=== PATIENT | male | born 1945 | race Caucasian/White ===

== ENCOUNTER 2020-04-01 09:01 | Outpatient (CLI) | payer OTHER, SELFPAY ==
[2020-04-01 09:11] VITALS: BMI 26.4
--- NOTE | 2020-04-01 09:19 | ECG_ITS ---
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 Interpretive Statements NAME OF STUDY: LEXISCAN SESTAMIBI STRESS TEST INDICATION: Chest Pain, PROCEDURE: At the baseline, the EKG revealed normal sinus rhythm with a poor R wave progression. Some nonspecific T wave changes. The baseline blood pressure was 131/85 mm Hg with a heart rate of 70 beats/min. Lexiscan was infused over a period of 20 seconds. A total of 0.4 milligrams of Lexiscan was infused. The stress phase was continued for a total of 5 minutes. Heart rate at the end of the stress phase was 77 with a blood pressure 130/72. The EKG at the peak infusion revealed no significant changes. Sestamibi was injected 20 seconds after the Lexiscan infusion. Blood pressure at the end of the recovery phase was 123/71 with a heart rate of 77 per minute. CONCLUSION: 1. No significant EKG changes with the LexiScan infusion 2. No LexiScan induced chest pain or cardiac arrhythmia 3. Normal blood pressure and heart rate response 4. Sestamibi/sestamibi perfusion scan pending; see separate report. Electronically Signed On 04-05-2020 17:46:44 CDT by Yasir Bobby M.D. [id number]
--- NOTE | 2020-04-01 09:20 | NMCV_ITS ---
NM philip perf SPECT r/s* [id number] Benny Burch Age: 75 Gender: M : 1945 Exam Date: 04/01/2020 10:00 Ordering Phys: Stuart Burns MD Technologist: WOODY Bautista Exam Location: [facility] Indications: CHEST PAIN STRESS TEST Please see separate stress test report in [facility] for full findings IMAGE PROTOCOL Rest/Stress 1 Lexiscan Day Radiopharmaceutical Dose (mCi) Administration Site Administered by Rest: Tc-99m 10.7 IV WOODY Ramos Sestamibi Stress:Tc-99m 32.4 IV WOODY Ramos Sestamibi Rest: 60 Discovery 630 Stress: 30 Discovery 630 0.4mg Lexiscan. Images obtained in supine and prone position. SPECT RESULTS Technical Quality: Good Raw Data Analysis: Normal Image Corrections: Patient motion artifact - motion correction applied to stress and prone Summed Stress Score: 4 Summed Rest Score: 4 Summed Difference Score: 1 PERFUSION FINDINGS Small size perfusion abnormality of mild severity of mid to apical inferior, mid inferolateral and apical anterior and apical lateral raphael on rest images with subtle reversibility in apical lateral wall on supine stress images. There is nearly homogeneous tracer uptake on prone stress images. This is suggestive of attenuation artifact. FUNCTIONAL RESULTS (calculated via Gated SPECT) Stress Image LV EF (%): 74 Stress EDV (mL):89 TID: 1.02 Stress ESV (mL):23 FUNCTIONAL FINDINGS: The left ventricle is normal in size. Transient Ischemia Dilatation of 1. There is normal left ventricular systolic function. The left ventricular ejection fraction is normal with a value of 74%. There is normal left ventricular wall thickening. Normal end-diastolic end-systolic volumes. IMPRESSIONS 1. Myocardial perfusion imaging is normal. Attenuation artifact noted on inferior and lateral raphael. 2. Overall left ventricular systolic function is normal without regional wall motion abnormalities. 3. The left ventricular ejection fraction is normal with a value of 74%. 4. No coronary ischemia based on the study. Charo Hernandez MD (Electronically Signed) Final Date: 01 April 2020 17:00 S
[2020-04-01] MEDS: regadenoson 0.4 Mg/5 ml Syringe IVP (10:43)
[2020-04-01 10:57] VITALS: BP 123/71; PULSE 77
== END 2020-04-01 09:02 | disposition home or self-care (01) ==
LOC: CDL 09:02
PROVIDERS: PCP Family Medicine; Visit Provider Internal Medicine Critical Care Medicine
DX: R06.02 Shortness of breath (principal); R07.9 Chest pain, unspecified
CPT/HCPCS: 78452; 93017; A9500; J2785

== ENCOUNTER 2020-04-02 14:07 | Outpatient (CLI) | payer OTHER, SELFPAY ==
--- NOTE | 2020-04-02 14:30 | CT_ITS ---
WS: [id number] CT CHEST TECHNIQUE: Noncontrast CT of the chest with coronal and sagittal reformatted images. CLINICAL INFORMATION: Shortness of breath COMPARISON: 1 25,018 DLP: 753.[address] scans at [facility] use at least one of these dose optimization techniques: automat ed exposure control; mA and/or kV adjustment per patient size (includes targeted exams where dose is matched to clinical indication); or iterative reconstruction. FINDINGS: Mild chronic emphysematous changes. No acute pulmonary infiltrates. Bibasilar atelectasis. Pleural th ickening in the lung bases. No suspicious pulmonary parenchymal opacities. No mediastinal or hilar lymphadenopathy. Aortic calcification. Coronary calcification. No axillary ly mphadenopathy. Normal visualized thyroid. Adrenal glands are normal. Mild thoracic kyphosis. IMPRESSION: 1. No suspicious pulmonary parenchymal abnormalities. 2. Mild chronic emphysematous changes with slight atelectasis and pleural thickening in the lung bas es. This appears similar to 2018 3. No mediastinal or hilar lymphadenopathy. 4. Vascular calcification including coronary. 5. No other significant findings.
--- NOTE | 2020-04-02 15:00 | USCV_ITS ---
Marcin Benny Age: 75 Gender: M : 1945 Exam Date: 04/02/2020 14:28 Ordering Phys: Stuart Burns MD Technologist: Britni Palmer Exam Location: [facility] [place] Indication: SOB BP: 130 / 70 HR: 90 Rhythm: Sinus Technical Quality: Adequate MEASUREMENTS (Male / Female) Normal Values 2D ECHO LV Diastolic Diameter PLAX 3.1 cm 4.2 - 5.9 / 3.9 - 5.3 cm LV Systolic Diameter PLAX 1.8 cm LV Chamber Size 3.4 cm IVS Diastolic Thickness 1.1 cm 0.6 - 1.0 / 0.6 - 0.9 cm IVS Systolic Thickness 1.6 cm LVPW Diastolic Thickness 1.4 cm 0.6 - 1.0 / 0.6 - 0.9 cm LVPW Systolic Thickness 1.4 cm RV Chamber Size 3.1 cm LVOT Diameter 2.0 cm LV Ejection Fraction 2D Teich 72.8 % LV Ejection Fraction MOD 2C 58.4 % LV Ejection Fraction 2C AL 62.6 % LA Diameter 3.8 cm LA Width 2.7 cm LA Height 4.4 cm RA Width 3.4 cm RA Height 3.7 cm Aorta at Sinotubular Diameter 3.1 cm M-MODE LV Diastolic Diameter MM 4.4 cm 4.2 - 5.9 / 3.9 - 5.3 cm LV Systolic Diameter MM 2.7 cm LV Ejection Fraction MM Teich 70.7 % IVS Diastolic Thickness MM 1.4 cm 0.6 - 1.0 / 0.6 - 0.9 cm IVS Systolic Thickness MM 1.2 cm LVPW Diastolic Thickness MM 1.4 cm 0.6 - 1.0 / 0.6 - 0.9 cm LVPW Systolic Thickness MM 1.6 cm RV Diastolic Diameter MM 1.3 cm Aortic Annulus Diameter 3.6 cm LA Ao Ratio MM 1.1 MV E Point Septal Separation 0.6 cm DOPPLER AV Peak Velocity 184.0 cm/s LVOT Peak Velocity 89.0 cm/s AV Area Cont Eq vti 1.7 cm squared AV Area Cont Eq pk 1.6 cm squared MV Area PHT 5.5 cm squared Mitral E to A Ratio 0.7 MV E' Velocity 10.0 cm/s Mitral E to MV E' Ratio 5.7 Mitral E to LV E' Lateral Ratio 5.8 Mitral E to LV E' Septal Ratio 5.7 TR Peak Velocity 92.8 cm/s TR Peak Gradient 3.4 mmHg TR Mean Velocity 63.5 cm/s TR Mean Gradient 1.9 mmHg TR Velocity Time Integral 20.4 cm TV Peak E Velocity 56.0 cm/s Right Atrial Pressure 3.0 mmHg Pulmonary Artery Systolic Pressu 6.4 mmHg PV Peak Velocity 76.0 cm/s RV Acceleration Time 0.2 s RV Ejection Time 0.3 s RV AcT/ET 0.6 FINDINGS Left Ventricle Normal left ventricular size, systolic function and wall thickness, with no regional wall motion abnormalities. Left ventricular ejection fraction is estimated at 60-65 %. Normal diastolic function. Right Ventricle Normal right ventricular size and systolic function. Right ventricular systolic pressure 6.4 mmHg. Right Atrium Normal right atrial size. Right atrial pressure estimated at 3 mm Hg. Left Atrium Normal left atrial size. Mitral Valve Mildly thickened mitral valve. No mitral valve stenosis. No mitral valve regurgitation. Aortic Valve Structurally normal trileaflet aortic valve. No aortic valve stenosis. Trace aortic valve regurgitation. Tricuspid Valve Structurally normal tricuspid valve. Trace tricuspid valve regurgitation. Pulmonic Valve Pulmonic valve not well visualized. No pulmonary valve stenosis. Trace pulmonary valve regurgitation. Pericardium No pericardial effusion. Normal sized inferior vena cava. Aorta Normal size aortic root and proximal ascending aorta. CONCLUSIONS 1. Normal left ventricular size, systolic function and wall thickness, with no regional wall motion abnormalities. Left ventricular ejection fraction is estimated at 60-65 %. Normal diastolic function. 2. Normal pulmonary artery pressure. 3. No significant valvular abnormality. 4. Normal sized inferior vena cava. Charo Hernandez MD (Electronically Signed) Final Date: 06 April 2020 07:56 S
== END 2020-04-02 14:08 | disposition home or self-care (01) ==
LOC: CT 14:10
PROVIDERS: PCP Family Medicine; Visit Provider Internal Medicine Critical Care Medicine
DX: R06.02 Shortness of breath (principal); I25.10 Atherosclerotic heart disease of native coronary artery without angina pectoris
CPT/HCPCS: 71250; 93306

== ENCOUNTER 2020-04-15 11:00 | Outpatient (CLI) | payer OTHER, SELFPAY | END 2020-04-15 11:01 | disposition home or self-care (01) | LOC: SLEEP 04-16 11:28 | PROVIDERS: PCP Family Medicine; Visit Provider Internal Medicine Critical Care Medicine | DX: J44.9 Chronic obstructive pulmonary disease, unspecified (principal) | CPT/HCPCS: 94762 ==

== ENCOUNTER 2021-02-18 10:35 | Outpatient (CLI) | payer OTHER, SELFPAY ==
--- NOTE | 2021-02-18 10:40 | XR_ITS ---
WS: [id number] PROCEDURE: XR chest 2V* [id number] CLINICAL INFORMATION: COPD COMPARISON: CT chest April 02, 2020 FINDINGS: Heart: Cardiomegaly. Aortic calcification. Lungs: Moderate chronic emphysematous changes. No acute pulmonary infiltrates. Flattening of the verito diaphragms with chronic pleural thickening in the lung bases. Bones: Mild thoracic kyphosis. Osteopenia. XR/XR chest 2V* [id number] IMPRESSION: 1. Moderate chronic emphysematous changes. No acute pulmonary infiltrates. 2. Hyperinflation with flattening of the hemidiaphragms. 3. Chronic pleural thickening/small pleural effusions in the lung bases. This is similar to the CT April 02, 2020
== END 2021-02-18 10:36 | disposition home or self-care (01) ==
LOC: RAD 10:38
PROVIDERS: PCP Family Medicine; Visit Provider Chiropractor
DX: J44.9 Chronic obstructive pulmonary disease, unspecified (principal)
CPT/HCPCS: 71046

== ENCOUNTER 2021-04-22 11:15 | Observation (INO) | payer OTHER, MEDICARE, SELFPAY ==
[2021-04-22] VITALS (10 sets, daily range): BP systolic 138–163; BP diastolic 64–85; PULSE 90–112; RESP 20–28; TEMP 36.8; O2SAT 87–92; BMI 25.7
--- NOTE | 2021-04-22 11:32 | XR_ITS ---
WS: [id number] XR chest 1V portable [id number] REASON FOR EXAM: SOB FINDINGS: Tenting of the hemidiaphragms with blunting of the costophrenic angles, 02/18/2021. There may now be early infiltrative change in both lung bases, more notably on the left were medial l eft hemidiaphragm is obscured and there appears to be increased density behind the heart. No other significant interval change is identified. XR/XR chest 1V portable [id number] IMPRESSION: Concern for early pneumonitis. Follow-up chest x-ray recommended.
--- NOTE | 2021-04-22 11:32 | ECG_ITS ---
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 Measurements Intervals [place] Rate: 102 P: 73 [place]: 210 QRS: -85 QRSD: 93 T: 75 QT: 320 QTc: 419 Interpretive Statements SINUS TACHYCARDIA WITH FIRST DEGREE AV BLOCK LEFT AXIS DEVIATION [QRS AXIS < -30] MODERATE ST DEPRESSION [0.05+ mV ST DEPRESSION] No previous ECG available for comparison Electronically Signed On 04-22-2021 22:08:08 CDT by Charo Hernandez M.D. [id number] f
--- NOTE | 2021-04-22 13:32 | ECG_ITS ---
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 Measurements Intervals [place] Rate: 103 P: 70 NJ: 215 QRS: -86 QRSD: 82 T: 74 QT: 318 QTc: 417 Interpretive Statements SINUS TACHYCARDIA WITH FIRST DEGREE AV BLOCK LEFT AXIS DEVIATION [QRS AXIS < -30] POSSIBLE RIGHT VENTRICULAR CONDUCTION DELAY [RSR (QR) IN V1/V2] No previous ECG available for comparison Electronically Signed On 04-22-2021 22:26:54 CDT by Charo Hernandez M.D. [id number]
--- NOTE | 2021-04-22 13:49 | ED_ITS ---
Documented by User: MARSHALL Mcdaniel 04/22/21 15:13 HPI - SOB/Dyspnea General: Chief Complaint: Shortness of Breath/Dyspnea Stated Complaint: SOB Time Seen by Provider: 04/22/21 13:42 Source: patient Mode of arrival: wheelchair Limitations: no limitations History of Present Illness: HPI Narrative: Patient is a 76-year-old male with a history of COPD, pre-diabetes (treated with Metformin), and hyperlipidemia here for complaints of shortness of breath x 4 days. Patient states he normally wears 2L O2 via [place] continuously. Patient states he thinks he may have gotten a viral illness after visiting family in [place]. He states he did have some mild rhinorrhea. He has having a productive cough. No documented fevers. No chills or body aches. Patient is fully vaccinated for COVID. No chest pain or palpitations. No lower extremity swelling. He states he is getting extremely short of breath even with minimal exertion. MD elicited complaint: shortness of breath Pertinent past history: COPD Onset (ago): day(s) Timing: constant Severity: moderate Exacerbating factors: exertion Relieving factors: rest Known history of: COPD Associated symptoms: Reports chest congestion; Deny abdominal pain, chest pain, fever(s), hemoptysis, lightheadedness, nausea, palpitations, syncope or vomiting Related Data: Home oxygen amount: 2 liters Review of Systems Const: Reports: fatigue; Denies: fever(s), chills or body aches Eyes: Denies: change in vision or blurry vision ENMT: Reports: nasal discharge; Denies: throat pain, odynophagia, nasal congestion, post nasal drip or sinus pain Card: Reports: dyspnea on exertion; Denies: chest pain, palpitations, irregular heart rhythm, edema, swelling of feet/ankles, lightheadedness, syncope or pre-syncope Resp: Reports: dyspnea, productive cough, wheezing and chest congestion; Denies: hemoptysis GI: Denies: abdominal pain, nausea, vomiting or diarrhea Musc: Denies: neck pain or back pain Skin/Breast: Denies: rash Neuro: Denies: headache(s), numbness in extremities, weakness in extremities or sensory changes PFS ED PFSH: Medical History (Updated 04/22/21 @ 15:13 by MARSHALL Mcdaniel) Anxiety Chronic obstructive pulmonary disease Hyperlipidemia Insomnia Type 2 diabetes mellitus Social History Smoking and tobacco status: former smoker Quit status (tobacco): has quit using tobacco Year quit tobacco: 1999 - 1PPD x 10 Years Second hand smoke exposure: No Smoking risk assessment/counseling performed?: Yes Alcohol intake: never Lives independently: Yes Household members: none Marital status: Single service: Yes Current occupational status: employed 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 Current occupational exposures/hazards: No Pets and animals: Yes History of recent travel: No Current gender identity: Male Physical Exam Const: COMMON NORMALS: average body habitus, patient oriented x3, no limitations, healthy appearing, alert and well nourished GENERAL APPEARANCE: cooperative and in distress (appears SOB) ORIENTATION/CONSCIOUSNESS: Yes awake, Yes oriented to person, Yes oriented to place and Yes oriented to time HENMT: COMMON NORMALS: normocephalic and atraumatic HEAD & SCALP: normocephalic and atraumatic Resp: EFFORT & INSPECTION: Yes respiratory distress (mild), Yes labored (mild), No Actively coughing, No retractions and No uses accessory muscles AUSCULTATION: rhonchi and wheezes Cardio: COMMON NORMALS: regular rhythm RATE: tachycardic (mild) RHYTHM: regular rhythm Extremity: COMMON NORMALS: no calf tenderness and no pedal edema Neuro: MARGARET COMA SCALE: document GCS findings [place] coma scale eye opening: Spontaneous Margaret coma scale verbal response: Orientated Margaret coma scale motor response: Obey commands Margaret coma scale total score: 15 COMMON NORMALS: patient oriented x3 SENSORIUM/ORIENTATION: Yes alert, Yes oriented to person, Yes oriented to place and Yes oriented to time Skin: COMMON NORMALS: no rashes or lesions noted GENERAL SKIN EXAM: no rashes or lesions noted Course Consultations: Consultation #1: Dr. Villarreal-recommends PCR COVID and D-dimer for PE rule out; CTA if D-dimer is elevated Vital Signs: Vital signs: Vital Signs Temperature 98.3 F 04/22/21 11:19 Pulse Rate 104 H 04/22/21 14:49 Respiratory Rate 22 H 04/22/21 14:42 Blood Pressure 138/76 04/22/21 14:21 Pulse Oximetry 91 04/22/21 14:42 MDM - SOB/Dyspnea MDM Narrative: Medical decision making narrative: Patient arrives to the ED with a complaint of shortness of breath. He is mildly tachycardic, tachypneic, and hypoxic at 87% on 4L. Patient normally is on 2L oxygen at home for COPD. Labs overall look okay with a normal white count, normal chemistry, normal normal procalcitonin, negative influenza/COVID swabs. CXR concerning for early pneumonitis. Due to increased oxygen requirement we will admit for COPD exacerbation. Spoke to Dr. Mondragon who also evaluated patient and agrees with admission. Spoke to Dr. Villarreal recommends PCR COVID and D-dimer for PE rule out. Lab Data: Labs: Lab Results 04/22/21 04/22/21 04/22/21 13:56 13:56 13:56 WBC 4.9 10^3/uL 10^3/ uL (4.0-10.0) RBC 5.74 10^6/uL H 10 ^6/uL (4.1-5.3) Hgb 17.6 g/dL H g/dL (11.7-16.6) Hct 53.6 % H % (42.0-52.0) MCV 93.4 fl fl (80-94) MCH 30.7 pg pg (28.0-34.0) MCHC 32.8 g/dL g/dL (30.0-36.0) RDW 13.9 % % (12.1-15.1) Plt Count 165 10^3/cmm 10^3 /cmm (130-400) MPV 11.1 fL H fL (7.4-10.4) Neut % (Auto) 66.9 % % Lymph % (Auto) 14.4 % % [place] % (Auto) 18.1 % % Eos % (Auto) 0.0 % % Baso % (Auto) 0.4 % % Neut # (Auto) 3.25 10^3/uL 10^3 /uL (1.8-7.7) Lymph # (Auto) 0.7 10^3/uL L 10^ 3/uL (0.8-4.8) [place] # (Auto) 0.9 10^3/uL 10^3/ uL (0.2-0.9) Eos # (Auto) 0.0 10^3/uL 10^3/ uL (0.0-0.8) Baso # (Auto) 0.0 10^3/uL 10^3/ uL (0.0-0.1) Nucleated RBC % (a uto) 0 % % Nucleated RBCs # 0.0 /100WBC /100W BC Sodium 137 mmol/L mmol/L (136-145) Chloride 98 mmol/L mmol/L (98-107) Carbon Dioxide 24 mmol/L mmol/L (22-29) BUN 15 mg/dL mg/dL (8-23) Creatinine 0.9 mg/dL mg/dL (0.7-1.2) GFR Calculation Not Reportable Glucose 101 mg/dL mg/dL (65-115) Calculated Osmolal ity 285 mOsm/kg mOsm/ kg (285-295) Lactic Acid 1.6 mmol/L mmol/L (0.5-2.2) Calcium 9.0 mg/dL mg/dL (8.5-10.5) Total Bilirubin 0.6 mg/dL mg/dL (0.15-1.2) ALT 15 U/L U/L (0-41) Alkaline Phosphata se 60 IU/L IU/L (40-130) Troponin T Baselin e Total Protein 7.8 g/dL g/dL (6.6-8.7) Albumin 4.2 g/dL g/dL (3.5-5.2) Globulin 3.6 g/dL g/dL (1.3-4.6) Procalcitonin Influenza Type A A g Influenza Type B A g SARS-CoV-2 Ag (Rap id) 04/22/21 04/22/21 04/22/21 13:56 13:56 13:56 WBC RBC Hgb Hct MCV MCH MCHC RDW Plt Count MPV Neut % (Auto) Lymph % (Auto) [place] % (Auto) Eos % (Auto) Baso % (Auto) Neut # (Auto) Lymph # (Auto) [place] # (Auto) Eos # (Auto) Baso # (Auto) Nucleated RBC % (a uto) Nucleated RBCs # Sodium Chloride Carbon Dioxide BUN Creatinine GFR Calculation Glucose Calculated Osmolal ity Lactic Acid Calcium Total Bilirubin ALT Alkaline Phosphata se Troponin T Baselin e 10 ng/L ng/L (0-15) Total Protein Albumin Globulin Procalcitonin 0.22 ng/mL ng/mL (0-0.5) Influenza Type A A g Negative (Negative) Influenza Type B A g Negative (Negative) SARS-CoV-2 Ag (Rap id) 04/22/21 13:56 WBC RBC Hgb Hct MCV MCH MCHC RDW Plt Count MPV Neut % (Auto) Lymph % (Auto) [place] % (Auto) Eos % (Auto) Baso % (Auto) Neut # (Auto) Lymph # (Auto) [place] # (Auto) Eos # (Auto) Baso # (Auto) Nucleated RBC % (a uto) Nucleated RBCs # Sodium Chloride Carbon Dioxide BUN Creatinine GFR Calculation Glucose Calculated Osmolal ity Lactic Acid Calcium Total Bilirubin ALT Alkaline Phosphata se Troponin T Baselin e Total Protein Albumin Globulin Procalcitonin Influenza Type A A g Influenza Type B A g SARS-CoV-2 Ag (Rap id) Negative (Negative) Imaging Data^: CXR: Radiologist's impression: [address] [address] XRay Report Signed Patient: Benny Burch Unit #: [id number] : 1945 Age/Sex: 76 / M ADM Date: 04/22/21 Loc: ER Room/Bed: Attending Dr: Ordering Provider/Ordering MD: Gayle Hernandez Date of Service: 04/22/21 Procedure(s): XR chest 1V portable [id number] Accession Number(s): [id number] Report Number: [id number] WS: [id number] XR chest 1V portable [id number] REASON FOR EXAM: SOB FINDINGS: Tenting of the hemidiaphragms with blunting of the costophrenic angles, 02/18/2021. There may now be early infiltrative change in both lung bases, more notably on the left were medial left hemidiaphragm is obscured and there appears to be increased density behind the heart. No other significant interval change is identified. XR/XR chest 1V portable [id number] IMPRESSION: Concern for early pneumonitis. Follow-up chest x-ray recommended. Dictated By: Salazar Valencia Jr, MD Signed By: Salazar Valencia Jr, MD Signed Date/Time: 04/22/21 1211 DD/ 1206 Discharge Plan Discharge Patient Disposition: Placed in Observation Clinical Impression: Acute exacerbation of chronic obstructive airways disease Condition: Stable Prescriptions: No Action ipratropium-albuterol 0.5 mg-3 mg(2.5 mg base)/3 mL solution for nebulization 3 ml inhalation Q6H PRN (Reason: wheezing) 30 Days Qty: 320 RF: 4 budesonide-formoterol [Symbicort] 160-4.5 mcg/actuation HFA aerosol inhaler 2 puff INHALATION BID RF: 0 simvastatin 80 mg tablet 40 mg PO QPM RF: 0 Spiriva Respimat 2.5 mcg/actuation mist 2 inh INHALATION QAM RF: 0 trazodone 100 mg tablet 100 mg PO BEDTIME PRN (Reason: Sleep) RF: 0 aspirin [Adult Aspirin Regimen] 81 mg tablet,delayed release (DR/EC) 81 mg PO DAILY@11 RF: 0 metformin 1,000 mg Tablet 1,000 mg PO BID RF: 0 ibuprofen 200 mg Tablet 600 mg PO Q6H PRN (Reason: Pain) RF: 0 Ventolin HFA 90 mcg/actuation Hfa Aerosol Inhaler 2 puff INHALATION QID PRN (Reason: Shortness Of Breath) RF: 0 Vitamin D3 125 mcg (5,000 unit) Tablet 125 mcg PO DAILY RF: 0 Referrals: Wanda Graves MD [Primary Care Provider] - Coding Level of Care Code ED Supervisor Backfilling for Chg Fwd Exam Detailed Documented by User: Dl Mondragon MD 04/22/21 15:06 HPI - SOB/Dyspnea General: Chief Complaint: Shortness of Breath/Dyspnea Stated Complaint: SOB Time Seen by Provider: 04/22/21 13:42 PFSH ED PFSH: Medical History (Updated 04/22/21 @ 15:13 by MARSHALL Mcdaniel) Anxiety Chronic obstructive pulmonary disease Hyperlipidemia Insomnia Type 2 diabetes mellitus Social History Smoking and tobacco status: former smoker Quit status (tobacco): has quit using tobacco Year quit tobacco: 2000 - 1PPD x 10 Years Second hand smoke exposure: No Smoking risk assessment/counseling performed?: Yes Alcohol intake: never Lives independently: Yes Household members: none Marital status: Single service: Yes Current occupational status: employed 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 For COPD exacerbation Time: 15:06 Vital Signs: Vital signs: Vital Signs Temperature 98.3 F 04/22/21 11:19 Pulse Rate 104 H 04/22/21 14:49 Respiratory Rate 22 H 04/22/21 14:42 Blood Pressure 138/76 04/22/21 14:21 Pulse Oximetry 91 04/22/21 14:42 MDM - SOB/Dyspnea Lab Data: Labs: Lab Results 04/22/21 04/22/21 04/22/21 13:56 13:56 13:56 WBC 4.9 10^3/uL 10^3/ uL (4.0-10.0) RBC 5.74 10^6/uL H 10 ^6/uL (4.1-5.3) Hgb 17.6 g/dL H g/dL (11.7-16.6) Hct 53.6 % H % (42.0-52.0) MCV 93.4 fl fl (80-94) MCH 30.7 pg pg (28.0-34.0) MCHC 32.8 g/dL g/dL (30.0-36.0) RDW 13.9 % % (12.1-15.1) Plt Count 165 10^3/cmm 10^3 /cmm (130-400) MPV 11.1 fL H fL (7.4-10.4) Neut % (Auto) 66.9 % % Lymph % (Auto) 14.4 % % [place] % (Auto) 18.1 % % Eos % (Auto) 0.0 % % Baso % (Auto) 0.4 % % Neut # (Auto) 3.25 10^3/uL 10^3 /uL (1.8-7.7) Lymph # (Auto) 0.7 10^3/uL L 10^ 3/uL (0.8-4.8) [place] # (Auto) 0.9 10^3/uL 10^3/ uL (0.2-0.9) Eos # (Auto) 0.0 10^3/uL 10^3/ uL (0.0-0.8) Baso # (Auto) 0.0 10^3/uL 10^3/ uL (0.0-0.1) Nucleated RBC % (a uto) 0 % % Nucleated RBCs # 0.0 /100WBC /100W BC Sodium 137 mmol/L mmol/L (136-145) Chloride 98 mmol/L mmol/L (98-107) Carbon Dioxide 24 mmol/L mmol/L (22-29) BUN 15 mg/dL mg/dL (8-23) Creatinine 0.9 mg/dL mg/dL (0.7-1.2) GFR Calculation Not Reportable Glucose 101 mg/dL mg/dL (65-115) Calculated Osmolal ity 285 mOsm/kg mOsm/ kg (285-295) Lactic Acid 1.6 mmol/L mmol/L (0.5-2.2) Calcium 9.0 mg/dL mg/dL (8.5-10.5) Total Bilirubin 0.6 mg/dL mg/dL (0.15-1.2) ALT 15 U/L U/L (0-41) Alkaline Phosphata se 60 IU/L IU/L (40-130) Troponin T Baselin e Total Protein 7.8 g/dL g/dL (6.6-8.7) Albumin 4.2 g/dL g/dL (3.5-5.2) Globulin 3.6 g/dL g/dL (1.3-4.6) Procalcitonin Influenza Type A A g Influenza Type B A g SARS-CoV-2 Ag (Rap id) 04/22/21 04/22/21 04/22/21 13:56 13:56 13:56 WBC RBC Hgb Hct MCV MCH MCHC RDW Plt Count MPV Neut % (Auto) Lymph % (Auto) [place] % (Auto) Eos % (Auto) Baso % (Auto) Neut # (Auto) Lymph # (Auto) [place] # (Auto) Eos # (Auto) Baso # (Auto) Nucleated RBC % (a uto) Nucleated RBCs # Sodium Chloride Carbon Dioxide BUN Creatinine GFR Calculation Glucose Calculated Osmolal ity Lactic Acid Calcium Total Bilirubin ALT Alkaline Phosphata se Troponin T Baselin e 10 ng/L ng/L (0-15) Total Protein Albumin Globulin Procalcitonin 0.22 ng/mL ng/mL (0-0.5) Influenza Type A A g Negative (Negative) Influenza Type B A g Negative (Negative) SARS-CoV-2 Ag (Rap id) 04/22/21 13:56 WBC RBC Hgb Hct MCV MCH MCHC RDW Plt Count MPV Neut % (Auto) Lymph % (Auto) [place] % (Auto) Eos % (Auto) Baso % (Auto) Neut # (Auto) Lymph # (Auto) [place] # (Auto) Eos # (Auto) Baso # (Auto) Nucleated RBC % (a uto) Nucleated RBCs # Sodium Chloride Carbon Dioxide BUN Creatinine GFR Calculation Glucose Calculated Osmolal ity Lactic Acid Calcium Total Bilirubin ALT Alkaline Phosphata se Troponin T Baselin e Total Protein Albumin Globulin Procalcitonin Influenza Type A A g Influenza Type B A g SARS-CoV-2 Ag (Rap id) Negative (Negative) Discharge Plan Discharge Patient Disposition: Placed in Observation Clinical Impression: Acute exacerbation of chronic obstructive airways disease Condition: Stable Prescriptions: No Action ipratropium-albuterol 0.5 mg-3 mg(2.5 mg base)/3 mL solution for nebulization 3 ml inhalation Q6H PRN (Reason: wheezing) 30 Days Qty: 320 RF: 4 budesonide-formoterol [Symbicort] 160-4.5 mcg/actuation HFA aerosol inhaler 2 puff INHALATION BID RF: 0 simvastatin 80 mg tablet 40 mg PO QPM RF: 0 Spiriva Respimat 2.5 mcg/actuation mist 2 inh INHALATION QAM RF: 0 trazodone 100 mg tablet 100 mg PO BEDTIME PRN (Reason: Sleep) RF: 0 aspirin [Adult Aspirin Regimen] 81 mg tablet,delayed release (DR/EC) 81 mg PO DAILY@11 RF: 0 metformin 1,000 mg Tablet 1,000 mg PO BID RF: 0 ibuprofen 200 mg Tablet 600 mg PO Q6H PRN (Reason: Pain) RF: 0 Ventolin HFA 90 mcg/actuation Hfa Aerosol Inhaler 2 puff INHALATION QID PRN (Reason: Shortness Of Breath) RF: 0 Vitamin D3 125 mcg (5,000 unit) Tablet 125 mcg PO DAILY RF: 0 Referrals: Wanda Graves MD [Primary Care Provider] - Coding Level of Care Code ED Supervisor Backfilling for Chg Fwd Exam Detailed
[2021-04-22 14:17] LABS: Basophils % 0.4 %; Hematocrit 53.6 % (42.0-52.0); Hemoglobin 17.6 g/dL (11.7-16.6); Lymphocytes # 0.7 10^3/uL (0.8-4.8); Lymphocytes % 14.4 %; Mean Corpuscular HGB Conc 32.8 g/dL (30.0-36.0); Mean Corpuscular Hemoglobin 30.7 pg (28.0-34.0); Mean Corpuscular Volume 93.4 fl (80-94); Mean Platelet Volume 11.1 fL (7.4-10.4); Monocytes # 0.9 10^3/uL (0.2-0.9); Monocytes % 18.1 %; Neutrophils # 3.25 10^3/uL (1.8-7.7); Neutrophils % 66.9 %; Nucleated Red Blood Cells % 0 %; Platelet Count 165 10^3/cmm (130-400); Red Blood Count 5.74 10^6/uL (4.1-5.3); Red Cell Distribution Width 13.9 % (12.1-15.1); White Blood Count 4.9 10^3/uL (4.0-10.0)
[2021-04-22] MEDS: levofloxacin-dextrose 5 % 500 MG/100 ML PREMIX 100 MG IV (14:18)
[2021-04-22 14:30] LABS: Influenza A by IFA Negative (Negative); Influenza B by IFA Negative (Negative); SARS Covid-2 Antigen Negative (Negative)
--- NOTE | 2021-04-22 14:30 | PC.PHAR ---
pt states he takes care of his own medications-[facility]
[2021-04-22] MEDS: ipratropium-albuterol 3 mL Neb INHALATION (14:42)
[2021-04-22 14:45] LABS: Troponin(5th) Baseline 10 ng/L (0-15)
[2021-04-22 14:46] LABS: Lactic Sepsis W/Reflex 1.6 mmol/L (0.5-2.2)
[2021-04-22 14:48] LABS: Alanine Aminotransferase 15 U/L (0-41); Albumin Level 4.2 g/dL (3.5-5.2); Alkaline Phosphatase 60 IU/L (40-130); Blood Urea Nitrogen 15 mg/dL (8-23); Carbon Dioxide 24 mmol/L (22-29); Chloride 98 mmol/L (98-107); Globulin 3.6 g/dL (1.3-4.6); Glucose 101 mg/dL (65-115); Osmolality Calculated 285 mOsm/kg (285-295); Sodium 137 mmol/L (136-145); Total Bilirubin 0.6 mg/dL (0.15-1.2); Total Protein 7.8 g/dL (6.6-8.7)
[2021-04-22 14:54] LABS: Procalcitonin 0.22 ng/mL (0-0.5)
[2021-04-22 16:03] LABS: Anion Gap 19.4 (5-19); Aspartate Amino Transferase 24 U/L (0-40); Potassium 4.4 mmol/L (3.5-5.1)
[2021-04-22 16:08] LABS: D Dimer 0.94 ug/mIFEU (0-0.59)
--- NOTE | 2021-04-22 16:10 | CT_ITS ---
WS: [id number] CT angio chest PE protcl [id number] REASON FOR EXAM: tachycardia, hypoxia, SOB, elevated d dimer TECHNIQUE: Coronal and sagittal 2-D and MIP reformations. IV CONTRAST ADMINISTERED: 79 mL Omnipaque 350. TOTAL EXAM DLP: 614.[address] scans at [facility] use at least one of these dose optimization techniques: automat ed exposure control; mA and/or kV adjustment per patient size (includes targeted exams where dose is matched to clinical indication); or iterative reconstruction. FINDINGS: Comparison examination unenhanced CT scan of the chest 04/02/2020. There are no pulmonary emboli. Central lobar emphysema. Chronic subpleural interstitial change. Chronic fibrotic scarring in the lower lobes posteriorly. Small areas of atelectasis in the lung bases not seen on the previous examination. Chronicity unknown . No definite acute infiltrates to suggest pneumonitis. No lung mass. There is bilateral hilar adenopathy more prominent on the right. Largest group of nodes in the right hilum measures 3 x 1.4 cm and the smaller group 1.5 x 2.0 cm. In the left hilum largest group is 1.5 x 1.5 cm. Without contrast on the previous examination it is difficult to determine if these nodes we re present previously. Multiple small nodes are present in the mediastinum. These nodes as best as can be ascertained are so mewhat larger than the visualized nodes on the previous examination. Degenerative changes in the thoracic spine. CT/CT angio chest PE protcl [id number] IMPRESSION: No pulmonary emboli. Chronic lung parenchymal changes with small areas of atelectasis in both lung b ases of unknown chronicity. No definite acute pulmonary infiltrate. Adenopathy of uncertain chronicity. Concern for active process in that the curr ent mediastinal nodes appear larger than on the previous examination. The volum e of the adenopathy in the right hilum is of concern. Differential for the finding is extensive and would include neoplasm. Need to c orrelate clinically.
[2021-04-22] MEDS: iohexol 350 mg/mL 100 mL Btl IV (16:27)
[2021-04-22] MEDS: acetaminophen 500 mg Tablet 1000 MG PO (16:32)
--- NOTE | 2021-04-22 17:14 | P.HP_ITS ---
Providers/Chief Complaint Admitting Physician: Tyrell Villarreal Primary Care Provider: Wanda Graves MD Chief Complaint: SOB History of Present Illness Very pleasant 76-year-old gentleman with history of COPD, following with pulmonology, for the past 4 days has been feeling unwell, very short of breath, with significant dyspnea on exertion limiting activity, requiring more oxygen than usual. Normally needing 2 L by nasal cannula. Feels he may have a viral illness due to recent exposure to his niece and her daughter who are ill with a viral infection. On presentation to ER required 4-5 L to maintain saturation 89-90%. Reports productive cough with yellow sputum. Denies chest pain or pressure. Is having perhaps some orthopnea. No peripheral edema. Denies past history of IN or CAD/CHF. Has completed course of vaccination for COVID-19. Recent travel to [place] and back. Review of Systems Const: Denies: fever(s), chills, body aches or malaise Eyes: Denies: change in vision or eye redness ENMT: Denies: throat pain, oral sores or ear or mastoid pain Card: Reports: dyspnea on exertion; Denies: chest pain, edema, pre-syncope or orthopnea Resp: Reports: dyspnea, productive cough and change in phlegm color; Denies: hemoptysis GI: Denies: abdominal pain, nausea, vomiting, diarrhea, constipation, hematochezia or melena : Denies: flank pain, difficulty urinating, urinary frequency or hematuria Musc: Denies: back pain, joint swelling or joint redness Skin/Breast: Denies: rash, sores or new lesions Neuro: Denies: headache(s), numbness in extremities, weakness in extremities, dizziness, confusion or seizure-like activity Endo: Denies: polyuria or polydipsia True/Lymph: Denies: easy bleeding or purpura All/Imm: Denies: urticaria, throat swelling or tongue swelling Medications/Allergies Home Medications Medication Instructions Recorded Confirmed Last Taken Type aspirin 81 mg tablet,delayed 81 mg PO DAILY@11 03/06/20 04/22/21 04/20/21 History release budesonide-formoterol HFA 160 2 puff INHALATION BID 03/06/20 04/22/21 04/20/21 History mcg-4.5 mcg/actuation aerosol inhaler simvastatin 80 mg tablet 40 mg PO QPM tab 03/06/20 04/22/21 04/20/21 History tiotropium bromide 2.5 2 inh INHALATION QAM 03/06/20 04/22/21 04/20/21 History mcg/actuation mist for inhalation trazodone 100 mg tablet 100 mg PO BEDTIME PRN 03/06/20 04/22/21 Unknown History ipratropium 0.5 mg-albuterol 3 mg 3 ml INHALATION Q6H PRN 30 Days 08/05/20 04/22/21 Unknown Rx (2.5 mg base)/3 mL nebulization #320 ml soln albuterol sulfate [Ventolin HFA] 2 puff INHALATION QID PRN 04/22/21 04/22/21 Unknown History cholecalciferol (vitamin D3) 125 mcg PO DAILY 04/22/21 04/22/21 Unknown History [Vitamin D3] ibuprofen 600 mg PO Q6H PRN 04/22/21 04/22/21 04/21/21 History metformin 1,000 mg PO BID 04/22/21 04/22/21 04/20/21 History Allergies Allergy/AdvReac Type Severity Reaction Status Date / Time No Known Allergies Allergy Verified 04/22/21 14:30 PFSH Acute PFSH: Medical History (Updated 04/22/21 @ 17:29 by Tyrell Villarreal MD) Anxiety Chronic obstructive pulmonary disease Hyperlipidemia Insomnia Pulmonary hypertension Secondary polycythemia Type 2 diabetes mellitus Surgical History (Updated 04/22/21 @ 17:16 by Tyrell Villarreal MD) Hx of tonsillectomy Family History Other Healthy adult Social History (Updated 04/22/21 @ 17:18 by Tyrell Villarreal MD) Smoking and tobacco status: former smoker Quit status (tobacco): has quit using tobacco Year quit tobacco: 1999 - 1PPD x 10 Years Second hand smoke exposure: No Smoking risk assessment/counseling performed?: Yes Alcohol intake: never Substance/Drug Use: never Lives independently: Yes Household members: none Marital status: Number of children: 2 service: Yes Current occupational status: employed 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 Pets and animals: Yes History of recent travel: No Current gender identity: Male Vitals/I&O/Wt Last Vital Signs Temp 98.3 F 04/22/21 11:19 Pulse 104 H 04/22/21 16:33 Resp 27 H 04/22/21 16:33 BP 159/85 04/22/21 16:33 Pulse Ox 91 04/22/21 16:33 Weight last 48 hrs Weight 86.183 kg Physical Exam Const: COMMON NORMALS: no acute distress and patient oriented x3 HENMT: COMMON NORMALS: oropharynx normal Neck/C-Spine: COMMON NORMALS: no JVD Resp: COMMON NORMALS: normal respiratory effort and clear to auscultation bilaterally AUSCULTATION: rhonchi and diminished lung sounds Cardio: COMMON NORMALS: no JVD, regular rhythm, S1 normal heart sound present, S2 normal heart sound present and No murmurs present (Cardio) RHYTHM: regular rhythm HEART SOUNDS: S1 normal heart sound present and S2 normal heart sound present GI: COMMON NORMALS: Normal to inspection, nondistended, normoactive bowel sounds present, Soft to palpation and non-tender PALPATION: Yes Soft to palpation Extremity: COMMON NORMALS: no joint enlargement and no pedal edema Neuro: COMMON NORMALS: patient oriented x3 and moves all extremities Skin: COMMON NORMALS: no rashes or lesions noted GENERAL SKIN EXAM: no rashes or lesions noted Data : 04/22/21 13:56 04/22/21 13:56 A&P Assessment and plan (1) Acute exacerbation of chronic obstructive airways disease: Severe exacerbation of COPD, with new worse hypoxia compared to his usual 2 L nasal cannula, requiring 4-5 L at presentation. With significant dyspnea on exertion, limiting activity, with significantly diminished air entry on exam, rhonchi. Coughing up yellow phlegm. Rapid COVID-19 negative. He had complete vaccinations. We are assessing additionally COVID-19 PCR. We will obtain sputum cultures, urine bacterial antigens. Discussed with him treatment including IV steroids, antibiotic, inhalers. Oxygen support. CTA results of this, as well, no PE noted, some concerning volume of hilar lymphadenopathy. Status: Acute (2) Hypoxia: Acute on chronic respiratory failure with hypoxia. Worse hypoxia than usual. Normally on 2 L oxygen nasal cannula. Status: Acute (3) Hilar lymphadenopathy: Somewhat concerning volume of lymphadenopathy in right hilum, with differential including possible malignancy, will need follow-up for resolution after acute illness resolves, or consideration of additional work-up. Also noted mediastinal lymphadenopathy appearing larger than prior examination. Status: Acute (4) Pulmonary hypertension: Noted history of suspected pulmonary hypertension. Status: Acute (5) Secondary polycythemia: JAK2 mutation negative Status: Acute Additional A&P Information DM2 HLD Anxiety Attestations Medical Necessity Statement*: Place in observation for assessment of management of severe exacerbation of COPD, worse hypoxia than usual requiring more oxygen. Coding Level of Care Code Acute Administrative Support Clerk for Fadi Fwd Diagnoses Acute exacerbation of chronic obstructive airways disease J44.1 Hypoxia R09.02 Hilar lymphadenopathy R59.0 Pulmonary hypertension I27.20 Secondary polycythemia D75.1
[2021-04-22 17:41] LABS: Troponin 5 2HR 8.86 ng/L (0-15)
[2021-04-22 17:46] LABS: Troponin 5 2HR Delta -1.14 ABS# (0-10)
[2021-04-22] MEDS: cefTRIAXone 2,000 MG in sodium chloride 0.9% (plus) 50 ML 100 MG IV (18:21)
[2021-04-22] MEDS: atorvastatin 40 mg Tablet 20 MG PO (18:25)
[2021-04-22] MEDS: heparin 5,000 unit/mL INJ 1 mL 5000 UNIT SUBCUT (18:26)
[2021-04-22 20:23] LABS: Troponin 5 6HR 9.41 ng/L (0-15)
[2021-04-22 20:27] LABS: Troponin 5 6HR Delta -0.59 ng/L (0-12)
--- NOTE | 2021-04-22 20:55 | PC.NURSE ---
i reported high pulse 112 and high reps 20 to nurse
[2021-04-22] MEDS: albuterol 8 gm MDI 2 PUFF INHALATION (22:05)
[2021-04-22] MEDS: trazodone 100 mg Tablet PO (23:55)
[2021-04-23] VITALS (11 sets, daily range): BP systolic 124–148; BP diastolic 68–80; PULSE 87–101; RESP 17–24; TEMP 36.4–36.9; O2SAT 90–98
[2021-04-23] MEDS: heparin 5,000 unit/mL INJ 1 mL 5000 UNIT SUBCUT ×3 (02:23→18:05)
[2021-04-23 05:58] LABS: Basophils % 0.3 %; Hematocrit 51.2 % (42.0-52.0); Lymphocytes # 0.4 10^3/uL (0.8-4.8); Lymphocytes % 10.9 %; Mean Corpuscular HGB Conc 33.2 g/dL (30.0-36.0); Mean Corpuscular Hemoglobin 31.3 pg (28.0-34.0); Mean Corpuscular Volume 94.3 fl (80-94); Mean Platelet Volume 9.7 fL (7.4-10.4); Monocytes # 0.1 10^3/uL (0.2-0.9); Monocytes % 2.8 %; Neutrophils # 3.37 10^3/uL (1.8-7.7); Neutrophils % 85.7 %; Nucleated Red Blood Cells % 0 %; Platelet Count 180 10^3/cmm (130-400); Red Blood Count 5.43 10^6/uL (4.1-5.3); Red Cell Distribution Width 13.5 % (12.1-15.1); White Blood Count 3.9 10^3/uL (4.0-10.0)
[2021-04-23 06:16] LABS: Slide Review Slide Review Perform
[2021-04-23 06:20] LABS: Anion Gap 17.4 (5-19); Blood Urea Nitrogen 17 mg/dL (8-23); Calcium 8.7 mg/dL (8.5-10.5); Carbon Dioxide 23 mmol/L (22-29); Chloride 102 mmol/L (98-107); Glucose 142 mg/dL (65-115); Osmolality Calculated 290 mOsm/kg (285-295); Potassium 4.4 mmol/L (3.5-5.1); Sodium 138 mmol/L (136-145)
[2021-04-23] MEDS: albuterol 8 gm MDI 2 PUFF INHALATION ×4 (08:38→20:30)
[2021-04-23] MEDS: pantoprazole DR 40 mg Tablet PO (10:05)
[2021-04-23] MEDS: acetaminophen 325 mg Tablet 650 MG PO (10:05)
[2021-04-23] MEDS: aspirin 81 mg EC Tablet PO (13:00)
[2021-04-23 14:41] LABS: Coronavirus Test Green County Not Detected
[2021-04-23] MEDS: atorvastatin 40 mg Tablet 20 MG PO (18:06)
[2021-04-23] MEDS: cefTRIAXone 2,000 MG in sodium chloride 0.9% (plus) 50 ML 100 MG IV (18:24)
--- NOTE | 2021-04-23 20:16 | PM.PN ---
Subjective Subjective: Interval history: Doing little bit better today. Still coughing. Has not provided a sputum sample. Vitals/I&O/Wt Last Vital Signs Temp 97.9 F 04/23/21 15:17 Pulse 98 04/23/21 15:55 Resp 24 H 04/23/21 15:53 BP 127/80 04/23/21 15:17 Pulse Ox 91 04/23/21 15:53 04/23/21 04/23/21 04/23/21 06:59 14:59 22:59 Intake Total 120 / 490 480 / 480 670 / 1150 Output Total 400 / 1140 220 / 220 Balance -280 / -650 260 / 260 670 / 930 Weight last 48 hrs Weight 86.183 kg Weight 86.183 kg Weight 86.183 kg Physical Exam Const: COMMON NORMALS: no acute distress and patient oriented x3 HENMT: COMMON NORMALS: oropharynx normal Neck/C-Spine: COMMON NORMALS: no JVD Resp: COMMON NORMALS: normal respiratory effort and clear to auscultation bilaterally AUSCULTATION: clear to auscultation bilaterally, crackles Laterality: left (Lower), no rhonchi and diminished lung sounds (Better air entry) Cardio: COMMON NORMALS: no JVD, regular rhythm, S1 normal heart sound present, S2 normal heart sound present and No murmurs present (Cardio) RHYTHM: regular rhythm HEART SOUNDS: S1 normal heart sound present and S2 normal heart sound present GI: COMMON NORMALS: Normal to inspection, nondistended, normoactive bowel sounds present, Soft to palpation and non-tender PALPATION: Yes Soft to palpation Extremity: COMMON NORMALS: no joint enlargement and no pedal edema Neuro: COMMON NORMALS: patient oriented x3 and moves all extremities Skin: COMMON NORMALS: no rashes or lesions noted GENERAL SKIN EXAM: no rashes or lesions noted Data : 04/23/21 05:20 04/23/21 05:20 Micro: Microbiology 04/22/21 19:00 Bacterial Antigens - Final Urine,Voided 04/22/21 19:00 Legionella Urinary Antigen - Final Urine,Voided A&P Assessment and plan (1) Acute exacerbation of chronic obstructive airways disease: Still with acute hypoxic respiratory failure, still coughing, requiring 6 L of oxygen by nasal cannula. Today air entry is better, but now with crackles in left lower lobe. Will repeat chest x-ray. Continue Rocephin, continue Solu-Medrol. Has not provided sputum sample. Bacterial antigens including Legionella negative. COVID-19 PCR negative. Severe exacerbation of COPD, with new worse hypoxia compared to his usual 2 L nasal cannula, requiring 4-5 L at presentation. With significant dyspnea on exertion, limiting activity, with significantly diminished air entry on exam, rhonchi. Coughing up yellow phlegm. CTA results of this, as well, no PE noted, some concerning volume of hilar lymphadenopathy. Status: Acute (2) Hypoxia: Acute on chronic respiratory failure with hypoxia. Worse hypoxia than usual. Normally on 2 L oxygen nasal cannula. Status: Acute (3) Hilar lymphadenopathy: Somewhat concerning volume of lymphadenopathy in right hilum, with differential including possible malignancy, will need follow-up for resolution after acute illness resolves, or consideration of additional work-up. Also noted mediastinal lymphadenopathy appearing larger than prior examination. Status: Acute (4) Pulmonary hypertension: Noted history of suspected pulmonary hypertension. Status: Acute (5) Secondary polycythemia: JAK2 mutation negative Status: Acute Additional A&P Information DM2 HLD Anxiety Attestations Medical Necessity Statement*: Continue admission for assessment management of hypoxic respiratory failure, severe COPD exacerbation. Assess for possible developing pneumonia. Coding Level of Care Code Acute Enrollment Management Manager for cesar Abad Diagnoses Acute exacerbation of chronic obstructive airways disease J44.1 Hypoxia R09.02 Hilar lymphadenopathy R59.0 Pulmonary hypertension I27.20 Secondary polycythemia D75.1
[2021-04-24] VITALS: BP 126/71; PULSE 95; RESP 19; TEMP 37; O2SAT 91
[2021-04-24] MEDS: trazodone 100 mg Tablet PO (00:35)
[2021-04-24] MEDS: heparin 5,000 unit/mL INJ 1 mL 5000 UNIT SUBCUT ×2 (00:55→09:31)
[2021-04-24 04:00] VITALS: BP 113/72; PULSE 83; RESP 17; TEMP 36.4; O2SAT 90
--- NOTE | 2021-04-24 06:00 | XR_ITS ---
WS: [id number] XR chest 1V portable [id number] REASON FOR EXAM: Hypoxia FINDINGS: Chest is unchanged compared to the previous examination of 04/22/2021. The hemidiaphragmatic contours with tenting. There are minimal linear opacities in the lung bases, mo st notably on the left possibly scarring or atelectasis. No definite acute pulmonary parenchymal or pleural abnormality. There is flattening of XR/XR chest 1V portable [id number] IMPRESSION: Stable chest with no definite acute abnormality.
[2021-04-24 06:19] LABS: Basophils % 0.2 %; Hematocrit 47.3 % (42.0-52.0); Lymphocytes % 6.9 %; Mean Corpuscular HGB Conc 33.8 g/dL (30.0-36.0); Mean Corpuscular Hemoglobin 30.8 pg (28.0-34.0); Mean Platelet Volume 10.1 fL (7.4-10.4); Monocytes # 0.6 10^3/uL (0.2-0.9); Monocytes % 4.1 %; Neutrophils # 12.44 10^3/uL (1.8-7.7); Neutrophils % 88.4 %; Nucleated Red Blood Cells % 0 %; Platelet Count 199 10^3/cmm (130-400); Red Cell Distribution Width 13.4 % (12.1-15.1); White Blood Count 14.1 10^3/uL (4.0-10.0)
[2021-04-24 06:44] LABS: Anion Gap 14.3 (5-19); Blood Urea Nitrogen 22 mg/dL (8-23); Calcium 8.5 mg/dL (8.5-10.5); Carbon Dioxide 24 mmol/L (22-29); Chloride 102 mmol/L (98-107); Glucose 136 mg/dL (65-115); Osmolality Calculated 287 mOsm/kg (285-295); Potassium 4.3 mmol/L (3.5-5.1); Sodium 136 mmol/L (136-145)
[2021-04-24] MEDS: pantoprazole DR 40 mg Tablet PO (07:35)
[2021-04-24 07:39] VITALS: BP 125/74; PULSE 87; RESP 18; TEMP 36.4; O2SAT 91
[2021-04-24 08:59] VITALS: PULSE 95; RESP 20; O2SAT 92
[2021-04-24] MEDS: albuterol 8 gm MDI 2 PUFF INHALATION (08:59)
[2021-04-24] MEDS: levofloxacin-dextrose 5 % 750 MG/150 ML PREMIX 100 MG IV (09:27)
[2021-04-24] MEDS: aspirin 81 mg EC Tablet PO (10:16)
[2021-04-24] MEDS: saline nasal spray 44mL Btl 1 SPRAY NASAL (10:16)
--- NOTE | 2021-04-24 11:18 | PC.CHAP ---
Pastoral Care Encounter/Spiritual Assessment Type of Contact [] Declined credit controller visit [] Patient/Family/Request visit [] Outpatient visit [] Follow-up visit [] Physician referral [] Code/Alert [x] Routine visit [] Staff referral [] Actively dying [] Patient sleeping [] Family support [] [] Out of room [] Palliative care [] [x] Receiving care in room [] Pre-surgical visit [] Trauma [] Long length of stay [] ICU visit [] Other: Relational/Emotional Strength [x] Patient feels connected with others/family/visitors/staff [] Distress [] Loneliness/isolation [] Abandonment Spirituality of Patient [x] Person of Qiana [] Attends Christian of their [place] [x] Believes in Prayer [] Reads Bible or Taoism materials [] There are Spiritual issues to be addressed Plastic Molder Interventions [x] Prayer [x] Active listening [x] Non-anxious presence [x] Spiritual/emotional support [] Crisis/trauma care [x] Spiritual counseling [] Bereavement support [] Provided bereavement packet [] Provided Bible/devotional materials [] Provided toy/stuffed animal, coloring book to patient or family member [] Provided Communion [] Anointing/[place] [] Salvation [x] Completed spiritual assessment [] Other: Impact on Illness or Injury [] Angry [] Fearful [] Anxious [] Often cries [] Exhaustion [] Unable to work [] Unable to attend mu-ism [] Unable to walk/stand [] Unable to read [] Unable to drive [] Unable to eat/drink [] Unable to sleep [] Unable to be with family [] Patient intubated [] Other: Summary has COPD contacted an infection waiting tests and a doctors report before he can home Time spent with patient 10 mins
[2021-04-24 12:00] VITALS: BP 119/70; PULSE 86; RESP 18; TEMP 36.6; O2SAT 90
[2021-04-24 12:08] VITALS: O2SAT 85; O2SAT 91
--- NOTE | 2021-04-24 12:30 | PM.DCS ---
Discharge Providers Date of Admission: 04/22/21 15:11 Date of Discharge: April 24, 2021 Attending Provider at Admission: Tyrell Villarreal Attending Provider at Discharge: Tyrell Villarreal Primary Care Provider: Wanda Graves MD Diagnoses at Discharge Discharge Diagnosis (1) Acute exacerbation of chronic obstructive airways disease: Status: Acute (2) Hypoxia: Status: Acute (3) Hilar lymphadenopathy: Status: Acute (4) Pulmonary hypertension: Status: Acute (5) Secondary polycythemia: Status: Acute Reason for Visit Reason for Visit: SOB Hospital Course Hospital Course Pleasant 76-year-old gentleman, former smoker with history of COPD, following with pulmonology, pulmonary hypertension, at home usually on 2 L oxygen by nasal cannula, secondary polycythemia, JAK2 negative, was feeling unwell for about 4 days preceding hospitalization with shortness of breath, cough, after exposure to family who were ill with viral-like infection. On presentation he was in hypoxic acute on chronic respiratory failure, saturating 8990% despite increase in oxygen to 4-5 L. Chest x-ray was not suggestive of acute pneumonia. CT angiogram chest without PE. With incidentally noted adenopathy of uncertain chronicity, concern for active process in the current mediastinal nodes appearing larger than on prior examination. Volume of adenopathy in the right hilum of concern. Differential finding would include neoplasm. COVID-19 PCR was assessed and was negative. He was treated initially with Rocephin, with IV steroids, inhalers, oxygen support, and other supportive care for severe COPD exacerbation, subsequently on chest x-ray with atelectasis versus possible pneumonia with some persistence of hypoxia and leukocytosis antibiotic was transitioned to Levaquin. Today he reports he is feeling much better and requests to be discharged. He is now producing some phlegm. On home oxygen evaluation he is requiring 4 L at rest and 6 L with exertion. Discussed with him completing prednisone taper, complete antibiotic course, and following up with primary provider and pulmonology. He is aware to seek medical attention immediately in case of any worsening of hypoxia or concerning symptoms. Please follow-up lymphadenopathy for resolution after acute illness. Physical Exam Const: COMMON NORMALS: no acute distress and patient oriented x3 OTHER: He states he is feeling much better, has gotten up, ambulated in the room. Intent on leaving the hospital today 1 where another. HENMT: COMMON NORMALS: oropharynx normal Neck/C-Spine: COMMON NORMALS: no JVD Resp: COMMON NORMALS: normal respiratory effort and clear to auscultation bilaterally AUSCULTATION: clear to auscultation bilaterally, crackles Laterality: left (Lower), no rhonchi, wheezes (mild L lower lung) and diminished lung sounds (mildly more diminished today) Cardio: COMMON NORMALS: no JVD, regular rhythm, S1 normal heart sound present, S2 normal heart sound present and No murmurs present (Cardio) RHYTHM: regular rhythm HEART SOUNDS: S1 normal heart sound present and S2 normal heart sound present GI: COMMON NORMALS: Normal to inspection, nondistended, normoactive bowel sounds present, Soft to palpation and non-tender PALPATION: Yes Soft to palpation Extremity: COMMON NORMALS: no joint enlargement and no pedal edema Neuro: COMMON NORMALS: patient oriented x3 and moves all extremities Skin: COMMON NORMALS: no rashes or lesions noted GENERAL SKIN EXAM: no rashes or lesions noted Discharge Data Data Completed and Pending: Completed Studies During Hospitalization Category Date Time Status CT angio chest PE protcl [id number] Urge nt Cat Scan 04/22/21 16:10 Completed XR chest 1V charlette ble [id number] Routine Exams 04/24/21 06:00 Completed XR chest 1V charlette ble [id number] Urgent Exams 04/22/21 11:32 Completed Pending at discharge Category Date Time Status Basic Metabolic P kayla AM LABS Lab 04/25/21 04:00 Ordered Complete Blood Co unt w/Auto AM LABS Lab 04/25/21 04:00 Ordered Sputum Culture an d Gram Stain [facility] ne Lab 04/22/21 17:44 Uncollected Labs from last 24 hours 04/24/21 04/24/21 04/22/21 05:42 05:42 16:49 WBC 14.1 H RBC 5.20 Hgb 16.0 Hct 47.3 MCV 91.0 MCH 30.8 MCHC 33.8 RDW 13.4 Plt Count 199 MPV 10.1 Neut % (Auto) 88.4 Lymph % (Auto) 6.9 [place] % (Auto) 4.1 Eos % (Auto) 0.0 Baso % (Auto) 0.2 Neut # (Auto) 12.44 H Lymph # (Auto) 1.0 [place] # (Auto) 0.6 Eos # (Auto) 0.0 Baso # (Auto) 0.0 Nucleated RBC % (a uto) 0 Nucleated RBCs # 0.0 Sodium 136 Potassium 4.3 Chloride 102 Carbon Dioxide 24 Anion Gap 14.3 BUN 22 Creatinine 0.7 GFR Calculation Not Reportable Glucose 136 H Calculated Osmolal ity 287 Calcium 8.5 Nasal/Oral COVID-1 9 PCR Not detected Vitals: Last Vital Signs Temp 97.5 F L 04/24/21 07:39 Pulse 95 04/24/21 08:59 Resp 20 H 04/24/21 08:59 BP 125/74 04/24/21 07:39 Pulse Ox 85 L 04/24/21 12:08 Discharge Plan Discharge Patient Disposition: Home Condition: Stable Prescriptions: New prednisone 20 mg tablet See Rx Instructions .ROUTE .COMPLEX Qty: 20 RF: 0 levofloxacin 750 mg tablet 750 mg PO DAILY 6 Days Qty: 6 RF: 0 Continued ipratropium-albuterol 0.5 mg-3 mg(2.5 mg base)/3 mL solution for nebulization 3 ml inhalation Q6H PRN (Reason: wheezing) 30 Days Qty: 320 RF: 4 budesonide-formoterol [Symbicort] 160-4.5 mcg/actuation HFA aerosol inhaler 2 puff INHALATION BID RF: 0 simvastatin 80 mg tablet 40 mg PO QPM RF: 0 Spiriva Respimat 2.5 mcg/actuation mist 2 inh INHALATION QAM RF: 0 trazodone 100 mg tablet 100 mg PO BEDTIME PRN (Reason: Sleep) RF: 0 aspirin [Adult Aspirin Regimen] 81 mg tablet,delayed release (DR/EC) 81 mg PO DAILY@11 RF: 0 metformin 1,000 mg Tablet 1,000 mg PO BID RF: 0 ibuprofen 200 mg Tablet 600 mg PO Q6H PRN (Reason: Pain) RF: 0 Ventolin HFA 90 mcg/actuation Hfa Aerosol Inhaler 2 puff INHALATION QID PRN (Reason: Shortness Of Breath) RF: 0 Vitamin D3 125 mcg (5,000 unit) Tablet 125 mcg PO DAILY RF: 0 Discharge Orders: Discharge Order (Routine); Ordered 04/24/21 Ordered By: Tyrell Villarreal Other Ambulatory Orders: DME: Oxygen (Order) Location: None Selected Ordered By: Tyrell Villarreal Referrals: Wanda Graves MD [Primary Care Provider] - 4-7 days Stuart Burns MD [Physician] - 2 weeks Discharge Diet: Cardiac and Diabetic Discharge Activity: Increase activity as tolerated and Oxygen as instructed Patient Instructions: Prednisone (By mouth), Levofloxacin (By mouth), COPD (Chronic Obstructive Pulmonary Disease) (GEN) Activity Restrictions/Additional Instructions: Please follow-up with your primary doctor as well as cell support operator after resolution of COPD exacerbation and possible pneumonia. Please complete antibiotic course and steroid taper. In case of any worsening symptoms, worsening shortness of breath, or oxygen levels below 88% at rest despite increasing oxygen flow rate, or other concerning symptoms, seek medical attention without delay. Please follow-up and discuss follow-up imaging with your primary doctor and cell support operator with regards to lymph nodes which are seen enlarged in your chest, as well as in the right lung hilum, which if do not resolve after acute infection may be concerning and may need additional investigation. Discharge Attestations Time Spent in Discharge Care*: greater than 30 min Quality Metrics Clinical Quality Measures During this hospital stay, did patient experience: None Coding Level of Care Code Acute Chg FW DC note Diagnoses Acute exacerbation of chronic obstructive airways disease J44.1 Hypoxia R09.02 Hilar lymphadenopathy R59.0 Pulmonary hypertension I27.20 Secondary polycythemia D75.1
--- NOTE | 2021-04-25 11:05 | PC.RESP ---
PULMONARY REHAB INFORMATION SENT TO PATIENT.
--- NOTE | 2021-04-25 15:27 | PC.SOCIAL ---
discharge follow up call, spoke with patient. patient reports he is feeling great. patient is taking levofloxacin and prednisone as directed. he is using his oxygen at 5L NC with sats between 90-94%. Patient is aware of follow up appointments. instructed patient to call his pcp office or go to the ED if sats became less than 88% on the 5L of oxygen. patient verbalizes understanding. patient denies any concerns.
== END 2021-04-24 14:44 | disposition home or self-care (01) ==
LOC: ER 16:05 → MEDSURG 16:55
PROVIDERS: Admitting Provider Internal Medicine; Emergency Provider Physician Assistant; PCP Family Medicine; Visit Provider Internal Medicine
DX: J44.1 Chronic obstructive pulmonary disease with (acute) exacerbation (principal); R09.02 Hypoxemia; R59.0 Localized enlarged lymph nodes; I27.20 Pulmonary hypertension, unspecified; D75.1 Secondary polycythemia; E78.5 Hyperlipidemia, unspecified; F41.9 Anxiety disorder, unspecified; E11.9 Type 2 diabetes mellitus without complications; Z87.891 Personal history of nicotine dependence; Z99.81 Dependence on supplemental oxygen; Z79.82 Long term (current) use of aspirin; Z79.84 Long term (current) use of oral hypoglycemic drugs
CPT/HCPCS: 36415; 71045; 71275; 80048; 80053; 83605; 84145; 84484; 85025; 85378; 86403; 87426; 87449; 87635; 87804; 93005; 94640; 96365; 96372; 96375; 99285; G0378; J0696; J1644; J1956; J2930; J3535; Q9967

== ENCOUNTER 2022-01-23 09:41 | Outpatient (CLI) | payer OTHER, SELFPAY ==
--- NOTE | 2022-01-23 09:49 | CT_ITS ---
WS: [id number] CT CHEST TECHNIQUE: Noncontrast CT of the chest with coronal and sagittal reformatted images. CLINICAL INFORMATION: Assess resolution of lymphadenopathy COMPARISON: CT chest November 17, [address] May 17, 2021 DLP: 839.[address] scans at [facility] use at least one of these dose optimization techniques: automated e xposure control; mA and/or kV adjustment per patient size (includes targeted exams where dose is matc hed to clinical indication); or iterative reconstruction. FINDINGS: Moderate chronic emphysematous changes. No acute pulmonary infiltrates. Chronic pleural thi ckening in the lung bases with nodularity LEFT greater than RIGHT. No suspicious mediastinal or hilar lymphadenopathy today. Lymph nodes have decreased in size compared to the PE study April 22, 2021. Normal caliber thoracic aorta. Coronary calcification. Adrenal glands are normal. Sludge in the gallbladder. Small esophageal hiatal hernia. Fatty atrophy o f the pancreas. Small cortical low-attenuation lesion upper pole LEFT kidney measuring 10 mm indeterm inate. Normal caliber upper abdominal aorta. No axillary lymphadenopathy. Mild thoracic kyphosis. Moderate spondylitic changes thoracic spine with anterior hypertrophic changes. CT/CT chest wo con [id number] IMPRESSION: 1. No evidence of progressed or suspicious mediastinal or hilar lymphadenopath y today. 2. Pleural thickening in the lung bases LEFT greater than RIGHT with nodularit y unchanged 3. Moderate chronic emphysematous changes. 4. Sludge in the gallbladder. 5. Low-attenuation cortical lesion upper pole LEFT kidney measuring 10 mm not definitely cystic. This can be followed up with ultrasound or contrast-enhanced CT abdomen pelvis in 6 months.
== END 2022-01-23 09:42 | disposition home or self-care (01) ==
LOC: RAD 09:42
PROVIDERS: PCP Family Medicine; Visit Provider Internal Medicine Critical Care Medicine
DX: R59.0 Localized enlarged lymph nodes (principal)
CPT/HCPCS: 71250

== ENCOUNTER → 2022-02-11 10:16 | Outpatient (BNVA) | payer OTHER, SELFPAY | PROVIDERS: PCP Family Medicine; Visit Provider Internal Medicine Critical Care Medicine | DX: J44.9 Chronic obstructive pulmonary disease, unspecified (principal); J96.11 Chronic respiratory failure with hypoxia; D75.1 Secondary polycythemia; R59.0 Localized enlarged lymph nodes; Z87.891 Personal history of nicotine dependence; Z99.81 Dependence on supplemental oxygen | CPT/HCPCS: 99214 ==

== ENCOUNTER 2022-03-03 12:45 | Outpatient (CLI) | payer OTHER, SELFPAY ==
--- NOTE | 2022-03-03 12:52 | US_ITS ---
WS: [id number] RENAL ULTRASOUND HISTORY: LOW ATTENUATION CORTICAL LESION UPPER POLE LEFT KIDNEY COMPARISON: Chest CT 01/23/2022,, 01/23/2022 TECHNIQUE: 2-D and color Doppler imaging of the kidney submitted. Right kidney: 10.3 cm x 4.8 cm x 4.9 cm. Normal echogenicity with no hydronephrosis or mass. Left kidney: 11.4 cm x 5.1 cm x 5.7 cm. Normal size kidney. Nodule noted from the upper pole of the LEFT kidney is not identified by ultrasou nd. This may be due to the small size of this renal lesion. The kidney appears normal. Aorta: Normal. Urinary Bladder: Normal distention. US/US renal BI* [id number] IMPRESSION: 1. Low-attenuation mass in the upper pole LEFT kidney is not identified by ult rasound. This is probably due to the location of this mass and its small size. Recommend follow-up CT renal mass protocol or MRI in 6 months. 2. No hydronephrosis.
== END 2022-03-03 12:46 | disposition home or self-care (01) ==
LOC: RAD 12:46
PROVIDERS: PCP Family Medicine; Visit Provider Family Medicine
DX: N28.89 Other specified disorders of kidney and ureter (principal)
CPT/HCPCS: 76770

== ENCOUNTER 2022-07-16 13:20 | Outpatient (CLI) | payer OTHER, SELFPAY ==
--- NOTE | 2022-07-16 13:35 | CTR_ITS ---
PROCEDURE INFORMATION: Exam: CT Abdomen And Pelvis With Contrast Exam date and time: 07/16/2022 2:10 PM Age: 77 years old Clinical indication: Condition or disease; Kidney or ureter condition; Other: Low-attenuation mass in the upper pole left kidney TECHNIQUE: Imaging protocol: Computed tomography of the abdomen and pelvis with contrast. Radiation optimization: All CT scans at this facility use at least one of these dose optimization techniques: automated exposure control; mA and/or kV adjustment per patient size (includes targeted exams where dose is matched to clinical indication); or iterative reconstruction. Contrast material: OMNI 350; Contrast volume: 95 ml; Contrast route: INTRAVENOUS (IV); COMPARISON: US abdomen complete* [id number] 09/08/2017 9:26 AM RADIATION DOSE METRICS: Total DLP (mGy-cm): 1416.43 FINDINGS: Limitations: Only the delayed axial images include the pelvis. There are no reconstructions which include the pelvis. Lungs: Probable areas of atelectasis or fibrosis at the lung bases.2 Liver: There is diffuse hepatic steatosis. The liver is otherwise normal. Gallbladder and bile ducts: There is dependent hyperdense material in the gallbladder, sludge or small calculi. No wall thickening. Bile ducts are normal. Pancreas: The pancreas is normal. Spleen: The spleen is normal. Adrenal glands: The adrenals are normal. Kidneys and ureters: There is an 11 mm left upper pole simple renal cyst. The kidneys are otherwise normal. No hydronephrosis. Stomach and bowel: There are colonic diverticula. No bowel wall thickening or inflammation. No bowel distension. Appendix: The appendix is well visualized and is normal. Intraperitoneal space: There is no free fluid or fluid collection. There is no free air. Vasculature: Infrarenal aorta is mildly ectatic, 2.4 cm. No aneurysm. Lymph nodes: Unremarkable. No enlarged lymph nodes. Urinary bladder: The bladder is normal with no evidence of calculi. There are only delayed images of the bladder which is partly contrast filled. Reproductive: The prostate measures 4.4 cm. Bones/joints: Unremarkable. No acute fracture. Soft tissues: Unremarkable. CT/CT abdomen pelvis w con* [id number] IMPRESSION: 1. 10 mm left upper pole renal simple cyst. The kidneys are otherwise normal. 2. Sludge or tiny gallstones within the gallbladder. 3. Diverticulosis. 4. No acute findings COMMENTS: Consistent with the [employer]'s Incidental Findings Committee white paper (J Am Marin Radiol 2018): Any incidental renal lesion less than 1 cm or classified as too small to characterize, or any incidental cystic renal lesion characterized as simple-appearing, is likely benign. No follow-up imaging is recommended for these lesions per consensus recommendations based on imaging criteria.
[2022-07-16 14:31] LABS: Blood Urea Nitrogen 16 mg/dL (8-23)
[2022-07-16] MEDS: iohexol 350 mg/mL 500 mL Btl (per mL) IV (15:28)
== END 2022-07-16 13:21 | disposition home or self-care (01) ==
PROVIDERS: PCP Family Medicine; Visit Provider Family Medicine
DX: N28.89 Other specified disorders of kidney and ureter (principal); N28.1 Cyst of kidney, acquired; K57.90 Diverticulosis of intestine, part unspecified, without perforation or abscess without bleeding
CPT/HCPCS: 74177; 82565; 84520; Q9967

== ENCOUNTER → 2022-11-10 12:18 | Outpatient (BNVA) | payer OTHER, SELFPAY | PROVIDERS: PCP Family Medicine; Visit Provider Internal Medicine Pulmonary Disease | DX: J44.9 Chronic obstructive pulmonary disease, unspecified (principal); J96.11 Chronic respiratory failure with hypoxia; D75.1 Secondary polycythemia; R59.0 Localized enlarged lymph nodes; F41.9 Anxiety disorder, unspecified; Z87.891 Personal history of nicotine dependence; Z99.81 Dependence on supplemental oxygen | CPT/HCPCS: 99214 ==

== ENCOUNTER 2022-12-16 14:56 | Outpatient (CLI) | payer OTHER, SELFPAY ==
--- NOTE | 2022-12-16 15:01 | USCV_ITS ---
Marcin Benny Age: 77 Gender: M : 1945 Exam Date: 12/16/2022 15:11 Ordering Phys: Ludwig Rodriguez MD Technologist: Britni Palmer Exam Location: [facility] – [place] Indication: SOB BP: / HR: 93 Rhythm: Sinus Technical Quality: Adequate MEASUREMENTS (Male / Female) Normal Values 2D ECHO LV Diastolic Diameter PLAX 2.8 cm 4.2 - 5.9 / 3.9 - 5.3 cm LV Systolic Diameter PLAX 1.9 cm LV Chamber Size 1.8 cm IVS Diastolic Thickness 1.3 cm 0.6 - 1.0 / 0.6 - 0.9 cm IVS Systolic Thickness 1.6 cm LVPW Diastolic Thickness 1.4 cm 0.6 - 1.0 / 0.6 - 0.9 cm LVPW Systolic Thickness 1.9 cm RV Chamber Size 3.7 cm LVOT Diameter 2.0 cm LV Ejection Fraction 2D Teich 60.4 % LV Ejection Fraction MOD 2C 56.1 % LV Ejection Fraction 2C AL 60.8 % LA Diameter 3.3 cm LA Width 2.7 cm LA Height 3.2 cm RA Width 3.3 cm RA Height 3.8 cm Aorta at Sinotubular Diameter 3.0 cm IVC Diameter 1.3 cm M-MODE Aortic Annulus Diameter 4.0 cm LA Ao Ratio MM 1.1 MV E Point Septal Separation 0.8 cm DOPPLER AV Peak Velocity 144.0 cm/s LVOT Peak Velocity 89.0 cm/s AV Area Cont Eq vti 2.2 cm squared AV Area Cont Eq pk 2.0 cm squared MV Area PHT 5.1 cm squared Mitral E to A Ratio 0.7 MV E' Velocity 39.5 cm/s Mitral E to MV E' Ratio 9.1 Mitral E to LV E' Lateral Ratio 7.2 Mitral E to LV E' Septal Ratio 12.3 TR Peak Velocity 117.9 cm/s TR Peak Gradient 5.6 mmHg TR Mean Velocity 87.9 cm/s TR Mean Gradient 3.5 mmHg TR Velocity Time Integral 26.3 cm TV Peak E Velocity 54.0 cm/s Right Atrial Pressure 3.0 mmHg Pulmonary Artery Systolic Pressu 8.6 mmHg RV Acceleration Time 0.1 s RV Ejection Time 0.3 s RV AcT/ET 0.4 FINDINGS Left Ventricle Technically limited quality echocardiogram because of poor ultrasonic windows. LV systolic function is normal with EF of 55-60%. No regional wall motion abnormalities are seen. Right Ventricle Normal in size and function Right Atrium Normal in size Left Atrium Normal in size Mitral Valve Structurally normal mitral valve. Aortic Valve Aortic valve is not well-visualized however is thickened. No significant stenosis or regurgitation seen. Tricuspid Valve Mild tricuspid regurgitation. Insufficient TR jet to calculate RVSP. Pulmonic Valve Not well-visualized Pericardium Normal Aorta Normal in size IVC Appears to be normal CONCLUSIONS Technically limited quality echocardiogram because of poor ultrasonic windows. LV systolic function is normal with EF of 55-60%. Mild tricuspid regurgitation. Compared to prior echocardiogram 2019, no significant changes are seen. Jim Richards MD (Electronically Signed) Final Date: 19 December 2022 16:06 S
== END 2022-12-16 14:57 | disposition home or self-care (01) ==
LOC: RAD 14:58
PROVIDERS: PCP Family Medicine; Visit Provider Internal Medicine Pulmonary Disease
DX: R06.02 Shortness of breath (principal); I07.1 Rheumatic tricuspid insufficiency
CPT/HCPCS: 93306

== ENCOUNTER 2023-01-21 12:47 | Outpatient (CLI) | payer OTHER, SELFPAY ==
[2023-01-21 13:03] VITALS: PULSE 100; RESP 20; O2SAT 90
[2023-01-21] MEDS: albuterol 2.5 mg/3 mL Neb INHALATION (13:03)
[2023-01-21 13:08] VITALS: PULSE 98
== END 2023-01-21 12:48 | disposition home or self-care (01) ==
PROVIDERS: PCP Family Medicine; Visit Provider Internal Medicine Pulmonary Disease
DX: J44.9 Chronic obstructive pulmonary disease, unspecified (principal); J96.11 Chronic respiratory failure with hypoxia
CPT/HCPCS: 94060; 94618; 94726; 94729; 99214

== ENCOUNTER → 2023-02-25 12:10 | Outpatient (BNVA) | payer OTHER, SELFPAY | PROVIDERS: PCP Family Medicine; Visit Provider Internal Medicine Pulmonary Disease | DX: J44.9 Chronic obstructive pulmonary disease, unspecified (principal); J96.11 Chronic respiratory failure with hypoxia; D75.1 Secondary polycythemia; R59.0 Localized enlarged lymph nodes; F41.9 Anxiety disorder, unspecified; Z87.891 Personal history of nicotine dependence; Z99.81 Dependence on supplemental oxygen | CPT/HCPCS: 99214 ==

== ENCOUNTER → 2023-06-28 10:33 | Outpatient (BNVA) | payer OTHER, SELFPAY | PROVIDERS: PCP Family Medicine; Visit Provider Internal Medicine Pulmonary Disease | DX: J44.9 Chronic obstructive pulmonary disease, unspecified (principal); J43.2 Centrilobular emphysema; J96.11 Chronic respiratory failure with hypoxia; D75.1 Secondary polycythemia; R59.0 Localized enlarged lymph nodes; F41.9 Anxiety disorder, unspecified; Z87.891 Personal history of nicotine dependence; Z12.2 Encounter for screening for malignant neoplasm of respiratory organs | CPT/HCPCS: 99214 ==

== ENCOUNTER 2023-07-08 12:42 | Outpatient (CLI) | payer OTHER, SELFPAY ==
--- NOTE | 2023-07-08 13:00 | CT_ITS ---
WS: [id number] LDCT LUNG CANCER SCREENING TECHNIQUE: Noncontrast CT of the chest with coronal and sagittal reformatted images. CLINICAL INFORMATION: Cancer Screen COMPARISON: CT chest 01/23/2022 DLP: 72.29 mGy.cm DIvol: Mean CTDIvol: 1.40 (mGy) All CT scans at [facility] use at least one of these dose optimization techniques: automat ed exposure control; mA and/or kV adjustment per patient size (includes targeted exams where dose is matched to clinical indication); or iterative reconstruction. FINDINGS: Moderate chronic emphysematous changes. Normal caliber thoracic aorta. Aortic calcification. Coronary calcification. No mediastinal or hilar lymphadenopathy. Normal GE junction. Adrenal glands are pardeep l. Mild thoracic kyphosis. Chronic nodular pleural thickening with atelectasis lung bases. This is si milar to the prior studies. 6 mm noncalcified nodule RIGHT lower lobe medially appears new from previous. Recommend 6-month foll ow-up. Subpleural nodularity in the lingula. Tiny noncalcified nodule LEFT lower lobe. IMPRESSION: CT/CT lung screening [id number] LUNG-RADS: 3-Probably Benign FOLLOW UP: 6 Month LDCT
== END 2023-07-08 12:43 | disposition home or self-care (01) ==
LOC: RAD 12:43
PROVIDERS: PCP Family Medicine; Visit Provider Internal Medicine Pulmonary Disease
DX: Z12.2 Encounter for screening for malignant neoplasm of respiratory organs (principal); Z87.891 Personal history of nicotine dependence
CPT/HCPCS: 71271

== ENCOUNTER 2023-08-04 20:00 | Outpatient (CLI) | payer OTHER, SELFPAY | END 2023-08-04 20:01 | disposition home or self-care (01) | LOC: SLEEP 08-05 05:46 | PROVIDERS: PCP Family Medicine; Visit Provider Family Medicine | DX: G47.30 Sleep apnea, unspecified (principal); D75.1 Secondary polycythemia; R09.02 Hypoxemia; G47.61 Periodic limb movement disorder | CPT/HCPCS: 95810 ==

== ENCOUNTER → 2023-10-28 10:47 | Outpatient (BNVA) | payer OTHER, SELFPAY | PROVIDERS: PCP Family Medicine; Visit Provider Internal Medicine Pulmonary Disease | DX: J44.9 Chronic obstructive pulmonary disease, unspecified (principal); J96.11 Chronic respiratory failure with hypoxia; D75.1 Secondary polycythemia; R59.0 Localized enlarged lymph nodes; F41.9 Anxiety disorder, unspecified; J98.6 Disorders of diaphragm; Z87.891 Personal history of nicotine dependence | CPT/HCPCS: 99214 ==

== ENCOUNTER 2023-12-13 15:43 | Outpatient (CLI) | payer OTHER, SELFPAY ==
--- NOTE | 2023-12-13 16:00 | CT_ITS ---
WS: [id number] CT chest wo con [id number] HISTORY: R91.1 - Solitary pulmonary nodule TECHNIQUE: Axial imaging performed through the thorax. Coronal and sagittal reformats are submitted. All CT scans at [facility] use at least one of these dose optimization techniques: automated exposure control; mA and/or kV adjustment per patient size (includes targeted exams where dose is mat ched to clinical indication); or iterative reconstruction. CONTRAST: None DLP: 394.48 mGy.cm COMPARISON: 07/08/2023 Lungs and central airway: Stable 6 mm nodule medial RIGHT lower lobe, image 47 of series 4. Additiona l centrilobular emphysema. Pleural thickening and pleural fat deposition bilaterally is unchanged. No new mass or nodule. Pleura: No effusion. Pleural thickening and increased pleural fat deposition. Heart and pericardium: Normal size heart with no pericardial effusion. Mediastinum and philomena: Small mediastinal and hilar lymph nodes are unchanged. Hilar regions are diffic ult to evaluate without IV contrast. Vessels: Extensive atherosclerotic plaque in the thoracic aorta. Mild pulmonary hypertension. Chest wall and lower neck: No soft tissue masses. Upper abdomen: Small hiatal hernia. No adrenal mass. 8 mm medial LEFT upper pole renal indeterminate lesion was previously described. No increase in size since 01/23/2022. Osseous structures: Mild increase in thoracic kyphosis. Mild anterior wedging of T4. No acute fractur es. CT/CT chest wo con [id number] IMPRESSION: 1. Stable 6 mm nodule medial RIGHT lower lobe. Nodule was present on the study of 04/22/2021 but better visualized more recently. No interval change. No rosa tional follow-up necessary. 2. Mild pleural thickening and increased pleural fat deposition. 3. Centrilobular emphysema. 4. Mild pulmonary hypertension.
== END 2023-12-13 15:44 | disposition home or self-care (01) ==
LOC: RAD 15:43
PROVIDERS: PCP Family Medicine; Visit Provider Internal Medicine Pulmonary Disease
DX: R91.1 Solitary pulmonary nodule (principal); J43.2 Centrilobular emphysema; I27.20 Pulmonary hypertension, unspecified; J96.11 Chronic respiratory failure with hypoxia
CPT/HCPCS: 71250

== ENCOUNTER 2024-01-14 20:23 | Inpatient (IN) | payer OTHER, SELFPAY ==
[2024-01-14] VITALS (10 sets, daily range): BP systolic 125–153; BP diastolic 74–102; PULSE 96–108; RESP 16–24; TEMP 36.4–36.7; O2SAT 87–95; BMI 27.1
--- NOTE | 2024-01-14 20:35 | XRR_ITS ---
PROCEDURE INFORMATION: Exam: XR Chest Exam date and time: 01/14/2024 8:53 PM Age: 79 years old Clinical indication: Dyspnea; Additional info: SOB TECHNIQUE: Imaging protocol: Radiologic exam of the chest. Views: 1 view. COMPARISON: CT chest wo con [id number] 12/13/2023 3:59 PM FINDINGS: Lungs: Stable probable scarring in the lung bases. No focal consolidation. Pleural spaces: Similar to the comparison CT where this represented pleural thickening and pleural fat. There is blunting of both lateral costophrenic angles which is unchanged. Heart/Mediastinum: Stable heart size. Bones/joints: Stable bones. XR/XR chest 1V portable [id number] IMPRESSION: No acute findings.
--- NOTE | 2024-01-14 20:49 | ED_ITS ---
HPI - SOB/Dyspnea 2 General: Chief Complaint: Shortness of Breath/Dyspnea Stated Complaint: SOB Time Seen by Provider: 01/14/24 20:26 Source: patient Mode of arrival: ambulatory Limitations: no limitations History of Present Illness: HPI Narrative: 79-year-old male who has a history of [place] [employer] states been having increasing shortness of breath throughout the day EMS states when they arrived him he was in the 70s they have had him on a nonrebreather he states he wears 4 to 5 L at home. He denies any chest pain he received breathing treatments steroid and route states he is having some slight improvement but he still does have wheezing and mild distress he denies any cough or fever denies any chest pain Associated symptoms: Deny abdominal pain, chest pain, fever(s), nausea or vomiting Review of Systems 2 Const: Denies: fever(s), chills, body aches or change in appetite Eyes: Denies: eye discomfort ENMT: Denies: throat pain or dental pain Card: Denies: chest pain Resp: Denies: dyspnea GI: Denies: abdominal pain, nausea, vomiting or diarrhea : Denies: dysuria Musc: Denies: neck pain or back pain Skin/Breast: Denies: rash Neuro: Denies: headache(s) Psych: Denies: depression True/Lymph: Denies: easy bruising All/Imm: Denies: urticaria PFSH ED 2 PFSH: Medical History Secondary polycythemia Pulmonary hypertension Hilar lymphadenopathy Hypoxia Acute exacerbation of chronic obstructive airways disease Anxiety Hyperlipidemia Insomnia Type 2 diabetes mellitus Chronic obstructive pulmonary disease Surgical History Hx of tonsillectomy Family History Other Healthy adult Social History Smoking and tobacco/nicotine status: former use of tobacco/nicotine Quit status (tobacco/nicotine): has quit using Year quit tobacco: 1999 - 1PPD x 10 Years Second hand smoke exposure: No Alcohol intake: never Substance/Drug Use: never Lives independently: Yes Household members: none Marital status: Number of children: 2 service: Yes Current occupational status: employed 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 Pets and animals: Yes Do you think of yourself as: Straight/Heterosexual Current gender identity: Male Course 2 Vital Signs: Vital signs: Vital Signs Temperature 97.6 F 01/14/24 20:39 Pulse Rate 101 H 01/14/24 22:00 Respiratory Rate 19 H 01/14/24 22:00 Blood Pressure 125/76 01/14/24 22:00 Pulse Oximetry 94 01/14/24 22:00 Oxygen Delivery Me thod Heated High Flow 01/14/24 22:00 Oxygen Flow Rate 10 01/14/24 22:00 Fraction of Inspir ed Oxygen 55 01/14/24 21:50 MDM - SOB/Dyspnea Medical Decision Making Patient presents for shortness of breath he is having hypoxia here and had to switch him to heated high flow he is currently doing well and that is 94% CTA showed no PE he is having some improvement after breathing treatment spoke to the hospitalist will admit to ICU here. Lab Data I reviewed the patient's lab results. 01/14/24 21:13 01/14/24 20:05 Labs/Radiology: Radiology Impressions Chest X-Ray 01/14/24 20:35 IMPRESSION: No acute findings. Chest CTA 01/14/24 21:34 IMPRESSION: 1. No pulmonary embolus identified. 2. Severe emphysema is unchanged. Stable chronic pleural scarring and fat deposition. 3. Persistent tubth-ntmedfo-yoey-left hilar lymphadenopathy with mildly prominent mediastinal lymph nodes, nonspecific. Recommend correlation with history. 4. Stable 6 mm right lower lobe pulmonary nodule. Laboratory Results WBC 5.22 10^3/uL (3.29-11.43) 01/14/24 21:13 Corrected WBC Cancelled 01/14/24 20:05 RBC 6.10 10^6/uL (3.85-5.65) H 01/14/24 21:13 Hgb 17.40 g/dL (11.27-16.99) H 01/14/24 21:13 Hct 55.7 % (37-53) H 01/14/24 21:13 MCV 91.3 fl (82-101) 01/14/24 21:13 MCH 28.5 pg (27-33) 01/14/24 21:13 MCHC 31.2 g/dL (30-55) 01/14/24 21:13 RDW 16.3 % (12.1-15.1) H 01/14/24 21:13 Plt Count 164 10^3/cmm (157-399) 01/14/24 21:13 MPV 9.9 fL (7.4-10.4) 01/14/24 21:13 Gran % Cancelled 01/14/24 20:05 Neut % (Auto) 67.4 % 01/14/24 21:13 Lymph % (Auto) 20.3 % 01/14/24 21:13 [place] % (Auto) 7.9 % 01/14/24 21:13 Eos % (Auto) 3.4 % 01/14/24 21:13 Baso % (Auto) 0.8 % 01/14/24 21:13 Neut # (Auto) 3.52 10^3/uL (1.8-7.7) 01/14/24 21:13 Lymph # (Auto) 1.1 10^3/uL (0.8-4.8) 01/14/24 21:13 [place] # (Auto) 0.4 10^3/uL (0.2-0.9) 01/14/24 21:13 Eos # (Auto) 0.2 10^3/uL (0.0-0.8) 01/14/24 21:13 Baso # (Auto) 0.0 10^3/uL (0.0-0.1) 01/14/24 21:13 Absolute Gran (auto) Cancelled 01/14/24 20:05 Nucleated RBC % (auto) 0 % 01/14/24 21:13 Nucleated RBCs # 0.0 /100WBC 01/14/24 21:13 Specimen Type Arterial 01/14/24 20:58 Sample Site Radial, left 01/14/24 20:58 ABG pH 7.38 (7.35-7.45) 01/14/24 20:58 ABG pCO2 38.5 mmHg (35-45) 01/14/24 20:58 ABG pO2 55.8 mmHg (80.0-100.0) L 01/14/24 20:58 ABG HCO3 22.7 mmol/L (22-26) 01/14/24 20:58 ABG Base Excess -2.2 mmol/L (-2.0-2.0) L 01/14/24 20:58 Yunior Test Pos 01/14/24 20:58 Hematocrit 52.6 % (42-52) H 01/14/24 20:58 Hgb O2 Saturation 87.0 % (95-100) L 01/14/24 20:58 Carboxyhemoglobin 2.0 %THgb (0.4-20.1) 01/14/24 20:58 Methemoglobin < 0.0 % (0.4-1.5) L 01/14/24 20:58 Total Hemoglobin 17.2 g/dL (14-18) 01/14/24 20:58 O2 Delivery Device Nc 01/14/24 20:58 O2 Liters/Min 6.0 % 01/14/24 20:58 Horticultural Manager ID [email or web address] 01/14/24 20:58 Sodium 140 mmol/L (136-145) 01/14/24 20:05 Potassium 3.9 mmol/L (3.5-5.1) 01/14/24 20:05 Chloride 101 mmol/L (98-107) 01/14/24 20:05 Carbon Dioxide 24 mmol/L (22-29) 01/14/24 20:05 Anion Gap 18.9 (5-19) 01/14/24 20:05 BUN 13 mg/dL (8-23) 01/14/24 20:05 Creatinine 1.1 mg/dL (0.7-1.2) 01/14/24 20:05 GFR Calculation Not Reportable 01/14/24 20:05 Glucose 153 mg/dL (65-115) H 01/14/24 20:05 Calculated Osmolality 293 mOsm/kg (285-295) 01/14/24 20:05 Calcium 9.2 mg/dL (8.5-10.5) 01/14/24 20:05 Total Bilirubin 0.9 mg/dL (0.15-1.2) 01/14/24 20:05 AST 16 U/L (0-40) 01/14/24 20:05 ALT 19 U/L (0-41) 01/14/24 20:05 Alkaline Phosphatase 91 U/L (40-130) 01/14/24 20:05 Troponin T Baseline 20 ng/L (0-15) H 01/14/24 21:13 NT-Pro-B Natriuret Pep 2118 pg/mL (0-450) H 01/14/24 20:05 Total Protein 7.8 g/dL (6.6-8.7) 01/14/24 20:05 Albumin 4.6 g/dL (3.5-5.2) 01/14/24 20:05 Globulin 3.2 g/dL (1.3-4.6) 01/14/24 20:05 All radiology interpretation(s) finalized by discharge Critical Care Time 2 Critical Care Time: Critical Care Time: Yes Total Critical Care Time: 35 Attestation: The high probability of a clinically significant, sudden or life threatening deterioration of the patient's resp system(s) required my full and direct attention, intervention and personal management. The critical care time is as shown. This time is in addition to time spent performing any reported procedures but includes the following: [x] Data and vital sign review and interpretation [x] Patient assessment, examination and intervention [x] Documentation [x] Medication orders and management Discharge Plan Discharge Condition: Stable Prescriptions: No Action simvastatin 80 mg tablet 40 mg PO QPM trazodone 100 mg tablet 100 mg PO BEDTIME PRN (Reason: Sleep) aspirin [Adult Aspirin Regimen] 81 mg tablet,delayed release (DR/EC) 81 mg PO DAILY@11 guaifenesin 200 mg/5 mL liquid 400 mg PO Q6H PRN (Reason: cough) Qty: 473 3RF alprazolam [Xanax] 0.5 mg tablet 0.5 mg PO BID MDD 1 mg PRN (Reason: anxiety) Qty: 60 2RF (DME) Acapella See Rx Instructions .Route .MEDSUPPLY Qty: 1 0RF Rx Instructions: As directed (DME) Chest Vest (Afflo) See Rx Instructions .Route .MEDSUPPLY Qty: 1 0RF Rx Instructions: High Frequency Chest Wall Oscillation Vest- 5Hz-20Hz for 30 minutes twice per day albuterol sulfate [Ventolin HFA] 90 mcg/actuation HFA aerosol inhaler 2 puff INHALATION QID PRN (Reason: Shortness Of Breath) Qty: 18 6RF ipratropium-albuterol 0.5 mg-3 mg(2.5 mg base)/3 mL solution for nebulization 3 ml inhalation Q6H PRN (Reason: wheezing) 30 Days Qty: 360 4RF Breztri Aerosphere 160-9-4.8 mcg/actuation HFA aerosol inhaler 2 inh inhalation BID 90 Days Qty: 32.1 3RF metformin 1,000 mg Tablet 1,000 mg PO BID ibuprofen 200 mg Tablet 600 mg PO Q6H PRN (Reason: Pain) Vitamin D3 125 mcg (5,000 unit) Tablet 125 mcg PO DAILY Referrals: Wanda Graves MD [Primary Care Provider] - Coding Level of Care Code ED Finished Goods Stock Clerk for Jitendra Abad
[2024-01-14] MEDS: ipratropium-albuterol 3 mL Neb INHALATION (20:56)
--- NOTE | 2024-01-14 20:57 | ECG_ITS ---
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 Measurements Intervals [place] Rate: 105 P: 66 TX: 205 QRS: 263 QRSD: 86 T: 64 QT: 334 QTc: 442 Interpretive Statements SINUS TACHYCARDIA PATTERN CONSISTENT WITH PULMONARY DISEASE Compared to ECG 04/22/2021 15:42:50 First degree AV block no longer present Left-axis deviation no longer present Electronically Signed On 01-16-2024 19:25:23 CDT by Jim Richards M.D. [id number]
[2024-01-14 21:09] LABS: ABG PCO2 38.5 mmHg (35-45); ABG PH Result 7.38 (7.35-7.45); Arterial Blood Gas Hematocrit 52.6 % (42-52); Base Excess ABG -2.2 mmol/L (-2.0-2.0); Blood Gas Allen Test Pos; Blood Gas Sample Site Radial, left; Blood Gas Sample Type Arterial; HCO3 ABG 22.7 mmol/L (22-26); Methemoglobin < 0.0 % (0.4-1.5); Oxygen Device NC; PO2 ABG 55.8 mmHg (80.0-100.0); Total Hemoglobin 17.2 g/dL (14-18)
[2024-01-14] MEDS: methylPREDNISolone sod succ 125 mg/2 mL INJ IV (21:28)
[2024-01-14 21:29] LABS: Alanine Aminotransferase 19 U/L (0-41); Albumin Level 4.6 g/dL (3.5-5.2); Alkaline Phosphatase 91 U/L (40-130); Anion Gap 18.9 (5-19); Aspartate Amino Transferase 16 U/L (0-40); Blood Urea Nitrogen 13 mg/dL (8-23); Calcium 9.2 mg/dL (8.5-10.5); Carbon Dioxide 24 mmol/L (22-29); Chloride 101 mmol/L (98-107); Creatinine Clr Calc Pharmacy 64.8551; Globulin 3.2 g/dL (1.3-4.6); Glucose 153 mg/dL (65-115); NT Pro B Type Natriuretic Pept 2118 pg/mL (0-450); Osmolality Calculated 293 mOsm/kg (285-295); Potassium 3.9 mmol/L (3.5-5.1); Sodium 140 mmol/L (136-145); Total Bilirubin 0.9 mg/dL (0.15-1.2); Total Protein 7.8 g/dL (6.6-8.7)
--- NOTE | 2024-01-14 21:34 | CTR_ITS ---
PROCEDURE INFORMATION: Exam: CTA Chest With Contrast Exam date and time: 01/14/2024 9:44 PM Age: 79 years old Clinical indication: Shortness of breath and other: Hypoxia/tachycardia; Patient HX: SOB and tachycardia with acute hypoxia with sp02 of 80 at 15l of 02. TECHNIQUE: Imaging protocol: Computed tomographic angiography of the chest with contrast. Exam focused on the arteries. 3D rendering (Not supervised by radiologist): MIP and/or 3D reconstructed images were created by the technologist. Radiation optimization: All CT scans at this facility use at least one of these dose optimization techniques: automated exposure control; mA and/or kV adjustment per patient size (includes targeted exams where dose is matched to clinical indication); or iterative reconstruction. Contrast material: OMNI 350; Contrast volume: 73 ml; Contrast route: INTRAVENOUS (IV); COMPARISON: 1. CT angio chest PE protcl [id number] 04/22/2021 4:[address] chest wo con [id number] 12/13/2023 3:59 PM RADIATION DOSE METRICS: Total DLP (mGy-cm): 460.87 FINDINGS: Pulmonary arteries: No central or definite segmental PE is identified. Peripheral PE assessment is limited due to artifact. Aorta: Unremarkable for age. No aortic aneurysm. No aortic dissection. Trachea: Minimal debris in the trachea. Lungs: Severe emphysema is unchanged. Known 6 mm right lower lobe pulmonary nodule on series 4, image 48 is unchanged. Pleural spaces: Basilar pleural fibrosis and pleural fat deposition is unchanged. No significant pleural effusion. Heart: Stable heart size. Coronary arteries: Coronary artery atherosclerosis again present. Lymph nodes: Right hilar lymph node measuring up to 3 cm is unchanged mildly prominent mediastinal nodes are unchanged. Left hilar lymph node measuring 12 mm is unchanged. Kidneys and ureters: Medial left upper pole probable renal cyst is unchanged. Bones/joints: Chronic upper thoracic compression deformity is unchanged. Soft tissues: Unremarkable. CT/CT angio chest PE protcl [id number] IMPRESSION: 1. No pulmonary embolus identified. 2. Severe emphysema is unchanged. Stable chronic pleural scarring and fat deposition. 3. Persistent xuzda-fzjxete-xeih-left hilar lymphadenopathy with mildly prominent mediastinal lymph nodes, nonspecific. Recommend correlation with history. 4. Stable 6 mm right lower lobe pulmonary nodule.
[2024-01-14 21:35] LABS: Basophils % 0.8 %; Eosinophils # 0.2 10^3/uL (0.0-0.8); Eosinophils % 3.4 %; Hematocrit 55.7 % (37-53); Lymphocytes # 1.1 10^3/uL (0.8-4.8); Lymphocytes % 20.3 %; Mean Corpuscular HGB Conc 31.2 g/dL (30-55); Mean Corpuscular Hemoglobin 28.5 pg (27-33); Mean Corpuscular Volume 91.3 fl (82-101); Mean Platelet Volume 9.9 fL (7.4-10.4); Monocytes # 0.4 10^3/uL (0.2-0.9); Monocytes % 7.9 %; Neutrophils # 3.52 10^3/uL (1.8-7.7); Neutrophils % 67.4 %; Nucleated Red Blood Cells % 0 %; Platelet Count 164 10^3/cmm (157-399); Red Cell Distribution Width 16.3 % (12.1-15.1); White Blood Count 5.22 10^3/uL (3.29-11.43)
[2024-01-14] MEDS: iohexol 350 mg/mL 500 mL Btl (per mL) IV (21:48)
[2024-01-14 22:02] LABS: Troponin(5th) Baseline 20 ng/L (0-15)
--- NOTE | 2024-01-14 23:16 | P.HP_ITS ---
Providers/Chief Complaint 2 Admitting Physician: Sydni Grajeda MD Primary Care Provider: Wanda Graves MD Chief Complaint: SOB History of Present Illness Benny Burch is a 79 year old male With past medical history of class D COPD, polycythemia, pulmonary hypertension, anxiety, hyperlipidemia, type 2 diabetes mellitus who presented to the hospital today with complaint of increasing shortness of breath. Upon arrival he was saturating in the 70s on nonrebreather. Normally he is on 4-5 L at home. He was given DuoNeb, steroids and route via EMS. He did show mild improvement in ER however still hypoxic. Therefore was placed on heated high flow. Patient regularly follows up with pulmonology and last saw them in October. He takes Brezetri at home. Previously he was tried on triple nebulization however that was stopped as his breathing had worsened. Patient also has a mediastinal hilar lymphadenopathy with right hilar node with diameter of 3.1 cm. PET scan in May 2021 revealed low likelihood of malignancy. He is to follow-up with pulmonology in 6 months. Denies chest pain, nausea, vomiting, diarrhea, constipation or complaints at this time. Medications/Allergies Home Medications Medication Instructions Recorded Confirmed Last Taken Type aspirin 81 mg tablet,delayed 81 mg PO DAILY@11 03/06/20 10/28/23 04/20/21 History release (Adult Aspirin Regimen) simvastatin 80 mg tablet 40 mg PO QPM 03/06/20 10/28/23 04/20/21 History trazodone 100 mg tablet 100 mg PO BEDTIME PRN Sleep 03/06/20 01/15/24 2 Days Ago History ~01/13/24 100 mg cholecalciferol (vitamin D3) 125 125 mcg PO DAILY 04/22/21 10/28/23 Unknown History mcg (5,000 unit) tablet (Vitamin D3) ibuprofen 200 mg tablet 600 mg PO Q6H PRN Pain 04/22/21 10/28/23 04/21/21 History metformin 1,000 mg tablet 1,000 mg PO BID 04/22/21 10/28/23 04/20/21 History albuterol sulfate 90 mcg/actuation 2 puff inhalation QID PRN 12/22/22 10/28/23 Unknown Rx aerosol inhaler (Ventolin HFA) Shortness Of Breath #18 grams Acapella #1 ea 10/28/23 10/28/23 Unknown Rx Chest Vest (Afflo) #1 ea 10/28/23 10/28/23 Unknown Rx alprazolam 0.5 mg tablet (Xanax) 0.5 mg PO BID PRN anxiety #60 tabs 10/28/23 10/28/23 Unknown Rx guaifenesin 200 mg/5 mL oral liquid 400 mg (10 mL) PO Q6H PRN cough 10/28/23 10/28/23 Unknown Rx #473 mL budesonide 160 mcg-glycopyr 9 2 inh inhalation BID 90 days #32.1 01/06/24 Unknown Rx mcg-formot 4.8 mcg/actuation HFA grams inhaler (Breztri Aerosphere) ipratropium 0.5 mg-albuterol 3 mg 3 ml inhalation Q6H PRN wheezing 01/06/24 Unknown Rx (2.5 mg base)/3 mL nebulization 30 days #360 mL soln Allergies Allergy/AdvReac Type Severity Reaction Status Date / Time No Known Allergies Allergy Verified 10/28/23 11:27 PFSH Acute 2 PFSH: Medical History Secondary polycythemia Pulmonary hypertension Hilar lymphadenopathy Hypoxia Acute exacerbation of chronic obstructive airways disease Anxiety Hyperlipidemia Insomnia Type 2 diabetes mellitus Chronic obstructive pulmonary disease Surgical History Hx of tonsillectomy Family History Other Healthy adult Social History Smoking and tobacco/nicotine status: former use of tobacco/nicotine Quit status (tobacco/nicotine): has quit using Year quit tobacco: 1999 - 1PPD x 10 Years Second hand smoke exposure: No Alcohol intake: never Substance/Drug Use: never Lives independently: Yes Household members: none Marital status: Number of children: 2 service: Yes Current occupational status: employed 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 HEENT: Normocephalic, atraumatic, EOMI, no acute respiratory distress. Seems to breathing comfortably. Cardio: Regular rate rhythm, normal S1-S2 Respiratory: Wheezes and rhonchi bilaterally. GI: Abdomen soft, nontender, nondistended, bowel sounds + Extremities: No edema bilateral lower extremities. Data 01/15/24 03:29 01/15/24 03:29 A&P Assessment and plan (1) Anxiety: (2) Polycythemia: (3) Chronic obstructive pulmonary disease: (4) Shortness of breath: (5) Mediastinal lymphadenopathy: (6) Diaphragm dysfunction: Plan #COPD exacerbation, Gold class D #On 4 L nasal cannula [id number] at home #Pulmonary hypertension #Mediastinal lymphadenopathy #polycythemia, secondary #Anxiety #Diaphragmatic dysfunction. ? Continue heated high flow and wean off oxygen as able down to patient's baseline. ? Placed on doxycycline 100 twice daily ? Solu-Medrol 60 every 12 hours ? Pulmicort inhalation twice daily ? DuoNeb every 6 hours scheduled ? CTA ruled out PE. Does show severe emphysema. ? BNP 2118. patient quite hypoxic, will give trial of lasix, does not look overtly fluid overloaded however ? Does have basilar pleural fibrosis on scan. - will place on empiric abx ? Sputum Gram stain culture ? Check CBC CMP magnesium in a.m. -Does have a history of anxiety and takes Xanax at home twice daily as needed. I will continue that here. If needed may even consider a Precedex drip. Will admit to ICU at this time. Full code DVT prophylaxis: Heparin SQ twice daily Attestations 2 Medical Necessity Statement*: Greater than 2 midnight stay for management of COPD exacerbation. Diagnoses Anxiety F41.9 Polycythemia D75.1 Chronic obstructive pulmonary disease J44.9 Shortness of breath R06.02 Mediastinal lymphadenopathy R59.0 Diaphragm dysfunction J98.6
[2024-01-14 23:40] LABS: D Dimer 0.57 ug/mLFEU (0-0.59)
--- NOTE | 2024-01-14 23:43 | ECG_ITS ---
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 Measurements Intervals [place] Rate: 103 P: -5 ND: 234 QRS: 155 QRSD: 79 T: -7 QT: 338 QTc: 444 Interpretive Statements SINUS TACHYCARDIA WITH FIRST DEGREE AV BLOCK POSSIBLE RIGHT VENTRICULAR HYPERTROPHY [SOME/ALL OF: PROMINENT R IN V1, LATE TRANSITION, RAD, CIELO, SSS] ABNORMAL QRS-T ANGLE [QRS-T AXIS DIFFERENCE > 60] Compared to ECG 01/14/2024 20:57:22 First degree AV block now present Electronically Signed On 01-16-2024 19:33:06 CDT by Jim Richards M.D. [id number]
[2024-01-14 23:47] LABS: Troponin 5 2HR 20.97 ng/L (0-15); Troponin 5 2HR Delta 0.97 ABS# (0-10)
[2024-01-15] VITALS (31 sets, daily range): BP systolic 89–157; BP diastolic 56–106; PULSE 82–105; RESP 16–35; TEMP 36.2–36.8; O2SAT 88–96; BMI 27.3
[2024-01-15] MEDS: sodium chloride 0.9% 1,000 ML 75 ML IV (00:06)
[2024-01-15] MEDS: heparin 5,000 unit/mL INJ 1 mL 5000 UNIT SUBCUT ×3 (00:06→22:50)
[2024-01-15] MEDS: trazodone 100 mg Tablet PO ×2 (00:06→22:50)
[2024-01-15 00:23] LABS: Procalcitonin 0.06 ng/mL (0-0.5)
--- NOTE | 2024-01-15 03:34 | ECG_ITS ---
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 Measurements Intervals [place] Rate: 93 P: 70 MT: 236 QRS: 261 QRSD: 80 T: 66 QT: 356 QTc: 444 Interpretive Statements SINUS RHYTHM WITH FIRST DEGREE AV BLOCK RIGHT AXIS DEVIATION [QRS AXIS > 100] PATTERN CONSISTENT WITH PULMONARY DISEASE ST DEVIATION AND MODERATE T-WAVE ABNORMALITY, CONSIDER ANTERIOR ISCHEMIA [-0.1+ mV T-WAVE IN V3/V4] Compared to ECG 01/14/2024 23:43:51 Right-axis deviation now present T-wave abnormality now present Possible ischemia now present Sinus tachycardia no longer present Electronically Signed On 01-16-2024 19:32:18 CDT by Jim Richards M.D. [id number]
[2024-01-15 04:18] LABS: Basophils % 0.2 %; Hematocrit 54.5 % (37-53); Lymphocytes # 0.3 10^3/uL (0.8-4.8); Lymphocytes % 6.3 %; Mean Corpuscular HGB Conc 30.8 g/dL (30-55); Mean Platelet Volume 10.9 fL (7.4-10.4); Monocytes % 0.4 %; Neutrophils # 4.42 10^3/uL (1.8-7.7); Neutrophils % 92.9 %; Nucleated Red Blood Cells % 0 %; Platelet Count 161 10^3/cmm (157-399); Red Blood Count 5.99 10^6/uL (3.85-5.65); Red Cell Distribution Width 15.9 % (12.1-15.1); White Blood Count 4.76 10^3/uL (3.29-11.43)
[2024-01-15 04:35] LABS: Troponin 5 6HR 15.99 ng/L (0-15); Troponin 5 6HR Delta -4.01 ng/L (0-12)
[2024-01-15 04:44] LABS: Blood Urea Nitrogen 13 mg/dL (8-23); Calcium 8.4 mg/dL (8.5-10.5); Carbon Dioxide 22 mmol/L (22-29); Chloride 104 mmol/L (98-107); Creatinine Clr Calc Pharmacy 79.5973; Glucose 161 mg/dL (65-115); Magnesium 2.3 mg/dL (1.7-2.3); Osmolality Calculated 290 mOsm/kg (285-295); Sodium 138 mmol/L (136-145)
[2024-01-15 04:45] LABS: Anion Gap 16.9 (5-19); Potassium 4.9 mmol/L (3.5-5.1)
[2024-01-15] MEDS: doxycycline 100 MG in sodium chloride 0.9% (plus) 100 ML IV (07:37)
[2024-01-15] MEDS: FUROsemide 10 mg/mL SDV 4mL 40 MG IVP (07:38)
[2024-01-15] MEDS: budesonide 0.5 mg/2 mL Neb INHALATION ×2 (07:49→20:42)
[2024-01-15] MEDS: ipratropium-albuterol 3 mL Neb INHALATION ×4 (07:49→20:42)
[2024-01-15] MEDS: methylPREDNISolone sod succ 40 mg/mL INJ 60 MG IVP ×2 (08:54→20:32)
--- NOTE | 2024-01-15 11:47 | P.PN_ITS ---
Subjective 2 Subjective: Patient is doing well, wean down oxygen down to 6 L Patient likely will need pulmonary hypertension clinic follow-up D-dimer unremarkable CTA showing changes which were present on previous scan PET scan did not show any malignancy Vitals/I&O/Wt Last Vital Signs Temp 97.1 F L 01/15/24 08:00 Pulse 96 01/15/24 11:30 Resp 18 01/15/24 11:20 BP 89/56 01/15/24 10:00 Pulse Ox 93 01/15/24 11:20 O2 Del Method High Flow Nasal Cannula 01/15/24 11:20 O2 Flow Rate 6 01/15/24 11:20 FiO2 55 01/14/24 21:50 01/14/24 01/15/24 01/15/24 22:59 06:59 14:59 Intake Total 150 / 150 340 / 340 Output Total 450 / 450 1050 / 1050 Balance -300 / -300 -710 / -710 Weight last 48 hrs Weight 91.58 kg Weight 91.58 kg Weight 90.718 kg Physical Exam 2 Narrative: Awake and alert Euvolemic GCS 15 No active wheezing Currently on 6 L Nonfocal neuroexam Pleasant and cooperative Data 01/15/24 03:29 01/15/24 03:29 A&P Assessment and plan (1) Anxiety: (2) Polycythemia: (3) Chronic obstructive pulmonary disease: (4) Chronic respiratory failure with hypoxia: (5) Diaphragm dysfunction: (6) Mediastinal lymphadenopathy: (7) Pulmonary hypertension: Plan Plan to discharge patient by tomorrow if oxygen requirement, improves and stays below 6 L Patient will need primary hypertension clinic follow-up For now he is not wheezing however I will continue his Lasix insulin of p.o. instead of IV form change doxycycline to p.o. regimen continue IV steroids Plan to discharge by tomorrow Attestations 2 Medical Necessity Statement*: Discharge likely tomorrow Diagnoses Anxiety F41.9 Polycythemia D75.1 Chronic obstructive pulmonary disease J44.9 Chronic respiratory failure with hypoxia J96.11 Diaphragm dysfunction J98.6 Mediastinal lymphadenopathy R59.0 Pulmonary hypertension I27.20
[2024-01-15] MEDS: aspirin 81 mg EC Tablet PO (12:13)
--- NOTE | 2024-01-15 15:36 | PC.NURSE ---
Patient transferred to med surg floor from ICU at 1530.
[2024-01-15] MEDS: doxycycline 100 mg Tablet PO (17:42)
[2024-01-15] MEDS: atorvastatin 40 mg Tablet 20 MG PO (17:42)
[2024-01-16 03:18] LABS: Anion Gap 14.5 (5-19); Blood Urea Nitrogen 21 mg/dL (8-23); Calcium 8.2 mg/dL (8.5-10.5); Carbon Dioxide 24 mmol/L (22-29); Chloride 103 mmol/L (98-107); Creatinine Clr Calc Pharmacy 71.6376; Glucose 163 mg/dL (65-115); Osmolality Calculated 291 mOsm/kg (285-295); Potassium 4.5 mmol/L (3.5-5.1); Sodium 137 mmol/L (136-145)
[2024-01-16 04:00] VITALS: BP 106/60; PULSE 81; RESP 15; TEMP 36.6; O2SAT 91
[2024-01-16 05:11] VITALS: PULSE 86
[2024-01-16] MEDS: ipratropium-albuterol 3 mL Neb INHALATION ×2 (07:51→11:48)
[2024-01-16] MEDS: budesonide 0.5 mg/2 mL Neb INHALATION (07:51)
[2024-01-16 07:53] VITALS: PULSE 85; RESP 16; O2SAT 88
[2024-01-16 08:00] VITALS: BP 117/72; PULSE 91; PULSE 94; TEMP 36.4; O2SAT 88
[2024-01-16] MEDS: doxycycline 100 mg Tablet PO (09:06)
[2024-01-16] MEDS: methylPREDNISolone sod succ 40 mg/mL INJ 60 MG IVP (09:07)
[2024-01-16] MEDS: FUROsemide 40 mg Tablet PO (09:07)
[2024-01-16] MEDS: calcium carbonate 500 mg Chew Tablet 1000 MG PO (09:25)
--- NOTE | 2024-01-16 09:46 | P.DS_ITS ---
Discharge Providers Date of Admission: 01/14/24 22:49 Date of Discharge: January 16, 2024 Attending Provider at Admission: Sydni Grajeda MD Attending Provider at Discharge: Olaf Fernandez MD Primary Care Provider: Wanda Graves MD Diagnoses at Discharge Discharge Diagnosis (1) Anxiety: Status: Acute (2) Polycythemia: Status: Acute (3) Chronic obstructive pulmonary disease: Status: Acute (4) Chronic respiratory failure with hypoxia: Status: Acute (5) Diaphragm dysfunction: Status: Acute (6) Mediastinal lymphadenopathy: Status: Acute (7) Pulmonary hypertension: Status: Acute Reason for Visit Reason for Visit: SOB Hospital Course Hospital Course 79-year male who has history of pulmonary hypertension, COPD, was following up with brim stiffener Dr. Cardoza present to the hospital worsening of shortness of breath. During hospitalization patient was given steroids DuoNeb treatment and BiPAP which improved his labored breathing his pH was compensated, his symptoms are likely related to underlying pulmonary hypertension for which he will need evaluation whether he would need prostacyclin versus vasodilators or evaluation for anticoagulating agent, patient has not seen pulmonary hypertension brim stiffener. I have given him referral to see Dr. Gamboa at [facility]. At the time of discharge added Medrol pack. At baseline patient uses 4 to 5 L of oxygen. His oxygen requirement did not worsen during hospitalization. CT rule out PE. PET scan was done in the past which did not show any sign of he does have persistent pulm nodule. Patient had PFT 01/21/2023: Spirometry showed severe airflow obstruction with FEV1/FVC 45 and FEV1 1.29 L 40% predicted and FVC 2.85 L 66% predicted. There is no significant response to bronchodilators. Lung volumes show nonspecific restriction. Gas transfer is very severely reduced with DLCO 19% Patient counseled on smoking cessation. Physical Exam Narrative: Awake and alert Nonfocal neuroexam GCS 15 Pleasant cooperative Discharge Data Studies Completed and Pending Completed Studies During Hospitalization Category Date Time Status CTA chest [CT angio chest PE protcl [id number]] Stat Cat Scan 01/14/24 21:34 Completed XR chest 1V portable [id number] Stat Exams 01/14/24 20:35 Completed Pending at discharge Category Date Time Status Sputum Culture and Gram Stain Stat Lab 01/15/24 08:01 Results Radiology Impressions Chest X-Ray 01/14/24 20:35 IMPRESSION: No acute findings. Chest CTA 01/14/24 21:34 IMPRESSION: 1. No pulmonary embolus identified. 2. Severe emphysema is unchanged. Stable chronic pleural scarring and fat deposition. 3. Persistent qahbg-codpdpr-wuhn-left hilar lymphadenopathy with mildly prominent mediastinal lymph nodes, nonspecific. Recommend correlation with history. 4. Stable 6 mm right lower lobe pulmonary nodule. Laboratory Results WBC 4.76 10^3/uL (3.29-11.43) 01/15/24 03:29 Corrected WBC Cancelled 01/14/24 20:05 RBC 5.99 10^6/uL (3.85-5.65) H 01/15/24 03:29 Hgb 16.80 g/dL (11.27-16.99) 01/15/24 03:29 Hct 54.5 % (37-53) H 01/15/24 03:29 MCV 91.0 fl (82-101) 01/15/24 03:29 MCH 28.0 pg (27-33) 01/15/24 03:29 MCHC 30.8 g/dL (30-55) 01/15/24 03:29 RDW 15.9 % (12.1-15.1) H 01/15/24 03:29 Plt Count 161 10^3/cmm (157-399) 01/15/24 03:29 MPV 10.9 fL (7.4-10.4) H 01/15/24 03:29 Gran % Cancelled 01/14/24 20:05 Neut % (Auto) 92.9 % 01/15/24 03:29 Lymph % (Auto) 6.3 % 01/15/24 03:29 [place] % (Auto) 0.4 % 01/15/24 03:29 Eos % (Auto) 0.0 % 01/15/24 03:29 Baso % (Auto) 0.2 % 01/15/24 03:29 Neut # (Auto) 4.42 10^3/uL (1.8-7.7) 01/15/24 03:29 Lymph # (Auto) 0.3 10^3/uL (0.8-4.8) L 01/15/24 03:29 [place] # (Auto) 0.0 10^3/uL (0.2-0.9) L 01/15/24 03:29 Eos # (Auto) 0.0 10^3/uL (0.0-0.8) 01/15/24 03:29 Baso # (Auto) 0.0 10^3/uL (0.0-0.1) 01/15/24 03:29 Absolute Gran (auto) Cancelled 01/14/24 20:05 Nucleated RBC % (auto) 0 % 01/15/24 03:29 Nucleated RBCs # 0.0 /100WBC 01/15/24 03:29 D-Dimer 0.57 ug/mLFEU (0-0.59) 01/14/24 21:13 Specimen Type Arterial 01/14/24 20:58 Sample Site Radial, left 01/14/24 20:58 ABG pH 7.38 (7.35-7.45) 01/14/24 20:58 ABG pCO2 38.5 mmHg (35-45) 01/14/24 20:58 ABG pO2 55.8 mmHg (80.0-100.0) L 01/14/24 20:58 ABG HCO3 22.7 mmol/L (22-26) 01/14/24 20:58 ABG Base Excess -2.2 mmol/L (-2.0-2.0) L 01/14/24 20:58 Yunior Test Pos 01/14/24 20:58 Hematocrit 52.6 % (42-52) H 01/14/24 20:58 Hgb O2 Saturation 87.0 % (95-100) L 01/14/24 20:58 Carboxyhemoglobin 2.0 %THgb (0.4-20.1) 01/14/24 20:58 Methemoglobin < 0.0 % (0.4-1.5) L 01/14/24 20:58 Total Hemoglobin 17.2 g/dL (14-18) 01/14/24 20:58 O2 Delivery Device Nc 01/14/24 20:58 O2 Liters/Min 6.0 % 01/14/24 20:58 Diesel Tractor Engine Mechanic ID [id number] 01/14/24 20:58 Sodium 137 mmol/L (136-145) 01/16/24 02:32 Potassium 4.5 mmol/L (3.5-5.1) 01/16/24 02:32 Chloride 103 mmol/L (98-107) 01/16/24 02:32 Carbon Dioxide 24 mmol/L (22-29) 01/16/24 02:32 Anion Gap 14.5 (5-19) 01/16/24 02:32 BUN 21 mg/dL (8-23) 01/16/24 02:32 Creatinine 1.0 mg/dL (0.7-1.2) 01/16/24 02:32 GFR Calculation Not Reportable 01/16/24 02:32 Glucose 163 mg/dL (65-115) H 01/16/24 02:32 Calculated Osmolality 291 mOsm/kg (285-295) 01/16/24 02:32 Calcium 8.2 mg/dL (8.5-10.5) L 01/16/24 02:32 Magnesium 2.3 mg/dL (1.7-2.3) 01/15/24 03:29 Total Bilirubin 0.9 mg/dL (0.15-1.2) 01/14/24 20:05 AST 16 U/L (0-40) 01/14/24 20:05 ALT 19 U/L (0-41) 01/14/24 20:05 Alkaline Phosphatase 91 U/L (40-130) 01/14/24 20:05 Troponin T Baseline 20 ng/L (0-15) H 01/14/24 21:13 Troponin T 120 Minute 20.97 ng/L (0-15) H 01/14/24 23:20 Delta Troponin T 0.97 ABS# (0-10) 01/14/24 23:20 Troponin T Hi Sens 6Hr 15.99 ng/L (0-15) H 01/15/24 03:29 Troponin T Hi Sens 6Hr Delta -4.01 ng/L (0-12) L 01/15/24 03:29 NT-Pro-B Natriuret Pep 2118 pg/mL (0-450) H 01/14/24 20:05 Total Protein 7.8 g/dL (6.6-8.7) 01/14/24 20:05 Albumin 4.6 g/dL (3.5-5.2) 01/14/24 20:05 Globulin 3.2 g/dL (1.3-4.6) 01/14/24 20:05 Procalcitonin 0.06 ng/mL (0-0.5) 01/14/24 23:20 Vitals Last Vital Signs Temp 97.5 F L 01/16/24 08:00 Pulse 91 01/16/24 08:00 Resp 16 01/16/24 07:53 BP 117/72 01/16/24 08:00 Pulse Ox 88 L 01/16/24 08:00 O2 Del Method Nasal Cannula 01/16/24 08:00 O2 Flow Rate 5 01/16/24 07:53 FiO2 55 01/14/24 21:50 Discharge Plan Discharge Patient Disposition: Home Condition: Stable Prescriptions: New methylprednisolone [Medrol (Sony)] 4 mg tablets,dose pack See Rx Instructions .ROUTE .COMPLEX Qty: 21 0RF Rx Instructions: orally per package directions Continued simvastatin 80 mg tablet 40 mg PO QPM trazodone 100 mg tablet 100 mg PO BEDTIME PRN (Reason: Sleep) aspirin [Adult Aspirin Regimen] 81 mg tablet,delayed release (DR/EC) 81 mg PO DAILY@11 guaifenesin 200 mg/5 mL liquid 400 mg PO Q6H PRN (Reason: cough) Qty: 473 3RF alprazolam [Xanax] 0.5 mg tablet 0.5 mg PO BID MDD 1 mg PRN (Reason: anxiety) Qty: 60 2RF (DME) Acapella See Rx Instructions .Route .MEDSUPPLY Qty: 1 0RF Rx Instructions: As directed (DME) Chest Vest (Afflo) See Rx Instructions .Route .MEDSUPPLY Qty: 1 0RF Rx Instructions: High Frequency Chest Wall Oscillation Vest- 5Hz-20Hz for 30 minutes twice per day albuterol sulfate [Ventolin HFA] 90 mcg/actuation HFA aerosol inhaler 2 puff INHALATION QID PRN (Reason: Shortness Of Breath) Qty: 18 6RF ipratropium-albuterol 0.5 mg-3 mg(2.5 mg base)/3 mL solution for nebulization 3 ml inhalation Q6H PRN (Reason: wheezing) 30 Days Qty: 360 4RF Breztri Aerosphere 160-9-4.8 mcg/actuation HFA aerosol inhaler 2 inh inhalation BID 90 Days Qty: 32.1 3RF cholecalciferol (vitamin D3) [Vitamin D3] 125 mcg (5,000 unit) Tablet 125 mcg PO DAILY Discontinued metformin 1,000 mg Tablet 1,000 mg PO BID Discharge Orders: Discharge Order (Routine); Ordered 01/16/24 Ordered By: Olaf Fernandez Referrals: Wanda Graves MD [Primary Care Provider] - 4-7 days (Please call for an follow-up appointment within 4 to 7 days. ) Jim Gamboa MD [Referring] - 7-10 days ([address] [place] [address] ) Discharge Diet: Cardiac Discharge Activity: Increase activity as tolerated Patient Instructions: COPD, Methylprednisolone (By mouth), COPD Stoplight, Opioid Safety Discharge Attestations Time Spent in Discharge Care*: greater than 30 min Quality Metrics Clinical Quality Measures [ No reported AMI, CVA or VTE this stay] Coding Level of Care Code Acute Code for Chg Fwd Diagnoses Anxiety F41.9 Polycythemia D75.1 Chronic obstructive pulmonary disease J44.9 Chronic respiratory failure with hypoxia J96.11 Diaphragm dysfunction J98.6 Mediastinal lymphadenopathy R59.0 Pulmonary hypertension I27.20
--- NOTE | 2024-01-16 09:58 | PC.NURSE ---
Discharge Note Patient discharged to home via private vehicle accompanied by . Discharge instructions reviewed with patient and/or insurance healthcare representative. Mobile pharmacy medications and/or prescriptions provided. Belongings/home medications returned.
[2024-01-16 09:59] VITALS: BP 117/72; PULSE 91; TEMP 36.4; O2SAT 88
[2024-01-16 11:50] VITALS: PULSE 95; RESP 26; O2SAT 90
== END 2024-01-16 12:48 | disposition home or self-care (01) | DRG 191 ==
LOC: ER 21:21 → ICU 22:49 → MEDSURG 01-15 15:37
PROVIDERS: Admitting Provider Internal Medicine; Emergency Provider Emergency Medicine; PCP Family Medicine; Visit Provider Internal Medicine
DX: J43.9 Emphysema, unspecified (principal); J96.11 Chronic respiratory failure with hypoxia; Z99.81 Dependence on supplemental oxygen; Z87.891 Personal history of nicotine dependence; D75.1 Secondary polycythemia; F41.9 Anxiety disorder, unspecified; E78.5 Hyperlipidemia, unspecified; G47.00 Insomnia, unspecified; E11.9 Type 2 diabetes mellitus without complications; I27.20 Pulmonary hypertension, unspecified; R59.0 Localized enlarged lymph nodes; J98.6 Disorders of diaphragm
CPT/HCPCS: 36415; 36600; 71045; 71275; 80048; 80053; 82805; 83735; 83880; 84145; 84484; 85025; 85378; 87070; 87205; 93005; 94640; 96372; 96374; 97161; 97530; 99285; J1644; J1940; J2919; J3490; J7030; J7626; Q9967

== ENCOUNTER → 2024-03-27 13:59 | Outpatient (BNVA) | payer OTHER, SELFPAY | PROVIDERS: PCP Family Medicine; Visit Provider Internal Medicine Critical Care Medicine | DX: J96.11 Chronic respiratory failure with hypoxia (principal); Z99.81 Dependence on supplemental oxygen; J44.9 Chronic obstructive pulmonary disease, unspecified; J84.10 Pulmonary fibrosis, unspecified; I27.20 Pulmonary hypertension, unspecified; R59.0 Localized enlarged lymph nodes; R91.1 Solitary pulmonary nodule; D75.1 Secondary polycythemia; R53.81 Other malaise; Z71.89 Other specified counseling | CPT/HCPCS: 99214 ==

== ENCOUNTER 2024-08-14 22:59 | Inpatient (IN) | payer OTHER, MEDICARE, SELFPAY ==
--- NOTE | 2024-08-14 23:04 | ECG_ITS ---
[facility] Test Date: 2024-08-14 Pat Name: Benny Burch Department: Room: Gender: Male Employment Trainer: : 1945 Requested By: Brayan Payne Order Number: [id number] Avalos MD: Jim Richards M.D. Measurements Intervals [place] Rate: 129 P: -18 MA: 173 QRS: 257 QRSD: 83 T: 66 QT: 310 QTc: 454 Interpretive Statements SINUS TACHYCARDIA RIGHT AXIS DEVIATION [QRS AXIS > 100] POSSIBLE RIGHT VENTRICULAR CONDUCTION DELAY [RSR (QR) IN V1/V2] MINIMAL ST DEPRESSION [0.025+ mV ST DEPRESSION] Compared to ECG 01/15/2024 06:20:31 Right ventricular hypertrophy now present ST (T wave) deviation now present Sinus rhythm no longer present First degree AV block no longer present T-wave abnormality no longer present Possible ischemia no longer present Electronically Signed On 08-17-2024 22:04:27 [employer]CARA [employer]ARK CUTTER by Jim Richards M.D. [id number]
--- NOTE | 2024-08-14 23:05 | W.ED.GENADLT ---
HPI - General Adult General: Chief complaint: ER Hold Stated complaint: sob Time Seen by Provider: 08/14/24 23:04 History of Present Illness: Patient brought in by EMS with complaints of falling out of his [facility] landing on the ground injuring his already bad back and not being able to get up for 7 hours until he called someone to come get him. Patient laid out on the cold concrete without his oxygen that he normally wears 5 L at all times with. EMS found him and his pulse ox was in the 70s. His temperature was 95.5, he was alert and oriented x 4 denies hitting his head or passing out etc. The only patient's pain is his worsening of his chronic back pain. Patient has skin tears on both elbows. EMS placed warming pads on axilla and groin. They started an IV and gave him approximately 500 mL of warm LR before arrival. Related Data Home Medications ?Medication ?Instructions ?Recorded ?Confirmed aspirin 81 mg tablet,delayed 81 mg PO DAILY@11 03/06/20 08/15/24 release (Adult Aspirin Regimen) simvastatin 80 mg tablet 40 mg PO QPM 03/06/20 08/15/24 trazodone 100 mg tablet 100 mg PO BEDTIME PRN Sleep 03/06/20 08/15/24 cholecalciferol (vitamin D3) 125 125 mcg PO DAILY 04/22/21 08/15/24 mcg (5,000 unit) tablet (Vitamin D3) guaifenesin 100 mg/5 mL oral liquid 200 mg PO Q4H PRN Congestion 08/15/24 08/15/24 metformin 1,000 mg tablet 1,000 mg PO BIDWMEAL 08/15/24 08/15/24 montelukast 10 mg tablet 10 mg PO QPM 08/15/24 08/15/24 (Singulair) prednisone 5 mg tablet 5 mg PO DAILY 08/15/24 08/15/24 tramadol 50 mg tablet 50 mg PO TID PRN Pain 08/15/24 08/15/24 Previous Rx's ?Medication ?Instructions ?Recorded albuterol sulfate 90 mcg/actuation 2 puff inhalation QID PRN 12/22/22 aerosol inhaler (Ventolin HFA) Shortness Of Breath #18 grams Acapella #1 ea 10/28/23 Chest Vest (Afflo) #1 ea 10/28/23 alprazolam 0.5 mg tablet (Xanax) 0.5 mg PO BID PRN anxiety #60 tabs 10/28/23 budesonide 160 mcg-glycopyr 9 2 inh inhalation BID 90 days #32.1 01/06/24 mcg-formot 4.8 mcg/actuation HFA grams inhaler (Breztri Aerosphere) ipratropium 0.5 mg-albuterol 3 mg 3 ml inhalation Q6H PRN wheezing 01/06/24 (2.5 mg base)/3 mL nebulization 30 days #360 mL soln Allergies Allergy/AdvReac Type Severity Reaction Status Date / Time No Known Allergies Allergy Verified 08/14/24 23:37 Review of Systems General: Reports: 10 or more systems reviewed and unremarkable except in HPI and below PFSH ED PFSH: Medical History Mediastinal lymphadenopathy Diaphragm dysfunction Shortness of breath Polycythemia Chronic respiratory failure with hypoxia Secondary polycythemia Pulmonary hypertension Hilar lymphadenopathy Hypoxia Acute exacerbation of chronic obstructive airways disease Anxiety Hyperlipidemia Insomnia Type 2 diabetes mellitus Chronic obstructive pulmonary disease Surgical History Hx of tonsillectomy Family History Other Healthy adult Social History Smoking and tobacco/nicotine status: former use of tobacco/nicotine Quit status (tobacco/nicotine): has quit using Year quit tobacco: 1999 - 1PPD x 20 Years Second hand smoke exposure: No Alcohol intake: never Substance/Drug Use: never Lives independently: Yes Household members: none Marital status: Number of children: 2 service: Yes Current occupational status: employed 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 Pets and animals: Yes Do you think of yourself as: Straight/Heterosexual Current gender identity: Male Physical Exam Const: COMMON NORMALS: no acute distress, average body habitus, patient oriented x3, no limitations, healthy appearing, alert and well nourished HENMT: COMMON NORMALS: normocephalic, atraumatic, hearing grossly normal bilaterally, external ears normal, Normal external nose present and moist oral mucous membranes HEAD & SCALP: normocephalic and atraumatic NOSE: Normal external nose present EXTERNAL EAR: Yes external ears normal Neck/C-Spine: COMMON NORMALS: full ROM, no lymphadenopathy, supple, no meningeal signs, no JVD and Thyroid normal THYROID: Thyroid normal Chest: COMMONS NORMALS: normal inspection of the chest and normal palpation of entire chest wall Resp: COMMON NORMALS: normal respiratory effort, No retractions, No use of accessory muscles and clear to auscultation bilaterally AUSCULTATION: clear to auscultation bilaterally Cardio: COMMON NORMALS: no JVD, regular rhythm, S1 normal heart sound present, S2 normal heart sound present, No gallops present (Cardio), No clicks present (Cardio), No murmurs present (Cardio) and No rub (Cardio); negative for regular rate (Mildly tachycardic) RATE: abnormal rate (Mildly tachycardic) RHYTHM: regular rhythm HEART SOUNDS: S1 normal heart sound present and S2 normal heart sound present GI: COMMON NORMALS: Normal to inspection, nondistended, normoactive bowel sounds present, Soft to palpation, non-tender, No hepatosplenomegaly present and no masses PALPATION: Yes Soft to palpation and Yes No hepatosplenomegaly present Extremity: NARRATIVE EXTREMITY EXAM: Skin tears to bilateral elbows, Neuro: COMMON NORMALS: patient oriented x3 SENSORIUM/ORIENTATION: Yes alert MENINGEAL SIGNS: Yes no meningeal signs Course Vital Signs: Vital signs: Vital Signs Temperature 98 F 08/15/24 07:55 Pulse Rate 87 08/15/24 15:07 Respiratory Rate 16 08/15/24 15:07 Blood Pressure 0/0 08/15/24 07:55 Pulse Oximetry 96 08/15/24 15:07 Oxygen Delivery Me thod Heated High Flow 08/15/24 13:29 Oxygen Flow Rate 50 08/15/24 15:07 Fraction of Inspir ed Oxygen 50 08/15/24 15:07 [facility] - General Adult Medical Decision Making Patient was immediately placed on a Javier hugger, an ABG was obtained, this revealed current hypoxia patient was placed on BiPAP, lab work was obtained which revealed a white count of 28.8 is thought at first this may be due to stress however the chest x-ray showed patchy bibasilar airspace disease which may inflict atelectasis or pneumonia. Lactic acid was elevated at 4.8. Patient was given 1 L of lactated Ringer's by the EMS we gave another liter of normal saline. Patient received 3.375 g of Zosyn. Troponin was elevated initially at 45, with a 2-hour troponin of 108, for delta of 63, patient was still pain-free. CPK come back elevated at 445, we discussed these results with Dr. Fernandez. We will start ACS protocol for non-STEMI.. Lab Data 08/15/24 14:06 08/15/24 04:00 Radiology Impressions Chest X-Ray 08/14/24 23:47 IMPRESSION: 1. Patchy bibasilar airspace disease which may reflect subsegmental atelectasis versus pneumonia. 2. Blunting of the costophrenic angles which may be related to chronic pleural thickening or small bilateral pleural effusions. Head CT 08/14/24 23:48 IMPRESSION: No acute intracranial abnormality. Venous Duplex 08/15/24 02:07 IMPRESSION: No evidence of deep vein thrombosis. Chest CTA 08/15/24 06:32 IMPRESSION: 1. Subsegmental RIGHT middle and RIGHT lower lobe pulmonary emboli. 2. Significant RIGHT heart strain. 3. Focal dense consolidation LEFT lower lobe with a small effusion consistent with pneumonia. 4. Bulky bilateral hilar and subcarinal lymphadenopathy. Reactive versus neoplastic, progressed since 01/14/2024. 5. Bilateral pleural nodularity and thickening. This will need to be reevaluated for neoplastic involvement due to the nodularity. 6. Mild pulmonary artery enlargement. Laboratory Results WBC 24.00 10^3/uL (3.29-11.43) H 08/15/24 04:00 RBC 4.44 10^6/uL (3.85-5.65) 08/15/24 04:00 Hgb 14.10 g/dL (11.27-16.99) 08/15/24 04:00 Hct 43.0 % (37-53) 08/15/24 04:00 MCV 96.8 fl (82-101) 08/15/24 04:00 MCH 31.8 pg (27-33) 08/15/24 04:00 MCHC 32.8 g/dL (30-55) 08/15/24 04:00 RDW 13.8 % (12.1-15.1) 08/15/24 04:00 Plt Count 134 10^3/cmm (157-399) L 08/15/24 04:00 MPV 9.5 fL (7.4-10.4) 08/15/24 04:00 Neut % (Auto) 88.6 % 08/15/24 04:00 Lymph % (Auto) 3.2 % 08/15/24 04:00 Mckinley % (Auto) 7.0 % 08/15/24 04:00 Eos % (Auto) 0.0 % 08/15/24 04:00 Baso % (Auto) 0.3 % 08/15/24 04:00 Neut # (Auto) 21.27 10^3/uL (1.8-7.7) H 08/15/24 04:00 Lymph # (Auto) 0.8 10^3/uL (0.8-4.8) 08/15/24 04:00 Mckinley # (Auto) 1.7 10^3/uL (0.2-0.9) H 08/15/24 04:00 Eos # (Auto) 0.0 10^3/uL (0.0-0.8) 08/15/24 04:00 Baso # (Auto) 0.1 10^3/uL (0.0-0.1) 08/15/24 04:00 Nucleated RBC % (auto) 0 % 08/15/24 04:00 Nucleated RBCs # 0.0 /100WBC 08/15/24 04:00 D-Dimer 10.25 ug/mLFEU (0-0.59) H 08/14/24 23:43 Specimen Type Arterial 08/14/24 23:32 Sample Site Radial, right 08/14/24 23:32 ABG pH 7.32 (7.35-7.45) L 08/14/24 23:32 ABG pCO2 46.6 mmHg (35-45) H 08/14/24 23:32 ABG pO2 50.9 mmHg (80.0-100.0) L 08/14/24 23:32 ABG HCO3 24.1 mmol/L (22-26) 08/14/24 23:32 ABG O2 Saturation 84.4 08/14/24 23:32 ABG Base Excess -2.4 mmol/L (-2.0-2.0) L 08/14/24 23:32 Yunior Test Pos 08/14/24 23:32 A-a O2 Gradient 5.5 mmHg (5-10) 08/14/24 23:32 Hematocrit 51.4 % (42-52) 08/14/24 23:32 Hgb O2 Saturation 82.4 % (95-100) L 08/14/24 23:32 Carboxyhemoglobin 1.9 %THgb (0.4-20.1) 08/14/24 23:32 Methemoglobin 0.6 % (0.4-1.5) 08/14/24 23:32 Total Hemoglobin 16.8 g/dL (14-18) 08/14/24 23:32 Sodium 140.0 mmol/L (131-143) 08/14/24 23:32 Potassium 4.4 mmol/L (3.5-5.0) 08/14/24 23:32 Glucose 151.0 mg/dL (70-115) H 08/14/24 23:32 Ionized Calcium 1.2 mmol/L (1.1-1.4) 08/14/24 23:32 O2 Delivery Device Oxy mask 08/14/24 23:32 O2 Liters/Min 10.0 % 08/14/24 23:32 Behavioral Health Care Manager ID [email or web address] 08/14/24 23:32 Sodium 139 mmol/L (136-145) 08/15/24 04:00 Potassium 4.7 mmol/L (3.5-5.1) 08/15/24 04:00 Chloride 104 mmol/L (98-107) 08/15/24 04:00 Carbon Dioxide 24 mmol/L (22-29) 08/15/24 04:00 Anion Gap 15.7 (5-19) 08/15/24 04:00 BUN 25 mg/dL (8-23) H 08/15/24 04:00 Creatinine 1.1 mg/dL (0.7-1.2) 08/15/24 04:00 GFR Calculation Not Reportable 08/15/24 04:00 Glucose 140 mg/dL (65-115) H 08/15/24 04:00 Calculated Osmolality 295 mOsm/kg (285-295) 08/15/24 04:00 Lactic Acid 4.8 mmol/L (0.5-2.2) H* 08/14/24 23:43 Lactic Acid (Sepsis) 1.9 mmol/L (0.5-2.2) 08/15/24 04:00 Calcium 7.8 mg/dL (8.5-10.5) L 08/15/24 04:00 Phosphorus 3.2 mg/dL (2.5-4.5) 08/15/24 04:00 Magnesium 1.9 mg/dL (1.7-2.3) 08/14/24 23:43 Total Bilirubin 0.9 mg/dL (0.15-1.2) 08/14/24 23:43 AST 23 U/L (0-40) 08/14/24 23:43 ALT 16 U/L (0-41) 08/14/24 23:43 Alkaline Phosphatase 58 U/L (40-130) 08/14/24 23:43 Creatine Kinase 414 U/L (39-308) H* 08/15/24 04:00 Creatine Kinase Cancelled 08/15/24 04:00 Troponin T Baseline 45 ng/L (0-15) H 08/14/24 23:14 Troponin T 120 Minute 108.6 ng/L (0-15) H 08/15/24 01:20 Delta Troponin T 63.6 ABS# (0-10) H* 08/15/24 01:20 Troponin T Hi Sens 6Hr 130.4 ng/L (0-15) H 08/15/24 04:00 Troponin T Hi Sens 6Hr Delta 85.4 ng/L (0-12) H* 08/15/24 04:00 C-Reactive Protein 142.5 mg/L (0.0-4.9) H 08/15/24 04:00 NT-Pro-B Natriuret Pep 693 pg/mL (0-450) H 08/14/24 23:42 Total Protein 6.5 g/dL (6.6-8.7) L 08/14/24 23:43 Albumin 3.6 g/dL (3.5-5.2) 08/14/24 23:43 Globulin 2.9 g/dL (1.3-4.6) 08/14/24 23:43 Vitamin B12 205 pg/mL (232-1245) L 08/15/24 04:00 Procalcitonin 3.13 ng/mL (0-0.5) H 08/15/24 04:00 TSH 3.72 uIU/mL (0.27-4.20) 08/15/24 04:00 Urine Color Yellow (Yellow) 08/15/24 06:27 Urine Appearance Clear (CLEAR) 08/15/24 06:27 Urine pH 5.5 (5-7) 08/15/24 06:27 Ur Specific [place] 1.020 (1.005-1.030) 08/15/24 06:27 Urine Protein Trace (Negative) A 08/15/24 06:27 Urine Glucose (UA) Negative (Normal) 08/15/24 06:27 Urine Ketones 3+ (Negative) H 08/15/24 06:27 Urine Blood Negative (Negative) 08/15/24 06:27 Urine Nitrate Negative (Negative) 08/15/24 06:27 Urine Bilirubin Negative (Negative) 08/15/24 06:27 Urine Urobilinogen 1.0 mg/dL (Negative) 08/15/24 06:27 Ur Leukocyte Esterase Negative (Negative) 08/15/24 06:27 Urine RBC 0-2 /hpf (0-2) 08/15/24 06:27 Urine WBC 0-5 /hpf (0-5) 08/15/24 06:27 Ur Squamous Epith Cells 0-5 /hpf (0-5) 08/15/24 06:27 Amorphous Sediment Not Reportable 08/15/24 06:27 Urine Bacteria None seen /hpf (NONE) 08/15/24 06:27 Hyaline Casts 3.30 /lpf 08/15/24 06:27 Urine Mucus Trace /hpf 08/15/24 06:27 Coronavirus (PCR) Negative (Negative) 08/15/24 01:51 Influenza A (PCR) Negative (Negative) 08/15/24 01:51 Influenza Type B (PCR) Negative (Negative) 08/15/24 01:51 RSV (PCR) Negative (Negative) 08/15/24 01:51 All radiology interpretation(s) finalized by discharge Discharge Plan Discharge Patient Disposition: Admitted As Inpatient Admit Provider: Olaf Fernandez Clinical Impression: Non-ST elevated myocardial infarction (non-STEMI), Acute and chronic respiratory failure with hypoxia Pneumonia Qualifiers: Pneumonia type: due to unspecified organism Laterality: bilateral Lung location: upper lobe of lung Qualified Code(s): J18.9 - Pneumonia, unspecified organism Rhabdomyolysis Qualifiers: Rhabdomyolysis type: traumatic Encounter type: initial encounter Qualified Code(s): T79.6XXA - Traumatic ischemia of muscle, initial encounter Hypothermia Qualifiers: Encounter type: initial encounter Qualified Code(s): T68.XXXA - Hypothermia, initial encounter Fall Qualifiers: Encounter type: initial encounter Qualified Code(s): W19.XXXA - Unspecified fall, initial encounter Condition: Stable Coding Level of Care Code ED Academic Intern for Jitendra Abad
[2024-08-14 23:19] VITALS: BP 179/95; PULSE 130; RESP 29; TEMP 36.2; O2SAT 86
--- NOTE | 2024-08-14 23:37 | PC.NURSE ---
Pt changed from non-rebreather to oxymask per Dr Bruno. Pt has oxygen sats at 89% 10L. Respiratory in room.
[2024-08-14 23:42] LABS: ABG PCO2 46.6 mmHg (35-45); ABG PH Result 7.32 (7.35-7.45); Alveolar-Arterial Oxygen Gradi 5.5 mmHg (5-10); Arterial Blood Gas Hematocrit 51.4 % (42-52); Base Excess ABG -2.4 mmol/L (-2.0-2.0); Blood Gas Allen Test Pos; Blood Gas Sample Site Radial, right; Blood Gas Sample Type Arterial; Carboxyhemoglobin 1.9 %THgb (0.4-20.1); HCO3 ABG 24.1 mmol/L (22-26); HGB O2 Sat 82.4 % (95-100); Ionized Calcium Level - ABG 1.2 mmol/L (1.1-1.4); Methemoglobin 0.6 % (0.4-1.5); Oxygen Device OXY MASK; Oxygen Saturation ABG 84.4; PO2 ABG 50.9 mmHg (80.0-100.0); Potassium Level - ABG 4.4 mmol/L (3.5-5.0); Total Hemoglobin 16.8 g/dL (14-18)
[2024-08-14 23:47] LABS: Troponin(5th) Baseline 45 ng/L (0-15)
--- NOTE | 2024-08-14 23:47 | XRR_ITS ---
PROCEDURE INFORMATION: Exam: XR Chest Exam date and time: 08/14/2024 11:53 PM Age: 79 years old Clinical indication: Dyspnea TECHNIQUE: Imaging protocol: Radiologic exam of the chest. Views: 1 view. COMPARISON: CT angio chest PE protcl [id number] 01/14/2024 9:44 PM FINDINGS: Lungs: Patchy bibasilar opacities noted. Otherwise, the lungs are clear. Pleural spaces: Small bilateral pleural effusions versus chronic pleural thickening. Heart/Mediastinum: Unremarkable. No cardiomegaly. Vasculature: Calcific plaque involves the aortic knob. Bones/joints: Unremarkable. XR/XR chest 1V portable [id number] IMPRESSION: 1. Patchy bibasilar airspace disease which may reflect subsegmental atelectasis versus pneumonia. 2. Blunting of the costophrenic angles which may be related to chronic pleural thickening or small bilateral pleural effusions.
--- NOTE | 2024-08-14 23:48 | CTR_ITS ---
PROCEDURE INFORMATION: Exam: CT Head Without Contrast Exam date and time: 08/15/2024 12:09 AM Age: 79 years old Clinical indication: Injury or trauma; Fall; Unconscious; Syncope and collapse; Additional info: Fall, unresponsiveness TECHNIQUE: Imaging protocol: Computed tomography of the head without contrast. Radiation optimization: All CT scans at this facility use at least one of these dose optimization techniques: automated exposure control; mA and/or kV adjustment per patient size (includes targeted exams where dose is matched to clinical indication); or iterative reconstruction. COMPARISON: No relevant prior studies available. RADIATION DOSE METRICS: Total DLP (mGy-cm): 1292.88 FINDINGS: Brain: Periventricular white matter changes likely related to chronic ischemic small vessel disease. No intracranial mass, hemorrhage or recent infarct. Brain atrophy present. Cerebral ventricles: No ventriculomegaly. Paranasal sinuses: Visualized sinuses are unremarkable. No fluid levels. Mastoid air cells: Visualized mastoid air cells are well aerated. Bones: Unremarkable. No acute fracture. Soft tissues: Unremarkable. CT/CT head wo con* [id number] IMPRESSION: No acute intracranial abnormality.
[2024-08-14 23:50] VITALS: PULSE 124; RESP 25; O2SAT 92
[2024-08-14 23:53] VITALS: PULSE 125; RESP 27; O2SAT 91
[2024-08-14 23:55] LABS: Basophils # 0.1 10^3/uL (0.0-0.1); Basophils % 0.3 %; Hematocrit 50.4 % (37-53); Lymphocytes # 0.8 10^3/uL (0.8-4.8); Lymphocytes % 2.6 %; Mean Corpuscular HGB Conc 32.5 g/dL (30-55); Mean Corpuscular Hemoglobin 31.3 pg (27-33); Mean Corpuscular Volume 96.2 fl (82-101); Mean Platelet Volume 10.2 fL (7.4-10.4); Monocytes # 1.9 10^3/uL (0.2-0.9); Monocytes % 6.5 %; Neutrophils # 25.83 10^3/uL (1.8-7.7); Neutrophils % 89.6 %; Nucleated Red Blood Cells % 0 %; Platelet Count 158 10^3/cmm (157-399); Red Blood Count 5.24 10^6/uL (3.85-5.65); Red Cell Distribution Width 13.7 % (12.1-15.1); White Blood Count 28.83 10^3/uL (3.29-11.43)
[2024-08-15] VITALS (31 sets, daily range): BP systolic 0–113; BP diastolic 0–88; PULSE 81–153; RESP 12–27; TEMP 36.6–37.5; O2SAT 88–98; BMI 28.6
[2024-08-15 00:10] LABS: Alanine Aminotransferase 16 U/L (0-41); Albumin Level 3.6 g/dL (3.5-5.2); Alkaline Phosphatase 58 U/L (40-130); Anion Gap 22.4 (5-19); Aspartate Amino Transferase 23 U/L (0-40); Blood Urea Nitrogen 26 mg/dL (8-23); Calcium 9.2 mg/dL (8.5-10.5); Carbon Dioxide 23 mmol/L (22-29); Chloride 97 mmol/L (98-107); Creatinine Clr Calc Pharmacy 58.1488; Globulin 2.9 g/dL (1.3-4.6); Glucose 151 mg/dL (65-115); Magnesium 1.9 mg/dL (1.7-2.3); Osmolality Calculated 294 mOsm/kg (285-295); Potassium 4.4 mmol/L (3.5-5.1); Sodium 138 mmol/L (136-145); Total Bilirubin 0.9 mg/dL (0.15-1.2); Total Protein 6.5 g/dL (6.6-8.7)
[2024-08-15 00:11] LABS: Creatine Phosphokinase 445 U/L (39-308)
[2024-08-15 00:20] LABS: NT Pro B Type Natriuretic Pept 693 pg/mL (0-450)
[2024-08-15 01:12] LABS: Lactic Sepsis W/Reflex 4.8 mmol/L (0.5-2.2)
[2024-08-15 01:16] LABS: Procalcitonin 2.62 ng/mL (0-0.5)
[2024-08-15] MEDS: sodium chloride 0.9% 1,000 ML 999 ML IV (01:16)
[2024-08-15] MEDS: ondansetron 2 mg/ML SDV 2 mL 4 MG IVP (01:23)
[2024-08-15] MEDS: morphine 4 mg/mL SDV 1 mL IVP (01:25)
[2024-08-15 01:53] LABS: Troponin 5 2HR 108.6 ng/L (0-15); Troponin 5 2HR Delta 63.6 ABS# (0-10)
--- NOTE | 2024-08-15 02:05 | P.HP_ITS ---
Providers/Chief Complaint 2 Primary Care Provider: BRADEN Rosas Chief Complaint: sob History of Present Illness Benny Burch is a 79 year old male with history of chronic hypoxia uses 5 L at baseline, presented to the hospital after sustaining a fall. Patient is stating that he fell from [id number] landing on the ground and stayed on the ground for about 6 to 7 hours, after falling his back pain got worse and he just could not get up on his own, his neighbor saw and called 911, patient was hypoxic as per the EMS report patient was not using his oxygen when he fell on the ground, he was hypothermic as well. Temperature was 95.5. However he was awake and alert did not show any sign of stroke. Patient did not experience any fever, nausea vomiting diarrhea seizure-like activity, chest pain. Endorsing mild cough. When he arrived in the ER he was put on BiPAP to decrease work of breathing, workup consistent with non-STEMI, I requested D-dimer which came back high, requested venous Doppler and CTA chest He has been started on ACS protocol, EKG unremarkable Patient received IV fluids for worsening of CPK Lactic acid improved, creatinine improved after IV fluid hydration Requested B12 which came back very low Normal TSH Respiratory panel negative Patient not showing any signs of cauda equina Patient had PFT 01/21/2023: Spirometry showed severe airflow obstruction with FEV1/FVC 45 and FEV1 1.29 L 40% predicted and FVC 2.85 L 66% predicted. There is no significant response to bronchodilators. Lung volumes show nonspecific restriction. Gas transfer is very severely reduced with DLCO 19% Review of Systems 2 Const: Denies: fever(s) Eyes: Denies: change in vision ENMT: Denies: throat pain Card: Reports: lightheadedness Resp: Reports: dyspnea GI: Denies: abdominal pain : Denies: flank pain Medications/Allergies Home Medications ?Medication ?Instructions ?Recorded ?Confirmed ?Last Taken ?Type aspirin 81 mg tablet,delayed 81 mg PO DAILY@11 2 0 03/27/24 1 Day Ago History release (Adult Aspirin Regimen) ~ 12/02 simvastatin 80 mg tablet 40 mg PO QPM 03/06/20 1 Day Ago History ~01/14/24 trazodone 100 mg tablet 100 mg PO BEDTIME PRN Sleep 03/06/20 03/27/24 2 Days Ago History ~01/13/24 100 mg cholecalciferol (vitamin D3) 125 125 mcg PO DAILY 04/1103/27/24 1 Day Ago History mcg (5,000 unit) tablet (Vitamin ~12/02 D3) albuterol sulfate 90 mcg/actuation 2 puff inhalation Q ID PRN 12/22/22 03/27/24 1 Day Ago Rx aerosol inhaler (Ventolin HFA) Shortness Of Breath #18 grams ~01/14/24 Acapella #1 ea 10/28/23 03/27/24 Unkn own Rx Chest Vest (Afflo) #1 ea 10/28/23 03/27/24 Unkn own Rx alprazolam 0.5 mg tablet (Xanax) 0.5 mg PO BID PRN anx iety #60 tabs 10/28/23 03/27/24 2 Days Ago Rx ~01/13/24 guaifenesin 200 mg/5 mL oral liquid 400 mg (10 mL) PO Q6H PRN cough 10/28/23 03/27/24 1 Day Ago Rx #473 mL ~01/14/24 budesonide 160 mcg-glycopyr 9 2 inh inhalation BID 90 days #32.1 01/06/24 03/27/24 1 Day Ago Rx mcg-formot 4.8 mcg/actuation HFA grams ~01/14/24 inhaler (Breztri Aerosphere) ipratropium 0.5 mg-albuterol 3 mg 3 ml inhalation Q6H PRN wheezing 01/06/24 03/27/24 Unknown Rx (2.5 mg base)/3 mL nebulization 30 days #360 mL soln Allergies Allergy/AdvReac Type Severity Reaction Status Date / Time No Known Allergies Allergy Verified 08/14/24 23:37 PFSH Acute 2 PFSH: Medical History Mediastinal lymphadenopathy Diaphragm dysfunction Shortness of breath Polycythemia Chronic respiratory failure with hypoxia Secondary polycythemia Pulmonary hypertension Hilar lymphadenopathy Hypoxia Acute exacerbation of chronic obstructive airways disease Anxiety Hyperlipidemia Insomnia Type 2 diabetes mellitus Chronic obstructive pulmonary disease Surgical History Hx of tonsillectomy Family History Other Healthy adult Social History Smoking and tobacco/nicotine status: former use of tobacco/nicotine Quit status (tobacco/nicotine): has quit using Year quit tobacco: 1999 - 1PPD x 20 Years Second hand smoke exposure: No Alcohol intake: never Substance/Drug Use: never Lives independently: Yes Household members: none Marital status: Number of children: 2 service: Yes Current occupational status: employed 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 Pets and animals: Yes Do you think of yourself as: Straight/Heterosexual Current gender identity: Male Vitals/I&O/Wt Last Vital Signs Temp 98.3 F 08/15/24 01:59 Pulse 121 H 08/15/24 01:54 Resp 22 H 08/15/24 01:54 BP 100/63 08/15/24 01:54 Pulse Ox 90 08/15/24 01:54 O2 Del Method BiPAP 08/15/24 01:54 O2 Flow Rate 12 08/14/24 23:53 FiO2 55 08/14/24 23:50 08/14/24 08/14/24 08/15/24 14:59 22:59 06:59 Intake Total 500 / 500 Balance 500 / 500 Weight last 48 hrs Weight 86.183 kg Physical Exam 2 Narrative: No active signs of cauda equina Euvolemic GCS 15 Lacerations and bruises noted over extremities Pleasant and cooperative No active chest pain Currently on BiPAP Patient is wanting to drink and eat Tachycardia S1, S2 did not appreciate significant murmur Abdomen nontender distended Hypogastric region tenderness could be related to urinary tension Lower extremity patient able to move on his own No significant edema of lower extremities Data 08/15/24 04:00 08/15/24 04:00 A&P Assessment and plan (1) Progressive pulmonary hypertension: (2) Non-ST elevated myocardial infarction (non-STEMI): (3) BAI (dyspnea on exertion): (4) Rhabdomyolysis: Qualifiers: Encounter type: initial encounter Rhabdomyolysis type: traumatic Q ualified Code(s): T79.6XXA - Traumatic ischemia of muscle, initial encounter (5) Fall: Qualifiers: Encounter type: initial encounter Qualified Code(s): W19.XXXA - Unspecified fall, initial encounter (6) Chronic hypoxic respiratory failure, on home oxygen therapy: (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): (8) Pneumonia: Qualifiers: Laterality: bilateral Lung location: upper lobe of lung Pneumonia type: due to unspecified organism Qualified Code(s): J18.9 - Pneumonia, unspecified organism (9) Acute and chronic respiratory failure with hypoxia: (10) Physical deconditioning: (11) Hypothermia: Qualifiers: Encounter type: initial encounter Qualified Code(s): T68.XXXA - Hypothermia, initial encounter (12) Sepsis: Plan Fall Likely related to deconditioning Patient was not using oxygen No signs of cauda equina Patient not endorsing syncope Extremely low B12: Start supplementation Rule out thromboembolic disease abnormal D-dimer noted requested venous Doppler CT chest Non-STEMI No active chest pain EKG not showing infarctive changes Troponin trending up Initiated ACS protocol after aspirin Plavix loading dose Echo requested Rhabdomyolysis Secondary to fall Continue IV fluids Patient has high BNP but clinically does not look extremely fluid overloaded Hypothermia: Improved with Javier hugger Pneumonia: Sepsis: Criteria met with hypothermia, leukocytosis, tachypnea tachycardia Patient received septic bolus No signs of encephalopathy Source is pneumonia Start patient on ceftriaxone and azithromycin Chronic hypoxia with severe COPD/underlying pulm hypertension Patient uses 5 L at baseline Currently on BiPAP to decrease work of breathing Full code Consistent carb cardiac diet Attestations 2 Medical Necessity Statement*: More than 2 midnights anticipated for management of pneumonia and sepsis and non-STEMI Coding Level of Care Code 82895 Diagnoses Progressive pulmonary hypertension I27.20 Non-ST elevated myocardial infarction (non-STEMI) I21.4 BAI (dyspnea on exertion) R06.09 Rhabdomyolysis T79.6XXA Encounter type: initial encounter Rhabdomyolysis type: traumatic Fall W19.XXXA Encounter type: initial encounter Chronic hypoxic respiratory failure, on home oxygen therapy J96.11; Z99.81 Combined pulmonary fibrosis and emphysema (CPFE) J43.9; J84.10 Pneumonia J18.9 Laterality: bilateral Lung location: upper lobe of lung Pneumonia type: due to unspecified organism Acute and chronic respiratory failure with hypoxia J96.21 Physical deconditioning R53.81 Hypothermia T68.XXXA Encounter type: initial encounter Sepsis A41.9
--- NOTE | 2024-08-15 02:07 | USR_ITS ---
PROCEDURE INFORMATION: Exam: US Duplex Lower Extremity Veins, Bilateral Exam date and time: 08/15/2024 2:57 AM Age: 79 years old Clinical indication: Injury or trauma; Fall; Blunt trauma (contusions or hematomas); Bilateral; Lower extremity, hip and thigh level; Vessel not specified; Injury date: 08/14/2024 TECHNIQUE: Imaging protocol: Real-time duplex ultrasound of the bilateral extremities with 2-D grayson scale, color Doppler flow and spectral waveform analysis including responses to compression and other maneuvers (when performed) with image documentation. Complete exam focused on the lower extremity veins. COMPARISON: US renal BI* [id number] 03/03/2022 1:08 PM FINDINGS: Right deep veins: Unremarkable. The common femoral, femoral, proximal profunda femoral and popliteal veins are patent without thrombus. Normal Doppler waveforms. Normal compressibility and/or augmentation response. Left deep veins: Unremarkable. The common femoral, femoral, proximal profunda femoral and popliteal veins are patent without thrombus. Normal Doppler waveforms. Normal compressibility and/or augmentation response. Superficial veins: Greater saphenous veins at the saphenofemoral junctions are patent bilaterally without thrombus. Soft tissues: Unremarkable. US/[place] [id number] IMPRESSION: No evidence of deep vein thrombosis.
[2024-08-15] MEDS: sodium chloride 0.9% 2,328 ML 2328 ML IV (02:20)
[2024-08-15] MEDS: piperacillin-tazobactam 3.375 GM in sodium chloride 0.9% (plus) 50 ML IV (02:22)
[2024-08-15 02:28] LABS: D Dimer 10.25 ug/mLFEU (0-0.59)
[2024-08-15] MEDS: aspirin 81 mg Chew Tablet 324 MG PO (02:30)
[2024-08-15] MEDS: enoxaparin 100 mg/mL Syringe 90 MG SUBCUT (02:30)
[2024-08-15 02:33] LABS: Influenza A NEGATIVE (Negative); Influenza B NEGATIVE (Negative); Respiratory Syncytial Virus Ce NEGATIVE (Negative); SARS-CoV-2 PCR NEGATIVE (Negative)
[2024-08-15 02:41] LABS: Reflex Lactate Order REFLEX LACTIC ORDERD
[2024-08-15] MEDS: sodium chloride 0.9% 1,000 ML 75 ML IV (02:41)
[2024-08-15] MEDS: clopidogrel 300 mg Tablet PO (02:42)
[2024-08-15] MEDS: cefTRIAXone 1,000 mg SDV 1000 MG IVP (02:52)
[2024-08-15 05:54] LABS: Anion Gap 15.7 (5-19); Blood Urea Nitrogen 25 mg/dL (8-23); C Reactive Protein 142.5 mg/L (0.0-4.9); Calcium 7.8 mg/dL (8.5-10.5); Carbon Dioxide 24 mmol/L (22-29); Chloride 104 mmol/L (98-107); Creatinine Clr Calc Pharmacy 63.4351; Glucose 140 mg/dL (65-115); Lactic Acid level (Lactate) 1.9 mmol/L (0.5-2.2); Osmolality Calculated 295 mOsm/kg (285-295); Phosphorus 3.2 mg/dL (2.5-4.5); Potassium 4.7 mmol/L (3.5-5.1); Sodium 139 mmol/L (136-145)
[2024-08-15 05:55] LABS: Procalcitonin 3.13 ng/mL (0-0.5); Thyroid Stimulating Hormone 3.72 uIU/mL (0.27-4.20); Vitamin B12 205 pg/mL (232-1245)
[2024-08-15 05:56] LABS: Creatine Phosphokinase 414 U/L (39-308)
[2024-08-15 05:58] LABS: Troponin 5 6HR 130.4 ng/L (0-15); Troponin 5 6HR Delta 85.4 ng/L (0-12)
--- NOTE | 2024-08-15 06:01 | PC.NURSE ---
Pt had 3 consecutive low bp reads during down time. Pt found to be laying in the left lateral position. Pt placed was asked to lay flat several times by nurse would comply while in the room then roll back to lateral position after nurse left the room. Pt finally complied at stayed supine for his pressure to read a map of 70. Bp 98/62. ED physician notified.
[2024-08-15 06:30] LABS: Basophils # 0.1 10^3/uL (0.0-0.1); Basophils % 0.3 %; Lymphocytes # 0.8 10^3/uL (0.8-4.8); Lymphocytes % 3.2 %; Mean Corpuscular HGB Conc 32.8 g/dL (30-55); Mean Corpuscular Hemoglobin 31.8 pg (27-33); Mean Corpuscular Volume 96.8 fl (82-101); Mean Platelet Volume 9.5 fL (7.4-10.4); Monocytes # 1.7 10^3/uL (0.2-0.9); Neutrophils # 21.27 10^3/uL (1.8-7.7); Neutrophils % 88.6 %; Nucleated Red Blood Cells % 0 %; Platelet Count 134 10^3/cmm (157-399); Red Blood Count 4.44 10^6/uL (3.85-5.65); Red Cell Distribution Width 13.8 % (12.1-15.1)
--- NOTE | 2024-08-15 06:32 | CT_ITS ---
WS: [id number] CT CHEST ANGIOGRAPHY WITH REFORMATS HISTORY: syncope TECHNIQUE: Contiguous axial images are obtained through the chest during arterial injection of intravenous contrast. Images are reconstructed to evaluate the pulmonary arteries. MIP imaging also reviewed. All CT scans at [facility] use at least one of these dose optimization techniques: automated exposure control; mA and/or kV adjustment per patient size (includes targeted exams where dose is matched to clinical indication); or iterative reconstruction. CONTRAST: Omnipaque 350; 100 mL IV. DLP: 483.70 mGy.cm COMPARISON: 01/14/2024 No central pulmonary emboli. Pulmonary artery size is slightly enlarged. Subsegmental pulmonary emboli are noted in the RIGHT middle and RIGHT lower lobe pulmonary arteries. There is significant RIGHT heart strain with flattening of the intraventricular septum. Tricuspid regurgitation into the hepatic veins. Centrilobular emphysema. Small amount of fluid along the RIGHT fissure. Mild dependent changes at the RIGHT lung base. Focal dense consolidation LEFT lower lobe with a small effusion. Mild pleural thickening and nodularity. Bulky bilateral hilar and subcarinal lymphadenopathy. Adenopathy has increased since 01/14/2024. Mild atherosclerotic plaque thoracic aorta. Partially visualized adrenal glands are normal. Mild increase in thoracic kyphosis. Mild wedging of several thoracic vertebral bodies. CT/CT angio chest PE protcl [id number] IMPRESSION: 1. Subsegmental RIGHT middle and RIGHT lower lobe pulmonary emboli. 2. Significant RIGHT heart strain. 3. Focal dense consolidation LEFT lower lobe with a small effusion consistent with pneumonia. 4. Bulky bilateral hilar and subcarinal lymphadenopathy. Reactive versus neopl astic, progressed since 01/14/2024. 5. Bilateral pleural nodularity and thickening. This will need to be reevaluat ed for neoplastic involvement due to the nodularity. 6. Mild pulmonary artery enlargement.
[2024-08-15 06:49] LABS: Bilirubin Urine Negative (Negative); Blood Urine Negative (Negative); Glucose Urine UA Negative (Normal); Ketones Urine 3+ (Negative); Leukocyte Esterase Urine Negative (Negative); Nitrate Urine Negative (Negative); Protein Urine Trace (Negative); Urine Appearance Clear (CLEAR); Urine Color Yellow (Yellow); pH Urine 5.5 (5-7)
[2024-08-15 06:54] LABS: Add Urine Microscopic? YES; Bacteria Urine None Seen /hpf; RBC Urine 0-2 /hpf (0-2); Squamous Epithelial Cell Urine 0-5 /hpf (0-5); WBC Urine 0-5 /hpf (0-5)
[2024-08-15 07:07] LABS: Mucus Urine TRACE /hpf; UA Slide Review UA Slide Review Perf
--- NOTE | 2024-08-15 07:10 | ECG_ITS ---
[employer] Test Date: 2024-08-15 Pat Name: Benny Burch Department: Room: ICU03 Gender: Male [employer]: : 1945 Requested By: Brayan Payne Order Number: [id number] Robbie MD: Jim Richards M.D. Measurements Intervals [place] Rate: 99 P: 49 MO: 198 QRS: 266 QRSD: 83 T: 22 QT: 331 QTc: 426 Interpretive Statements SINUS RHYTHM INDETERMINATE AXIS POSSIBLE RIGHT VENTRICULAR CONDUCTION DELAY [RSR (QR) IN V1/V2] SEPTAL MYOCARDIAL INFARCTION , PROBABLY OLD [40+ ms Q WAVE IN V1/V2] Compared to ECG 08/14/2024 23:28:57 Indeterminate axis now present Myocardial infarct finding now present Sinus tachycardia no longer present Right-axis deviation no longer present Right ventricular hypertrophy no longer present ST (T wave) deviation no longer present Electronically Signed On 08-17-2024 22:22:29 [employer] by Jim Richards M.D. [email or web address]
--- NOTE | 2024-08-15 07:21 | PC.NURSE ---
Addendum entered by Sandra Sanz RN 08/15/24 07:25: PT PLACED ON 15 L HEATED HIGH FLOW, PER MARIANNE RT. Original Note: PER DR GOODRICH, REMOVE PATIENT FROM BIPAP TO EAT, PLACE ON 5 L NC, AND BLADDER SCAN PATIENT HAS NOT VOIDED ALL NIGHT. THIS NURSE INTO ROOM, REMOVED BIPAP PLACED ON 5 L NC. PATIENT DESAT TO 82% ON 5 L NC. RESPIRATORY IN ROOM TO PLACE PATIENT ON HEATED HIGH FLOW. PATIENT STATES VOIDED APPROXIMATELY 30 MINUTES AGO AND REFUSED BLADDER SCAN. PATIENT STATES BLADDER IS EMPTY AND DENIES FEELING FULL OR BLADDER DISTENTION.
--- NOTE | 2024-08-15 07:42 | PC.PHAR ---
Addendum entered by Saira Jones 08/15/24 10:02: [facility] and added 4 medications not on current hospital list. Metformin 1000mg bid, Singulair 10mg qpm, Prednisone 5mg qam, and Tramadol 50mg tid prn. Addendum entered by Saira Jones 08/15/24 09:16: Last med rec [facility]. Addendum entered by Saira Jones 08/15/24 09:14: [facility]-phoned at 9:10am with no response. Verified medications per hospital list and external med list. Will update when we get a [facility] response. Original Note: [facility] 7:06am 08/15/24
[2024-08-15] MEDS: iohexol 350 mg/mL 500 mL Btl (per mL) IV (07:56)
[2024-08-15] MEDS: ipratropium-albuterol 3 mL Neb INHALATION ×3 (08:55→20:26)
[2024-08-15] MEDS: acetaminophen 500 mg Tablet PO (09:00)
[2024-08-15] MEDS: clopidogrel 75 mg Tablet PO (09:39)
[2024-08-15] MEDS: atorvastatin 40 mg Tablet 80 MG PO (09:39)
[2024-08-15] MEDS: azithromycin 250 mg Tablet 500 MG PO (09:39)
[2024-08-15] MEDS: aspirin 81 mg EC Tablet PO (09:39)
[2024-08-15] MEDS: pantoprazole 40 mg SDV IVP ×2 (09:40→18:08)
[2024-08-15] MEDS: sennosides-docusate Tablet 1 TAB PO (09:40)
[2024-08-15 11:29] LABS: Glucose Point of Care 132 mg/dL (70-110)
[2024-08-15] MEDS: methylPREDNISolone sod succ 125 mg/2 mL INJ IVP (11:50)
[2024-08-15 12:57] LABS: Troponin T (5th) Once 107 ng/L (0-15)
[2024-08-15] MEDS: heparin 5,000 unit/mL INJ 1 mL IVP (13:27)
[2024-08-15] MEDS: heparin drip 25,000 UNIT/500 ML PREMIX 24 UNIT IV (13:28)
[2024-08-15 13:42] LABS: C Reactive Protein 210.2 mg/L (0.0-4.9)
[2024-08-15 13:49] LABS: Procalcitonin 3.23 ng/mL (0-0.5)
[2024-08-15 14:16] LABS: Platelet Count 127 10^3/cmm (157-399)
[2024-08-15 14:41] LABS: Creatine Phosphokinase 466 U/L (39-308)
--- NOTE | 2024-08-15 17:58 | P.PN_ITS ---
Subjective 2 Subjective: Patient was seen this morning, currently in mild to moderate respiratory distress, nasal flaring intercostal retractions suprasternal retractions, no chest pain, does report shortness of breath, does have a cough short of breath with a few words, discussed the morbidity and mortality associate with his diagnosis of pneumonia and pulmonary embolism will start anticoagulant therapy, he does have end-stage COPD Vitals/I&O/Wt Last Vital Signs Temp 98 F 08/15/24 07:55 Pulse 87 08/15/24 15:07 Resp 16 08/15/24 15:07 BP 0/0 08/15/24 07:55 Pulse Ox 96 08/15/24 15:07 O2 Del Method Heated High Flow 08/15/24 13:29 O2 Flow Rate 50 08/15/24 15:07 FiO2 50 08/15/24 15:07 08/15/24 08/15/24 08/15/24 06:59 14:59 22:59 Intake Total 3878 / 3878 240 / 240 Balance 3878 / 3878 240 / 240 Weight last 48 hrs Weight 95.8 kg Weight 86.183 kg Physical Exam 2 Const: COMMON NORMALS: no acute distress HENMT: COMMON NORMALS: normocephalic HEAD & SCALP: normocephalic Eye: COMMON NORMALS: Equal, round and reactive pupils present PUPIL: Yes Equal, round and reactive pupils present Neck/C-Spine: COMMON NORMALS: no lymphadenopathy Resp: OTHER: Tachypnea nasal flaring, tachypnea, tachycardia, intercostal suprasternal retractions mild to moderate respiratory distress Cardio: COMMON NORMALS: regular rate, regular rhythm, S1 normal heart sound present and S2 normal heart sound present RATE: regular rate RHYTHM: r egular rhythm HEART SOUNDS: S1 normal heart sound present and S2 normal heart sound present GI: COMMON NORMALS: Normal to inspection, nondistended, normoactive bowel sounds present and non-tender Extremity: COMMON NORMALS: no pedal edema Psych: COMMON NORMALS: mental status grossly normal Sepsis: Is patient septic: Yes Focused sepsis exam performed: Yes F ocused sepsis exam: DP PT pulses palpable, cap refill greater than 3 seconds, no mottling Date exam was performed: 08/15/24 Time exam was performed: 09:30 Data 08/15/24 14:06 08/15/24 04:00 Micro: Microbiology 08/14/24 23:12 Blood Culture - Preliminary Blood SPECIMEN COLLECTED 08/15/24 15:30 Gram Stain - Final Sputum - Expectorated Sputum 08/15/24 11:58 Blood Culture - Preliminary Blood SPECIMEN COLLECTED 08/15/24 11:50 Blood Culture - Preliminary Blood SPECIMEN COLLECTED 08/14/24 23:14 Blood Culture - Preliminary Blood SPECIMEN COLLECTED A&P Assessment and plan (1) Progressive pulmonary hypertension: (2) Non-ST elevated myocardial infarction (non-STEMI): (3) BAI (dyspnea on exertion): (4) Rhabdomyolysis: Qualifiers: Encounter type: initial encounter Rhabdomyolysis type: traumatic Q ualified Code(s): T79.6XXA - Traumatic ischemia of muscle, initial encounter (5) Fall: Qualifiers: Encounter type: initial encounter Qualified Code(s): W19.XXXA - Unspecified fall, initial encounter (6) Chronic hypoxic respiratory failure, on home oxygen therapy: (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): (8) Pneumonia: Qualifiers: Laterality: bilateral Lung location: upper lobe of lung Pneumonia type: due to unspecified organism Qualified Code(s): J18.9 - Pneumonia, unspecified organism (9) Acute and chronic respiratory failure with hypoxia: (10) Physical deconditioning: (11) Hypothermia: Qualifiers: Encounter type: initial encounter Qualified Code(s): T68.XXXA - Hypothermia, initial encounter (12) Sepsis: (13) Pulmonary embolism: (14) Elevated lactic acid level: (15) Acute respiratory distress: Plan Acute hypoxic respiratory failure -Multifactorial -Secondary to subsegmental right middle and right lower lobe pulmonary emboli -Significant right heart strain -Pneumonia, focal dense consolidation left lower lobe -With history of end-stage COPD, COPD exacerbation -With rates of mild to moderate acute respiratory distress -Currently on heated high flow Plan -Monitor respiratory status closely low threshold for intubation -Discussed with patient morbidity and mortality associated with his diagnosis -Cardiac echo ordered -Switch to heparin drip -Broaden antibiotic coverage to vancomycin meropenem -DuoNeb -Budesonide -Solu-Medrol 40 mg IV every 8 hours -Follow sputum cultures -Follow blood cultures Sepsis -Sepsis features met -Given acute respiratory failure, acute respiratory distress, pneumonia, elevated lactic acid Bulky bilateral hilar and subcarinal lymphadenopathy - Reactive versus neoplastic, progressed since 01/14/2024 -Will need to follow-up with pulmonary and oncology as outpatient Fall Likely related to deconditioning Patient was not using oxygen No signs of cauda equina Patient not endorsing syncope Extremely low B12: Start supplementation Non-STEMI No active chest pain EKG no acute ST-T wave changes Troponin trending up Initiated ACS protocol after aspirin Plavix loading dose Echo requested Rhabdomyolysis Secondary to fall Patient has high BNP but clinically does not look extremely fluid overloaded Hypothermia: Improved with Javier hugger Pneumonia: Sepsis: Criteria met with hypothermia, leukocytosis, tachypnea tachycardia Patient received septic bolus No signs of encephalopathy Source is pneumonia Chronic hypoxia with severe COPD/underlying pulm hypertension Patient uses 5 L at baseline Currently on BiPAP to decrease work of breathing Full code Consistent carb cardiac diet PDMP PDMP Reviewed: Not Reviewed Attestations 2 Medical Necessity Statement*: Patient requires hospitalization for acute hypoxic respiratory failure secondary to pneumonia, COPD, pulmonary embolism, acute respiratory distress with end- stage COPD, NSTEMI, sepsis Diagnoses Progressive pulmonary hypertension I27.20 Non-ST elevated myocardial infarction (non-STEMI) I21.4 BAI (dyspnea on exertion) R06.09 Rhabdomyolysis T79.6XXA Encounter type: initial encounter Rhabdomyolysis type: traumatic Fall W19.XXXA Encounter type: initial encounter Chronic hypoxic respiratory failure, on home oxygen therapy J96.11; Z99.81 Combined pulmonary fibrosis and emphysema (CPFE) J43.9; J84.10 Pneumonia J18.9 Laterality: bilateral Lung location: upper lobe of lung Pneumonia type: due to unspecified organism Acute and chronic respiratory failure with hypoxia J96.21 Physical deconditioning R53.81 Hypothermia T68.XXXA Encounter type: initial encounter Sepsis A41.9 Pulmonary embolism I26.99 Elevated lactic acid level R79.89 Acute respiratory distress R06.03
[2024-08-15 18:05] LABS: Glucose Point of Care 147 mg/dL (70-110)
[2024-08-15] MEDS: meropenem 500 mg SDV IVP (18:23)
--- NOTE | 2024-08-15 18:35 | PHA.VACGOAL ---
Vancomycin Goal - Goal Vancomycin Goal:: 15-20 mg/L Vancomycin Indication:: Pneumonia - Therapy Current therapy:: Meropenem Day of therpy:: Day []of [] . Actual body weight (kg): 211 lb 3.245 oz - Data Labs: WBC 24.00 10^3/uL (3.29-11.43) H 08/15/24 04:00 RBC 4.44 10^6/uL (3.85-5.65) 08/15/24 04:00 Hgb 14.10 g/dL (11.27-16.99) 08/15/24 04:00 Hct 43.0 % (37-53) 08/15/24 04:00 MCV 96.8 fl (82-101) 08/15/24 04:00 MCH 31.8 pg (27-33) 08/15/24 04:00 MCHC 32.8 g/dL (30-55) 08/15/24 04:00 RDW 13.8 % (12.1-15.1) 08/15/24 04:00 Sodium 139 mmol/L (136-145) 08/15/24 04:00 Potassium 4.7 mmol/L (3.5-5.1) 08/15/24 04:00 Chloride 104 mmol/L (98-107) 08/15/24 04:00 Carbon Dioxide 24 mmol/L (22-29) 08/15/24 04:00 Anion Gap 15.7 (5-19) 08/15/24 04:00 BUN 25 mg/dL (8-23) H 08/15/24 04:00 Creatinine 1.1 mg/dL (0.7-1.2) 08/15/24 04:00 GFR Calculation Not Reportable 08/15/24 04:00 Last dialysis session:: N/A Treatment plan:: new consult Regimen:: INITIAL LOADING DOSE OF 3000 MG PER DOSING PROTOCOL MAINTENANCE DOSE OF 1250 MG Q12H Follow up:: WILL CONTINUE TO MONITOR AND FOLLOW UP DAILY
[2024-08-15 19:05] LABS: Bacillus cereus group Not Detected (NOT DETECT); Bacillus subtillis group Not Detected (NOT DETECT); Corynebacterium Not Detected (NOT DETECT); Cutibacterium acnes (P.acnes) Not Detected (NOT DETECT); Enterococcus Not Detected (NOT DETECT); Enterococcus faecalis Not Detected (NOT DETECT); Enterococcus faecium Not Detected (NOT DETECT); Lactobacillus species Not Detected (NOT DETECT); Listeria Not Detected (NOT DETECT); Listeria monocytogenes Not Detected (NOT DETECT); Micrococcus Not Detected (NOT DETECT); Pan Candida Not Detected (NOT DETECT); Pan Gram-Negative Not Detected (NOT DETECT); Staphylococcus epidermidis Not Detected (NOT DETECT); Staphylococcus lugdunensis Not Detected (NOT DETECT); Staphylococcus species Not Detected (NOT DETECT); Streptococcus agalactiae Not Detected (NOT DETECT); Streptococcus anginosus group Not Detected (NOT DETECT); Streptococcus pneumoniae Not Detected (NOT DETECT); Streptococcus pyogenes Not Detected (NOT DETECT); Streptococcus species Not Detected (NOT DETECT)
[2024-08-15 20:00] LABS: Partial Thromboplastin Time 87.1 SECONDS (23.9-36.7)
[2024-08-15] MEDS: vancomycin 3,000 MG/600 ML PIGGYBACK 200 MG IV (20:03)
[2024-08-15] MEDS: morphine 4 mg/mL SDV 1 mL 2 MG IVP (20:13)
[2024-08-15] MEDS: budesonide 0.5 mg/2 mL Neb INHALATION (20:26)
[2024-08-15 23:23] LABS: Bacillus cereus group Not Detected (NOT DETECT); Bacillus subtillis group Not Detected (NOT DETECT); Corynebacterium Not Detected (NOT DETECT); Cutibacterium acnes (P.acnes) Not Detected (NOT DETECT); Enterococcus Not Detected (NOT DETECT); Enterococcus faecalis Not Detected (NOT DETECT); Enterococcus faecium Not Detected (NOT DETECT); Lactobacillus species Not Detected (NOT DETECT); Listeria Not Detected (NOT DETECT); Listeria monocytogenes Not Detected (NOT DETECT); Micrococcus Not Detected (NOT DETECT); Pan Candida Not Detected (NOT DETECT); Pan Gram-Negative Not Detected (NOT DETECT); Staphylococcus epidermidis Not Detected (NOT DETECT); Staphylococcus lugdunensis Not Detected (NOT DETECT); Staphylococcus species Detected (NOT DETECT); Streptococcus agalactiae Not Detected (NOT DETECT); Streptococcus anginosus group Not Detected (NOT DETECT); Streptococcus pneumoniae Not Detected (NOT DETECT); Streptococcus pyogenes Not Detected (NOT DETECT); Streptococcus species Not Detected (NOT DETECT); mecA Not Detected (NOT DETECT); mecC Not Detected (NOT DETECT)
[2024-08-16] VITALS (155 sets, daily range): BP systolic 78–150; BP diastolic 45–112; PULSE 0–128; RESP 9–39; TEMP 36.6; O2SAT 72–95
[2024-08-16] MEDS: morphine 4 mg/mL SDV 1 mL 2 MG IVP ×4 (01:26→22:30)
[2024-08-16] MEDS: meropenem 500 mg SDV IVP ×3 (01:26→17:30)
[2024-08-16] MEDS: ipratropium-albuterol 3 mL Neb INHALATION ×4 (01:28→20:27)
[2024-08-16 02:44] LABS: Partial Thromboplastin Time 69.1 SECONDS (23.9-36.7)
[2024-08-16 02:51] LABS: Lactate (Lactic Acid level) 2.7 mmol/L (0.5-2.2)
[2024-08-16 02:58] LABS: Alanine Aminotransferase 20 U/L (0-41); Albumin Level 3.2 g/dL (3.5-5.2); Alkaline Phosphatase 47 U/L (40-130); Anion Gap 13.2 (5-19); Aspartate Amino Transferase 22 U/L (0-40); Blood Urea Nitrogen 23 mg/dL (8-23); C Reactive Protein 176.3 mg/L (0.0-4.9); Carbon Dioxide 25 mmol/L (22-29); Chloride 104 mmol/L (98-107); Creatinine Clr Calc Pharmacy 81.2123; Globulin 1.8 g/dL (1.3-4.6); Glucose 149 mg/dL (65-115); Magnesium 2.2 mg/dL (1.7-2.3); Osmolality Calculated 290 mOsm/kg (285-295); Potassium 5.2 mmol/L (3.5-5.1); Sodium 137 mmol/L (136-145); Total Bilirubin 0.4 mg/dL (0.15-1.2)
[2024-08-16 03:01] LABS: NT Pro B Type Natriuretic Pept 5146 pg/mL (0-450)
[2024-08-16 03:03] LABS: Procalcitonin 2.43 ng/mL (0-0.5)
[2024-08-16 03:11] LABS: Creatine Phosphokinase 333 U/L (39-308)
[2024-08-16 04:25] LABS: Basophils % 0.1 %; Hematocrit 38.1 % (37-53); Lymphocytes # 0.4 10^3/uL (0.8-4.8); Lymphocytes % 2.7 %; Mean Corpuscular HGB Conc 31.8 g/dL (30-55); Mean Corpuscular Hemoglobin 31.2 pg (27-33); Mean Corpuscular Volume 98.2 fl (82-101); Mean Platelet Volume 10.3 fL (7.4-10.4); Monocytes # 0.8 10^3/uL (0.2-0.9); Monocytes % 4.9 %; Neutrophils # 14.66 10^3/uL (1.8-7.7); Neutrophils % 91.4 %; Nucleated Red Blood Cells % 0 %; Platelet Count 109 10^3/cmm (157-399); Red Blood Count 3.88 10^6/uL (3.85-5.65); Red Cell Distribution Width 14.1 % (12.1-15.1); White Blood Count 16.05 10^3/uL (3.29-11.43)
[2024-08-16 05:13] LABS: ABG PCO2 45.6 mmHg (35-45); ABG PH Result 7.34 (7.35-7.45); Arterial Blood Gas Hematocrit 38.1 % (42-52); Base Excess ABG -1.6 mmol/L (-2.0-2.0); Blood Gas Allen Test Pos; Blood Gas Sample Site Radial, left; Blood Gas Sample Type Arterial; HCO3 ABG 24.5 mmol/L (22-26); PO2 ABG 70.4 mmHg (80.0-100.0); PO2 FiO2 Ratio Arterial Blood 117
[2024-08-16] MEDS: methylPREDNISolone sod succ 40 mg/mL INJ IVP ×3 (05:48→22:36)
--- NOTE | 2024-08-16 07:00 | XRR_ITS ---
PROCEDURE INFORMATION: Exam: XR Chest Exam date and time: 08/16/2024 4:09 AM Age: 79 years old Clinical indication: Shortness of breath; Additional info: SOB TECHNIQUE: Imaging protocol: Radiologic exam of the chest. Views: 1 view. COMPARISON: CT angio chest PE protcl [id number] 10/11/2024 07:31 FINDINGS: Lungs: Low lung volumes. There are increased lung markings and haziness of the lungs in association with small bilateral pleural effusions, which in the setting of cardiomegaly is consistent with pulmonary edema. Pneumonia should be excluded clinically. No pneumothorax. Pleural spaces: See Lungs finding. Heart/Mediastinum: Stable cardiomediastinal silhouette. Bones/joints: Unremarkable. XR/XR chest 1V portable [id number] IMPRESSION: Imaging findings of pulmonary edema with small bilateral pleural effusions. Pneumonia should be considered in the adequate clinical setting.
[2024-08-16 08:12] LABS: Glucose Point of Care 124 mg/dL (70-110)
[2024-08-16] MEDS: budesonide 0.5 mg/2 mL Neb INHALATION ×2 (08:17→20:27)
[2024-08-16] MEDS: vancomycin 1,250 MG/250 ML PIGGYBACK 166.67 MG IV ×2 (08:46→20:12)
[2024-08-16] MEDS: pantoprazole 40 mg SDV IVP ×2 (08:47→17:39)
[2024-08-16] MEDS: cyanocobalamin 1,000 mcg/mL SDV 1000 MCG IM (08:49)
[2024-08-16] MEDS: sennosides-docusate Tablet 1 TAB PO (08:52)
[2024-08-16] MEDS: aspirin 81 mg EC Tablet PO (08:52)
[2024-08-16] MEDS: clopidogrel 75 mg Tablet PO (08:52)
[2024-08-16] MEDS: atorvastatin 40 mg Tablet 80 MG PO (08:52)
[2024-08-16 09:10] LABS: Partial Thromboplastin Time 50.2 SECONDS (23.9-36.7)
[2024-08-16] MEDS: heparin drip 25,000 UNIT/500 ML PREMIX 23 UNIT IV (10:47)
[2024-08-16 10:58] LABS: Oxygen Device HAG
[2024-08-16 12:02] LABS: Glucose Point of Care 211 mg/dL (70-110)
[2024-08-16 12:02] LABS: Glucose Point of Care 228 mg/dL (70-110)
[2024-08-16] MEDS: insulin lispro 100 unit/1 mL SUBCUT ×2 (12:03→17:45)
[2024-08-16 15:09] LABS: Creatine Phosphokinase 147 U/L (39-308)
--- NOTE | 2024-08-16 16:22 | P.PN_ITS ---
Subjective 2 Subjective: Patient was seen this morning, currently on heated high flow 60%, he is alert oriented x 3, following all commands, he is short of breath after a few sentences, but no evidence of respiratory distress looks much more comfortable compared to yesterday he feels less short of breath he feels more comfortable, no chest pain, no palpitations, no nausea, no vomiting Vitals/I&O/Wt Last Vital Signs Temp 97.9 F 08/16/24 10:00 Pulse 96 08/16/24 16:15 Resp 17 08/16/24 16:05 BP 110/78 08/16/24 16:15 Pulse Ox 86 L 08/16/24 16:15 O2 Del Method Heated High Flow 08/16/24 13:40 O2 Flow Rate 40 08/16/24 16:00 FiO2 70 08/16/24 16:00 08/16/24 08/16/24 08/16/24 06:59 14:59 22:59 Intake Total 260.35 / 1899.15 1619.683 / 1619.683 Output Total 600 / 1900 200 / 200 Balance -339.65 / -0.85 1419.683 / 1419.683 Weight last 48 hrs Weight 96.797 kg Weight 95.8 kg Weight 86.183 kg Physical Exam 2 Const: COMMON NORMALS: no acute distress and patient oriented x3 Resp: COMMON NORMALS: normal respiratory effort, No retractions and No use of accessory muscles AUSCULTATION: wheezes Cardio: COMMON NORMALS: regular rate, regular rhythm, S1 normal heart sound present and S2 normal heart sound present RATE: regular rate RHYTHM: r egular rhythm HEART SOUNDS: S1 normal heart sound present and S2 normal heart sound present GI: COMMON NORMALS: Normal to inspection, nondistended, normoactive bowel sounds present and non-tender Extremity: COMMON NORMALS: no pedal edema Neuro: COMMON NORMALS: patient oriented x3 Data 08/16/24 03:50 08/16/24 02:16 Micro: Microbiology 08/14/24 23:14 Blood Culture - Final Blood 08/15/24 15:30 Gram Stain - Final Sputum - Expectorated Sputum Sputum Culture - Preliminary 08/15/24 11:58 Blood Culture - Preliminary Blood NEGATIVE TO DATE 08/15/24 11:50 Blood Culture - Preliminary Blood NEGATIVE TO DATE 08/14/24 23:12 Blood Culture - Preliminary Blood Staphylococcus species A&P Assessment and plan (1) Progressive pulmonary hypertension: (2) Non-ST elevated myocardial infarction (non-STEMI): (3) BAI (dyspnea on exertion): (4) Rhabdomyolysis: Qualifiers: Encounter type: initial encounter Rhabdomyolysis type: traumatic Q ualified Code(s): T79.6XXA - Traumatic ischemia of muscle, initial encounter (5) Fall: Qualifiers: Encounter type: initial encounter Qualified Code(s): W19.XXXA - Unspecified fall, initial encounter (6) Chronic hypoxic respiratory failure, on home oxygen therapy: (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): (8) Pneumonia: Qualifiers: Laterality: bilateral Lung location: upper lobe of lung Pneumonia type: due to unspecified organism Qualified Code(s): J18.9 - Pneumonia, unspecified organism (9) Acute and chronic respiratory failure with hypoxia: (10) Physical deconditioning: (11) Hypothermia: Qualifiers: Encounter type: initial encounter Qualified Code(s): T68.XXXA - Hypothermia, initial encounter (12) Sepsis: (13) Pulmonary embolism: (14) Elevated lactic acid level: (15) Acute respiratory distress: (16) Bacteremia due to Staphylococcus: Plan Acute hypoxic respiratory failure -Multifactorial -Secondary to subsegmental right middle and right lower lobe pulmonary emboli -Significant right heart strain -Pneumonia, focal dense consolidation left lower lobe -With history of end-stage COPD, COPD exacerbation -With rates of mild to moderate acute respiratory distress -Currently on heated high flow Plan -Monitor respiratory status closely low threshold for intubation -Discussed with patient morbidity and mortality associated with his diagnosis -Cardiac echo ordered pending -heparin drip -Continue vancomycin -DuoNeb -Budesonide -Solu-Medrol 40 mg IV every 8 hours -Follow sputum cultures -Follow blood cultures STAPHYLOCOCCUS BACTEREMIA -Follow repeat -Continue vancomycin as above Sepsis -Sepsis features met -Given acute respiratory failure, acute respiratory distress, pneumonia, elevated lactic acid Bulky bilateral hilar and subcarinal lymphadenopathy - Reactive versus neoplastic, progressed since 01/14/2024 -Will need to follow-up with pulmonary and oncology as outpatient Fall Likely related to deconditioning Patient was not using oxygen No signs of cauda equina Patient not endorsing syncope Extremely low B12: Start supplementation Non-STEMI No active chest pain EKG no acute ST-T wave changes Troponin trending up Initiated ACS protocol after aspirin Plavix loading dose Echo requested Rhabdomyolysis Secondary to fall Patient has high BNP but clinically does not look extremely fluid overloaded Hypothermia: Improved with Javier hugger Pneumonia: Sepsis: Criteria met with hypothermia, leukocytosis, tachypnea tachycardia Patient received septic bolus No signs of encephalopathy Source is pneumonia Chronic hypoxia with severe COPD/underlying pulm hypertension Patient uses 5 L at baseline Currently on BiPAP to decrease work of breathing Full code Consistent carb cardiac diet Plan for today wean oxygen as tolerated remains on heated high flow, monitor respiratory status closely monitor CPK, continue broad-spectrum antibiotic therapy follow blood cultures, continue heparin drip PDMP PDMP Reviewed: Not Reviewed Attestations 2 Medical Necessity Statement*: Patient requires hospitalization for acute hypoxic respiratory failure secondary to pneumonia, COPD, pulmonary embolism, Staph aureus bacteremia Diagnoses Progressive pulmonary hypertension I27.20 Non-ST elevated myocardial infarction (non-STEMI) I21.4 BAI (dyspnea on exertion) R06.09 Rhabdomyolysis T79.6XXA Encounter type: initial encounter Rhabdomyolysis type: traumatic Fall W19.XXXA Encounter type: initial encounter Chronic hypoxic respiratory failure, on home oxygen therapy J96.11; Z99.81 Combined pulmonary fibrosis and emphysema (CPFE) J43.9; J84.10 Pneumonia J18.9 Laterality: bilateral Lung location: upper lobe of lung Pneumonia type: due to unspecified organism Acute and chronic respiratory failure with hypoxia J96.21 Physical deconditioning R53.81 Hypothermia T68.XXXA Encounter type: initial encounter Sepsis A41.9 Pulmonary embolism I26.99 Elevated lactic acid level R79.89 Acute respiratory distress R06.03 Bacteremia due to Staphylococcus R78.81; B95.8
[2024-08-16 17:31] LABS: Glucose Point of Care 163 mg/dL (70-110)
[2024-08-16 19:57] LABS: Partial Thromboplastin Time 48.6 SECONDS (23.9-36.7)
[2024-08-16 20:31] LABS: Glucose Point of Care 214 mg/dL (70-110)
[2024-08-16] MEDS: heparin 5,000 unit/mL INJ 1 mL IVP (20:55)
[2024-08-16] MEDS: trazodone 100 mg Tablet PO (22:48)
[2024-08-17] VITALS (165 sets, daily range): BP systolic 115–166; BP diastolic 69–104; PULSE 78–121; RESP 10–40; TEMP 37–37.2; O2SAT 82–96
[2024-08-17] MEDS: ipratropium-albuterol 3 mL Neb INHALATION ×4 (01:51→20:22)
[2024-08-17] MEDS: meropenem 500 mg SDV IVP ×2 (02:28→09:31)
[2024-08-17 03:22] LABS: Partial Thromboplastin Time 67.5 SECONDS (23.9-36.7)
[2024-08-17 03:27] LABS: Alanine Aminotransferase 24 U/L (0-41); Albumin Level 3.5 g/dL (3.5-5.2); Alkaline Phosphatase 56 U/L (40-130); Anion Gap 16.9 (5-19); Aspartate Amino Transferase 19 U/L (0-40); Blood Urea Nitrogen 21 mg/dL (8-23); C Reactive Protein 58.2 mg/L (0.0-4.9); Calcium 8.5 mg/dL (8.5-10.5); Carbon Dioxide 25 mmol/L (22-29); Chloride 104 mmol/L (98-107); Creatinine Clr Calc Pharmacy 91.7932; Globulin 2.9 g/dL (1.3-4.6); Glucose 159 mg/dL (65-115); Magnesium 2.1 mg/dL (1.7-2.3); Osmolality Calculated 300 mOsm/kg (285-295); Phosphorus 1.3 mg/dL (2.5-4.5); Potassium 3.9 mmol/L (3.5-5.1); Sodium 142 mmol/L (136-145); Total Bilirubin 0.6 mg/dL (0.15-1.2); Total Protein 6.4 g/dL (6.6-8.7)
[2024-08-17 03:28] LABS: Lactate (Lactic Acid level) 1.9 mmol/L (0.5-2.2)
[2024-08-17 03:38] LABS: NT Pro B Type Natriuretic Pept 4468 pg/mL (0-450); Procalcitonin 1.32 ng/mL (0-0.5)
[2024-08-17 03:49] LABS: Creatine Phosphokinase 244 U/L (39-308)
[2024-08-17 05:38] LABS: Arterial Blood Gas Hematocrit 40.2 % (42-52); Blood Gas Allen Test Pos; Blood Gas Sample Site Radial, right; Blood Gas Sample Type Arterial
[2024-08-17] MEDS: morphine 4 mg/mL SDV 1 mL 2 MG IVP ×3 (05:44→22:36)
[2024-08-17] MEDS: methylPREDNISolone sod succ 40 mg/mL INJ IVP ×3 (05:44→21:03)
[2024-08-17 05:59] LABS: ABG PCO2 38.3 mmHg (35-45); ABG PH Result 7.43 (7.35-7.45); Base Excess ABG 0.8 mmol/L (-2.0-2.0); Blood Gas Operator Identificat JDB; HCO3 ABG 25.1 mmol/L (22-26); Oxygen Device HAG; PO2 ABG 58.2 mmHg (80.0-100.0); PO2 FiO2 Ratio Arterial Blood 116
[2024-08-17 07:32] LABS: Glucose Point of Care 163 mg/dL (70-110)
[2024-08-17] MEDS: heparin drip 25,000 UNIT/500 ML PREMIX 25 UNIT IV (07:32)
[2024-08-17] MEDS: insulin lispro 100 unit/1 mL SUBCUT ×2 (07:57→12:18)
[2024-08-17] MEDS: vancomycin 1,250 MG/250 ML PIGGYBACK 166 MG IV (07:58)
[2024-08-17] MEDS: aspirin 81 mg EC Tablet PO (08:00)
[2024-08-17] MEDS: cyanocobalamin 1,000 mcg/mL SDV 1000 MCG IM (08:00)
[2024-08-17] MEDS: atorvastatin 40 mg Tablet 80 MG PO (08:00)
[2024-08-17] MEDS: pantoprazole 40 mg SDV IVP ×2 (08:00→17:11)
[2024-08-17] MEDS: clopidogrel 75 mg Tablet PO (08:00)
[2024-08-17] MEDS: sennosides-docusate Tablet 1 TAB PO (08:01)
[2024-08-17] MEDS: budesonide 0.5 mg/2 mL Neb INHALATION ×2 (08:03→20:22)
[2024-08-17 09:43] LABS: Partial Thromboplastin Time 46.8 SECONDS (23.9-36.7)
[2024-08-17 09:49] LABS: Basophils % 0.1 %; Hematocrit 40.4 % (37-53); Lymphocytes # 0.5 10^3/uL (0.8-4.8); Lymphocytes % 3.1 %; Mean Corpuscular HGB Conc 33.2 g/dL (30-55); Mean Corpuscular Hemoglobin 31.4 pg (27-33); Mean Corpuscular Volume 94.6 fl (82-101); Mean Platelet Volume 10.5 fL (7.4-10.4); Monocytes # 0.6 10^3/uL (0.2-0.9); Monocytes % 3.6 %; Neutrophils # 15.26 10^3/uL (1.8-7.7); Neutrophils % 92.2 %; Nucleated Red Blood Cells % 0 %; Platelet Count 143 10^3/cmm (157-399); Red Blood Count 4.27 10^6/uL (3.85-5.65); White Blood Count 16.55 10^3/uL (3.29-11.43)
[2024-08-17] MEDS: heparin 5,000 unit/mL INJ 1 mL IVP (10:25)
[2024-08-17 11:27] LABS: Glucose Point of Care 163 mg/dL (70-110)
--- NOTE | 2024-08-17 16:16 | PC.SLP ---
[employer] follow-up with the pt. The pt did not want ay further testing at this time. Discussed his swallowing/eating. He indicated that he was not having any further difficulty, and was eating well. No coughing episodes reported with intake.
--- NOTE | 2024-08-17 16:28 | P.PN_ITS ---
Subjective 2 Subjective: Patient was examined this morning, currently alert oriented x 3, following all commands, currently remains on heated high flow 40%, we discussed his acute hypoxic respiratory failure, he might require placement to LTAC facility given his seeing oxygen requirements, and his underlying severe COPD, he voices understanding, all consents are, he tells me is more comfortable today, no fevers, no chills Vitals/I&O/Wt Last Vital Signs Temp 99.0 F 08/17/24 09:25 Pulse 89 08/17/24 15:37 Resp 18 08/17/24 15:37 BP 146/84 08/17/24 14:00 Pulse Ox 91 08/17/24 15:37 O2 Del Method Heated High Flow 08/17/24 14:15 O2 Flow Rate 40 08/17/24 15:37 FiO2 50 08/17/24 15:37 08/17/24 08/17/24 08/17/24 06:59 14:59 22:59 Intake Total 537.083 / 3109.449 171.833 / 171.833 Output Total 500 / 1850 625 / 625 Balance 37.083 / 1259.449 -453.167 / -453.167 Weight last 48 hrs Weight 97.976 kg Weight 96.797 kg Physical Exam 2 Const: COMMON NORMALS: no acute distress and patient oriented x3 Resp: COMMON NORMALS: normal respiratory effort, No retractions and No use of accessory muscles AUSCULTATION: crackles and wheezes Cardio: COMMON NORMALS: regular rate, regular rhythm, S1 normal heart sound present and S2 normal heart sound present RATE: regular rate RHYTHM: r egular rhythm HEART SOUNDS: S1 normal heart sound present and S2 normal heart sound present GI: COMMON NORMALS: Normal to inspection, nondistended, normoactive bowel sounds present and non-tender Extremity: COMMON NORMALS: no pedal edema Neuro: COMMON NORMALS: patient oriented x3 Psych: COMMON NORMALS: mental status grossly normal Data 08/17/24 08:06 08/17/24 02:56 Micro: Microbiology 08/15/24 15:30 Gram Stain - Final Sputum - Expectorated Sputum Sputum Culture - Final 08/17/24 02:56 Blood Culture - Preliminary Blood SPECIMEN COLLECTED 08/17/24 02:52 Blood Culture - Preliminary Blood SPECIMEN COLLECTED 08/14/24 23:14 Blood Culture - Final Blood 08/15/24 11:58 Blood Culture - Preliminary Blood NEGATIVE TO DATE 08/15/24 11:50 Blood Culture - Preliminary Blood NEGATIVE TO DATE A&P Assessment and plan (1) Progressive pulmonary hypertension: (2) Non-ST elevated myocardial infarction (non-STEMI): (3) BAI (dyspnea on exertion): (4) Rhabdomyolysis: Qualifiers: Encounter type: initial encounter Rhabdomyolysis type: traumatic Q ualified Code(s): T79.6XXA - Traumatic ischemia of muscle, initial encounter (5) Fall: Qualifiers: Encounter type: initial encounter Qualified Code(s): W19.XXXA - Unspecified fall, initial encounter (6) Chronic hypoxic respiratory failure, on home oxygen therapy: (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): (8) Pneumonia: Qualifiers: Laterality: bilateral Lung location: upper lobe of lung Pneumonia type: due to unspecified organism Qualified Code(s): J18.9 - Pneumonia, unspecified organism (9) Acute and chronic respiratory failure with hypoxia: (10) Physical deconditioning: (11) Hypothermia: Qualifiers: Encounter type: initial encounter Qualified Code(s): T68.XXXA - Hypothermia, initial encounter (12) Sepsis: (13) Pulmonary embolism: (14) Elevated lactic acid level: (15) Acute respiratory distress: (16) Bacteremia due to Staphylococcus: Plan Acute hypoxic respiratory failure -Multifactorial -Secondary to subsegmental right middle and right lower lobe pulmonary emboli -Significant right heart strain -Pneumonia, focal dense consolidation left lower lobe -With history of end-stage COPD, COPD exacerbation -With rates of mild to moderate acute respiratory distress -Currently on heated high flow Plan -Monitor respiratory status closely low threshold for intubation -Discussed with patient morbidity and mortality associated with his diagnosis -Cardiac echo ordered pending -heparin drip -Continue vancomycin -DuoNeb -Budesonide -Solu-Medrol 40 mg IV every 8 hours -Follow sputum cultures -Follow blood cultures STAPHYLOCOCCUS BACTEREMIA -Seen in 2 of 2 blood cultures -Source likely pneumonia -Follow repeat blood cultures -Continue vancomycin as above Sepsis -Sepsis features met -Given acute respiratory failure, acute respiratory distress, pneumonia, elevated lactic acid Bulky bilateral hilar and subcarinal lymphadenopathy - Reactive versus neoplastic, progressed since 01/14/2024 -Will need to follow-up with pulmonary and oncology as outpatient Fall Likely related to deconditioning Patient was not using oxygen No signs of cauda equina Patient not endorsing syncope Extremely low B12: Start supplementation Non-STEMI No active chest pain EKG no acute ST-T wave changes Troponin trending up Initiated ACS protocol after aspirin Plavix loading dose Echo requested Rhabdomyolysis Secondary to fall Patient has high BNP but clinically does not look extremely fluid overloaded Hypothermia: Improved with Javier hugger Pneumonia: Sepsis: Criteria met with hypothermia, leukocytosis, tachypnea tachycardia Patient received septic bolus No signs of encephalopathy Source is pneumonia Chronic hypoxia with severe COPD/underlying pulm hypertension Patient uses 5 L at baseline Currently on 40% Full code Consistent carb cardiac diet Plan for today, continue heated high flow, follow identification of staph species, continue heparin drip, continue IV steroids, monitor respiratory status, continue IV antibiotics PDMP PDMP Reviewed: Not Reviewed Attestations 2 Medical Necessity Statement*: Patient requires hospitalization, for acute hypoxic respiratory failure, pulm embolism, pneumonia, Staphylococcus bacteremia, sepsis, NSTEMI, and High MDM includes number and complexity of problems actively addressed during encounter, amount and/or complexity of data reviewed/ordered and described risk of complication, morbidity or mortality of management as documented Diagnoses Progressive pulmonary hypertension I27.20 Non-ST elevated myocardial infarction (non-STEMI) I21.4 BAI (dyspnea on exertion) R06.09 Rhabdomyolysis T79.6XXA Encounter type: initial encounter Rhabdomyolysis type: traumatic Fall W19.XXXA Encounter type: initial encounter Chronic hypoxic respiratory failure, on home oxygen therapy J96.11; Z99.81 Combined pulmonary fibrosis and emphysema (CPFE) J43.9; J84.10 Pneumonia J18.9 Laterality: bilateral Lung location: upper lobe of lung Pneumonia type: due to unspecified organism Acute and chronic respiratory failure with hypoxia J96.21 Physical deconditioning R53.81 Hypothermia T68.XXXA Encounter type: initial encounter Sepsis A41.9 Pulmonary embolism I26.99 Elevated lactic acid level R79.89 Acute respiratory distress R06.03 Bacteremia due to Staphylococcus R78.81; B95.8
[2024-08-17 17:01] LABS: Glucose Point of Care 140 mg/dL (70-110)
[2024-08-17] MEDS: meropenem 1,000 mg SDV 1000 MG IVP (17:11)
[2024-08-17 17:50] LABS: Partial Thromboplastin Time 64.5 SECONDS (23.9-36.7)
[2024-08-17 18:26] LABS: Creatine Phosphokinase 223 U/L (39-308)
[2024-08-17 19:57] LABS: Vancomycin Trough 17.4 ug/mL (10-15)
[2024-08-17 20:19] LABS: Glucose Point of Care 226 mg/dL (70-110)
[2024-08-17] MEDS: vancomycin 1,250 MG/250 ML PIGGYBACK 250 MG IV (21:03)
[2024-08-17] MEDS: trazodone 100 mg Tablet PO (22:35)
[2024-08-17] MEDS: ALPRAZolam 0.5 mg Tablet PO (22:40)
[2024-08-18] VITALS (54 sets, daily range): BP systolic 118–167; BP diastolic 65–103; PULSE 68–114; RESP 13–31; O2SAT 85–96; BMI 28.5
[2024-08-18] MEDS: heparin 5,000 unit/mL INJ 1 mL IVP (01:27)
[2024-08-18] MEDS: meropenem 1,000 mg SDV 1000 MG IVP ×3 (01:27→19:04)
[2024-08-18] MEDS: ipratropium-albuterol 3 mL Neb INHALATION ×4 (01:48→19:29)
[2024-08-18] MEDS: heparin drip 25,000 UNIT/500 ML PREMIX 29 UNIT IV (02:13)
[2024-08-18 05:06] LABS: Lactate (Lactic Acid level) 1.6 mmol/L (0.5-2.2)
[2024-08-18 05:10] LABS: Alanine Aminotransferase 25 U/L (0-41); Albumin Level 3.1 g/dL (3.5-5.2); Alkaline Phosphatase 59 U/L (40-130); Aspartate Amino Transferase 20 U/L (0-40); Blood Urea Nitrogen 23 mg/dL (8-23); Calcium 8.1 mg/dL (8.5-10.5); Carbon Dioxide 26 mmol/L (22-29); Chloride 107 mmol/L (98-107); Creatinine Clr Calc Pharmacy 92.3008; Globulin 2.3 g/dL (1.3-4.6); Glucose 162 mg/dL (65-115); Magnesium 2.1 mg/dL (1.7-2.3); Osmolality Calculated 301 mOsm/kg (285-295); Phosphorus 2.1 mg/dL (2.5-4.5); Sodium 142 mmol/L (136-145); Total Bilirubin 0.5 mg/dL (0.15-1.2); Total Protein 5.4 g/dL (6.6-8.7)
[2024-08-18 05:13] LABS: NT Pro B Type Natriuretic Pept 5772 pg/mL (0-450); Procalcitonin 0.57 ng/mL (0-0.5)
[2024-08-18 05:25] LABS: Creatine Phosphokinase 213 U/L (39-308)
[2024-08-18] MEDS: methylPREDNISolone sod succ 40 mg/mL INJ IVP ×2 (05:58→15:09)
[2024-08-18 07:31] LABS: Glucose Point of Care 176 mg/dL (70-110)
[2024-08-18 08:14] LABS: Partial Thromboplastin Time 107.2 SECONDS (23.9-36.7)
[2024-08-18] MEDS: budesonide 0.5 mg/2 mL Neb INHALATION ×2 (08:20→19:29)
[2024-08-18] MEDS: clopidogrel 75 mg Tablet PO (08:23)
[2024-08-18] MEDS: cyanocobalamin 1,000 mcg/mL SDV 1000 MCG IM (08:23)
[2024-08-18] MEDS: atorvastatin 40 mg Tablet 80 MG PO (08:23)
[2024-08-18] MEDS: aspirin 81 mg EC Tablet PO (08:23)
[2024-08-18] MEDS: FUROsemide 10 mg/mL SDV 4mL 40 MG IVP (08:24)
[2024-08-18] MEDS: insulin lispro 100 unit/1 mL SUBCUT ×3 (08:24→19:04)
[2024-08-18] MEDS: sennosides-docusate Tablet 1 TAB PO (08:24)
[2024-08-18] MEDS: pantoprazole 40 mg SDV IVP ×2 (08:24→19:05)
[2024-08-18] MEDS: ALPRAZolam 0.5 mg Tablet PO ×2 (10:48→22:55)
--- NOTE | 2024-08-18 11:25 | PC.NURSE ---
Patient's blood sugar was 164. Recorded on the wrong patient.
--- NOTE | 2024-08-18 14:07 | PC.SOCIAL ---
IMM Updated Updated pt on IMM. No questions voiced. Provided pt a copy. Initialed, dated, & timed a copy & placed in chart.
--- NOTE | 2024-08-18 16:18 | P.PN_ITS ---
Subjective 2 Subjective: Patient was seen this morning, he is alert oriented x 3, following all commands, remains on 50% FiO2, no chest pain, no palpitations, no lightheadedness, no dizziness Vitals/I&O/Wt Last Vital Signs Temp 98.6 F 08/17/24 21:00 Pulse 93 08/18/24 16:00 Resp 18 08/18/24 16:00 BP 132/78 08/18/24 16:00 Pulse Ox 89 L 08/18/24 16:00 O2 Del Method Heated High Flow 08/18/24 16:00 O2 Flow Rate 45 08/18/24 15:37 FiO2 50 08/18/24 16:00 08/18/24 08/18/24 08/18/24 06:59 14:59 22:59 Intake Total 448.517 / 1718.750 184.633 / 184.633 Output Total 400 / 1425 1625 / 1625 Balance 48.517 / 293.750 -1440.367 / -1440.367 Weight last 48 hrs Weight 95.527 kg Weight 97.976 kg Physical Exam 2 Const: COMMON NORMALS: no acute distress and patient oriented x3 Resp: COMMON NORMALS: normal respiratory effort, No retractions, No use of accessory muscles and clear to auscultation bilaterally AUSCULTATION: clear to auscultation bilaterally Cardio: COMMON NORMALS: regular rate, regular rhythm, S1 normal heart sound present and S2 normal heart sound present RATE: regular rate RHYTHM: r egular rhythm HEART SOUNDS: S1 normal heart sound present and S2 normal heart sound present GI: COMMON NORMALS: Normal to inspection, nondistended, normoactive bowel sounds present and non-tender Extremity: COMMON NORMALS: no pedal edema Neuro: COMMON NORMALS: patient oriented x3 Psych: COMMON NORMALS: mental status grossly normal Data 08/17/24 08:06 08/18/24 03:27 Micro: Microbiology 08/17/24 02:56 Blood Culture - Preliminary Blood NEGATIVE TO DATE 08/17/24 02:52 Blood Culture - Preliminary Blood NEGATIVE TO DATE 08/15/24 15:30 Gram Stain - Final Sputum - Expectorated Sputum Sputum Culture - Final A&P Assessment and plan (1) Progressive pulmonary hypertension: (2) Non-ST elevated myocardial infarction (non-STEMI): (3) BAI (dyspnea on exertion): (4) Rhabdomyolysis: Qualifiers: Encounter type: initial encounter Rhabdomyolysis type: traumatic Q ualified Code(s): T79.6XXA - Traumatic ischemia of muscle, initial encounter (5) Fall: Qualifiers: Encounter type: initial encounter Qualified Code(s): W19.XXXA - Unspecified fall, initial encounter (6) Chronic hypoxic respiratory failure, on home oxygen therapy: (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): (8) Pneumonia: Qualifiers: Laterality: bilateral Lung location: upper lobe of lung Pneumonia type: due to unspecified organism Qualified Code(s): J18.9 - Pneumonia, unspecified organism (9) Acute and chronic respiratory failure with hypoxia: (10) Physical deconditioning: (11) Hypothermia: Qualifiers: Encounter type: initial encounter Qualified Code(s): T68.XXXA - Hypothermia, initial encounter (12) Sepsis: (13) Pulmonary embolism: (14) Elevated lactic acid level: (15) Acute respiratory distress: (16) Bacteremia due to Staphylococcus: Plan Acute hypoxic respiratory failure -Multifactorial -Secondary to subsegmental right middle and right lower lobe pulmonary emboli -Significant right heart strain -Pneumonia, focal dense consolidation left lower lobe -With history of end-stage COPD, COPD exacerbation -With rates of mild to moderate acute respiratory distress -Currently on heated high flow Plan -Monitor respiratory status closely low threshold for intubation -Discussed with patient morbidity and mortality associated with his diagnosis -Cardiac echo ordered pending -heparin drip, transition to Eliquis -Continue vancomycin, continue meropenem -DuoNeb -Budesonide -De-escalate to 40 mg prednisone -Follow sputum cultures -Follow blood cultures STAPHYLOCOCCUS BACTEREMIA -Seen in 2 of 2 blood cultures -Source likely pneumonia -Follow repeat blood cultures -Continue vancomycin as above -No other artificial hardware -Depending on sensitivities might require 2 to 6 weeks of IV antibiotics Sepsis -Sepsis features met -Given acute respiratory failure, acute respiratory distress, pneumonia, elevated lactic acid Bulky bilateral hilar and subcarinal lymphadenopathy - Reactive versus neoplastic, progressed since 01/14/2024 -Will need to follow-up with pulmonary and oncology as outpatient Fall Likely related to deconditioning Patient was not using oxygen No signs of cauda equina Patient not endorsing syncope Extremely low B12: Start supplementation Non-STEMI No active chest pain EKG no acute ST-T wave changes Troponin trending up Initiated ACS protocol after aspirin Plavix loading dose Echo requested Rhabdomyolysis Secondary to fall Patient has high BNP but clinically does not look extremely fluid overloaded Hypothermia: Improved with Javier hugger Pneumonia: Sepsis: Criteria met with hypothermia, leukocytosis, tachypnea tachycardia Patient received septic bolus No signs of encephalopathy Source is pneumonia Chronic hypoxia with severe COPD/underlying pulm hypertension Patient uses 5 L at baseline Currently on 40% Full code Consistent carb cardiac diet Plan for today, continue IV vancomycin, continue meropenem, monitor respiratory status 1 dose IV Lasix, PT OT, PDMP PDMP Reviewed: Not Reviewed Attestations 2 Medical Necessity Statement*: Patient requires hospitalization for acute hypoxic respiratory failure secondary to pulm embolism, pneumonia, Staph aureus bacteremia, COPD, NSTEMI, Diagnoses Progressive pulmonary hypertension I27.20 Non-ST elevated myocardial infarction (non-STEMI) I21.4 BAI (dyspnea on exertion) R06.09 Rhabdomyolysis T79.6XXA Encounter type: initial encounter Rhabdomyolysis type: traumatic Fall W19.XXXA Encounter type: initial encounter Chronic hypoxic respiratory failure, on home oxygen therapy J96.11; Z99.81 Combined pulmonary fibrosis and emphysema (CPFE) J43.9; J84.10 Pneumonia J18.9 Laterality: bilateral Lung location: upper lobe of lung Pneumonia type: due to unspecified organism Acute and chronic respiratory failure with hypoxia J96.21 Physical deconditioning R53.81 Hypothermia T68.XXXA Encounter type: initial encounter Sepsis A41.9 Pulmonary embolism I26.99 Elevated lactic acid level R79.89 Acute respiratory distress R06.03 Bacteremia due to Staphylococcus R78.81; B95.8
[2024-08-18] MEDS: vancomycin 1,250 MG/250 ML PIGGYBACK 166.67 MG IV (16:37)
--- NOTE | 2024-08-18 16:56 | USCV_ITS ---
Benny Burch Age: 79 Gender: M : 1945 Exam Date: 08/18/2024 18:16 Ordering Phys: Olaf Fernandez MD Technologist: Omer Dillon Exam Location: [facility] – [place] Indication: nstemi BP: 132 / 78 HR: 87 Rhythm: Sinus Technical Quality: Adequate MEASUREMENTS (Male / Female) Normal Values 2D ECHO LV Diastolic Diameter PLAX 5.0 cm 4.2 - 5.9 / 3.9 - 5.3 cm IVS Diastolic Thickness 1.1 cm 0.6 - 1.0 / 0.6 - 0.9 cm IVS Systolic Thickness 1.6 cm LVPW Diastolic Thickness 1.6 cm 0.6 - 1.0 / 0.6 - 0.9 cm LVPW Systolic Thickness 1.7 cm LVOT Diameter 2.2 cm LV Ejection Fraction 2D Teich 78.9 % LV Ejection Fraction MOD 4C 68.8 % LV Ejection Fraction MOD 2C 67.2 % LV Ejection Fraction 2C AL 68.4 % LA Diameter 3.5 cm RA Systolic Volume 4C AL 49.0 ml RA Systolic Volume 4C MOD 49.8 ml LA Sys Volume AL 45.3 cm cubed LA Sys Volume Index AL 20.4 cm cubed/m squared Aorta at Sinotubular Diameter 2.7 cm IVC Diameter 1.8 cm M-MODE LA Ao Ratio MM 1.6 AV Cusp Separation MM 1.8 cm DOPPLER AV Peak Velocity 158.0 cm/s LVOT Peak Velocity 76.0 cm/s AV Area Cont Eq vti 2.0 cm squared AV Area Cont Eq pk 1.8 cm squared MV Peak Velocity 94.0 cm/s MV Area PHT 6.6 cm squared Mitral E to A Ratio 0.8 TR Peak Velocity 203.0 cm/s TR Peak Gradient 16.5 mmHg TR Mean Velocity 160.0 cm/s TR Mean Gradient 10.9 mmHg TR Velocity Time Integral 49.8 cm PV Peak Velocity 86.0 cm/s RV Ejection Time 0.3 s FINDINGS Left Ventricle Normal left ventricular size, systolic function and wall thickness, with no regional wall motion abnormalities. Left ventricular ejection fraction is estimated at 66 %. Grade I/IV diastolic dysfunction (abnormal relaxation filling pattern), normal to mildly elevated filling pressures. Right Ventricle The right ventricle is normal in size and function. Right Atrium The right atrium is normal in size. Left Atrium The left atrium is normal in size. Mitral Valve Mildly thickened mitral valve. No mitral valve stenosis. Mild mitral valve regurgitation. Aortic Valve Moderate aortic valve calcification. No aortic valve stenosis. Trace aortic valve regurgitation. Tricuspid Valve Structurally normal tricuspid valve without significant stenosis or regurgitation. Pulmonic Valve Structurally normal pulmonic valve without significant stenosis. There is no pulmonic regurgitation. Pericardium Normal pericardium without effusion. Aorta Normal ascending aorta dimension. IVC The inferior vena cava appears normal. CONCLUSIONS Normal left ventricular size, systolic function and wall thickness, with no regional wall motion abnormalities. Left ventricular ejection fraction is estimated at 66 %. Grade I/IV diastolic dysfunction (abnormal relaxation filling pattern), normal to mildly elevated filling pressures. Mildly thickened mitral valve. No mitral valve stenosis. Mild mitral valve regurgitation. Moderate aortic valve calcification. No aortic valve stenosis. Trace aortic valve regurgitation. Structurally normal tricuspid valve without significant stenosis or regurgitation. . There is no pericardial effusion. Right atrial pressure is around 5 mm of mercury. Olaf Trujillo MD (Electronically Signed) Final Date: 19 August 2024 17:45 S
[2024-08-18 17:39] LABS: Glucose Point of Care 144 mg/dL (70-110)
[2024-08-18 17:57] LABS: Partial Thromboplastin Time 38.7 SECONDS (23.9-36.7)
[2024-08-18 18:04] LABS: Hematocrit 41.7 % (37-53); Mean Corpuscular HGB Conc 33.1 g/dL (30-55); Mean Corpuscular Hemoglobin 30.7 pg (27-33); Mean Corpuscular Volume 92.9 fl (82-101); Mean Platelet Volume 9.7 fL (7.4-10.4); Platelet Count 160 10^3/cmm (157-399); Red Blood Count 4.49 10^6/uL (3.85-5.65); White Blood Count 12.21 10^3/uL (3.29-11.43)
[2024-08-18 18:29] LABS: Absolute Neutrophil 11.2 10^3/cmm (1.4-6.5); Band Neutrophils Absolute 0.2 10^3/cmm (0.0-1.2); Eosinophils 0 %; Lymphocytes 5 %; Lymphocytes Absolute 0.6 10^3/cmm (1.2-3.4); Platelet Estimate Normal (Normal); Segmented Neutrophils 90 %; Total Cells Counted 100 (0-100)
[2024-08-18 18:30] LABS: Monocytes Absolute 0.4 10^3/cmm (0.1-0.6)
[2024-08-18] MEDS: morphine 4 mg/mL SDV 1 mL 2 MG IVP ×2 (19:05→22:56)
[2024-08-18] MEDS: apixaban 5 mg Tablet 10 MG PO (21:04)
[2024-08-18] MEDS: trazodone 100 mg Tablet PO (22:55)
[2024-08-18 23:18] LABS: Glucose Point of Care 176 mg/dL (70-110)
[2024-08-19] VITALS (35 sets, daily range): BP systolic 108–160; BP diastolic 61–119; PULSE 71–106; RESP 12–30; TEMP 36.8–37.2; O2SAT 88–97
[2024-08-19] MEDS: ipratropium-albuterol 3 mL Neb INHALATION ×4 (02:23→19:39)
[2024-08-19] MEDS: meropenem 1,000 mg SDV 1000 MG IVP ×3 (03:19→17:24)
[2024-08-19] MEDS: vancomycin 1,250 MG/250 ML PIGGYBACK 166 MG IV ×2 (03:30→16:12)
--- NOTE | 2024-08-19 05:41 | PC.NURSE ---
Incontinence Episode: 1 void in brief, unable to measure.
[2024-08-19 06:34] LABS: Basophils % 0.1 %; Lymphocytes # 0.8 10^3/uL (0.8-4.8); Lymphocytes % 8.2 %; Mean Corpuscular HGB Conc 33.1 g/dL (30-55); Mean Corpuscular Hemoglobin 31.6 pg (27-33); Mean Corpuscular Volume 95.6 fl (82-101); Mean Platelet Volume 9.8 fL (7.4-10.4); Monocytes # 0.8 10^3/uL (0.2-0.9); Monocytes % 8.2 %; Neutrophils # 8.32 10^3/uL (1.8-7.7); Neutrophils % 82.6 %; Nucleated Red Blood Cells % 0 %; Platelet Count 150 10^3/cmm (157-399); Red Blood Count 4.08 10^6/uL (3.85-5.65); White Blood Count 10.06 10^3/uL (3.29-11.43)
[2024-08-19 06:53] LABS: Alanine Aminotransferase 31 U/L (0-41); Albumin Level 3.1 g/dL (3.5-5.2); Alkaline Phosphatase 52 U/L (40-130); Anion Gap 12.9 (5-19); Aspartate Amino Transferase 17 U/L (0-40); Blood Urea Nitrogen 25 mg/dL (8-23); C Reactive Protein 7.3 mg/L (0.0-4.9); Calcium 8.4 mg/dL (8.5-10.5); Carbon Dioxide 31 mmol/L (22-29); Chloride 103 mmol/L (98-107); Creatinine Clr Calc Pharmacy 91.2463; Globulin 2.5 g/dL (1.3-4.6); Glucose 129 mg/dL (65-115); Magnesium 2.2 mg/dL (1.7-2.3); Osmolality Calculated 302 mOsm/kg (285-295); Phosphorus 2.8 mg/dL (2.5-4.5); Potassium 3.9 mmol/L (3.5-5.1); Sodium 143 mmol/L (136-145); Total Bilirubin 0.7 mg/dL (0.15-1.2); Total Protein 5.6 g/dL (6.6-8.7)
--- NOTE | 2024-08-19 07:00 | XRR_ITS ---
PROCEDURE INFORMATION: Exam: XR Chest Exam date and time: 08/19/2024 9:01 AM Age: 79 years old Clinical indication: Shortness of breath; Additional info: SOB TECHNIQUE: Imaging protocol: Radiologic exam of the chest. Views: 1 view. COMPARISON: CR (CHEST, ) 08/16/2024 4:09 AM FINDINGS: Lungs: Bilateral lower lobe consolidation/collapse. Pleural spaces: Small bilateral pleural effusions. Heart/Mediastinum: Unremarkable. No cardiomegaly. Vasculature: There are aortic arch calcifications. Bones/joints: Moderate degenerative disease of bilateral acromioclavicular joints. There are mild degenerative changes of the glenohumeral joint. XR/XR chest 1V portable [id number] IMPRESSION: Small bilateral pleural effusions with bilateral lower lobe consolidation/collapse.
[2024-08-19 07:03] LABS: NT Pro B Type Natriuretic Pept 2883 pg/mL (0-450)
[2024-08-19 07:17] LABS: Glucose Point of Care 119 mg/dL (70-110)
[2024-08-19] MEDS: budesonide 0.5 mg/2 mL Neb INHALATION ×2 (08:22→19:39)
[2024-08-19] MEDS: apixaban 5 mg Tablet 10 MG PO ×2 (08:25→20:37)
[2024-08-19] MEDS: predniSONE 20 mg Tablet 40 MG PO (08:25)
[2024-08-19] MEDS: pantoprazole 40 mg SDV IVP ×2 (08:26→17:24)
[2024-08-19] MEDS: cyanocobalamin 1,000 mcg/mL SDV 1000 MCG IM (08:26)
[2024-08-19] MEDS: sennosides-docusate Tablet 1 TAB PO (08:26)
[2024-08-19] MEDS: atorvastatin 40 mg Tablet 80 MG PO (08:26)
[2024-08-19] MEDS: aspirin 81 mg EC Tablet PO (08:26)
[2024-08-19] MEDS: clopidogrel 75 mg Tablet PO (08:36)
[2024-08-19 11:18] LABS: Glucose Point of Care 131 mg/dL (70-110)
--- NOTE | 2024-08-19 17:20 | PC.NURSE ---
Patient's blood sugar was 193. Blood sugar was documented on the wrong patient.
[2024-08-19] MEDS: insulin lispro 100 unit/1 mL SUBCUT (17:24)
--- NOTE | 2024-08-19 17:34 | P.PN_ITS ---
Subjective 2 Subjective: Patient was seen this morning, no fevers, chills, no cough, remains on heated high flow at 50% Vitals/I&O/Wt Last Vital Signs Temp 98.9 F 08/19/24 10:21 Pulse 93 08/19/24 14:00 Resp 30 H 08/19/24 14:00 BP 139/66 08/19/24 14:00 Pulse Ox 92 08/19/24 14:00 O2 Del Method High Flow Nasal Cannula 08/19/24 14:00 O2 Flow Rate 12 08/19/24 14:00 FiO2 50 08/19/24 13:13 08/19/24 08/19/24 08/19/24 06:59 14:59 22:59 Intake Total 730 / 1356.233 720 / 720 Output Total 500 / 2875 725 / 725 Balance 230 / -1518.767 -5 / -5 Weight last 48 hrs Weight 95.527 kg Physical Exam 2 Const: COMMON NORMALS: no acute distress and patient oriented x3 Resp: COMMON NORMALS: normal respiratory effort, No retractions, No use of accessory muscles and clear to auscultation bilaterally AUSCULTATION: clear to auscultation bilaterally Cardio: COMMON NORMALS: regular rate, regular rhythm, S1 normal heart sound present and S2 normal heart sound present RATE: regular rate RHYTHM: r egular rhythm HEART SOUNDS: S1 normal heart sound present and S2 normal heart sound present GI: COMMON NORMALS: Normal to inspection, nondistended, normoactive bowel sounds present and non-tender Extremity: COMMON NORMALS: no pedal edema Neuro: COMMON NORMALS: patient oriented x3 Psych: COMMON NORMALS: mental status grossly normal Data 08/19/24 05:29 08/19/24 05:29 Micro: Microbiology 08/14/24 23:12 Blood Culture - Final Blood Staphylococcus hominis Bacillus sp not b. 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): (8) Pneumonia: Qualifiers: Laterality: bilateral Lung location: upper lobe of lung Pneumonia type: due to unspecified organism Qualified Code(s): J18.9 - Pneumonia, unspecified organism (9) Acute and chronic respiratory failure with hypoxia: (10) Physical deconditioning: (11) Hypothermia: Qualifiers: Encounter type: initial encounter Qualified Code(s): T68.XXXA - Hypothermia, initial encounter (12) Sepsis: (13) Pulmonary embolism: (14) Elevated lactic acid level: (15) Acute respiratory distress: (16) Bacteremia due to Staphylococcus: Plan Acute hypoxic respiratory failure -Multifactorial -Secondary to subsegmental right middle and right lower lobe pulmonary emboli -Significant right heart strain -Pneumonia, focal dense consolidation left lower lobe -With history of end-stage COPD, COPD exacerbation -With rates of mild to moderate acute respiratory distress -Currently on heated high flow Plan -Monitor respiratory status closely low threshold for intubation -Discussed with patient morbidity and mortality associated with his diagnosis -Cardiac echo ordered pending -heparin drip, transition to Eliquis -Continue vancomycin, continue meropenem -DuoNeb -Budesonide -De-escalate to 40 mg prednisone -Follow sputum cultures -Follow blood cultures STAPHYLOCOCCUS BACTEREMIA -Seen in 2 of 2 blood cultures -Source likely pneumonia -Follow repeat blood cultures -Continue vancomycin as above -No other artificial hardware -Depending on sensitivities might require 2 to 6 weeks of IV antibiotics Sepsis -Sepsis features met -Given acute respiratory failure, acute respiratory distress, pneumonia, elevated lactic acid Bulky bilateral hilar and subcarinal lymphadenopathy - Reactive versus neoplastic, progressed since 01/14/2024 -Will need to follow-up with pulmonary and oncology as outpatient Fall Likely related to deconditioning Patient was not using oxygen No signs of cauda equina Patient not endorsing syncope Extremely low B12: Start supplementation Non-STEMI No active chest pain EKG no acute ST-T wave changes Troponin trending up Initiated ACS protocol after aspirin Plavix loading dose Echo requested Rhabdomyolysis Secondary to fall Patient has high BNP but clinically does not look extremely fluid overloaded Hypothermia: Improved with Javier hugger Pneumonia: Sepsis: Criteria met with hypothermia, leukocytosis, tachypnea tachycardia Patient received septic bolus No signs of encephalopathy Source is pneumonia Chronic hypoxia with severe COPD/underlying pulm hypertension Patient uses 5 L at baseline Currently on 40% Full code Consistent carb cardiac diet Plan for today, continue IV vancomycin, continue meropenem, monitor respiratory status PDMP PDMP Reviewed: Not Reviewed Attestations 2 Medical Necessity Statement*: Patient requires hospitalization for acute hypoxic respiratory failure, remains on heated high flow, pneumonia, Staph bacteremia, pulmonary embolism Diagnoses Progressive pulmonary hypertension I27.20 Non-ST elevated myocardial infarction (non-STEMI) I21.4 BAI (dyspnea on exertion) R06.09 Rhabdomyolysis T79.6XXA Encounter type: initial encounter Rhabdomyolysis type: traumatic Fall W19.XXXA Encounter type: initial encounter Chronic hypoxic respiratory failure, on home oxygen therapy J96.11; Z99.81 Combined pulmonary fibrosis and emphysema (CPFE) J43.9; J84.10 Pneumonia J18.9 Laterality: bilateral Lung location: upper lobe of lung Pneumonia type: due to unspecified organism Acute and chronic respiratory failure with hypoxia J96.21 Physical deconditioning R53.81 Hypothermia T68.XXXA Encounter type: initial encounter Sepsis A41.9 Pulmonary embolism I26.99 Elevated lactic acid level R79.89 Acute respiratory distress R06.03 Bacteremia due to Staphylococcus R78.81; B95.8
[2024-08-19] MEDS: FUROsemide 10 mg/mL SDV 4mL 40 MG IVP (18:12)
[2024-08-19] MEDS: potassium chloride ER 20 mEq Tablet PO (18:12)
[2024-08-19] MEDS: morphine 4 mg/mL SDV 1 mL 2 MG IVP (18:12)
[2024-08-19] MEDS: ALPRAZolam 0.5 mg Tablet PO (21:30)
[2024-08-19] MEDS: trazodone 100 mg Tablet PO (21:30)
[2024-08-19 21:34] LABS: Glucose Point of Care 203 mg/dL (70-110)
[2024-08-20] VITALS (29 sets, daily range): BP systolic 91–158; BP diastolic 66–109; PULSE 75–109; RESP 15–27; TEMP 36.1–36.8; O2SAT 82–94; BMI 27.4
[2024-08-20] MEDS: morphine 4 mg/mL SDV 1 mL 2 MG IVP ×2 (00:12→23:42)
[2024-08-20] MEDS: meropenem 1,000 mg SDV 1000 MG IVP ×2 (02:24→10:02)
[2024-08-20] MEDS: vancomycin 1,250 MG/250 ML PIGGYBACK 166 MG IV (04:48)
[2024-08-20 04:56] LABS: Basophils % 0.2 %; Eosinophils % 0.1 %; Hematocrit 43.1 % (37-53); Lymphocytes # 1.1 10^3/uL (0.8-4.8); Lymphocytes % 12.3 %; Mean Corpuscular HGB Conc 33.2 g/dL (30-55); Mean Corpuscular Volume 93.5 fl (82-101); Mean Platelet Volume 9.8 fL (7.4-10.4); Monocytes # 0.9 10^3/uL (0.2-0.9); Monocytes % 9.3 %; Neutrophils # 7.09 10^3/uL (1.8-7.7); Neutrophils % 76.4 %; Nucleated Red Blood Cells % 0 %; Platelet Count 167 10^3/cmm (157-399); Red Blood Count 4.61 10^6/uL (3.85-5.65); Red Cell Distribution Width 14.1 % (12.1-15.1); White Blood Count 9.28 10^3/uL (3.29-11.43)
[2024-08-20 05:17] LABS: Alanine Aminotransferase 33 U/L (0-41); Albumin Level 3.5 g/dL (3.5-5.2); Alkaline Phosphatase 55 U/L (40-130); Aspartate Amino Transferase 19 U/L (0-40); Blood Urea Nitrogen 23 mg/dL (8-23); C Reactive Protein 4.1 mg/L (0.0-4.9); Calcium 8.8 mg/dL (8.5-10.5); Carbon Dioxide 31 mmol/L (22-29); Chloride 102 mmol/L (98-107); Creatinine Clr Calc Pharmacy 91.2463; Globulin 2.5 g/dL (1.3-4.6); Glucose 119 mg/dL (65-115); Magnesium 2.2 mg/dL (1.7-2.3); Osmolality Calculated 299 mOsm/kg (285-295); Phosphorus 2.8 mg/dL (2.5-4.5); Sodium 142 mmol/L (136-145)
[2024-08-20 05:20] LABS: Anion Gap 12.9 (5-19); Potassium 3.9 mmol/L (3.5-5.1)
[2024-08-20 05:23] LABS: NT Pro B Type Natriuretic Pept 1667 pg/mL (0-450)
[2024-08-20] MEDS: FUROsemide 10 mg/mL SDV 2mL 20 MG IVP (07:30)
[2024-08-20 08:04] LABS: Glucose Point of Care 96 mg/dL (70-110)
[2024-08-20] MEDS: ipratropium-albuterol 3 mL Neb INHALATION ×2 (08:31→20:58)
[2024-08-20] MEDS: budesonide 0.5 mg/2 mL Neb INHALATION ×2 (08:31→20:59)
[2024-08-20] MEDS: sennosides-docusate Tablet 1 TAB PO (09:47)
[2024-08-20] MEDS: aspirin 81 mg EC Tablet PO (09:47)
[2024-08-20] MEDS: atorvastatin 40 mg Tablet 80 MG PO (09:47)
[2024-08-20] MEDS: predniSONE 20 mg Tablet 40 MG PO (09:48)
[2024-08-20] MEDS: clopidogrel 75 mg Tablet PO (09:48)
[2024-08-20] MEDS: pantoprazole 40 mg SDV IVP ×2 (10:00→17:21)
[2024-08-20] MEDS: cyanocobalamin 1,000 mcg/mL SDV 1000 MCG IM (10:05)
[2024-08-20] MEDS: water for injection-sterile 20 ML 100 ML (10:06)
--- NOTE | 2024-08-20 10:12 | P.PN_ITS ---
Subjective 2 Subjective: Patient was seen this morning, currently alert oriented x 3, following all commands, down to 8 L, denies any fevers, no chills, no cough we discussed his positive blood cultures, I think is likely contamination as repeat blood cultures are negative he will likely require 2 weeks of p.o. Zyvox, he is wondering when he can go home plan on diuresing him today possibly going home in the next 2448 hrs. as long as his oxygen requirements continue to decrease, he is chronically on 5 L at home Vitals/I&O/Wt Last Vital Signs Temp 98.2 F 08/20/24 08:00 Pulse 87 08/20/24 09:00 Resp 24 H 08/20/24 09:00 BP 150/98 08/20/24 09:00 Pulse Ox 89 L 08/20/24 09:00 O2 Del Method High Flow Nasal Cannula 08/20/24 08:31 O2 Flow Rate 8 08/20/24 08:31 FiO2 50 08/19/24 13:13 08/19/24 08/20/24 08/20/24 22:59 06:59 14:59 Intake Total 490 / 1210 480 / 1690 940 / 940 Output Total 1625 / 2350 800 / 3150 Balance -1135 / -1140 -320 / -1460 940 / 940 Weight last 48 hrs Weight 91.898 kg Physical Exam 2 Const: COMMON NORMALS: no acute distress and patient oriented x3 Resp: COMMON NORMALS: normal respiratory effort, No retractions, No use of accessory muscles and clear to auscultation bilaterally AUSCULTATION: clear to auscultation bilaterally Cardio: COMMON NORMALS: regular rate, regular rhythm, S1 normal heart sound present and S2 normal heart sound present RATE: regular rate RHYTHM: r egular rhythm HEART SOUNDS: S1 normal heart sound present and S2 normal heart sound present GI: COMMON NORMALS: Normal to inspection, nondistended, normoactive bowel sounds present and non-tender Extremity: COMMON NORMALS: no pedal edema Neuro: COMMON NORMALS: patient oriented x3 Psych: COMMON NORMALS: mental status grossly normal Data 08/20/24 04:24 08/20/24 04:24 Micro: Microbiology 08/14/24 23:12 Blood Culture - Final Blood Staphylococcus hominis Bacillus sp not b. 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): (8) Pneumonia: Qualifiers: Laterality: bilateral Lung location: upper lobe of lung Pneumonia type: due to unspecified organism Qualified Code(s): J18.9 - Pneumonia, unspecified organism (9) Acute and chronic respiratory failure with hypoxia: (10) Physical deconditioning: (11) Hypothermia: Qualifiers: Encounter type: initial encounter Qualified Code(s): T68.XXXA - Hypothermia, initial encounter (12) Sepsis: (13) Pulmonary embolism: (14) Elevated lactic acid level: (15) Acute respiratory distress: (16) Bacteremia due to Staphylococcus: Plan Acute hypoxic respiratory failure -Multifactorial -Secondary to subsegmental right middle and right lower lobe pulmonary emboli -Significant right heart strain -Pneumonia, focal dense consolidation left lower lobe -With history of end-stage COPD, COPD exacerbation -With rates of mild to moderate acute respiratory distress -Currently on heated high flow Plan -Monitor respiratory status closely low threshold for intubation -Discussed with patient morbidity and mortality associated with his diagnosis -Cardiac echo ordered pending -heparin drip, transition to Eliquis -Continue vancomycin, continue meropenem, de-escalate to p.o. Zyvox, Augmentin -DuoNeb -Budesonide -De-escalate to 40 mg prednisone -Follow sputum cultures -Follow blood cultures STAPHYLOCOCCUS BACTEREMIA -Seen in 2 of 2 blood cultures growing Staphylococcus hominis, and bacillus species not be anthrax this -Likely source is contamination but cannot rule out pneumonia as a source -Follow repeat blood cultures so far negative -Will need 2 weeks of p.o. Zyvox start date 08/17/2024, which is negative blood cultures -No other artificial hardware Sepsis, resolved -Sepsis features met -Given acute respiratory failure, acute respiratory distress, pneumonia, elevated lactic acid Bulky bilateral hilar and subcarinal lymphadenopathy - Reactive versus neoplastic, progressed since 01/14/2024 -Will need to follow-up with pulmonary and oncology as outpatient Fall Likely related to deconditioning Patient was not using oxygen No signs of cauda equina Patient not endorsing syncope Extremely low B12: Start supplementation Non-STEMI No active chest pain EKG no acute ST-T wave changes Troponin trending up Initiated ACS protocol after aspirin Plavix loading dose Echo requested Rhabdomyolysis Secondary to fall Hypothermia: Improved with Javier hugger, resolved Pneumonia: Sepsis: Criteria met with hypothermia, leukocytosis, tachypnea tachycardia Patient received septic bolus No signs of encephalopathy Source is pneumonia Chronic hypoxia with severe COPD/underlying pulm hypertension Patient uses 5 L at baseline Currently on 8 L Full code Consistent carb cardiac diet Plan for today, p.o. Zyvox, switch to p.o. Augmentin, 1 dose IV Lasix, PT OT plan to discharge in next 24 to 48 hours, for CT chest findings as above, he is going to have to follow-up with pulmonary as outpatient PDMP PDMP Reviewed: Not Reviewed Attestations 2 Medical Necessity Statement*: Patient requires hospitalization for acute hypoxic respiratory failure secondary to pneumonia, PE, fluid overload, likely discharge in the next 2448 hrs. down to 8 L Diagnoses Progressive pulmonary hypertension I27.20 Non-ST elevated myocardial infarction (non-STEMI) I21.4 BAI (dyspnea on exertion) R06.09 Rhabdomyolysis T79.6XXA Encounter type: initial encounter Rhabdomyolysis type: traumatic Fall W19.XXXA Encounter type: initial encounter Chronic hypoxic respiratory failure, on home oxygen therapy J96.11; Z99.81 Combined pulmonary fibrosis and emphysema (CPFE) J43.9; J84.10 Pneumonia J18.9 Laterality: bilateral Lung location: upper lobe of lung Pneumonia type: due to unspecified organism Acute and chronic respiratory failure with hypoxia J96.21 Physical deconditioning R53.81 Hypothermia T68.XXXA Encounter type: initial encounter Sepsis A41.9 Pulmonary embolism I26.99 Elevated lactic acid level R79.89 Acute respiratory distress R06.03 Bacteremia due to Staphylococcus R78.81; B95.8
[2024-08-20] MEDS: apixaban 5 mg Tablet 10 MG PO ×2 (10:29→21:41)
[2024-08-20 12:05] LABS: Glucose Point of Care 174 mg/dL (70-110)
[2024-08-20] MEDS: insulin lispro 100 unit/1 mL SUBCUT ×2 (12:15→17:25)
[2024-08-20] MEDS: linezolid 600 mg Tablet PO (17:19)
[2024-08-20] MEDS: amoxicillin-clav 875-125 mg Tablet 1 TAB PO (17:20)
[2024-08-20 17:45] LABS: Glucose Point of Care 172 mg/dL (70-110)
[2024-08-20 21:56] LABS: Glucose Point of Care 161 mg/dL (70-110)
[2024-08-20] MEDS: ALPRAZolam 0.5 mg Tablet PO (23:41)
[2024-08-20] MEDS: trazodone 100 mg Tablet PO (23:42)
--- NOTE | 2024-08-20 23:56 | PC.NURSE ---
Report called to MICHELLE Mae with [facility].
[2024-08-21] VITALS (8 sets, daily range): BP systolic 114–155; BP diastolic 52–79; PULSE 78–104; RESP 16–20; TEMP 36.3–36.8; O2SAT 82–98
[2024-08-21] MEDS: linezolid 600 mg Tablet PO (05:34)
[2024-08-21 05:37] LABS: Basophils % 0.1 %; Eosinophils # 0.1 10^3/uL (0.0-0.8); Eosinophils % 0.6 %; Hematocrit 43.4 % (37-53); Lymphocytes # 1.3 10^3/uL (0.8-4.8); Lymphocytes % 15.7 %; Mean Corpuscular HGB Conc 32.9 g/dL (30-55); Mean Corpuscular Hemoglobin 30.6 pg (27-33); Mean Corpuscular Volume 92.7 fl (82-101); Mean Platelet Volume 9.7 fL (7.4-10.4); Monocytes # 0.8 10^3/uL (0.2-0.9); Monocytes % 9.1 %; Neutrophils % 73.4 %; Nucleated Red Blood Cells % 0 %; Platelet Count 180 10^3/cmm (157-399); Red Blood Count 4.68 10^6/uL (3.85-5.65); Red Cell Distribution Width 14.2 % (12.1-15.1); White Blood Count 8.32 10^3/uL (3.29-11.43)
[2024-08-21 06:07] LABS: Alanine Aminotransferase 29 U/L (0-41); Albumin Level 3.2 g/dL (3.5-5.2); Alkaline Phosphatase 57 U/L (40-130); Anion Gap 13.1 (5-19); Aspartate Amino Transferase 17 U/L (0-40); Blood Urea Nitrogen 23 mg/dL (8-23); Calcium 8.6 mg/dL (8.5-10.5); Carbon Dioxide 30 mmol/L (22-29); Chloride 101 mmol/L (98-107); Creatinine Clr Calc Pharmacy 88.1997; Globulin 2.4 g/dL (1.3-4.6); Glucose 116 mg/dL (65-115); Magnesium 2.3 mg/dL (1.7-2.3); NT Pro B Type Natriuretic Pept 670 pg/mL (0-450); Osmolality Calculated 295 mOsm/kg (285-295); Potassium 4.1 mmol/L (3.5-5.1); Sodium 140 mmol/L (136-145); Total Bilirubin 1.1 mg/dL (0.15-1.2); Total Protein 5.6 g/dL (6.6-8.7)
[2024-08-21 06:47] LABS: Glucose Point of Care 105 mg/dL (70-110)
[2024-08-21] MEDS: ipratropium-albuterol 3 mL Neb INHALATION ×2 (08:42→14:42)
[2024-08-21] MEDS: budesonide 0.5 mg/2 mL Neb INHALATION (08:42)
[2024-08-21] MEDS: aspirin 81 mg EC Tablet PO (09:19)
[2024-08-21] MEDS: cyanocobalamin 1,000 mcg/mL SDV 1000 MCG IM (09:20)
[2024-08-21] MEDS: ALPRAZolam 0.5 mg Tablet PO (09:20)
[2024-08-21] MEDS: sennosides-docusate Tablet 1 TAB PO (09:20)
[2024-08-21] MEDS: pantoprazole 40 mg SDV IVP (09:20)
[2024-08-21] MEDS: amoxicillin-clav 875-125 mg Tablet 1 TAB PO (09:20)
[2024-08-21] MEDS: atorvastatin 40 mg Tablet 80 MG PO (09:20)
[2024-08-21] MEDS: predniSONE 20 mg Tablet 40 MG PO (09:20)
[2024-08-21] MEDS: clopidogrel 75 mg Tablet PO (09:20)
[2024-08-21] MEDS: apixaban 5 mg Tablet 10 MG PO (09:20)
[2024-08-21 11:28] LABS: Glucose Point of Care 144 mg/dL (70-110)
[2024-08-21] MEDS: insulin lispro 100 unit/1 mL SUBCUT (12:33)
--- NOTE | 2024-08-21 14:30 | PC.NURSE ---
There was a transmission error with new Rx medications for patient's d/c, so I called verbal in to [facility] for Eliquis, Prednisone, and Linezolid. Requested [id number] for this patient prior to d/c.
--- NOTE | 2024-08-21 15:09 | PC.NURSE ---
Originally this patient stated to this nurse I am not going home that asshole of armani Carrillo Waited all day and i am not leaving now. I want to talk to him. Dr. Saenz went into patients room and discussed patients concerns with hime. This nurse gave patient his Discharge instructions given to patient. Patient verbalized understandings. IV was removed and catheter intact. Patient will be getting meds to beds. Patient stated his ride is on the way.
--- NOTE | 2024-08-21 15:26 | PC.SOCIAL ---
IMM updated IMM dated and initialed, copy given to patient and copy placed in chart
--- NOTE | 2024-08-30 18:34 | P.DS_ITS ---
Discharge Providers Date of Admission: 08/15/24 06:46 Date of Discharge: August 21, 2024 Attending Provider at Admission: Olaf Fernandez MD Attending Provider at Discharge: Navya Saenz Consults: None Primary Care Provider: BRADEN Rosas Diagnoses at Discharge Discharge Diagnosis (1) Progressive pulmonary hypertension: Status: Acute (2) Non-ST elevated myocardial infarction (non-STEMI): Status: Resolved (3) BAI (dyspnea on exertion): Status: Resolved (4) Rhabdomyolysis: Status: Resolved Qualifiers: Encounter type: initial encounter Rhabdomyolysis type: traumatic Qualified Code(s): T79.6XXA - Traumatic ischemia of muscle, initial encounter (5) Fall: Status: Resolved Qualifiers: Encounter type: initial encounter Qualified Code(s): W19.XXXA - Unspecified fall, initial encounter (6) Chronic hypoxic respiratory failure, on home oxygen therapy: Status: Acute (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 (8) Pneumonia: Status: Resolved Qualifiers: Laterality: bilateral Lung location: upper lobe of lung Pneumonia type: due to unspecified organism Qualified Code(s): J18.9 - Pneumonia, unspecified organism (9) Acute and chronic respiratory failure with hypoxia: Status: Resolved (10) Physical deconditioning: Status: Acute (11) Hypothermia: Status: Resolved Qualifiers: Encounter type: initial encounter Qualified Code(s): T68.XXXA - Hypothermia, initial encounter (12) Sepsis: Status: Resolved (13) Pulmonary embolism: Status: Acute (14) Elevated lactic acid level: Status: Resolved (15) Acute respiratory distress: Status: Resolved (16) Bacteremia due to Staphylococcus: Status: Acute Reason for Visit Reason for Visit: sob Hospital Course Hospital Course 79-year-old male with a past medical history significant for chronic hypoxemic respiratory failure typically on 5 L of oxygen at baseline who presented to the hospital on 08/15/2024 after he sustained a fall. When he arrived to the hospital he was noted to have increased work of breathing at which point he was placed on BiPAP. Etiology of his respiratory failure was multifactorial as he was found to have subsegmental right middle and right lower lobe pulmonary emboli with significant right heart strain. He was initially started on heparin drip which was transition to Eliquis at the time of discharge. Echocardiogram performed showed ejection fraction of 66%/ grade 1/4 diastolic dysfunction without significant evidence of right heart strain. Also suspected to have exacerbation of his underlying COPD for which he was started on steroids transition to prednisone taper which was to continue until he had reached his 5 mg daily home dose of prednisone. He was also noted to have focal dense consolidation left lower lobe suspected to be pneumonia. He was on broad-spectrum antibiotics throughout hospitalization. Initial blood cultures drawn on 08/14/2024 at showed Staphylococcus hominis and Bacillus. Repeat culture were obtained on 08/15 which were negative and again on 08/17/2024 which were also negative. This was likely a contamination however at the time of discharge he was continued on Zyvox and augmentin to complete a 2 weeks course. Of note all meds were called in to pharmacy due to transmission error. Patient respiratory status had improved to baseline. He was not febrile and normothermic. Initially noted elevated troponin was likley due to acute PE in setting of resspiratory failure. Physical Exam Const: COMMON NORMALS: no acute distress and patient oriented x3 Resp: COMMON NORMALS: normal respiratory effort, No retractions, No use of accessory muscles and clear to auscultation bilaterally AUSCULTATION: clear to auscultation bilaterally Cardio: COMMON NORMALS: regular rate, regular rhythm, S1 normal heart sound present and S2 normal heart sound present RATE: regular rate RHYTHM: regular rhythm HEART SOUNDS: S1 normal heart sound present and S2 normal heart sound present GI: COMMON NORMALS: Normal to inspection, nondistended, normoactive bowel sounds present and non-tender Extremity: COMMON NORMALS: no pedal edema Neuro: COMMON NORMALS: patient oriented x3 Psych: COMMON NORMALS: mental status grossly normal Discharge Data Studies Completed and Pending Completed Studies During Hospitalization Category Date Time Status CT head wo con* [id number] Stat Cat Scan 08/14/24 23:48 Completed CTA PE [CT angio chest PE protcl [id number]] Stat Cat Scan 08/15/24 06:32 Completed XR chest 1V portable [id number] Routine Exams 08/16/24 07:00 Completed XR chest 1V portable [id number] Routine Exams 08/19/24 07:00 Completed XR chest 1V portable [id number] Stat Exams 08/14/24 23:47 [place] [id number] Routine Ultrasound 08/15/24 02:07 Completed CV. echo complete* [id number] Routine Ultrasound 08/18/24 16:56 Completed Radiology Impressions Head CT 08/14/24 23:48 IMPRESSION: No acute intracranial abnormality. Venous Duplex 08/15/24 02:07 IMPRESSION: No evidence of deep vein thrombosis. Chest CTA 08/15/24 06:32 IMPRESSION: 1. Subsegmental RIGHT middle and RIGHT lower lobe pulmonary emboli. 2. Significant RIGHT heart strain. 3. Focal dense consolidation LEFT lower lobe with a small effusion consistent with pneumonia. 4. Bulky bilateral hilar and subcarinal lymphadenopathy. Reactive versus neoplastic, progressed since 01/14/2024. 5. Bilateral pleural nodularity and thickening. This will need to be reevaluated for neoplastic involvement due to the nodularity. 6. Mild pulmonary artery enlargement. Chest X-Ray 08/19/24 07:00 IMPRESSION: Small bilateral pleural effusions with bilateral lower lobe consolidation/collapse. Laboratory Results WBC 8.32 10^3/uL (3.29-11.43) 08/21/24 05:15 RBC 4.68 10^6/uL (3.85-5.65) 08/21/24 05:15 Hgb 14.30 g/dL (11.27-16.99) 08/21/24 05:15 Hct 43.4 % (37-53) 08/21/24 05:15 MCV 92.7 fl (82-101) 08/21/24 05:15 MCH 30.6 pg (27-33) 08/21/24 05:15 MCHC 32.9 g/dL (30-55) 08/21/24 05:15 RDW 14.2 % (12.1-15.1) 08/21/24 05:15 Plt Count 180 10^3/cmm (157-399) 08/21/24 05:15 MPV 9.7 fL (7.4-10.4) 08/21/24 05:15 Neut % (Auto) 73.4 % 08/21/24 05:15 Lymph % (Auto) 15.7 % 08/21/24 05:15 Elmore % (Auto) 9.1 % 08/21/24 05:15 Eos % (Auto) 0.6 % 08/21/24 05:15 Baso % (Auto) 0.1 % 08/21/24 05:15 Neut # (Auto) 6.10 10^3/uL (1.8-7.7) 08/21/24 05:15 Lymph # (Auto) 1.3 10^3/uL (0.8-4.8) 08/21/24 05:15 Elmore # (Auto) 0.8 10^3/uL (0.2-0.9) 08/21/24 05:15 Eos # (Auto) 0.1 10^3/uL (0.0-0.8) 08/21/24 05:15 Baso # (Auto) 0.0 10^3/uL (0.0-0.1) 08/21/24 05:15 Nucleated RBC % (auto) 0 % 08/21/24 05:15 Total Counted 100 (0-100) 08/18/24 17:14 Atypical Lymphs % 0.0 % (0-5) 08/18/24 17:14 Absolute Neutrophils 11.2 10^3/cmm (1.4-6.5) H 08/18/24 17:14 Segmented Neutrophils 90 % 08/18/24 17:14 Band Neutrophils 2.0 % 08/18/24 17:14 Absolute Lymphocytes 0.6 10^3/cmm (1.2-3.4) L 08/18/24 17:14 Lymphocytes (Manual) 5 % 08/18/24 17:14 Monocytes (Manual) 3.0 % 08/18/24 17:14 Absolute Monocytes 0.4 10^3/cmm (0.1-0.6) 08/18/24 17:14 Eosinophils (Manual) 0 % 08/18/24 17:14 Absolute Eosinophils 0.0 10^3/cmm (0.0-0.7) 08/18/24 17:14 Basophils (Manual) 0.0 % 08/18/24 17:14 Absolute Basophils 0.0 10^3/cmm (0.0-0.2) 08/18/24 17:14 Nucleated RBCs # 0.0 /100WBC 08/21/24 05:15 Platelet Estimate Normal (Normal) 08/18/24 17:14 APTT 38.7 SECONDS (23.9-36.7) H D 08/18/24 17:14 D-Dimer 10.25 ug/mLFEU (0-0.59) H 08/14/24 23:43 Specimen Type Arterial 08/17/24 05:20 Sample Site Radial, right 08/17/24 05:20 ABG pH 7.43 (7.35-7.45) 08/17/24 05:20 ABG pCO2 38.3 mmHg (35-45) 08/17/24 05:20 ABG pO2 58.2 mmHg (80.0-100.0) L 08/17/24 05:20 ABG PO2/FiO2 Ratio 116 08/17/24 05:20 ABG HCO3 25.1 mmol/L (22-26) 08/17/24 05:20 ABG O2 Saturation 84.4 08/14/24 23:32 ABG Base Excess 0.8 mmol/L (-2.0-2.0) 08/17/24 05:20 Yunior Test Pos 08/17/24 05:20 A-a O2 Gradient 5.5 mmHg (5-10) 08/14/24 23:32 Hematocrit 40.2 % (42-52) L 08/17/24 05:20 Hgb O2 Saturation 82.4 % (95-100) L 08/14/24 23:32 Carboxyhemoglobin 1.9 %THgb (0.4-20.1) 08/14/24 23:32 Methemoglobin 0.6 % (0.4-1.5) 08/14/24 23:32 Total Hemoglobin 16.8 g/dL (14-18) 08/14/24 23:32 Sodium 140.0 mmol/L (131-143) 08/14/24 23:32 Potassium 4.4 mmol/L (3.5-5.0) 08/14/24 23:32 Glucose 151.0 mg/dL (70-115) H 08/14/24 23:32 Ionized Calcium 1.2 mmol/L (1.1-1.4) 08/14/24 23:32 O2 Delivery Device Hag 08/17/24 05:20 O2 Liters/Min 40.0 % 08/17/24 05:20 FiO2 50.0 % 08/17/24 05:20 Senior Gis Analyst ID [id number] 08/17/24 05:20 Sodium 140 mmol/L (136-145) 08/21/24 05:15 Potassium 4.1 mmol/L (3.5-5.1) 08/21/24 05:15 Chloride 101 mmol/L (98-107) 08/21/24 05:15 Carbon Dioxide 30 mmol/L (22-29) H 08/21/24 05:15 Anion Gap 13.1 (5-19) 08/21/24 05:15 BUN 23 mg/dL (8-23) 08/21/24 05:15 Creatinine 0.8 mg/dL (0.7-1.2) 08/21/24 05:15 GFR Calculation Not Reportable 08/21/24 05:15 Glucose 116 mg/dL (65-115) H 08/21/24 05:15 POC Glucose 144 mg/dL (70-110) H 08/21/24 11:23 Calculated Osmolality 295 mOsm/kg (285-295) 08/21/24 05:15 Lactic Acid 4.8 mmol/L (0.5-2.2) H* 08/14/24 23:43 Lactic Acid (Sepsis) 1.9 mmol/L (0.5-2.2) 08/15/24 04:00 Lactate 1.6 mmol/L (0.5-2.2) 08/18/24 03:27 Calcium 8.6 mg/dL (8.5-10.5) 08/21/24 05:15 Phosphorus 3.0 mg/dL (2.5-4.5) 08/21/24 05:15 Magnesium 2.3 mg/dL (1.7-2.3) 08/21/24 05:15 Total Bilirubin 1.1 mg/dL (0.15-1.2) 08/21/24 05:15 AST 17 U/L (0-40) 08/21/24 05:15 ALT 29 U/L (0-41) 08/21/24 05:15 Alkaline Phosphatase 57 U/L (40-130) 08/21/24 05:15 Creatine Kinase 213 U/L (39-308) 08/18/24 03:27 Troponin T 5th Gen ng/L 107 ng/L (0-15) H* 08/15/24 11:50 Troponin T Baseline 45 ng/L (0-15) H 08/14/24 23:14 Troponin T 120 Minute 108.6 ng/L (0-15) H 08/15/24 01:20 Delta Troponin T 63.6 ABS# (0-10) H* 08/15/24 01:20 Troponin T Hi Sens 6Hr 130.4 ng/L (0-15) H 08/15/24 04:00 Troponin T Hi Sens 6Hr Delta 85.4 ng/L (0-12) H* 08/15/24 04:00 C-Reactive Protein 3.0 mg/L (0.0-4.9) 08/21/24 05:15 NT-Pro-B Natriuret Pep 670 pg/mL (0-450) H 08/21/24 05:15 Total Protein 5.6 g/dL (6.6-8.7) L 08/21/24 05:15 Albumin 3.2 g/dL (3.5-5.2) L 08/21/24 05:15 Globulin 2.4 g/dL (1.3-4.6) 08/21/24 05:15 Vitamin B12 205 pg/mL (232-1245) L 08/15/24 04:00 Procalcitonin 0.57 ng/mL (0-0.5) H 08/18/24 03:27 TSH 3.72 uIU/mL (0.27-4.20) 08/15/24 04:00 Urine Color Yellow (Yellow) 08/15/24 06:27 Urine Appearance Clear (CLEAR) 08/15/24 06:27 Urine pH 5.5 (5-7) 08/15/24 06:27 Ur Specific Aiken 1.020 (1.005-1.030) 08/15/24 06:27 Urine Protein Trace (Negative) A 08/15/24 06:27 Urine Glucose (UA) Negative (Normal) 08/15/24 06:27 Urine Ketones 3+ (Negative) H 08/15/24 06:27 Urine Blood Negative (Negative) 08/15/24 06:27 Urine Nitrate Negative (Negative) 08/15/24 06:27 Urine Bilirubin Negative (Negative) 08/15/24 06:27 Urine Urobilinogen 1.0 mg/dL (Negative) 08/15/24 06:27 Ur Leukocyte Esterase Negative (Negative) 08/15/24 06:27 Urine RBC 0-2 /hpf (0-2) 08/15/24 06:27 Urine WBC 0-5 /hpf (0-5) 08/15/24 06:27 Ur Squamous Epith Cells 0-5 /hpf (0-5) 08/15/24 06:27 Amorphous Sediment Not Reportable 08/15/24 06:27 Urine Bacteria None seen /hpf (NONE) 08/15/24 06:27 Hyaline Casts 3.30 /lpf 08/15/24 06:27 Urine Mucus Trace /hpf 08/15/24 06:27 Vancomycin Trough 17.4 ug/mL (10-15) H 08/17/24 18:55 Coronavirus (PCR) Negative (Negative) 08/15/24 01:51 Influenza A (PCR) Negative (Negative) 08/15/24 01:51 Influenza Type B (PCR) Negative (Negative) 08/15/24 01:51 RSV (PCR) Negative (Negative) 08/15/24 01:51 Vitals Last Vital Signs Temp 97.9 F 08/21/24 11:08 Pulse 98 08/21/24 14:00 Resp 20 H 08/21/24 14:00 BP 114/68 08/21/24 11:08 Pulse Ox 92 08/21/24 14:00 O2 Del Method Nasal Cannula 08/21/24 14:00 O2 Flow Rate 6 08/21/24 14:00 FiO2 50 08/19/24 13:13 Discharge Plan Discharge Patient Disposition: Home Condition: Stable Prescriptions: New prednisone 10 mg tablets,dose pack 10 mg PO DIRECTED Qty: 21 0RF Rx Instructions: see taper instructions Eliquis 5 mg tablet 5 mg PO BID 30 Days Qty: 60 0RF Rx Instructions: Start on 08/25 at 7 pm after completion of loading dose. Continued simvastatin 80 mg tablet 40 mg PO QPM trazodone 100 mg tablet 100 mg PO BEDTIME PRN (Reason: Sleep) aspirin [Adult Aspirin Regimen] 81 mg tablet,delayed release (DR/EC) 81 mg PO DAILY@11 alprazolam [Xanax] 0.5 mg tablet 0.5 mg PO BID MDD 1 mg PRN (Reason: anxiety) Qty: 60 2RF albuterol sulfate [Ventolin HFA] 90 mcg/actuation HFA aerosol inhaler 2 puff INHALATION QID PRN (Reason: Shortness Of Breath) Qty: 18 6RF ipratropium-albuterol 0.5 mg-3 mg(2.5 mg base)/3 mL solution for nebulization 3 ml inhalation Q6H PRN (Reason: wheezing) 30 Days Qty: 360 4RF Breztri Aerosphere 160-9-4.8 mcg/actuation HFA aerosol inhaler 2 inh inhalation BID 90 Days Qty: 32.1 3RF cholecalciferol (vitamin D3) [Vitamin D3] 125 mcg (5,000 unit) Tablet 125 mcg PO DAILY guaifenesin 100 mg/5 mL Liquid 200 mg PO Q4H PRN (Reason: Congestion) tramadol 50 mg Tablet 50 mg PO TID PRN (Reason: Pain) metformin 1,000 mg Tablet 1,000 mg PO BIDWMEAL montelukast [Singulair] 10 mg Tablet 10 mg PO QPM Discontinued prednisone 5 mg Tablet 5 mg PO DAILY No Action (DME) Acapella See Rx Instructions .Route .MEDSUPPLY Qty: 1 0RF Rx Instructions: As directed (DME) Chest Vest (Afflo) See Rx Instructions .Route .MEDSUPPLY Qty: 1 0RF Rx Instructions: High Frequency Chest Wall Oscillation Vest- 5Hz-20Hz for 30 minutes twice per day linezolid 600 mg tablet 600 mg PO BID Discharge Orders: Discharge Order (Routine); Ordered 08/21/24 Ordered By: Navya Saenz Referrals: Tonja Marshall FNP [Primary Care Provider] - 08/22/24 10:30 am Discharge Diet: Usual diet Discharge Activity: Increase activity as tolerated Patient Instructions: Prednisone (By mouth) (Prednisone Intensol, Prednicot, Deltasone, Elizabeth), Linezolid (By mouth) (Zyvox), Apixaban (By mouth) (Eliquis), Using Oxygen at Home (GEN), Chronic Respiratory Failure (GEN), Opioid Safety Activity Restrictions/Additional Instructions: as tolerated Discharge Attestations Time Spent in Discharge Care*: greater than 30 min Quality Metrics Clinical Quality Measures [ Venous Thromboembolism { Contraindication to Overlap Therapy: Other (prescribed eliquis ); VTE Discharge Education: Education about anticoagulant therapy/Care Notes given; Deep Vein Thrombosis/Pulmonary Embolism Present on Admission: Yes;}] Coding Level of Care Code Acute Code for [facility] Fwd Diagnoses Progressive pulmonary hypertension I27.20 Non-ST elevated myocardial infarction (non-STEMI) I21.4 BAI (dyspnea on exertion) R06.09 Rhabdomyolysis T79.6XXA Encounter type: initial encounter Rhabdomyolysis type: traumatic Fall W19.XXXA Encounter type: initial encounter Chronic hypoxic respiratory failure, on home oxygen therapy J96.11; Z99.81 Combined pulmonary fibrosis and emphysema (CPFE) J43.9; J84.10 Pneumonia J18.9 Laterality: bilateral Lung location: upper lobe of lung Pneumonia type: due to unspecified organism Acute and chronic respiratory failure with hypoxia J96.21 Physical deconditioning R53.81 Hypothermia T68.XXXA Encounter type: initial encounter Sepsis A41.9 Pulmonary embolism I26.99 Elevated lactic acid level R79.89 Acute respiratory distress R06.03 Bacteremia due to Staphylococcus R78.81; B95.8
== END 2024-08-21 15:54 | disposition home or self-care (01) | DRG 871 ==
LOC: ER 08-15 02:16 → ICU 08-15 06:46 → MEDSURG 08-21 00:13
PROVIDERS: Family Medicine; Admitting Provider Internal Medicine; Emergency Provider Emergency Medicine; PCP Nurse Practitioner; Visit Provider Hospitalist
DX: A41.9 Sepsis, unspecified organism (principal); I21.4 Non-ST elevation (NSTEMI) myocardial infarction; J96.21 Acute and chronic respiratory failure with hypoxia; J18.9 Pneumonia, unspecified organism; I26.99 Other pulmonary embolism without acute cor pulmonale; J44.1 Chronic obstructive pulmonary disease with (acute) exacerbation; I27.20 Pulmonary hypertension, unspecified; T79.6XXA Traumatic ischemia of muscle, initial encounter; V89.9XXA Person injured in unspecified vehicle accident, initial encounter; Z99.81 Dependence on supplemental oxygen; Z87.891 Personal history of nicotine dependence; J84.10 Pulmonary fibrosis, unspecified; J43.9 Emphysema, unspecified; T68.XXXA Hypothermia, initial encounter; X31.XXXA Exposure to excessive natural cold, initial encounter; E78.5 Hyperlipidemia, unspecified; F41.9 Anxiety disorder, unspecified; G47.00 Insomnia, unspecified; Z79.82 Long term (current) use of aspirin
CPT/HCPCS: 36415; 36416; 36600; 70450; 71045; 71275; 80048; 80051; 80053; 80202; 81001; 82330; 82550; 82607; 82803; 82805; 82962; 83605; 83735; 83880; 84100; 84145; 84443; 84484; 85007; 85025; 85027; 85049; 85378; 85730; 86140; 87040; 87070; 87077; 87150; 87186; 87205; 87637; 92523; 92610; 93005; 93306; 93970; 94640; 94664; 94760; 96365; 96372; 96374; 96375; 96376; 97110; 97116; 97163; 97530; 99291; J0696; J1644; J1650; J1815; J1940; J2185; J2270; J2405; J2470; J2543; J2919; J3370; J3420; J7030; J7512; J7626; Q0144

== ENCOUNTER → 2024-08-28 14:36 | Outpatient (BNVA) | payer OTHER, MEDICARE, SELFPAY | PROVIDERS: PCP Nurse Practitioner; Referring Provider Nurse Practitioner; Visit Provider Nurse Practitioner Family | DX: L98.8 Other specified disorders of the skin and subcutaneous tissue (principal); L57.8 Other skin changes due to chronic exposure to nonionizing radiation; L82.1 Other seborrheic keratosis; D22.39 Melanocytic nevi of other parts of face; B07.8 Other viral warts; L53.8 Other specified erythematous conditions; L29.89 Other pruritus; L57.0 Actinic keratosis | CPT/HCPCS: 17000; 17110; 99203 ==

== ENCOUNTER 2024-08-30 09:11 | Inpatient (IN) | payer OTHER, SELFPAY ==
[2024-08-30] VITALS (161 sets, daily range): BP systolic 97–147; BP diastolic 57–93; PULSE 84–140; RESP 13–31; TEMP 36.7; O2SAT 85–99; BMI 25.7
--- NOTE | 2024-08-30 09:16 | XR_ITS ---
WS: [id number] Exam: XR chest 1V portable [id number] Date/Time of Exam: 08/30/2024 9:19 AM Reason For Exam: dyspnea/cough Comparison 08/19/2024. There is still consolidation and atelectasis in the LEFT lower lobe with small LEFT pleural effusion. Diffuse infiltrate in the RIGHT lower lobe. Heart size within normal limits for technique. The mediastinum is not widened. No pneumothorax. Remaining lung zones are clear. Unremarkable bony structures. XR/XR chest 1V portable [id number] IMPRESSION: 1. 1. Persistent atelectasis and consolidation in the LEFT lower lobe and small LEFT pleural effusion. 2. Diffuse infiltrate and plaque atelectasis in the RIGHT base.
[2024-08-30 09:20] LABS: ABG PCO2 39.5 mmHg (35-45); ABG PH Result 7.47 (7.35-7.45); Alveolar-Arterial Oxygen Gradi 7.5 mmHg (5-10); Arterial Blood Gas Hematocrit 50.9 % (42-52); Base Excess ABG 4.8 mmol/L (-2.0-2.0); Blood Gas Allen Test Pos; Blood Gas Operator Identificat WALCI; Blood Gas Sample Site Radial, right; Blood Gas Sample Type Arterial; Carboxyhemoglobin 1.7 %THgb (0.4-20.1); HCO3 ABG 28.8 mmol/L (22-26); HGB O2 Sat 82.2 % (95-100); Ionized Calcium Level - ABG 1.2 mmol/L (1.1-1.4); Methemoglobin 0.7 % (0.4-1.5); Oxygen Device NC; Oxygen Saturation ABG 84.1; PO2 ABG 45.8 mmHg (80.0-100.0); Potassium Level - ABG 3.4 mmol/L (3.5-5.0); Total Hemoglobin 16.6 g/dL (14-18)
--- NOTE | 2024-08-30 09:27 | ECG_ITS ---
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 Measurements Intervals [place] Rate: 94 P: 92 HI: 200 QRS: -75 QRSD: 88 T: 81 QT: 329 QTc: 413 Interpretive Statements SINUS RHYTHM WITH OCCASIONAL SUPRAVENTRICULAR PREMATURE COMPLEXES INDETERMINATE AXIS Compared to ECG 08/15/2024 07:10:32 Myocardial infarct finding no longer present Electronically Signed On 08-31-2024 17:53:40 INSPECTOR OPTICAL INSTRUMENT by Jim Richards M.D. [email or web address]
--- NOTE | 2024-08-30 09:28 | W.ED.SOB ---
HPI - SOB/Dyspnea General: Chief Complaint: Shortness of Breath/Dyspnea Stated Complaint: SOB Time Seen by Provider: 08/30/24 09:11 History of Present Illness: HPI Narrative: 79-year-old male presents emergency room complaining of shortness of breath. EMS reports his oxygen saturation was 84% on room air when he arrived on CPAP with the CPAP still in the mid 80s however I believe it is poor circulation peripherally. He normally wears 5 L by nasal cannula at home. He denies any recent fever sweats chills but has had increasing cough. Has a history of pulmonary hypertension as well. Previous pulmonary emboli denies any chest pain at this time. Associated symptoms: Reports chest congestion; Deny abdominal pain, chest pain or fever(s) Related Data Home Medications ?Medication ?Instructions ?Recorded ?Confirmed aspirin 81 mg tablet,delayed 81 mg PO DAILY@11 03/06/20 08/30/24 release (Adult Aspirin Regimen) simvastatin 80 mg tablet 40 mg PO QPM 03/06/20 08/30/24 trazodone 100 mg tablet 100 mg PO BEDTIME PRN Sleep 03/06/20 08/30/24 cholecalciferol (vitamin D3) 125 125 mcg PO DAILY 04/22/21 08/30/24 mcg (5,000 unit) tablet (Vitamin D3) guaifenesin 100 mg/5 mL oral liquid 200 mg PO Q4H PRN Congestion 08/15/24 08/30/24 metformin 1,000 mg tablet 1,000 mg PO BIDWMEAL 08/15/24 08/30/24 montelukast 10 mg tablet 10 mg PO QPM 08/15/24 08/30/24 (Singulair) tramadol 50 mg tablet 50 mg PO TID PRN Pain 08/15/24 08/30/24 linezolid 600 mg tablet 600 mg PO BID 08/30/24 08/30/24 Previous Rx's ?Medication ?Instructions ?Recorded albuterol sulfate 90 mcg/actuation 2 puff inhalation QID PRN 12/22/22 aerosol inhaler (Ventolin HFA) Shortness Of Breath #18 grams Acapella #1 ea 10/28/23 Chest Vest (Afflo) #1 ea 10/28/23 alprazolam 0.5 mg tablet (Xanax) 0.5 mg PO BID PRN anxiety #60 tabs 10/28/23 budesonide 160 mcg-glycopyr 9 2 inh inhalation BID 90 days #32.1 01/06/24 mcg-formot 4.8 mcg/actuation HFA grams inhaler (Breztri Aerosphere) ipratropium 0.5 mg-albuterol 3 mg 3 ml inhalation Q6H PRN wheezing 01/06/24 (2.5 mg base)/3 mL nebulization 30 days #360 mL soln apixaban 5 mg tablet (Eliquis) 5 mg PO BID 30 days #60 tabs 08/21/24 prednisone 10 mg tablets in a dose 10 mg PO DIRECTED #21 ea 08/21/24 pack Allergies Allergy/AdvReac Type Severity Reaction Status Date / Time No Known Allergies Allergy Verified 08/14/24 23:37 Review of Systems Const: Denies: fever(s) or chills Card: Denies: chest pain Resp: Reports: dyspnea, non-productive cough, wheezing and chest congestion GI: Denies: abdominal pain : Denies: dysuria, urinary frequency or urinary urgency Musc: Denies: neck pain or back pain Skin/Breast: Denies: rash PFSH ED PFSH: Medical History (Updated 08/30/24 @ 13:40 by Ed Munoz DO) Pulmonary embolism Mediastinal lymphadenopathy Diaphragm dysfunction Shortness of breath Polycythemia Chronic respiratory failure with hypoxia Secondary polycythemia Pulmonary hypertension Hilar lymphadenopathy Hypoxia Acute exacerbation of chronic obstructive airways disease Anxiety Hyperlipidemia Insomnia Type 2 diabetes mellitus Chronic obstructive pulmonary disease Surgical History Hx of tonsillectomy Family History Other Healthy adult Social History Smoking and tobacco/nicotine status: former use of tobacco/nicotine Quit status (tobacco/nicotine): has quit using Year quit tobacco: 1999 - PD x 20 Years Second hand smoke exposure: No Alcohol intake: never Substance/Drug Use: never Lives independently: Yes Household members: none Marital status: Number of children: 2 service: Yes Current occupational status: employed 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 Pets and animals: Yes Do you think of yourself as: Straight/Heterosexual Current gender identity: Male Physical Exam Const: GENERAL APPEARANCE: cooperative ORIENTATION/CONSCIOUSNESS: Yes awake, Yes oriented to person, Yes oriented to place and Yes oriented to time HENMT: COMMON NORMALS: normocephalic, atraumatic and hearing grossly normal bilaterally HEAD & SCALP: normocephalic and atraumatic Resp: EFFORT & INSPECTION: Yes audible wheezes AUSCULTATION: wheezes, diminished lung sounds and bronchial breath sounds Cardio: COMMON NORMALS: regular rate, regular rhythm and No murmurs present (Cardio) RATE: regular rate RHYTHM: regular rhythm GI: COMMON NORMALS: Soft to palpation and No hepatosplenomegaly present AUSCULTATION: Yes normoactive bowel sounds PALPATION: Yes Soft to palpation, No Tenderness to palpation present (GI), No Guarding due to palpation present (GI) and Yes No hepatosplenomegaly present Extremity: COMMON NORMALS: normal to inspection, capillary refill normal, no clubbing, cyanosis or edema, no calf tenderness and no pedal edema Neuro: SENSORIUM/ORIENTATION: Yes oriented to person, Yes oriented to place and Yes oriented to time Skin: COMMON NORMALS: no rashes or lesions noted GENERAL SKIN EXAM: no rashes or lesions noted Course Vital Signs: Vital signs: Vital Signs Temperature 98.1 F 08/30/24 09:16 Pulse Rate 101 H 08/30/24 13:25 Respiratory Rate 22 H 08/30/24 13:25 Blood Pressure 121/85 08/30/24 13:25 Pulse Oximetry 93 08/30/24 13:25 Oxygen Delivery Me thod Heated High Flow 08/30/24 13:25 Oxygen Flow Rate 40 08/30/24 11:30 Fraction of Inspir ed Oxygen 75 08/30/24 11:30 MDM - SOB/Dyspnea Medical Decision Making Multilobar pneumonia with acute respiratory failure. He is not requiring heated high flow oxygen maintain sats in the low 90s. Influenza positive as well discussed with hospitalist will start on Zosyn and linezolid he had just finished an oral course of oral linezolid yesterday. Cultures done. Orders written. Medical Records I reviewed the patient's medical records. Lab Data I reviewed the patient's lab results. 08/30/24 09:30 08/30/24 09:30 Labs/Radiology: Radiology Impressions Chest X-Ray 08/30/24 09:16 IMPRESSION: 1. 1. Persistent atelectasis and consolidation in the LEFT lower lobe and small LEFT pleural effusion. 2. Diffuse infiltrate and plaque atelectasis in the RIGHT base. Laboratory Results WBC 6.22 10^3/uL (3.29-11.43) 08/30/24 09:30 RBC 5.60 10^6/uL (3.85-5.65) 08/30/24 09:30 Hgb 17.10 g/dL (11.27-16.99) H 08/30/24 09:30 Hct 52.4 % (37-53) 08/30/24 09:30 MCV 93.6 fl (82-101) 08/30/24 09:30 MCH 30.5 pg (27-33) 08/30/24 09:30 MCHC 32.6 g/dL (30-55) 08/30/24 09:30 RDW 14.2 % (12.1-15.1) 08/30/24 09:30 Plt Count 225 10^3/cmm (157-399) 08/30/24 09:30 MPV 9.1 fL (7.4-10.4) 08/30/24 09:30 Neut % (Auto) 66.2 % 08/30/24 09:30 Lymph % (Auto) 20.4 % 08/30/24 09:30 [place] % (Auto) 12.4 % 08/30/24 09:30 Eos % (Auto) 0.2 % 08/30/24 09:30 Baso % (Auto) 0.3 % 08/30/24 09:30 Neut # (Auto) 4.12 10^3/uL (1.8-7.7) 08/30/24 09:30 Lymph # (Auto) 1.3 10^3/uL (0.8-4.8) 08/30/24 09:30 [place] # (Auto) 0.8 10^3/uL (0.2-0.9) 08/30/24 09:30 Eos # (Auto) 0.0 10^3/uL (0.0-0.8) 08/30/24 09:30 Baso # (Auto) 0.0 10^3/uL (0.0-0.1) 08/30/24 09:30 Nucleated RBC % (auto) 0 % 08/30/24 09:30 Nucleated RBCs # 0.0 /100WBC 08/30/24 09:30 Specimen Type Arterial 08/30/24 09:08 Sample Site Radial, right 08/30/24 09:08 ABG pH 7.47 (7.35-7.45) H 08/30/24 09:08 ABG pCO2 39.5 mmHg (35-45) 08/30/24 09:08 ABG pO2 45.8 mmHg (80.0-100.0) L 08/30/24 09:08 ABG HCO3 28.8 mmol/L (22-26) H 08/30/24 09:08 ABG O2 Saturation 84.1 08/30/24 09:08 ABG Base Excess 4.8 mmol/L (-2.0-2.0) H 08/30/24 09:08 Yunior Test Pos 08/30/24 09:08 A-a O2 Gradient 7.5 mmHg (5-10) 08/30/24 09:08 Hematocrit 50.9 % (42-52) 08/30/24 09:08 Hgb O2 Saturation 82.2 % (95-100) L 08/30/24 09:08 Carboxyhemoglobin 1.7 %THgb (0.4-20.1) 08/30/24 09:08 Methemoglobin 0.7 % (0.4-1.5) 08/30/24 09:08 Total Hemoglobin 16.6 g/dL (14-18) 08/30/24 09:08 Sodium 140.0 mmol/L (131-143) 08/30/24 09:08 Potassium 3.4 mmol/L (3.5-5.0) L 08/30/24 09:08 Glucose 128.0 mg/dL (70-115) H 08/30/24 09:08 Ionized Calcium 1.2 mmol/L (1.1-1.4) 08/30/24 09:08 O2 Delivery Device Nc 08/30/24 09:08 O2 Liters/Min 10.0 % 08/30/24 09:08 Skid Wrapper ID Walci 08/30/24 09:08 Sodium 140 mmol/L (136-145) 08/30/24 09:30 Potassium 3.6 mmol/L (3.5-5.1) 08/30/24 09:30 Chloride 97 mmol/L (98-107) L 08/30/24 09:30 Carbon Dioxide 29 mmol/L (22-29) 08/30/24 09:30 Anion Gap 17.6 (5-19) 08/30/24 09:30 BUN 16 mg/dL (8-23) 08/30/24 09:30 Creatinine 1.0 mg/dL (0.7-1.2) 08/30/24 09:30 GFR Calculation Not Reportable 08/30/24 09:30 Glucose 131 mg/dL (65-115) H 08/30/24 09:30 Calculated Osmolality 293 mOsm/kg (285-295) 08/30/24 09:30 Calcium 9.4 mg/dL (8.5-10.5) 08/30/24 09:30 Total Bilirubin 1.1 mg/dL (0.15-1.2) 08/30/24 09:30 AST 16 U/L (0-40) 08/30/24 09:30 ALT 21 U/L (0-41) 08/30/24 09:30 Alkaline Phosphatase 92 U/L (40-130) 08/30/24 09:30 Total Protein 7.4 g/dL (6.6-8.7) 08/30/24 09:30 Albumin 3.8 g/dL (3.5-5.2) 08/30/24 09:30 Globulin 3.6 g/dL (1.3-4.6) 08/30/24 09:30 Urine Color Yellow (Yellow) 08/30/24 12:38 Urine Appearance Clear (CLEAR) 08/30/24 12:38 Urine pH 7.0 (5-7) 08/30/24 12:38 Ur Specific [place] 1.025 (1.005-1.030) 08/30/24 12:38 Urine Protein Trace (Negative) A 08/30/24 12:38 Urine Glucose (UA) Negative (Normal) 08/30/24 12:38 Urine Ketones 1+ (Negative) H 08/30/24 12:38 Urine Blood Negative (Negative) 08/30/24 12:38 Urine Nitrate Negative (Negative) 08/30/24 12:38 Urine Bilirubin Negative (Negative) 08/30/24 12:38 Urine Urobilinogen 1.0 mg/dL (Negative) 08/30/24 12:38 Ur Leukocyte Esterase Negative (Negative) 08/30/24 12:38 Urine RBC 0-4 /hpf (0-2) H 08/30/24 12:38 Urine WBC 0-4 /hpf (0-5) H 08/30/24 12:38 Ur Squamous Epith Cells 0-4 /hpf (0-5) H 08/30/24 12:38 Amorphous Sediment Trace /hpf 08/30/24 12:38 Urine Bacteria 1+ /hpf (NONE) H 08/30/24 12:38 Hyaline Casts 0-4 /lpf H 08/30/24 12:38 Fine Granular Casts 0-4 /lpf H 08/30/24 12:38 Urine Mucus 1+ /hpf 08/30/24 12:38 Influenza A (PCR) Positive (Negative) 08/30/24 09:42 Influenza Type B (PCR) Negative (Negative) 08/30/24 09:42 RSV (PCR) Negative (Negative) 08/30/24 09:42 SARS-CoV-2 (PCR) Negative (Negative) 08/30/24 09:42 All radiology interpretation(s) finalized by discharge Discharge Plan Discharge Patient Disposition: Admitted As Inpatient Clinical Impression: Pneumonia, Combined pulmonary fibrosis and emphysema (CPFE), Progressive pulmonary hypertension, Influenza A, Acute hypoxic respiratory failure Condition: Stable Prescriptions: No Action simvastatin 80 mg tablet 40 mg PO QPM trazodone 100 mg tablet 100 mg PO BEDTIME PRN (Reason: Sleep) aspirin [Adult Aspirin Regimen] 81 mg tablet,delayed release (DR/EC) 81 mg PO DAILY@11 alprazolam [Xanax] 0.5 mg tablet 0.5 mg PO BID MDD 1 mg PRN (Reason: anxiety) Qty: 60 2RF (DME) Acapella See Rx Instructions .Route .MEDSUPPLY Qty: 1 0RF Rx Instructions: As directed (DME) Chest Vest (Afflo) See Rx Instructions .Route .MEDSUPPLY Qty: 1 0RF Rx Instructions: High Frequency Chest Wall Oscillation Vest- 5Hz-20Hz for 30 minutes twice per day albuterol sulfate [Ventolin HFA] 90 mcg/actuation HFA aerosol inhaler 2 puff INHALATION QID PRN (Reason: Shortness Of Breath) Qty: 18 6RF ipratropium-albuterol 0.5 mg-3 mg(2.5 mg base)/3 mL solution for nebulization 3 ml inhalation Q6H PRN (Reason: wheezing) 30 Days Qty: 360 4RF Breztri Aerosphere 160-9-4.8 mcg/actuation HFA aerosol inhaler 2 inh inhalation BID 90 Days Qty: 32.1 3RF cholecalciferol (vitamin D3) [Vitamin D3] 125 mcg (5,000 unit) Tablet 125 mcg PO DAILY linezolid 600 mg tablet 600 mg PO BID guaifenesin 100 mg/5 mL Liquid 200 mg PO Q4H PRN (Reason: Congestion) tramadol 50 mg Tablet 50 mg PO TID PRN (Reason: Pain) metformin 1,000 mg Tablet 1,000 mg PO BIDWMEAL montelukast [Singulair] 10 mg Tablet 10 mg PO QPM prednisone 10 mg tablets,dose pack 10 mg PO DIRECTED Qty: 21 0RF Rx Instructions: see taper instructions Eliquis 5 mg tablet 5 mg PO BID 30 Days Qty: 60 0RF Rx Instructions: Start on 08/25 at 7 pm after completion of loading dose. Referrals: Tonja Marshall FNP [Primary Care Provider] - Print Language: [place] Island[place] Coding Level of Care Code ED Teletype Installer for Jitendra Abad
[2024-08-30 09:38] LABS: Basophils % 0.3 %; Eosinophils % 0.2 %; Hematocrit 52.4 % (37-53); Lymphocytes # 1.3 10^3/uL (0.8-4.8); Lymphocytes % 20.4 %; Mean Corpuscular HGB Conc 32.6 g/dL (30-55); Mean Corpuscular Hemoglobin 30.5 pg (27-33); Mean Corpuscular Volume 93.6 fl (82-101); Mean Platelet Volume 9.1 fL (7.4-10.4); Monocytes # 0.8 10^3/uL (0.2-0.9); Monocytes % 12.4 %; Neutrophils # 4.12 10^3/uL (1.8-7.7); Neutrophils % 66.2 %; Nucleated Red Blood Cells % 0 %; Platelet Count 225 10^3/cmm (157-399); Red Cell Distribution Width 14.2 % (12.1-15.1); White Blood Count 6.22 10^3/uL (3.29-11.43)
[2024-08-30] MEDS: ipratropium-albuterol 3 mL Neb INHALATION ×2 (09:40→19:49)
[2024-08-30 09:54] LABS: Alanine Aminotransferase 21 U/L (0-41); Albumin Level 3.8 g/dL (3.5-5.2); Alkaline Phosphatase 92 U/L (40-130); Anion Gap 17.6 (5-19); Aspartate Amino Transferase 16 U/L (0-40); Blood Urea Nitrogen 16 mg/dL (8-23); Calcium 9.4 mg/dL (8.5-10.5); Carbon Dioxide 29 mmol/L (22-29); Chloride 97 mmol/L (98-107); Creatinine Clr Calc Pharmacy 69.7786; Globulin 3.6 g/dL (1.3-4.6); Glucose 131 mg/dL (65-115); Osmolality Calculated 293 mOsm/kg (285-295); Potassium 3.6 mmol/L (3.5-5.1); Sodium 140 mmol/L (136-145); Total Bilirubin 1.1 mg/dL (0.15-1.2); Total Protein 7.4 g/dL (6.6-8.7)
[2024-08-30 10:25] LABS: Influenza A POSITIVE (Negative); Influenza B NEGATIVE (Negative); Respiratory Syncytial Virus Ce NEGATIVE (Negative); SARS-CoV-2 PCR NEGATIVE (Negative)
[2024-08-30] MEDS: piperacillin-tazobactam 3.375 GM in sodium chloride 0.9% (plus) 50 ML IV ×2 (11:16→18:16)
[2024-08-30] MEDS: linezolid premix 600 MG/300 ML PREMIX 300 MG IV ×3 (11:59→21:50)
[2024-08-30 13:00] LABS: Bilirubin Urine Negative (Negative); Blood Urine Negative (Negative); Glucose Urine UA Negative (Normal); Ketones Urine 1+ (Negative); Leukocyte Esterase Urine Negative (Negative); Nitrate Urine Negative (Negative); Protein Urine Trace (Negative); Specific Gravity, Urine 1.025 (1.005-1.030); Urine Appearance Clear (CLEAR); Urine Color Yellow (Yellow)
[2024-08-30 13:29] LABS: Add Urine Microscopic? YES; UA Manual Slide Review YES; UA Slide Review UA Slide Review Perf
[2024-08-30 13:31] LABS: RBC Urine 0-4 /hpf (0-2); Squamous Epithelial Cell Urine 0-4 /hpf (0-5); WBC Urine 0-4 /hpf (0-5)
[2024-08-30 13:32] LABS: Add Urine Culture? No; Amorphous Sediment Urine TRACE /hpf; Bacteria Urine 1+ /hpf; Fine Granular Casts Urine 0-4 /lpf; Hyaline Casts Urine 0-4 /lpf; Mucus Urine 1+ /hpf
--- NOTE | 2024-08-30 14:28 | PM.HP ---
Providers/Chief Complaint Admitting Physician: Tyrell Villarreal Primary Care Provider: BRADEN Rosas Chief Complaint: SOB History of Present Illness Benny Burch is a 79 year old male presenting with acute on chronic respiratory failure with hypoxia, with end stage COPD, recently hospitalized with pneumonia, COPD exacerbaion and PE, returned to the hospital with generalized weakness, dyspnea, productive cough with green sputum. Acute severe influenza A infection with COPD exacerbation, with pulmonary filtrates, possible secondary pneumonia versus unresolved pneumonia after recent hospitalization. He states he has been taking his antibiotics, completing prednisone prescription. Yesterday started feeling significantly weak which was different from him, feeling more dyspnea, productive cough with green sputum, and unimproved came in to be evaluated in ER. In ER oxygen saturations at 88% on his usual 5 L. With hypoxemia on ABG 7.47/39.5/45.8/28.8 on 10 L. Tachypneic 22-24. Started on heated high flow cannula. Chest x-ray with persistent atelectasis and consolidation in left lower lobe and small left pleural effusion. Diffuse infiltrate and black Laura in the right base. Influenza A PCR positive, COVID and RSV PCR negative. On exam initially with rhonchi, wheezing, diminished breath sounds. Slight improvement after breathing treatment. Review of Systems Const: Reports: fatigue; Denies: fever(s) ENMT: Denies: throat pain Card: Denies: chest pain, edema, pre-syncope or dyspnea on exertion Resp: Reports: dyspnea, productive cough and change in phlegm color; Denies: hemoptysis GI: Denies: abdominal pain, nausea, vomiting, diarrhea, constipation, hematochezia or melena : Denies: flank pain, difficulty urinating, urinary frequency or hematuria Musc: Denies: back pain, joint swelling or joint redness Skin/Breast: Denies: rash or new lesions Neuro: Denies: headache(s) or confusion Medications/Allergies Home Medications ?Medication ?Instructions ?Recorded ?Confirmed ?Last Taken ?Type aspirin 81 mg tablet,delayed 81 mg PO DAILY@11 03/06/20 08/30/24 1 Day Ago History release (Adult Aspirin Regimen) ~01/14/24 simvastatin 80 mg tablet 40 mg PO QPM 03/06/20 08/30/24 08/29/24 History trazodone 100 mg tablet 100 mg PO BEDTIME PRN Sleep 03/06/20 08/30/24 08/29/24 History cholecalciferol (vitamin D3) 125 125 mcg PO DAILY 04/22/21 08/30/24 08/30/24 History mcg (5,000 unit) tablet (Vitamin D3) albuterol sulfate 90 mcg/actuation 2 puff inhalation QID PRN 12/22/22 08/30/24 1 Day Ago Rx aerosol inhaler (Ventolin HFA) Shortness Of Breath #18 grams ~01/14/24 Acapella #1 ea 10/28/23 08/30/24 Unknown Rx Chest Vest (Afflo) #1 ea 10/28/23 08/30/24 Unknown Rx alprazolam 0.5 mg tablet (Xanax) 0.5 mg PO BID PRN anxiety #60 tabs 10/28/23 08/30/24 08/30/24 Rx budesonide 160 mcg-glycopyr 9 2 inh inhalation BID 90 days #32.1 01/06/24 08/30/24 08/30/24 Rx mcg-formot 4.8 mcg/actuation HFA grams inhaler (Breztri Aerosphere) ipratropium 0.5 mg-albuterol 3 mg 3 ml inhalation Q6H PRN wheezing 01/06/24 08/30/24 08/29/24 Rx (2.5 mg base)/3 mL nebulization 30 days #360 mL soln guaifenesin 100 mg/5 mL oral liquid 200 mg PO Q4H PRN Congestion 08/15/24 08/30/24 08/29/24 History metformin 1,000 mg tablet 1,000 mg PO BIDWMEAL 08/15/24 08/30/24 08/30/24 History montelukast 10 mg tablet 10 mg PO QPM 08/15/24 08/30/24 08/29/24 History (Singulair) tramadol 50 mg tablet 50 mg PO TID PRN Pain 08/15/24 08/30/24 Unknown History apixaban 5 mg tablet (Eliquis) 5 mg PO BID 30 days #60 tabs 08/21/24 08/30/24 08/30/24 Rx prednisone 10 mg tablets in a dose 10 mg PO DIRECTED #21 ea 08/21/24 08/30/24 08/30/24 Rx pack linezolid 600 mg tablet 600 mg PO BID 08/30/24 08/30/24 08/29/24 History Allergies Allergy/AdvReac Type Severity Reaction Status Date / Time No Known Allergies Allergy Verified 08/14/24 23:37 PFSH Acute PFSH: Medical History Pulmonary embolism Mediastinal lymphadenopathy Diaphragm dysfunction Shortness of breath Polycythemia Chronic respiratory failure with hypoxia Secondary polycythemia Pulmonary hypertension Hilar lymphadenopathy Hypoxia Acute exacerbation of chronic obstructive airways disease Anxiety Hyperlipidemia Insomnia Type 2 diabetes mellitus Chronic obstructive pulmonary disease Surgical History Hx of tonsillectomy Family History Other Healthy adult Social History Smoking and tobacco/nicotine status: former use of tobacco/nicotine Quit status (tobacco/nicotine): has quit using Year quit tobacco: 1999 - 1PPD x 20 Years Second hand smoke exposure: No Alcohol intake: never Substance/Drug Use: never Lives independently: Yes Household members: none Marital status: Number of children: 2 service: Yes Current occupational status: employed 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 Pets and animals: Yes Do you think of yourself as: Straight/Heterosexual Current gender identity: Male Vitals/I&O/Wt Last Vital Signs Temp 98.1 F 08/30/24 09:16 Pulse 97 08/30/24 14:20 Resp 21 H 08/30/24 14:20 BP 125/76 08/30/24 14:20 Pulse Ox 93 08/30/24 14:20 O2 Del Method Heated High Flow 08/30/24 14:22 O2 Flow Rate 40 08/30/24 11:30 FiO2 75 08/30/24 11:30 08/29/24 08/30/24 08/30/24 22:59 06:59 14:59 Intake Total 350 / 350 Balance 350 / 350 Weight last 48 hrs Weight 86.183 kg Physical Exam Const: COMMON NORMALS: patient oriented x3 and alert GENERAL APPEARANCE: cooperative ORIENTATION/CONSCIOUSNESS: Yes awake HENMT: COMMON NORMALS: oropharynx normal Resp: OTHER: Coarse breath. Increased respiratory effort. Cardio: COMMON NORMALS: no JVD, regular rhythm, S1 normal heart sound present, S2 normal heart sound present and No murmurs present (Cardio) RHYTHM: regular rhythm HEART SOUNDS: S1 normal heart sound present and S2 normal heart sound present GI: COMMON NORMALS: Normal to inspection, nondistended, normoactive bowel sounds present, Soft to palpation and non-tender PALPATION: Yes Soft to palpation Extremity: COMMON NORMALS: no joint enlargement and no pedal edema Neuro: COMMON NORMALS: patient oriented x3 and moves all extremities SENSORIUM/ORIENTATION: Yes alert Skin: COMMON NORMALS: no rashes or lesions noted GENERAL SKIN EXAM: no rashes or lesions noted Data 08/30/24 09:30 08/30/24 09:30 Micro: Microbiology 08/30/24 11:10 Blood Culture - Preliminary Blood SPECIMEN COLLECTED 08/30/24 11:06 Blood Culture - Preliminary Blood SPECIMEN COLLECTED A&P Assessment and plan (1) Acute hypoxic respiratory failure: Reviewed vitals, CBC, ABG, CMP, UA, and flu, COVID, RSV PCR, chest x-ray, EKG, ER provider note, discussed with ER provider. Acute on chronic respiratory failure with hypoxia, tachypnea, wheezing, rhonchi, coarse breath sounds, acute severe influenza infection, with hypoxemia on ABG, 45.8 on 10 L, started on heated high flow, with COPD exacerbation, with unresolved or new secondary bacterial pneumonia, as well as recent PE. He is already anticoagulated with Eliquis. Will treat influenza, started on Tamiflu, treat unresolved or secondary pneumonia, possible hospital-acquired pneumonia with Zosyn, linezolid. Collect sputum culture. Obtain urine bacterial antigens. Obtain MRSA PCR. Reviewed prior cultures, noted some positive blood cultures 2/3 with Staph hominis, bacillus species not anthracis. But repeats were negative, sputum culture negative 08/15, 2. Repeat cultures obtained today. Treat COPD exacerbation with IV steroids, Solu-Medrol, monitor for risk of hyperglycemia, hypertension, gastritis, encephalopathy. DuoNebs. Flutter valve. Antitussive as needed. Zofran as needed. Xanax as needed for anxiety/air hunger. Initial admission to intensive care unit with respiratory failure. (2) Influenza A: Tamiflu. Support oxygenation, treated respiratory failure, COPD exacerbation as above below. (3) COPD exacerbation: Severe exacerbation of COPD with dyspnea, respiratory failure as above, productive cough, tachypnea, wheezing, rhonchi on exam, superimposed on end-stage COPD chronically on 5 L oxygen, requiring heated high flow oxygen in ER, 75%, 40 L, treat as above with IV steroid, monitor for risk of hyperglycemia, pretension, gastritis, encephalopathy, reviewed blood glucose, blood pressure. IV PPI. Empiric antibiotic coverage as above. Cultures above. MRSA PCR, urine bacterial antigens. Continue oxygen support, BiPAP support as needed. RT assess and treat. (4) Pneumonia: Treat possible nonresolving or new secondary bacterial pneumonia, possible hospital-acquired pneumonia. Empiric coverage with Zosyn, linezolid at this time. Collect p.m. culture. Collect MRSA PCR. Blood culture requested. Obtain urine bacterial antigens, Legionella antigen. 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 In case he could not make his own decisions, names his granddaughter who is on our facesheet as surrogate decision-maker. PDMP PDMP Reviewed: Not Reviewed Attestations Medical Necessity Statement*: Admission over 2 midnights anticipated for assessment of management of severe influenza infection, severe COPD distribution with acute respiratory failure superimposed on chronic respiratory failure, nonresolving versus secondary bacterial pneumonia, possible hospital-acquired pneumonia and gentleman with underlying end-stage COPD. Diagnoses Acute hypoxic respiratory failure J96.01 Influenza A J10.1 COPD exacerbation J44.1 Pneumonia J18.9
[2024-08-30] MEDS: oseltamivir phosphate 75 mg Capsule PO (15:28)
[2024-08-30] MEDS: pantoprazole 40 mg SDV IVP (15:29)
[2024-08-30] MEDS: methylPREDNISolone sod succ 40 mg/mL INJ IVP ×2 (15:35→23:03)
[2024-08-30 17:07] LABS: MRSA PCR OZH (swab) NOT DETECTED (Negative)
[2024-08-30] MEDS: apixaban 5 mg Tablet PO (18:15)
[2024-08-30] MEDS: montelukast sodium 10 mg Tablet PO (18:15)
[2024-08-30] MEDS: atorvastatin 40 mg Tablet 20 MG PO (18:16)
[2024-08-30] MEDS: trazodone 100 mg Tablet PO (21:49)
[2024-08-30] MEDS: TRAMadol 50 mg Tablet PO (21:49)
[2024-08-30] MEDS: ALPRAZolam 0.5 mg Tablet PO (21:50)
[2024-08-31] VITALS (74 sets, daily range): BP systolic 102–133; BP diastolic 55–78; PULSE 80–101; RESP 14–28; TEMP 37.1; O2SAT 85–95
[2024-08-31] MEDS: ipratropium-albuterol 3 mL Neb INHALATION ×4 (02:15→21:11)
[2024-08-31] MEDS: piperacillin-tazobactam 3.375 GM in sodium chloride 0.9% (plus) 50 ML IV ×3 (02:19→16:23)
[2024-08-31 03:29] LABS: Eosinophils % 0.1 %; Hematocrit 45.5 % (37-53); Lymphocytes # 0.6 10^3/uL (0.8-4.8); Lymphocytes % 8.3 %; Mean Corpuscular Hemoglobin 30.4 pg (27-33); Mean Corpuscular Volume 92.1 fl (82-101); Mean Platelet Volume 9.2 fL (7.4-10.4); Monocytes # 0.2 10^3/uL (0.2-0.9); Neutrophils # 6.14 10^3/uL (1.8-7.7); Neutrophils % 88.2 %; Nucleated Red Blood Cells % 0 %; Platelet Count 204 10^3/cmm (157-399); Red Blood Count 4.94 10^6/uL (3.85-5.65); Red Cell Distribution Width 13.4 % (12.1-15.1); White Blood Count 6.97 10^3/uL (3.29-11.43)
[2024-08-31 03:47] LABS: Blood Urea Nitrogen 17 mg/dL (8-23); Calcium 8.6 mg/dL (8.5-10.5); Carbon Dioxide 24 mmol/L (22-29); Chloride 100 mmol/L (98-107); Creatinine Clr Calc Pharmacy 87.2232; Glucose 161 mg/dL (65-115); Magnesium 2.1 mg/dL (1.7-2.3); Osmolality Calculated 289 mOsm/kg (285-295); Sodium 137 mmol/L (136-145)
[2024-08-31] MEDS: methylPREDNISolone sod succ 40 mg/mL INJ IVP ×3 (08:03→22:17)
[2024-08-31] MEDS: oseltamivir phosphate 75 mg Capsule PO ×2 (08:03→16:24)
[2024-08-31] MEDS: apixaban 5 mg Tablet PO ×2 (08:03→16:25)
[2024-08-31] MEDS: aspirin 81 mg EC Tablet PO (10:08)
[2024-08-31] MEDS: pantoprazole 40 mg SDV IVP (16:04)
[2024-08-31] MEDS: atorvastatin 40 mg Tablet 20 MG PO (16:24)
[2024-08-31] MEDS: montelukast sodium 10 mg Tablet PO (16:24)
--- NOTE | 2024-08-31 19:24 | P.PN_ITS ---
Subjective 2 Subjective: He is feeling that he is improving, feeling better today, he is regaining his energy. Congestion is improving, he is breathing easier. Vitals/I&O/Wt Last Vital Signs Temp 98.1 F 08/30/24 09:16 Pulse 93 08/31/24 16:00 Resp 16 08/31/24 16:00 BP 105/61 08/31/24 16:00 Pulse Ox 90 08/31/24 16:00 O2 Del Method Heated High Flow 08/31/24 13:46 O2 Flow Rate 50 08/31/24 15:41 FiO2 50 08/31/24 15:41 08/31/24 08/31/24 08/31/24 06:59 14:59 22:59 Intake Total 170 / 1030 520 / 520 780 / 1300 Output Total 500 / 850 250 / 250 200 / 450 Balance -330 / 180 270 / 270 580 / 850 Weight last 48 hrs Weight 85.275 kg Weight 86.183 kg Weight 86.183 kg Physical Exam 2 Const: COMMON NORMALS: patient oriented x3 and alert GENERAL APPEARANCE: c ooperative ORIENTATION/CONSCIOUSNESS: Yes awake HENMT: COMMON NORMALS: oropharynx normal Neck/C-Spine: COMMON NORMALS: no JVD Resp: OTHER: Resolved rhonchi. Improving air entry. Cardio: COMMON NORMALS: no JVD, regular rhythm, S1 normal heart sound present, S2 normal heart sound present and No murmurs present (Cardio) RHYTHM: regular rhythm HEART SOUNDS: S1 normal heart sound present and S2 normal heart sound present GI: COMMON NORMALS: Normal to inspection, nondistended, normoactive bowel sounds present, Soft to palpation and non-tender PALPATION: Yes Soft to palpation Extremity: COMMON NORMALS: no joint enlargement and no pedal edema Neuro: COMMON NORMALS: patient oriented x3 and moves all extremities S ENSORIUM/ORIENTATION: Yes alert Skin: COMMON NORMALS: no rashes or lesions noted GENERAL SKIN EXAM: no rashes or lesions noted Data 08/31/24 03:01 08/31/24 03:01 Micro: Microbiology 08/30/24 11:10 Blood Culture - Preliminary Blood NEGATIVE TO DATE 08/30/24 11:06 Blood Culture - Preliminary Blood NEGATIVE TO DATE 08/30/24 12:38 Legionella Urinary Antigen - Final Urine,Clean Catch Bacterial Antigens - Final A&P Assessment and plan (1) Acute hypoxic respiratory failure: Improving respiratory failure, tachypnea resolving, rhonchi resolving, improving air entry. Improving oxygen requirement, still on heated high flow, able to titrate down to 50 L, 50%. Continue to treat influenza. Possible hospital- acquired pneumonia with Zosyn, linezolid. Collect sputum culture. Obtain urine bacterial antigens. Obtain MRSA PCR. prior cultures, noted some positive blood cultures 08/14 with Staph hominis, bacillus species not anthracis. But repeats were negative, sputum culture negative 08/15, 08/17. Treat COPD exacerbation with IV steroids, Solu-Medrol, monitor for risk of hyperglycemia, hypertension, gastritis, encephalopathy. DuoNebs. Flutter valve. Antitussive as needed. Zofran as needed. Xanax as needed for anxiety/air hunger. Discussed with respite therapist, nursing, rn case manager. Transfer out of ICU. Continue care on medical surgical floor. (2) Influenza A: Tamiflu. Support oxygenation, treated respiratory failure, COPD exacerbation as above below. (3) COPD exacerbation: Gradually improving with improving rhonchi, cough, improving oxygen requirement to continue treatment. Wean down oxygen as tolerating. Severe exacerbation of COPD with dyspnea, respiratory failure as above, productive cough, tachypnea, wheezing, rhonchi on exam, superimposed on end- stage COPD chronically on 5 L oxygen, requiring heated high flow oxygen in ER, 75%, 40 L, treat as above with IV steroid, monitor for risk of hyperglycemia, pretension, gastritis, encephalopathy, reviewed blood glucose, blood pressure. IV PPI. Empiric antibiotic coverage as above. Cultures above. MRSA PCR, urine bacterial antigens. Continue oxygen support, BiPAP support as needed. RT assess and treat. (4) Pneumonia: Reviewed blood culture, so far pending. Sputum culture collected, collected for blood provide, lower rhonchi are improving. Continue flutter valve, incentive spirometer. Treat possible nonresolving or new secondary bacterial pneumonia, possible hospital-acquired pneumonia. Empiric coverage with Zosyn, linezolid at this time. Collect p.m. culture. Collect MRSA PCR. Blood culture requested. Obtain urine bacterial antigens, Legionella antigen. 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 In case he could not make his own decisions, names his granddaughter who is on our facesheet as surrogate decision-maker. PDMP PDMP Reviewed: Not Reviewed Attestations 2 Medical Necessity Statement*: Continue admission for assessment management of respiratory failure, fluids, severe exacerbation of COPD, pneumonia, recent underlying PE. and High MDM includes amount and/or complexity of data reviewed/ordered [ resulted lab(s)/test(s), ordered lab(s)/test(s) and other healthcare professional discussion] and described risk of complication, morbidity or mortality of management as documented Diagnoses Acute hypoxic respiratory failure J96.01 Influenza A J10.1 COPD exacerbation J44.1 Pneumonia J18.9
[2024-08-31] MEDS: ALPRAZolam 0.5 mg Tablet PO (22:15)
[2024-08-31] MEDS: TRAMadol 50 mg Tablet PO (22:15)
[2024-08-31] MEDS: trazodone 100 mg Tablet PO (22:15)
[2024-08-31] MEDS: linezolid premix 600 MG/300 ML PREMIX 300 MG IV (22:17)
[2024-09-01] VITALS (23 sets, daily range): BP systolic 111–144; BP diastolic 58–96; PULSE 78–99; RESP 15–22; TEMP 36.2–36.6; O2SAT 87–94
[2024-09-01] MEDS: piperacillin-tazobactam 3.375 GM in sodium chloride 0.9% (plus) 50 ML IV ×3 (02:06→17:41)
[2024-09-01] MEDS: ipratropium-albuterol 3 mL Neb INHALATION ×4 (02:14→19:31)
[2024-09-01 04:13] LABS: Basophils % 0.1 %; Lymphocytes # 0.6 10^3/uL (0.8-4.8); Lymphocytes % 6.1 %; Mean Corpuscular HGB Conc 33.1 g/dL (30-55); Mean Corpuscular Volume 93.8 fl (82-101); Mean Platelet Volume 9.3 fL (7.4-10.4); Monocytes # 0.3 10^3/uL (0.2-0.9); Monocytes % 2.7 %; Neutrophils # 8.97 10^3/uL (1.8-7.7); Neutrophils % 90.8 %; Nucleated Red Blood Cells % 0 %; Platelet Count 186 10^3/cmm (157-399); Red Blood Count 4.48 10^6/uL (3.85-5.65); Red Cell Distribution Width 13.7 % (12.1-15.1); White Blood Count 9.88 10^3/uL (3.29-11.43)
[2024-09-01 04:30] LABS: Anion Gap 16.2 (5-19); Blood Urea Nitrogen 20 mg/dL (8-23); Calcium 8.2 mg/dL (8.5-10.5); Carbon Dioxide 24 mmol/L (22-29); Chloride 100 mmol/L (98-107); Creatinine Clr Calc Pharmacy 86.8323; Glucose 150 mg/dL (65-115); Osmolality Calculated 287 mOsm/kg (285-295); Potassium 4.2 mmol/L (3.5-5.1); Sodium 136 mmol/L (136-145)
[2024-09-01] MEDS: methylPREDNISolone sod succ 40 mg/mL INJ IVP ×2 (07:44→15:24)
[2024-09-01] MEDS: TRAMadol 50 mg Tablet PO ×2 (07:44→22:21)
[2024-09-01] MEDS: linezolid premix 600 MG/300 ML PREMIX 300 MG IV (09:05)
[2024-09-01] MEDS: oseltamivir phosphate 75 mg Capsule PO ×2 (09:05→17:41)
[2024-09-01] MEDS: apixaban 5 mg Tablet PO ×2 (09:05→17:41)
--- NOTE | 2024-09-01 10:15 | PC.NURSE ---
Assisted patient up to chair. Patient not wanting to get up in chair at bedside. Patient states you women are a pain, I will get oob when I feel like it. I am tired . Educated patient on importance of getting out of bed, deep breathing and coughing and working on IS and Flutter valve. Patient states I now how to do them, you don't have to tell me. You women just need to leave me alone . Up in bed, O2 sat 88-90% on HHF 40% and 40L. Will continue to encourage patient to work on IS and flutter valve.
[2024-09-01] MEDS: aspirin 81 mg EC Tablet PO (10:19)
--- NOTE | 2024-09-01 14:48 | PC.NURSE ---
1325 -- Report called [id number] -- Transferred to room 264 via wheelchair. O2 transitioned to High flow NC at 8L per RT.
[2024-09-01] MEDS: pantoprazole 40 mg SDV IVP (15:24)
--- NOTE | 2024-09-01 15:53 | PC.NURSE ---
Pt on med-surg. Admission assessment completed. Pt pleasant. On 8L/NC. Tolerating well.
[2024-09-01] MEDS: atorvastatin 40 mg Tablet 20 MG PO (17:41)
[2024-09-01] MEDS: montelukast sodium 10 mg Tablet PO (17:41)
--- NOTE | 2024-09-01 20:05 | PM.PN ---
Subjective Subjective: He is gradually improving. Feeling stronger. Breathing gradually improving. Vitals/I&O/Wt Last Vital Signs Temp 97.9 F 09/01/24 19:58 Pulse 97 09/01/24 19:58 Resp 17 09/01/24 19:58 BP 121/64 09/01/24 19:58 Pulse Ox 93 09/01/24 19:58 O2 Del Method Nasal Cannula 09/01/24 19:58 O2 Flow Rate 8 09/01/24 19:39 FiO2 40 09/01/24 13:36 09/01/24 09/01/24 09/01/24 06:59 14:59 22:59 Intake Total 350 / 1700 1050 / 1050 480 / 1530 Output Total 600 / 1350 150 / 150 200 / 350 Balance -250 / 350 900 / 900 280 / 1180 Weight last 48 hrs Weight 85.82 kg Weight 85.275 kg Physical Exam Const: COMMON NORMALS: patient oriented x3 and alert GENERAL APPEARANCE: cooperative ORIENTATION/CONSCIOUSNESS: Yes awake HENMT: COMMON NORMALS: oropharynx normal Neck/C-Spine: COMMON NORMALS: no JVD Resp: COMMON NORMALS: normal respiratory effort and clear to auscultation bilaterally AUSCULTATION: clear to auscultation bilaterally Cardio: COMMON NORMALS: no JVD, regular rhythm, S1 normal heart sound present, S2 normal heart sound present and No murmurs present (Cardio) RHYTHM: regular rhythm HEART SOUNDS: S1 normal heart sound present and S2 normal heart sound present GI: COMMON NORMALS: Normal to inspection, nondistended, normoactive bowel sounds present, Soft to palpation and non-tender PALPATION: Yes Soft to palpation Extremity: COMMON NORMALS: no joint enlargement and no pedal edema Neuro: COMMON NORMALS: patient oriented x3 and moves all extremities SENSORIUM/ORIENTATION: Yes alert Skin: COMMON NORMALS: no rashes or lesions noted GENERAL SKIN EXAM: no rashes or lesions noted Data 09/01/24 03:47 09/01/24 03:47 A&P Assessment and plan (1) Acute hypoxic respiratory failure: Reviewed vitals, CBC, BMP, urine bacterial antigens, blood cultures, reviewed oxygenation, still requiring heated high flow oxygen this morning. Discussed with Dr. Willingham, will attempt to switch to nasal cannula and see how he does. Reviewed oxygenation subsequent requiring 8 L of oxygen compared to his usual at 5. Continues with gradually/slowly improving acute hypoxic respiratory failure. Continue treatment of influenza infection, COPD exacerbation. Pneumonia. Recently with PEs as well. Reviewed CBC, no anemia. Continue anticoagulation. Continue to treat influenza. Possible hospital-acquired pneumonia with Zosyn. Collect sputum culture. Obtain urine bacterial antigens. Reviewed MRSA PCR. Stop linezolid. Reviewed chemistry. prior cultures, noted some positive blood cultures 08/14 with Staph hominis, bacillus species not anthracis. But repeats were negative, sputum culture negative 08/15, 08/17. Treat COPD exacerbation with IV steroids, Solu-Medrol, monitor for risk of hyperglycemia, hypertension, gastritis, encephalopathy. DuoNebs. Flutter valve. Antitussive as needed. Zofran as needed. Xanax as needed for anxiety/air hunger. Discussed with respite therapist, nursing, case making machine operator. Transfer out of ICU. Continue care on medical surgical floor. (2) Influenza A: Tamiflu. Support oxygenation, treated respiratory failure, COPD exacerbation as above below. (3) COPD exacerbation: Will try to decrease Solu-Medrol dose to 20 mg every 8 hours. Continue to monitor for risk of hyperglycemia, gastritis, hypertension, encephalopathy. Continue IV PPI for now. Gradually improving with improving rhonchi, cough, improving oxygen requirement to continue treatment. Wean down oxygen as tolerating. 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 MRSA PCR reviewed, negative, discontinue linezolid, urine bacterial antigens reviewed, negative. Continue oxygen support, BiPAP support as needed. RT assess and treat. (4) Pneumonia: Reviewed blood culture, so far pending. Sputum culture collected, collected for blood provide, lower rhonchi are improving. Continue flutter valve, incentive spirometer. Treat possible nonresolving or new secondary bacterial pneumonia, possible hospital-acquired pneumonia. Empiric coverage with Zosyn, linezolid at this time. Collect p.m. culture. Collect MRSA PCR. Blood culture requested. Obtain urine bacterial antigens, Legionella antigen. 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 In case he could not make his own decisions, names his granddaughter who is on our facesheet as surrogate decision-maker. PDMP PDMP Reviewed: Not Reviewed Attestations Medical Necessity Statement*: Continue admission for assessment management of slowly improving respiratory care, influenza infection, severe exacerbation of COPD, pneumonia as well as with underlying PEs and gentleman with underlying end-stage COPD. and High MDM includes amount and/or complexity of data reviewed/ordered [ resulted lab(s)/test(s), ordered lab(s)/test(s) and other healthcare professional discussion] and described risk of complication, morbidity or mortality of management as documented Diagnoses Acute hypoxic respiratory failure J96.01 Influenza A J10.1 COPD exacerbation J44.1 Pneumonia J18.9
[2024-09-01] MEDS: ALPRAZolam 0.5 mg Tablet PO (22:21)
[2024-09-01] MEDS: trazodone 100 mg Tablet PO (22:21)
[2024-09-01] MEDS: methylPREDNISolone sod succ 40 mg/mL INJ 20 MG IVP (22:22)
[2024-09-02] VITALS (14 sets, daily range): BP systolic 109–131; BP diastolic 57–82; PULSE 82–98; RESP 15–18; TEMP 36.3–36.7; O2SAT 91–97
[2024-09-02] MEDS: piperacillin-tazobactam 3.375 GM in sodium chloride 0.9% (plus) 50 ML IV ×3 (02:05→16:54)
[2024-09-02] MEDS: methylPREDNISolone sod succ 40 mg/mL INJ 20 MG IVP ×3 (06:00→22:59)
[2024-09-02 06:04] LABS: Basophils % 0.1 %; Eosinophils % 0.1 %; Hematocrit 41.6 % (37-53); Lymphocytes # 0.7 10^3/uL (0.8-4.8); Lymphocytes % 5.9 %; Mean Corpuscular HGB Conc 33.2 g/dL (30-55); Mean Corpuscular Hemoglobin 30.9 pg (27-33); Mean Corpuscular Volume 93.3 fl (82-101); Monocytes # 0.5 10^3/uL (0.2-0.9); Monocytes % 4.2 %; Neutrophils # 10.39 10^3/uL (1.8-7.7); Neutrophils % 89.3 %; Nucleated Red Blood Cells % 0 %; Platelet Count 172 10^3/cmm (157-399); Red Blood Count 4.46 10^6/uL (3.85-5.65); Red Cell Distribution Width 13.7 % (12.1-15.1); White Blood Count 11.64 10^3/uL (3.29-11.43)
[2024-09-02 06:26] LABS: Anion Gap 12.7 (5-19); Blood Urea Nitrogen 18 mg/dL (8-23); Calcium 8.4 mg/dL (8.5-10.5); Carbon Dioxide 25 mmol/L (22-29); Chloride 105 mmol/L (98-107); Creatinine Clr Calc Pharmacy 87.2818; Glucose 151 mg/dL (65-115); Osmolality Calculated 291 mOsm/kg (285-295); Potassium 4.7 mmol/L (3.5-5.1); Sodium 138 mmol/L (136-145)
[2024-09-02] MEDS: apixaban 5 mg Tablet PO ×2 (08:28→16:54)
[2024-09-02] MEDS: oseltamivir phosphate 75 mg Capsule PO ×2 (08:28→16:54)
[2024-09-02] MEDS: ipratropium-albuterol 3 mL Neb INHALATION ×2 (08:35→20:41)
[2024-09-02] MEDS: aspirin 81 mg EC Tablet PO (11:06)
[2024-09-02 13:45] LABS: Iron 105 ug/dL (59-158); Percent Saturation 51.9 % (20-50); Total Iron Binding Capacity 202 mcg/dl; Unsaturated Iron Binding 97 ug/dL (112-347)
[2024-09-02 13:51] LABS: Procalcitonin 0.05 ng/mL (0-0.5)
[2024-09-02 14:01] LABS: Estmated Average Glucose 140; Hemoglobin A1C 6.5 % (4.0-6.0)
[2024-09-02] MEDS: FUROsemide 10 mg/mL SDV 4mL 40 MG IVP (15:03)
[2024-09-02] MEDS: pantoprazole 40 mg SDV IVP (15:04)
--- NOTE | 2024-09-02 15:17 | P.PN_ITS ---
Subjective 2 Subjective: Hospital course, labs appreciated. Examination patient sitting comfortably in bed on 7 L of oxygen supplementation. Denies any nausea, vomiting, headache. States yesterday in the evening he tried to get out of bed to bathroom after which he became out of breath and was not able to catch his breath for few minutes. Vitals/I&O/Wt Last Vital Signs Temp 97.4 F L 09/02/24 11:30 Pulse 88 09/02/24 14:52 Resp 18 09/02/24 14:45 BP 121/75 09/02/24 11:30 Pulse Ox 94 09/02/24 14:46 O2 Del Method High Flow Nasal Cannula 09/02/24 14:46 O2 Flow Rate 6 09/02/24 14:46 FiO2 40 09/01/24 13:36 09/02/24 09/02/24 09/02/24 06:59 14:59 22:59 Intake Total 530 / 2110 530 / 530 Output Total 675 / 1025 825 / 825 Balance -145 / 1085 -295 / -295 Weight last 48 hrs Weight 86.319 kg Weight 85.82 kg Physical Exam 2 Const: COMMON NORMALS: patient oriented x3 and alert GENERAL APPEARANCE: c ooperative ORIENTATION/CONSCIOUSNESS: Yes awake HENMT: COMMON NORMALS: oropharynx normal Neck/C-Spine: COMMON NORMALS: no JVD Resp: COMMON NORMALS: normal respiratory effort and clear to auscultation bilaterally AUSCULTATION: clear to auscultation bilaterally OTHER: Resolved rhonchi. Improving air entry. Cardio: COMMON NORMALS: no JVD, regular rhythm, S1 normal heart sound present, S2 normal heart sound present and No murmurs present (Cardio) RHYTHM: regular rhythm HEART SOUNDS: S1 normal heart sound present and S2 normal heart sound present GI: COMMON NORMALS: Normal to inspection, nondistended, normoactive bowel sounds present, Soft to palpation and non-tender PALPATION: Yes Soft to palpation Extremity: COMMON NORMALS: no joint enlargement and no pedal edema Neuro: COMMON NORMALS: patient oriented x3 and moves all extremities S ENSORIUM/ORIENTATION: Yes alert Skin: COMMON NORMALS: no rashes or lesions noted GENERAL SKIN EXAM: no rashes or lesions noted Data 09/02/24 05:04 09/02/24 05:04 A&P Assessment and plan (1) Acute hypoxic respiratory failure: Reviewed vitals, CBC, BMP, urine bacterial antigens, blood cultures, reviewed oxygenation, still requiring heated high flow oxygen this morning. Discussed with Dr. Willingham, will attempt to switch to nasal cannula and see how he does. Reviewed oxygenation subsequent requiring 8 L of oxygen compared to his usual at 5. Continues with gradually/slowly improving acute hypoxic respiratory failure. Continue treatment of influenza infection, COPD exacerbation. Pneumonia. Recently with PEs as well. Reviewed CBC, no anemia. Continue anticoagulation. Continue to treat influenza. Possible hospital-acquired pneumonia with Zosyn. Collect sputum culture. Obtain urine bacterial antigens. Reviewed MRSA PCR. Stop linezolid. Reviewed chemistry. prior cultures, noted some positive blood cultures 2 with Staph hominis, bacillus species not anthracis. But repeats were negative, sputum culture negative 08/15, 08/17. Treat COPD exacerbation with IV steroids, Solu-Medrol, monitor for risk of hyperglycemia, hypertension, gastritis, encephalopathy. DuoNebs. Flutter valve. Antitussive as needed. Zofran as needed. Xanax as needed for anxiety/air hunger. Discussed with respite therapist, nursing, trimming caser. Transfer out of ICU. Continue care on medical surgical floor. (2) Influenza A: Tamiflu. Support oxygenation, treated respiratory failure, COPD exacerbation as above below. (3) COPD exacerbation: Will try to decrease Solu-Medrol dose to 20 mg every 8 hours. Continue to monitor for risk of hyperglycemia, gastritis, hypertension, encephalopathy. Continue IV PPI for now. Gradually improving with improving rhonchi, cough, improving oxygen requirement to continue treatment. Wean down oxygen as tolerating. Severe exacerbation of COPD with dyspnea, respiratory failure as above, productive cough, tachypnea, wheezing, rhonchi on exam, superimposed on end- stage COPD chronically on 5 L oxygen Empiric antibiotic coverage as above. MRSA PCR reviewed, negative, discontinue linezolid, urine bacterial antigens reviewed, negative. Continue oxygen support, BiPAP support as needed. RT assess and treat. (4) Pneumonia: Reviewed blood culture, so far pending. Sputum culture collected, collected for blood provide, lower rhonchi are improving. Continue flutter valve, incentive spirometer. Treat possible nonresolving or new secondary bacterial pneumonia, possible hospital-acquired pneumonia. Empiric coverage with Zosyn, linezolid at this time. Collect p.m. culture. Collect MRSA PCR. Blood culture requested. Obtain urine bacterial antigens, Legionella antigen. 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 In case he could not make his own decisions, names his granddaughter who is on our facesheet as surrogate decision-maker. Plan for the day: Continue to wean oxygen supplementation keeping saturation around 88%. Continue with nebulization treatment with Pulmicort every 6 hour. Start on Pulmicort twice daily. Continue with IV antibiotic with Zosyn for 5-day course. Linezolid discontinued as MRSA swab negative. Given significant COPD on 5 L at baseline for now we will try to get patient as net negative as possible. IV Lasix 40 mg one-time. Fluid restriction to less than 1500 cc. Continue with aggressive pulmonary care with I-S and Acapella. Continue with Tamiflu for 5-day course. Out of bed to chair. PDMP PDMP Reviewed: Not Reviewed Attestations 2 Medical Necessity Statement*: Requires further hospitalization for management of p acute on chronic hypoxic respiratory failure in setting of influenza A in a patient who was recently diagnosed of PE with severe COPD at baseline on 5 L Diagnoses Acute hypoxic respiratory failure J96.01 Influenza A J10.1 COPD exacerbation J44.1 Pneumonia J18.9
[2024-09-02] MEDS: atorvastatin 40 mg Tablet 20 MG PO (16:54)
[2024-09-02] MEDS: montelukast sodium 10 mg Tablet PO (16:54)
[2024-09-02] MEDS: budesonide 0.5 mg/2 mL Neb INHALATION (20:41)
[2024-09-02] MEDS: TRAMadol 50 mg Tablet PO (23:00)
[2024-09-02] MEDS: ALPRAZolam 0.5 mg Tablet PO (23:01)
[2024-09-02] MEDS: trazodone 100 mg Tablet PO (23:01)
[2024-09-03] VITALS (13 sets, daily range): BP systolic 117–146; BP diastolic 52–87; PULSE 77–101; RESP 15–20; TEMP 36.3–37.1; O2SAT 90–98
[2024-09-03] MEDS: piperacillin-tazobactam 3.375 GM in sodium chloride 0.9% (plus) 50 ML IV ×3 (01:52→17:03)
[2024-09-03] MEDS: ipratropium-albuterol 3 mL Neb INHALATION ×4 (02:44→20:45)
[2024-09-03 04:25] LABS: Hematocrit 45.9 % (37-53); Lymphocytes # 0.7 10^3/uL (0.8-4.8); Lymphocytes % 7.2 %; Mean Corpuscular HGB Conc 32.5 g/dL (30-55); Mean Corpuscular Hemoglobin 30.9 pg (27-33); Mean Corpuscular Volume 95.2 fl (82-101); Mean Platelet Volume 9.7 fL (7.4-10.4); Monocytes # 0.4 10^3/uL (0.2-0.9); Monocytes % 3.9 %; Neutrophils # 8.21 10^3/uL (1.8-7.7); Neutrophils % 88.5 %; Nucleated Red Blood Cells % 0 %; Platelet Count 167 10^3/cmm (157-399); Red Blood Count 4.82 10^6/uL (3.85-5.65); Red Cell Distribution Width 13.7 % (12.1-15.1); White Blood Count 9.28 10^3/uL (3.29-11.43)
[2024-09-03 04:48] LABS: Magnesium 2.2 mg/dL (1.7-2.3)
[2024-09-03 04:49] LABS: Alanine Aminotransferase 28 U/L (0-41); Albumin Level 3.3 g/dL (3.5-5.2); Alkaline Phosphatase 73 U/L (40-130); Anion Gap 14.2 (5-19); Aspartate Amino Transferase 17 U/L (0-40); Blood Urea Nitrogen 25 mg/dL (8-23); Calcium 8.7 mg/dL (8.5-10.5); Carbon Dioxide 27 mmol/L (22-29); Chloride 100 mmol/L (98-107); Creatinine Clr Calc Pharmacy 69.4348; Globulin 2.9 g/dL (1.3-4.6); Glucose 171 mg/dL (65-115); Osmolality Calculated 292 mOsm/kg (285-295); Potassium 4.2 mmol/L (3.5-5.1); Sodium 137 mmol/L (136-145); Total Bilirubin 0.6 mg/dL (0.15-1.2); Total Protein 6.2 g/dL (6.6-8.7)
[2024-09-03 05:08] LABS: Folate Level 7.9 ng/mL (4.5-32.2)
[2024-09-03] MEDS: methylPREDNISolone sod succ 40 mg/mL INJ 20 MG IVP ×2 (06:00→17:02)
[2024-09-03] MEDS: oseltamivir phosphate 75 mg Capsule PO ×2 (08:34→17:02)
[2024-09-03] MEDS: apixaban 5 mg Tablet PO ×2 (08:34→17:03)
[2024-09-03] MEDS: budesonide 0.5 mg/2 mL Neb INHALATION ×2 (08:55→20:45)
[2024-09-03] MEDS: aspirin 81 mg EC Tablet PO (10:37)
[2024-09-03] MEDS: FUROsemide 10 mg/mL SDV 4mL 40 MG IVP (11:47)
--- NOTE | 2024-09-03 14:04 | P.PN_ITS ---
Subjective 2 Subjective: No acute events overnight. Patient has remained hemodynamically stable and afebrile. Currently on 5 L of oxygen supplementation. States he is feeling a lot better. Able to ambulate with less difficulty in breathing today. Asking when can be discharged. Vitals/I&O/Wt Last Vital Signs Temp 97.5 F L 09/03/24 11:35 Pulse 89 09/03/24 14:00 Resp 18 09/03/24 14:00 BP 135/63 09/03/24 11:35 Pulse Ox 93 09/03/24 14:00 O2 Del Method Nasal Cannula 09/03/24 14:00 O2 Flow Rate 5 09/03/24 14:00 FiO2 40 09/01/24 13:36 09/02/24 09/03/24 09/03/24 22:59 06:59 14:59 Intake Total 290 / 820 530 / 1350 50 / 50 Output Total 650 / 1475 275 / 275 Balance -360 / -655 530 / -125 -225 / -225 Weight last 48 hrs Weight 85.185 kg Weight 86.319 kg Physical Exam 2 Const: COMMON NORMALS: patient oriented x3 and alert GENERAL APPEARANCE: c ooperative ORIENTATION/CONSCIOUSNESS: Yes awake HENMT: COMMON NORMALS: oropharynx normal Neck/C-Spine: COMMON NORMALS: no JVD Resp: COMMON NORMALS: normal respiratory effort and clear to auscultation bilaterally AUSCULTATION: clear to auscultation bilaterally OTHER: Resolved rhonchi. Improving air entry. Cardio: COMMON NORMALS: no JVD, regular rhythm, S1 normal heart sound present, S2 normal heart sound present and No murmurs present (Cardio) RHYTHM: regular rhythm HEART SOUNDS: S1 normal heart sound present and S2 normal heart sound present GI: COMMON NORMALS: Normal to inspection, nondistended, normoactive bowel sounds present, Soft to palpation and non-tender PALPATION: Yes Soft to palpation Extremity: COMMON NORMALS: no joint enlargement and no pedal edema Neuro: COMMON NORMALS: patient oriented x3 and moves all extremities S ENSORIUM/ORIENTATION: Yes alert Skin: COMMON NORMALS: no rashes or lesions noted GENERAL SKIN EXAM: no rashes or lesions noted Data 09/03/24 03:23 09/03/24 03:23 A&P Assessment and plan (1) Acute hypoxic respiratory failure: Reviewed vitals, CBC, BMP, urine bacterial antigens, blood cultures, reviewed oxygenation, still requiring heated high flow oxygen this morning. Discussed with Dr. Willingham, will attempt to switch to nasal cannula and see how he does. Reviewed oxygenation subsequent requiring 8 L of oxygen compared to his usual at 5. Continues with gradually/slowly improving acute hypoxic respiratory failure. Continue treatment of influenza infection, COPD exacerbation. Pneumonia. Recently with PEs as well. Reviewed CBC, no anemia. Continue anticoagulation. Continue to treat influenza. Possible hospital-acquired pneumonia with Zosyn. Collect sputum culture. Obtain urine bacterial antigens. Reviewed MRSA PCR. Stop linezolid. Reviewed chemistry. prior cultures, noted some positive blood cultures 2 with Staph hominis, bacillus species not anthracis. But repeats were negative, sputum culture negative 08/15, 08/17. Treat COPD exacerbation with IV steroids, Solu-Medrol, monitor for risk of hyperglycemia, hypertension, gastritis, encephalopathy. DuoNebs. Flutter valve. Antitussive as needed. Zofran as needed. Xanax as needed for anxiety/air hunger. Discussed with respite therapist, nursing, disability case manager. Transfer out of ICU. Continue care on medical surgical floor. (2) Influenza A: Tamiflu. Support oxygenation, treated respiratory failure, COPD exacerbation as above below. (3) COPD exacerbation: Will try to decrease Solu-Medrol dose to 20 mg every 8 hours. Continue to monitor for risk of hyperglycemia, gastritis, hypertension, encephalopathy. Continue IV PPI for now. Gradually improving with improving rhonchi, cough, improving oxygen requirement to continue treatment. Wean down oxygen as tolerating. Severe exacerbation of COPD with dyspnea, respiratory failure as above, productive cough, tachypnea, wheezing, rhonchi on exam, superimposed on end- stage COPD chronically on 5 L oxygen Empiric antibiotic coverage as above. MRSA PCR reviewed, negative, discontinue linezolid, urine bacterial antigens reviewed, negative. Continue oxygen support, BiPAP support as needed. RT assess and treat. (4) Pneumonia: Reviewed blood culture, so far pending. Sputum culture collected, collected for blood provide, lower rhonchi are improving. Continue flutter valve, incentive spirometer. Treat possible nonresolving or new secondary bacterial pneumonia, possible hospital-acquired pneumonia. Empiric coverage with Zosyn, linezolid at this time. Collect p.m. culture. Collect MRSA PCR. Blood culture requested. Obtain urine bacterial antigens, Legionella antigen. 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 In case he could not make his own decisions, names his granddaughter who is on our facesheet as surrogate decision-maker. Plan for the day: Continue to wean oxygen keeping saturation over 88%. Appreciate urine output. Repeat 40 mg of IV Lasix today. Monitor renal functions for hypokalemia. Wean Solu-Medrol to 20 mg every 12 hourly. Continue with nebulization treatment with Pulmicort and DuoNeb. Continue Tamiflu with last dose on 09/04. Continue with Zosyn for 5-day course. Last dose on 09/04. Discharge plan: Plan to discharge next 24 hours if patient remains on baseline 5 L of oxygen supplementation both at rest and on ambulation. Patient will need to be discharged on nebulization treatment, diuretics. PDMP PDMP Reviewed: Not Reviewed Attestations 2 Medical Necessity Statement*: Requires further hospitalization for management of hypoxic acute on chronic respiratory failure in setting of COPD exacerbation because of influenza A, superadded bacterial infection Diagnoses Acute hypoxic respiratory failure J96.01 Influenza A J10.1 COPD exacerbation J44.1 Pneumonia J18.9
[2024-09-03] MEDS: pantoprazole 40 mg SDV IVP (14:27)
[2024-09-03] MEDS: atorvastatin 40 mg Tablet 20 MG PO (17:02)
[2024-09-03] MEDS: montelukast sodium 10 mg Tablet PO (17:02)
[2024-09-03] MEDS: ALPRAZolam 0.5 mg Tablet PO (21:04)
[2024-09-03] MEDS: trazodone 100 mg Tablet PO (21:04)
[2024-09-03] MEDS: TRAMadol 50 mg Tablet PO (21:04)
[2024-09-04 02:31] LABS: Basophils % 0.1 %; Eosinophils % 0.1 %; Hematocrit 46.7 % (37-53); Lymphocytes # 1.1 10^3/uL (0.8-4.8); Lymphocytes % 11.2 %; Mean Corpuscular Hemoglobin 30.3 pg (27-33); Mean Corpuscular Volume 91.7 fl (82-101); Mean Platelet Volume 9.6 fL (7.4-10.4); Monocytes # 0.8 10^3/uL (0.2-0.9); Neutrophils # 7.51 10^3/uL (1.8-7.7); Neutrophils % 80.1 %; Nucleated Red Blood Cells % 0 %; Platelet Count 164 10^3/cmm (157-399); Red Blood Count 5.09 10^6/uL (3.85-5.65); Red Cell Distribution Width 13.6 % (12.1-15.1); White Blood Count 9.38 10^3/uL (3.29-11.43)
[2024-09-04 02:51] LABS: Magnesium 2.4 mg/dL (1.7-2.3)
[2024-09-04 02:52] LABS: Alanine Aminotransferase 53 U/L (0-41); Albumin Level 3.5 g/dL (3.5-5.2); Alkaline Phosphatase 79 U/L (40-130); Anion Gap 13.5 (5-19); Aspartate Amino Transferase 28 U/L (0-40); Blood Urea Nitrogen 26 mg/dL (8-23); Calcium 9.1 mg/dL (8.5-10.5); Carbon Dioxide 29 mmol/L (22-29); Chloride 101 mmol/L (98-107); Creatinine Clr Calc Pharmacy 69.4348; Globulin 2.9 g/dL (1.3-4.6); Glucose 143 mg/dL (65-115); Osmolality Calculated 295 mOsm/kg (285-295); Potassium 4.5 mmol/L (3.5-5.1); Sodium 139 mmol/L (136-145); Total Bilirubin 0.8 mg/dL (0.15-1.2); Total Protein 6.4 g/dL (6.6-8.7)
[2024-09-04 03:05] VITALS: PULSE 82; RESP 16; O2SAT 90
[2024-09-04] MEDS: ipratropium-albuterol 3 mL Neb INHALATION (03:06)
[2024-09-04] MEDS: trazodone 100 mg Tablet PO (03:24)
[2024-09-04 04:00] VITALS: BP 117/45; PULSE 81; RESP 18; TEMP 36.6; O2SAT 90
[2024-09-04] MEDS: methylPREDNISolone sod succ 40 mg/mL INJ 20 MG IVP (05:15)
[2024-09-04] MEDS: apixaban 5 mg Tablet PO (07:45)
[2024-09-04] MEDS: oseltamivir phosphate 75 mg Capsule PO (07:45)
[2024-09-04 07:57] VITALS: BP 102/64; PULSE 84; RESP 19; TEMP 36.4; O2SAT 96
--- NOTE | 2024-09-04 08:44 | PC.NURSE ---
Pt refused 2:00am Zosyn per night club manager. This nurse re-timed 10:00am Zosyn for 8:00am, however, pt refused this as his left AC IV went bad and pt refused another IV due to him being discharged. MICHELLE Tabor notified Dr. Saldaña of this.
--- NOTE | 2024-09-04 08:50 | PC.NURSE ---
D/C pending Home O2 Eval and a ride home.
[2024-09-04 09:18] VITALS: PULSE 88; RESP 18; O2SAT 92
[2024-09-04 09:23] VITALS: O2SAT 85; O2SAT 90
--- NOTE | 2024-09-04 10:13 | P.DS_ITS ---
Discharge Providers Date of Admission: 08/30/24 14:08 Date of Discharge: September 04, 2024 Attending Provider at Admission: Tyrell Villarreal Attending Provider at Discharge: Pollo Angulo MD Primary Care Provider: BRADEN Rosas Diagnoses at Discharge Discharge Diagnosis (1) Acute hypoxic respiratory failure: Status: Acute (2) Influenza A: Status: Acute (3) COPD exacerbation: Status: Acute (4) Pneumonia: Status: Acute Reason for Visit Reason for Visit: SOB Brief History: History as per HPI: Benny Burch is a 79 year old male presenting with acute on chronic respiratory failure with hypoxia, with end stage COPD, recently hospitalized with pneumonia, COPD exacerbaion and PE, returned to the hospital with ge neralized weakness, dyspnea, productive cough with green sputum. Acute severe influenza A infection with COPD exacerbation, with pulmonary filtrates, possible secondary pneumonia versus unresolved pneumonia after recent hospitalization. He states he has been taking his antibiotics, completing prednisone prescription. Yesterday started feeling significantly weak which was different from him, feeling more dyspnea, productive cough with green sputum, and unimproved came in to be evaluated in ER. In ER oxygen saturations at 88% on his usual 5 L. With hypoxemia on ABG 7.47/39.5/45.8/28.8 on 10 L. Tachypneic 22-24. Started on heated high flow cannula. Chest x-ray with persistent atelectasis and consolidation in left lower lobe and small left pleural effusion. Diffuse infiltrate and black Laura in the right base. Influenza A PCR positive, COVID and RSV PCR negative. On exam initially with rhonchi, wheezing, diminished breath sounds. Slight improvement after breathing treatment. Hospital Course Hospital Course Patient was admitted to the hospital for further evaluation and management of acute on chronic hypoxic and hypercapnic respiratory failure in setting of influenza A. He was started on treatment with broad-spectrum IV antibiotics, IV Tamiflu. Patient required up to 10 L of oxygen supplementation to maintain saturation over 88%. He gradually improved. Currently he has been back to his 5 L of oxygen supplementation over the last 2 days both on exertion and at rest. Patient states he is feeling better. Been discharged in hemodynamically stable condition on oral Tamiflu for 1 more day. 20 mg of oral Lasix daily and Farxiga 10 mg daily has been added to his medication list. He is to continue nebulization with DuoNeb every 8 hours and Pulmicort twice daily for next 2 weeks along with oral steroid taper. Physical Exam Const: COMMON NORMALS: patient oriented x3 and alert GENERAL APPEARANCE: cooperative ORIENTATION/CONSCIOUSNESS: Yes awake HENMT: COMMON NORMALS: oropharynx normal Neck/C-Spine: COMMON NORMALS: no JVD Resp: COMMON NORMALS: normal respiratory effort and clear to auscultation bilaterally AUSCULTATION: clear to auscultation bilaterally OTHER: Resolved rhonchi. Improving air entry. Cardio: COMMON NORMALS: no JVD, regular rhythm, S1 normal heart sound present, S2 normal heart sound present and No murmurs present (Cardio) RHYTHM: regular rhythm HEART SOUNDS: S1 normal heart sound present and S2 normal heart sound present GI: COMMON NORMALS: Normal to inspection, nondistended, normoactive bowel sounds present, Soft to palpation and non-tender PALPATION: Yes Soft to palpation Extremity: COMMON NORMALS: no joint enlargement and no pedal edema Neuro: COMMON NORMALS: patient oriented x3 and moves all extremities SENSORIUM/ORIENTATION: Yes alert Skin: COMMON NORMALS: no rashes or lesions noted GENERAL SKIN EXAM: no rashes or lesions noted Discharge Data Studies Completed and Pending Completed Studies During Hospitalization Category Date Time Status XR chest 1V portable [id number] Stat Exams 08/30/24 09:16 Completed Pending at discharge Category Date Time Status Blood Culture Stat Lab 08/30/24 11:10 Results MAG [Magnesium] AM LABS Lab 09/05/24 04:00 Ordered Sputum Culture and Gram Stain Routine Lab 08/30/24 15:12 Uncollected Radiology Impressions Chest X-Ray 08/30/24 09:16 IMPRESSION: 1. 1. Persistent atelectasis and consolidation in the LEFT lower lobe and small LEFT pleural effusion. 2. Diffuse infiltrate and plaque atelectasis in the RIGHT base. Microbiology 08/30/24 11:06 Blood Blood Culture - Final NO GROWTH AFTER 5 DAYS 08/30/24 11:10 Blood Blood Culture - Final NO GROWTH AFTER 5 DAYS 08/30/24 12:38 Urine,Clean Catch Legionella Urinary Antigen - Final 08/30/24 12:38 Urine,Clean Catch Bacterial Antigens - Final Laboratory Results WBC 9.38 10^3/uL (3.29-11.43) 09/04/24 02:23 RBC 5.09 10^6/uL (3.85-5.65) 09/04/24 02:23 Hgb 15.40 g/dL (11.27-16.99) 09/04/24 02:23 Hct 46.7 % (37-53) 09/04/24 02:23 MCV 91.7 fl (82-101) 09/04/24 02:23 MCH 30.3 pg (27-33) 09/04/24 02:23 MCHC 33.0 g/dL (30-55) 09/04/24 02:23 RDW 13.6 % (12.1-15.1) 09/04/24 02:23 Plt Count 164 10^3/cmm (157-399) 09/04/24 02:23 MPV 9.6 fL (7.4-10.4) 09/04/24 02:23 Neut % (Auto) 80.1 % 09/04/24 02:23 Lymph % (Auto) 11.2 % 09/04/24 02:23 [place] % (Auto) 8.0 % 09/04/24 02:23 Eos % (Auto) 0.1 % 09/04/24 02:23 Baso % (Auto) 0.1 % 09/04/24 02:23 Neut # (Auto) 7.51 10^3/uL (1.8-7.7) 09/04/24 02:23 Lymph # (Auto) 1.1 10^3/uL (0.8-4.8) 09/04/24 02:23 [place] # (Auto) 0.8 10^3/uL (0.2-0.9) 09/04/24 02:23 Eos # (Auto) 0.0 10^3/uL (0.0-0.8) 09/04/24 02:23 Baso # (Auto) 0.0 10^3/uL (0.0-0.1) 09/04/24 02:23 Nucleated RBC % (auto) 0 % 09/04/24 02:23 Nucleated RBCs # 0.0 /100WBC 09/04/24 02:23 Specimen Type Arterial 08/30/24 09:08 Sample Site Radial, right 08/30/24 09:08 ABG pH 7.47 (7.35-7.45) H 08/30/24 09:08 ABG pCO2 39.5 mmHg (35-45) 08/30/24 09:08 ABG pO2 45.8 mmHg (80.0-100.0) L 08/30/24 09:08 ABG HCO3 28.8 mmol/L (22-26) H 08/30/24 09:08 ABG O2 Saturation 84.1 08/30/24 09:08 ABG Base Excess 4.8 mmol/L (-2.0-2.0) H 08/30/24 09:08 Yunior Test Pos 08/30/24 09:08 A-a O2 Gradient 7.5 mmHg (5-10) 08/30/24 09:08 Hematocrit 50.9 % (42-52) 08/30/24 09:08 Hgb O2 Saturation 82.2 % (95-100) L 08/30/24 09:08 Carboxyhemoglobin 1.7 %THgb (0.4-20.1) 08/30/24 09:08 Methemoglobin 0.7 % (0.4-1.5) 08/30/24 09:08 Total Hemoglobin 16.6 g/dL (14-18) 08/30/24 09:08 Sodium 140.0 mmol/L (131-143) 08/30/24 09:08 Potassium 3.4 mmol/L (3.5-5.0) L 08/30/24 09:08 Glucose 128.0 mg/dL (70-115) H 08/30/24 09:08 Ionized Calcium 1.2 mmol/L (1.1-1.4) 08/30/24 09:08 O2 Delivery Device Nc 08/30/24 09:08 O2 Liters/Min 10.0 % 08/30/24 09:08 Contract Negotiator ID [place] 08/30/24 09:08 Sodium 139 mmol/L (136-145) 09/04/24 02:23 Potassium 4.5 mmol/L (3.5-5.1) 09/04/24 02:23 Chloride 101 mmol/L (98-107) 09/04/24 02:23 Carbon Dioxide 29 mmol/L (22-29) 09/04/24 02:23 Anion Gap 13.5 (5-19) 09/04/24 02:23 BUN 26 mg/dL (8-23) H 09/04/24 02:23 Creatinine 1.0 mg/dL (0.7-1.2) 09/04/24 02:23 GFR Calculation Not Reportable 09/04/24 02:23 Glucose 143 mg/dL (65-115) H 09/04/24 02:23 Estimat Average Glucose 140 09/02/24 05:04 Hemoglobin A1c 6.5 % (4.0-6.0) H 09/02/24 05:04 Calculated Osmolality 295 mOsm/kg (285-295) 09/04/24 02:23 Calcium 9.1 mg/dL (8.5-10.5) 09/04/24 02:23 Magnesium 2.4 mg/dL (1.7-2.3) H 09/04/24 02:23 Iron 105 ug/dL (59-158) 09/02/24 05:04 TIBC 202 mcg/dl 09/02/24 05:04 % Saturation 51.9 % (20-50) H 09/02/24 05:04 Unsat Iron Binding 97 ug/dL (112-347) L 09/02/24 05:04 Total Bilirubin 0.8 mg/dL (0.15-1.2) 09/04/24 02:23 AST 28 U/L (0-40) 09/04/24 02:23 ALT 53 U/L (0-41) H 09/04/24 02:23 Alkaline Phosphatase 79 U/L (40-130) 09/04/24 02:23 Total Protein 6.4 g/dL (6.6-8.7) L 09/04/24 02:23 Albumin 3.5 g/dL (3.5-5.2) 09/04/24 02:23 Globulin 2.9 g/dL (1.3-4.6) 09/04/24 02:23 Folate 7.9 ng/mL (4.5-32.2) 09/03/24 03:23 Procalcitonin 0.05 ng/mL (0-0.5) 09/02/24 05:04 Urine Color Yellow (Yellow) 08/30/24 12:38 Urine Appearance Clear (CLEAR) 08/30/24 12:38 Urine pH 7.0 (5-7) 08/30/24 12:38 Ur Specific [place] 1.025 (1.005-1.030) 08/30/24 12:38 Urine Protein Trace (Negative) A 08/30/24 12:38 Urine Glucose (UA) Negative (Normal) 08/30/24 12:38 Urine Ketones 1+ (Negative) H 08/30/24 12:38 Urine Blood Negative (Negative) 08/30/24 12:38 Urine Nitrate Negative (Negative) 08/30/24 12:38 Urine Bilirubin Negative (Negative) 08/30/24 12:38 Urine Urobilinogen 1.0 mg/dL (Negative) 08/30/24 12:38 Ur Leukocyte Esterase Negative (Negative) 08/30/24 12:38 Urine RBC 0-4 /hpf (0-2) H 08/30/24 12:38 Urine WBC 0-4 /hpf (0-5) H 08/30/24 12:38 Ur Squamous Epith Cells 0-4 /hpf (0-5) H 08/30/24 12:38 Amorphous Sediment Trace /hpf 08/30/24 12:38 Urine Bacteria 1+ /hpf (NONE) H 08/30/24 12:38 Hyaline Casts 0-4 /lpf H 08/30/24 12:38 Fine Granular Casts 0-4 /lpf H 08/30/24 12:38 Urine Mucus 1+ /hpf 08/30/24 12:38 Nasal MRSA (PCR) Not detected (Negative) 08/30/24 15:45 Influenza A (PCR) Positive (Negative) 08/30/24 09:42 Influenza Type B (PCR) Negative (Negative) 08/30/24 09:42 RSV (PCR) Negative (Negative) 08/30/24 09:42 SARS-CoV-2 (PCR) Negative (Negative) 08/30/24 09:42 Vitals Last Vital Signs Temp 97.6 F 09/04/24 07:57 Pulse 88 09/04/24 09:18 Resp 18 09/04/24 09:18 BP 102/64 09/04/24 07:57 Pulse Ox 85 L 09/04/24 09:23 O2 Del Method Nasal Cannula 09/04/24 09:18 O2 Flow Rate 6 09/04/24 09:23 FiO2 40 09/01/24 13:36 Discharge Plan Discharge Patient Disposition: Home Health Service Condition: Stable Prescriptions: New oseltamivir 75 mg Capsule 75 mg PO BID Qty: 2 0RF budesonide 0.5 mg/2 mL Suspension For Nebulization 0.5 mg inhalation BID.RESPIRATORY Qty: 60 0RF furosemide [Lasix] 20 mg tablet 20 mg PO QAM Qty: 30 0RF dapagliflozin propanediol [Farxiga] 10 mg tablet 10 mg PO DAILY Qty: 30 0RF prednisone 10 mg tablet See Taper PO DIRECTED Qty: 42 0RF Taper: predniSONE 60-10 60 mg Daily for 2 Days and 0 Hour 50 mg Daily for 2 Days and 0 Hour 40 mg Daily for 2 Days and 0 Hour 30 mg Daily for 2 Days and 0 Hour 20 mg Daily for 2 Days and 0 Hour 10 mg Daily for 2 Days and 0 Hour Rx Instructions: see taper instructions Continued simvastatin 80 mg tablet 40 mg PO QPM trazodone 100 mg tablet 100 mg PO BEDTIME PRN (Reason: Sleep) aspirin [Adult Aspirin Regimen] 81 mg tablet,delayed release (DR/EC) 81 mg PO DAILY@11 alprazolam [Xanax] 0.5 mg tablet 0.5 mg PO BID MDD 1 mg PRN (Reason: anxiety) Qty: 60 2RF (DME) Acapella See Rx Instructions .Route .MEDSUPPLY Qty: 1 0RF Rx Instructions: As directed (DME) Chest Vest (Afflo) See Rx Instructions .Route .MEDSUPPLY Qty: 1 0RF Rx Instructions: High Frequency Chest Wall Oscillation Vest- 5Hz-20Hz for 30 minutes twice per day albuterol sulfate [Ventolin HFA] 90 mcg/actuation HFA aerosol inhaler 2 puff INHALATION QID PRN (Reason: Shortness Of Breath) Qty: 18 6RF Breztri Aerosphere 160-9-4.8 mcg/actuation HFA aerosol inhaler 2 inh inhalation BID 90 Days Qty: 32.1 3RF cholecalciferol (vitamin D3) [Vitamin D3] 125 mcg (5,000 unit) Tablet 125 mcg PO DAILY guaifenesin 100 mg/5 mL Liquid 200 mg PO Q4H PRN (Reason: Congestion) tramadol 50 mg Tablet 50 mg PO TID PRN (Reason: Pain) metformin 1,000 mg Tablet 1,000 mg PO BIDWMEAL montelukast [Singulair] 10 mg Tablet 10 mg PO QPM Eliquis 5 mg tablet 5 mg PO BID 30 Days Qty: 60 0RF Rx Instructions: Start on 08/25 at 7 pm after completion of loading dose. Changed ipratropium-albuterol 0.5 mg-3 mg(2.5 mg base)/3 mL solution for nebulization 3 ml inhalation Q8H 30 Days Qty: 360 4RF Discontinued linezolid 600 mg tablet 600 mg PO BID prednisone 10 mg tablets,dose pack 10 mg PO DIRECTED Qty: 21 0RF Rx Instructions: see taper instructions Discharge Orders: Discharge Order (Routine); Ordered 09/04/24 Ordered By: Pollo Angulo Other Ambulatory Orders: DME: Oxygen (Order) Location: None Selected Ordered By: Pollo Angulo [facility] Tonja Marshall FNP [Primary Care Provider] - 09/08/24 10:00 am Discharge Diet: Cardiac and Diabetic Discharge Activity: Resume usual activity and Increase activity as tolerated Patient Instructions: Furosemide (By mouth) (Lasix), Prednisone (By mouth), Budesonide (By breathing), Oseltamivir (By mouth) (Tamiflu), Dapagliflozin (By mouth) (Farxiga), Influenza (DC), COPD (Chronic Obstructive Pulmonary Disease) (DC), Pneumonia (DC), Opioid Safety Activity Restrictions/Additional Instructions: Restrict fluid intake to less than 1500 cc, salt intake to less than 2 g daily. Advised to check his weight daily at home. Is advised that weight today would be the dry weight and if body weight increases by around 5 pounds, patient is to take a dose of Lasix daily till body weight comes down to weight today. If not able to come down to dry body weight in 1 week, then is to call cardiology office for further recommendations. Patient was counseled in detail to take medications regularly as prescribed. Please continue nebulization treatment with DuoNeb 3 times a day and Pulmicort twice daily for next 2 weeks. After completion of 2 weeks you can go back to your inhaler. Discharge Attestations Time Spent in Discharge Care*: greater than 30 min Specific Discharge Activities: educating patient, discussing with pcp/other providers, discussing with employment case manager/social workers/dc planners, documenting/other paperwork and evaluating patient/reviewing data Status at Discharge: Cognitive status at discharge: cognitively intact , Behavioral status at discharge: cooperative , Functional status at discharge: independent ambulation , Overall status at discharge: patient is progressing back to baseline Quality Metrics Clinical Quality Measures [ No reported AMI, CVA or VTE this stay] Coding Level of Care Code 85957 Total time (in minutes) for Discharge: 60 Diagnoses Acute hypoxic respiratory failure J96.01 Influenza A J10.1 COPD exacerbation J44.1 Pneumonia J18.9
[2024-09-04] MEDS: aspirin 81 mg EC Tablet PO (10:25)
--- NOTE | 2024-09-04 11:00 | PC.NURSE ---
Patient is awaiting his ride still.
--- NOTE | 2024-09-04 11:44 | PC.SOCIAL ---
IMM Update pg 2 of IMM Updated and reviewed w/ patient. Copy provided and copy dated, initialed and placed in chart.
== END 2024-09-04 11:30 | disposition home health service (06) | DRG 189 ==
LOC: ER 13:40 → ER IP 14:09 → ICU 17:20 → MEDSURG 09-01 14:56
PROVIDERS: Admitting Provider Internal Medicine; Emergency Provider Family Medicine; PCP Nurse Practitioner; Visit Provider Student in an Organized Health Care Education/Training Program
DX: J96.01 Acute respiratory failure with hypoxia (principal); I26.99 Other pulmonary embolism without acute cor pulmonale; J10.00 Influenza due to other identified influenza virus with unspecified type of pneumonia; J44.1 Chronic obstructive pulmonary disease with (acute) exacerbation; J44.0 Chronic obstructive pulmonary disease with (acute) lower respiratory infection; J96.02 Acute respiratory failure with hypercapnia; E11.9 Type 2 diabetes mellitus without complications; E78.5 Hyperlipidemia, unspecified; F41.9 Anxiety disorder, unspecified; Z87.891 Personal history of nicotine dependence; Z99.81 Dependence on supplemental oxygen; Z79.01 Long term (current) use of anticoagulants; Z79.84 Long term (current) use of oral hypoglycemic drugs; Z79.82 Long term (current) use of aspirin
CPT/HCPCS: 36415; 36600; 71045; 80048; 80051; 80053; 81001; 82330; 82746; 82805; 83036; 83540; 83550; 83735; 84145; 85025; 86403; 87040; 87449; 87637; 93005; 94640; 94664; 94760; 96365; 96367; 96375; 99285; J1940; J2020; J2470; J2543; J2919; J7626

== ENCOUNTER 2024-09-26 09:33 | Emergency (ER) | payer OTHER, MEDICARE, SELFPAY ==
[2024-09-26] VITALS (27 sets, daily range): BP systolic 106–137; BP diastolic 51–89; PULSE 88–135; RESP 17–30; TEMP 36.8; O2SAT 78–94
--- NOTE | 2024-09-26 09:35 | ECG_ITS ---
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 Measurements Intervals [place] Rate: 98 P: 93 VT: 193 QRS: 58 QRSD: 82 T: 75 QT: 329 QTc: 421 Interpretive Statements SINUS RHYTHM INDETERMINATE AXIS Compared to ECG 08/30/2024 09:27:07 No significant changes Electronically Signed On 09-26-2024 19:18:23 CDT by Yasir Bobby M.D. [email or web address] [id number]
--- NOTE | 2024-09-26 09:44 | XRR_ITS ---
PROCEDURE INFORMATION: Exam: XR Chest Exam date and time: 09/26/2024 9:52 AM Age: 79 years old Clinical indication: Shortness of breath; Additional info: SOB TECHNIQUE: Imaging protocol: Radiologic exam of the chest. Views: 1 view. COMPARISON: CR XR chest 1V portable [id number] 08/30/2024 9:51 AM. Chest radiograph dated 08/19/2024. CTA chest dated 08/15/2024. FINDINGS: Tubes, catheters and devices: None. Lungs: Bilateral perihilar and basilar lung interstitial and alveolar opacities are demonstrated. The pulmonary alveolar opacities are most prominent within the lower left lung. Slight improvement of left-sided lower lung opacities is demonstrated. The bilateral upper lungs appear clear. Pleural spaces: Small volume bilateral pleural effusions. No pneumothorax identified. Heart/Mediastinum: Mediastinum and philomena appear unremarkable. Vasculature: Moderate to severe atherosclerotic calcification demonstrated within the aorta. Tortuous and ectatic aorta is demonstrated. Bones/joints: Diffusely decreased bone density. Moderate to severe generalized bony degenerative changes. XR/XR chest 1V portable [id number] IMPRESSION: 1. Small bilateral pleural effusions. 2. Bilateral perihilar and basilar opacities concerning for pneumonia, most prominent within the left lower lung. 3. Chronic findings.
--- NOTE | 2024-09-26 09:45 | W.ED.SOB ---
Documented by User: MARSHALL Mcdaniel 09/26/24 17:03 HPI - SOB/Dyspnea General: Chief Complaint: Shortness of Breath/Dyspnea Stated Complaint: Resp Distress Time Seen by Provider: 09/26/24 09:39 Source: patient Mode of arrival: EMS Limitations: no limitations History of Present Illness: HPI Narrative: Patient is a 79-year-old male with a history of end stage COPD normally on 7L O2 nasal cannula, pulmonary emboli diagnosed last month now on Eliquis anticoagulation here for worsening shortness of breath. Patient was admitted to our facility last month and diagnosed with multilobar pneumonia, influenza A, pulmonary embolism. Found to have bilateral bulky hilar and subcarinal lymphadenopathy-reactive versus neoplastic. Patient is not having any chest pain. He is not complaining of recent illness including fevers, chills, body aches. Patient was actually admitted twice last month. [facility] Dr[facility] Ibrahim back in May 2024 and recommended to have endobronchial valve therapybut I do not believe he ever followed up with this. Of note-states he fell a week or so ago and struck his head and has been having headache since-requesting CT head. MD elicited complaint: shortness of breath and cough Pertinent past history: COPD Onset (ago): day(s) Timing: constant Severity: moderate Exacerbating factors: exertion Relieving factors: oxygen and rest Known history of: COPD and PE Associated symptoms: Reports no associated symptoms; Deny abdominal pain, chest pain, dizziness, extremity pain, fever(s), palpitations, syncope or vomiting Treatment prior to arrival: oxygen and bronchodilator Related Data Home Medications ?Medication ?Instructions ?Recorded ?Confirmed aspirin 81 mg tablet,delayed 81 mg PO DAILY@11 03/06/20 09/26/24 release (Adult Aspirin Regimen) simvastatin 80 mg tablet 40 mg PO QPM 03/06/20 09/26/24 trazodone 100 mg tablet 100 mg PO BEDTIME PRN Sleep 03/06/20 09/26/24 cholecalciferol (vitamin D3) 125 125 mcg PO DAILY 04/22/21 09/26/24 mcg (5,000 unit) tablet (Vitamin D3) guaifenesin 100 mg/5 mL oral liquid 200 mg PO Q4H PRN Congestion 08/15/24 09/26/24 metformin 1,000 mg tablet 1,000 mg PO BIDWMEAL 08/15/24 09/26/24 montelukast 10 mg tablet 10 mg PO QPM 08/15/24 09/26/24 (Singulair) tramadol 50 mg tablet 50 mg PO TID PRN Pain 08/15/24 09/26/24 apixaban 5 mg tablet (Eliquis) 5 mg PO BID 09/26/24 09/26/24 prednisone 5 mg tablet 5 mg PO DAILY 09/26/24 09/26/24 Previous Rx's ?Medication ?Instructions ?Recorded albuterol sulfate 90 mcg/actuation 2 puff inhalation QID PRN 12/22/22 aerosol inhaler (Ventolin HFA) Shortness Of Breath #18 grams alprazolam 0.5 mg tablet (Xanax) 0.5 mg PO BID PRN anxiety #60 tabs 10/28/23 budesonide 160 mcg-glycopyr 9 2 inh inhalation BID 90 days #32.1 01/06/24 mcg-formot 4.8 mcg/actuation HFA grams inhaler (Breztri Aerosphere) budesonide 0.5 mg/2 mL suspension 0.5 mg (2 mL) inhalation 09/04/24 for nebulization BID.RESPIRATORY #60 mL dapagliflozin propanediol 10 mg 10 mg PO DAILY #30 tabs 09/04/24 tablet (Farxiga) furosemide 20 mg tablet (Lasix) 20 mg PO QAM #30 tabs 09/04/24 ipratropium 0.5 mg-albuterol 3 mg 3 ml inhalation Q8H wheezing 30 09/04/24 (2.5 mg base)/3 mL nebulization days #360 mL soln Allergies Allergy/AdvReac Type Severity Reaction Status Date / Time No Known Allergies Allergy Verified 08/14/24 23:37 Review of Systems Const: Denies: fever(s), chills, body aches, fatigue or malaise Card: Denies: chest pain, palpitations, irregular heart rhythm, edema, syncope or pre-syncope Resp: Reports: dyspnea and non-productive cough GI: Denies: abdominal pain, vomiting or diarrhea Musc: Denies: neck pain, back pain, extremity pain, extremity swelling or joint swelling Skin/Breast: Denies: rash Neuro: Denies: headache(s), numbness in extremities, weakness in extremities, sensory changes or dizziness PFS ED PFSH: Medical History Pulmonary embolism Mediastinal lymphadenopathy Diaphragm dysfunction Shortness of breath Polycythemia Chronic respiratory failure with hypoxia Secondary polycythemia Pulmonary hypertension Hilar lymphadenopathy Hypoxia Acute exacerbation of chronic obstructive airways disease Anxiety Hyperlipidemia Insomnia Type 2 diabetes mellitus Chronic obstructive pulmonary disease Surgical History Hx of tonsillectomy Family History Other Healthy adult Social History Smoking and tobacco/nicotine status: former use of tobacco/nicotine Quit status (tobacco/nicotine): has quit using Year quit tobacco: 1999 - 1PPD x 20 Years Second hand smoke exposure: No Alcohol intake: never Substance/Drug Use: never Lives independently: Yes Household members: none Marital status: Number of children: 2 service: Yes Current occupational status: employed 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 Reed-hospitalist at [facility] Vital Signs: Vital signs: Vital Signs Temperature 98.2 F 09/26/24 09:40 Pulse Rate 118 H 09/26/24 20:06 Respiratory Rate 24 H 09/26/24 19:08 Blood Pressure 115/72 09/26/24 20:06 Pulse Oximetry 91 09/26/24 20:06 Oxygen Delivery Me thod Heated High Flow 09/26/24 19:15 Oxygen Flow Rate 50 09/26/24 17:28 Fraction of Inspir ed Oxygen 55 09/26/24 17:28 MDM - SOB/Dyspnea Medical Decision Making Originally spoken to Dr. Villarreal regarding this patient. He is concerned that patient will require pulmonology specialty. [facility] does not have this. He is requesting that I consult with pulmonology and then we will come up with a plan at that time. I waited hours on [facility] pulmonology to call me back and ultimately they called and told me that they do not have any bed availability therefore would be unwilling to consult on this patient. I have waited several hours for [facility] pulmonology to call me back. Finally spoke to them. They stated they cannot take him if we think this is related to pulmonary hypertension as they do not have their manager inventory control who deals with this on service-me neither hospitalist feel this is related to pulmonary HTN. They said there would be nothing to do inpatient for his lymphadenopathy seen on CT imaging. Did recommend repeat CTA but they did not feel he needed to be transferred to their facility. I did speak to Dr. Wiseman who also feels patient needs pulmonology but is willing to consult on patient and offer further recommendations-appreciate this. Patient wants to be admitted here although it is looking like this will not be a possibility. Dr. Munoz has been aware of patient during his ED stay. Medical Records I reviewed the patient's medical records. Lab Data I reviewed the patient's lab results. 09/26/24 09:55 09/26/24 09:55 Labs/Radiology: Radiology Impressions Chest X-Ray 09/26/24 09:44 IMPRESSION: 1. Small bilateral pleural effusions. 2. Bilateral perihilar and basilar opacities concerning for pneumonia, most prominent within the left lower lung. 3. Chronic findings. Head CT 09/26/24 09:51 IMPRESSION: 1. No acute intracranial hemorrhage or edema. 2. Moderate atrophy with severe small vessel ischemic disease. 3. Bilateral thalamic lacunar infarcts, chronic. 4. No skull fracture. Chest CTA 09/26/24 16:34 IMPRESSION: 1. Pulmonary embolism. Moderate clot burden. Progressive since 08/15/2024. 2. Abnormal RV/LV ratio consistent with right heart strain. 3. Left lower lobe consolidation visible on the prior CT has resolved. 4. Left lung nodules measuring up to 8 mm, obscured on the prior. For patients at low risk (minimal or absent history of smoking and of other known risk factors), recommend CT Chest at 3-6 months, then consider CT Chest at 18-24 months. For patients at high risk (history of smoking or of other known risk factors), recommend CT Chest at 3-6 months, then CT Chest at 18-24 months. (Reference: Maksim) REFERENCES: Maksim Terry et al. Guidelines for Management of Incidental Pulmonary Nodules Detected on CT Images: From the Fleischner Society 2017. Radiology. 2017;284(1):228-243. ADDENDUM: 09/26/24 8807 Additional findings not included in the report below: Mildly enlarged nonspecific mediastinal and hilar lymph nodes are decreased since 08/15/2024. THIS REPORT CONTAINS FINDINGS THAT MAY BE CRITICAL TO PATIENT CARE. The findings and recommendations were personally verbally communicated via telephone conference with Pa. Zamudio at 6:52 PM CDT on 09/26/2024. The findings were acknowledged and understood. Laboratory Results WBC 6.85 10^3/uL (3.29-11.43) 09/26/24 09:55 RBC 4.55 10^6/uL (3.85-5.65) 09/26/24 09:55 Hgb 13.60 g/dL (11.27-16.99) 09/26/24 09:55 Hct 42.4 % (37-53) 09/26/24 09:55 MCV 93.2 fl (82-101) 09/26/24 09:55 MCH 29.9 pg (27-33) 09/26/24 09:55 MCHC 32.1 g/dL (30-55) 09/26/24 09:55 RDW 13.9 % (12.1-15.1) 09/26/24 09:55 Plt Count 172 10^3/cmm (157-399) 09/26/24 09:55 MPV 9.3 fL (7.4-10.4) 09/26/24 09:55 Neut % (Auto) 62.0 % 09/26/24 09:55 Lymph % (Auto) 23.5 % 09/26/24 09:55 Rogers % (Auto) 12.6 % 09/26/24 09:55 Eos % (Auto) 0.6 % 09/26/24 09:55 Baso % (Auto) 0.4 % 09/26/24 09:55 Neut # (Auto) 4.25 10^3/uL (1.8-7.7) 09/26/24 09:55 Lymph # (Auto) 1.6 10^3/uL (0.8-4.8) 09/26/24 09:55 Rogers # (Auto) 0.9 10^3/uL (0.2-0.9) 09/26/24 09:55 Eos # (Auto) 0.0 10^3/uL (0.0-0.8) 09/26/24 09:55 Baso # (Auto) 0.0 10^3/uL (0.0-0.1) 09/26/24 09:55 Nucleated RBC % (auto) 0 % 09/26/24 09:55 Nucleated RBCs # 0.0 /100WBC 09/26/24 09:55 D-Dimer 12.57 ug/mLFEU (0-0.59) H 09/26/24 09:55 Specimen Type Arterial 09/26/24 10:17 Sample Site Radial, left 09/26/24 10:17 ABG pH 7.50 (7.35-7.45) H 09/26/24 10:17 ABG pCO2 34.4 mmHg (35-45) L 09/26/24 10:17 ABG pO2 76.3 mmHg (80.0-100.0) L 09/26/24 10:17 ABG HCO3 27.0 mmol/L (22-26) H 09/26/24 10:17 ABG O2 Saturation 97.5 09/26/24 10:17 ABG Base Excess 4.1 mmol/L (-2.0-2.0) H 09/26/24 10:17 Yunior Test Pos 09/26/24 10:17 A-a O2 Gradient 3.8 mmHg (5-10) L 09/26/24 10:17 Hematocrit 41.5 % (42-52) L 09/26/24 10:17 Hgb O2 Saturation 95.9 % (95-100) 09/26/24 10:17 Carboxyhemoglobin 1.5 %THgb (0.4-20.1) 09/26/24 10:17 Methemoglobin 0.1 % (0.4-1.5) L 09/26/24 10:17 Total Hemoglobin 13.5 g/dL (14-18) L 09/26/24 10:17 Sodium 136.0 mmol/L (131-143) 09/26/24 10:17 Potassium 3.4 mmol/L (3.5-5.0) L 09/26/24 10:17 Glucose 129.0 mg/dL (70-115) H 09/26/24 10:17 Ionized Calcium 1.2 mmol/L (1.1-1.4) 09/26/24 10:17 O2 Delivery Device Nrb 09/26/24 10:17 Obiee Architect ID [email or web address] 09/26/24 10:17 Sodium 138 mmol/L (136-145) 09/26/24 09:55 Potassium 3.8 mmol/L (3.5-5.1) 09/26/24 09:55 Chloride 98 mmol/L (98-107) 09/26/24 09:55 Carbon Dioxide 26 mmol/L (22-29) 09/26/24 09:55 Anion Gap 17.8 (5-19) 09/26/24 09:55 BUN 11 mg/dL (8-23) 09/26/24 09:55 Creatinine 1.0 mg/dL (0.7-1.2) 09/26/24 09:55 GFR Calculation Not Reportable 09/26/24 09:55 Glucose 123 mg/dL (65-115) H 09/26/24 09:55 Calculated Osmolality 287 mOsm/kg (285-295) 09/26/24 09:55 Lactic Acid 3.5 mmol/L (0.5-2.2) H 09/26/24 09:55 Lactic Acid (Sepsis) 1.2 mmol/L (0.5-2.2) 09/26/24 12:41 Calcium 8.4 mg/dL (8.5-10.5) L 09/26/24 09:55 Total Bilirubin 1.0 mg/dL (0.15-1.2) 09/26/24 09:55 AST 18 U/L (0-40) 09/26/24 09:55 ALT 16 U/L (0-41) 09/26/24 09:55 Alkaline Phosphatase 99 U/L (40-130) 09/26/24 09:55 Troponin T Baseline 28 ng/L (0-15) H 09/26/24 09:55 Troponin T 120 Minute 27.65 ng/L (0-15) H 09/26/24 11:04 Delta Troponin T -0.35 ABS# (0-10) L 09/26/24 11:04 Troponin T Hi Sens 6Hr 22.23 ng/L (0-15) H 09/26/24 16:08 Troponin T Hi Sens 6Hr Delta -5.77 ng/L (0-12) L 09/26/24 16:08 NT-Pro-B Natriuret Pep 371 pg/mL (0-450) 09/26/24 09:55 Total Protein 6.1 g/dL (6.6-8.7) L 09/26/24 09:55 Albumin 3.4 g/dL (3.5-5.2) L 09/26/24 09:55 Globulin 2.7 g/dL (1.3-4.6) 09/26/24 09:55 Procalcitonin 0.14 ng/mL (0-0.5) 09/26/24 09:55 Influenza A (PCR) Negative (Negative) 09/26/24 12:00 Influenza Type B (PCR) Negative (Negative) 09/26/24 12:00 RSV (PCR) Negative (Negative) 09/26/24 12:00 SARS-CoV-2 (PCR) Negative (Negative) 09/26/24 12:00 All radiology interpretation(s) finalized by discharge Discharge Plan Discharge Patient Disposition: Xfer Short-Term Hosp Clinical Impression: End stage COPD, Chronic hypoxic respiratory failure, on home oxygen therapy Condition: Stable Referrals: Tonja Marshall FNP [Primary Care Provider] - Print Language: Iraqi Sign Out Sign Out Data: Patient Sign Out occurred on 09/26/24 at 17:06. Patient's care was discussed, and care was transferred from MARSHALL Mcdainel to MARSHALL Zuluaga. Coding Level of Care Code ED Chartered Wealth Manager for g Fwd Documented by User: Ed Munoz DO 09/27/24 05:57 HPI - SOB/Dyspnea General: Chief Complaint: Shortness of Breath/Dyspnea Stated Complaint: Resp Distress Time Seen by Provider: 09/26/24 09:39 Related Data Home Medications ?Medication ?Instructions ?Recorded ?Confirmed aspirin 81 mg tablet,delayed 81 mg PO DAILY@11 03/06/20 09/26/24 release (Adult Aspirin Regimen) simvastatin 80 mg tablet 40 mg PO QPM 03/06/20 09/26/24 trazodone 100 mg tablet 100 mg PO BEDTIME PRN Sleep 03/06/20 09/26/24 cholecalciferol (vitamin D3) 125 125 mcg PO DAILY 04/22/21 09/26/24 mcg (5,000 unit) tablet (Vitamin D3) guaifenesin 100 mg/5 mL oral liquid 200 mg PO Q4H PRN Congestion 08/15/24 09/26/24 metformin 1,000 mg tablet 1,000 mg PO BIDWMEAL 08/15/24 09/26/24 montelukast 10 mg tablet 10 mg PO QPM 08/15/24 09/26/24 (Singulair) tramadol 50 mg tablet 50 mg PO TID PRN Pain 08/15/24 09/26/24 apixaban 5 mg tablet (Eliquis) 5 mg PO BID 09/26/24 09/26/24 prednisone 5 mg tablet 5 mg PO DAILY 09/26/24 09/26/24 Previous Rx's ?Medication ?Instructions ?Recorded albuterol sulfate 90 mcg/actuation 2 puff inhalation QID PRN 12/22/22 aerosol inhaler (Ventolin HFA) Shortness Of Breath #18 grams alprazolam 0.5 mg tablet (Xanax) 0.5 mg PO BID PRN anxiety #60 tabs 10/28/23 budesonide 160 mcg-glycopyr 9 2 inh inhalation BID 90 days #32.1 01/06/24 mcg-formot 4.8 mcg/actuation HFA grams inhaler (Breztri Aerosphere) budesonide 0.5 mg/2 mL suspension 0.5 mg (2 mL) inhalation 09/04/24 for nebulization BID.RESPIRATORY #60 mL dapagliflozin propanediol 10 mg 10 mg PO DAILY #30 tabs 09/04/24 tablet (Farxiga) furosemide 20 mg tablet (Lasix) 20 mg PO QAM #30 tabs 09/04/24 ipratropium 0.5 mg-albuterol 3 mg 3 ml inhalation Q8H wheezing 30 09/04/24 (2.5 mg base)/3 mL nebulization days #360 mL soln Allergies Allergy/AdvReac Type Severity Reaction Status Date / Time No Known Allergies Allergy Verified 08/14/24 23:37 [facility] ED PFSH: Medical History Pulmonary embolism Mediastinal lymphadenopathy Diaphragm dysfunction Shortness of breath Polycythemia Chronic respiratory failure with hypoxia Secondary polycythemia Pulmonary hypertension Hilar lymphadenopathy Hypoxia Acute exacerbation of chronic obstructive airways disease Anxiety Hyperlipidemia Insomnia Type 2 diabetes mellitus Chronic obstructive pulmonary disease Surgical History Hx of tonsillectomy Family History Other Healthy adult Social History Smoking and tobacco/nicotine status: former use of tobacco/nicotine Quit status (tobacco/nicotine): has quit using Year quit tobacco: 1999 - 1PPD x 20 Years Second hand smoke exposure: No Alcohol intake: never Substance/Drug Use: never Lives independently: Yes Household members: none Marital status: Number of children: 2 service: Yes Current occupational status: employed 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 Villarreal regarding this patient. He is concerned that patient will require pulmonology specialty. [facility] does not have this. He is requesting that I consult with pulmonology and then we will come up with a plan at that time. I waited hours on [facility] pulmonology to call me back and ultimately they called and told me that they do not have any bed availability therefore would be unwilling to consult on this patient. I have waited several hours for [facility] pulmonology to call me back. Finally spoke to them. They stated they cannot take him if we think this is related to pulmonary hypertension as they do not have their manager inventory control who deals with this on service-me neither hospitalist feel this is related to pulmonary HTN. They said there would be nothing to do inpatient for his lymphadenopathy seen on CT imaging. Did recommend repeat CTA but they did not feel he needed to be transferred to their facility. I did speak to Dr. Wiseman who also feels patient needs pulmonology but is willing to consult on patient and offer further recommendations-appreciate this. Patient wants to be admitted here although it is looking like this will not be a possibility. Dr. Munoz has been aware of patient during his ED stay. Care of this patient was transferred to myself by MARSHALL Mcdaniel. At time of transfer to myself, Dr. Saldaña had currently been visiting with the patient and had reportedly spoken to hospitalist at [facility] in [place], and had arranged for transfer. There has been a bed assigned and currently awaiting EMS transport. 185: [facility] called to note that his pulmonary embolus that was seen originally in August has significantly progressed and that the previously seen left lower lobe pneumonia has since resolved. This likely explaining his acute on chronic hypoxia, and Dr. Saldaña will be notified of this update. Chart reviewed and patient discussed with midlevel. Agree with assessment and plan. Lab Data 09/26/24 09:55 09/26/24 09:55 Labs/Radiology: Radiology Impressions Chest X-Ray 09/26/24 09:44 IMPRESSION: 1. Small bilateral pleural effusions. 2. Bilateral perihilar and basilar opacities concerning for pneumonia, most prominent within the left lower lung. 3. Chronic findings. Head CT 09/26/24 09:51 IMPRESSION: 1. No acute intracranial hemorrhage or edema. 2. Moderate atrophy with severe small vessel ischemic disease. 3. Bilateral thalamic lacunar infarcts, chronic. 4. No skull fracture. Chest CTA 09/26/24 16:34 IMPRESSION: 1. Pulmonary embolism. Moderate clot burden. Progressive since 08/15/2024. 2. Abnormal RV/LV ratio consistent with right heart strain. 3. Left lower lobe consolidation visible on the prior CT has resolved. 4. Left lung nodules measuring up to 8 mm, obscured on the prior. For patients at low risk (minimal or absent history of smoking and of other known risk factors), recommend CT Chest at 3-6 months, then consider CT Chest at 18-24 months. For patients at high risk (history of smoking or of other known risk factors), recommend CT Chest at 3-6 months, then CT Chest at 18-24 months. (Reference: Maksim) REFERENCES: Maksim Terry, et al. Guidelines for Management of Incidental Pulmonary Nodules Detected on CT Images: From the Fleischner Society 2017. Radiology. 2017;284(1):228-243. ADDENDUM: 09/26/24 7188 Additional findings not included in the report below: Mildly enlarged nonspecific mediastinal and hilar lymph nodes are decreased since 08/15/2024. THIS REPORT CONTAINS FINDINGS THAT MAY BE CRITICAL TO PATIENT CARE. The findings and recommendations were personally verbally communicated via telephone conference with Pa. Zamudio at 6:52 PM CDT on 09/26/2024. The findings were acknowledged and understood. Laboratory Results WBC 6.85 10^3/uL (3.29-11.43) 09/26/24 09:55 RBC 4.55 10^6/uL (3.85-5.65) 09/26/24 09:55 Hgb 13.60 g/dL (11.27-16.99) 09/26/24 09:55 Hct 42.4 % (37-53) 09/26/24 09:55 MCV 93.2 fl (82-101) 09/26/24 09:55 MCH 29.9 pg (27-33) 09/26/24 09:55 MCHC 32.1 g/dL (30-55) 09/26/24 09:55 RDW 13.9 % (12.1-15.1) 09/26/24 09:55 Plt Count 172 10^3/cmm (157-399) 09/26/24 09:55 MPV 9.3 fL (7.4-10.4) 09/26/24 09:55 Neut % (Auto) 62.0 % 09/26/24 09:55 Lymph % (Auto) 23.5 % 09/26/24 09:55 Rogers % (Auto) 12.6 % 09/26/24 09:55 Eos % (Auto) 0.6 % 09/26/24 09:55 Baso % (Auto) 0.4 % 09/26/24 09:55 Neut # (Auto) 4.25 10^3/uL (1.8-7.7) 09/26/24 09:55 Lymph # (Auto) 1.6 10^3/uL (0.8-4.8) 09/26/24 09:55 Rogers # (Auto) 0.9 10^3/uL (0.2-0.9) 09/26/24 09:55 Eos # (Auto) 0.0 10^3/uL (0.0-0.8) 09/26/24 09:55 Baso # (Auto) 0.0 10^3/uL (0.0-0.1) 09/26/24 09:55 Nucleated RBC % (auto) 0 % 09/26/24 09:55 Nucleated RBCs # 0.0 /100WBC 09/26/24 09:55 D-Dimer 12.57 ug/mLFEU (0-0.59) H 09/26/24 09:55 Specimen Type Arterial 09/26/24 10:17 Sample Site Radial, left 09/26/24 10:17 ABG pH 7.50 (7.35-7.45) H 09/26/24 10:17 ABG pCO2 34.4 mmHg (35-45) L 09/26/24 10:17 ABG pO2 76.3 mmHg (80.0-100.0) L 09/26/24 10:17 ABG HCO3 27.0 mmol/L (22-26) H 09/26/24 10:17 ABG O2 Saturation 97.5 09/26/24 10:17 ABG Base Excess 4.1 mmol/L (-2.0-2.0) H 09/26/24 10:17 Yunior Test Pos 09/26/24 10:17 A-a O2 Gradient 3.8 mmHg (5-10) L 09/26/24 10:17 Hematocrit 41.5 % (42-52) L 09/26/24 10:17 Hgb O2 Saturation 95.9 % (95-100) 09/26/24 10:17 Carboxyhemoglobin 1.5 %THgb (0.4-20.1) 09/26/24 10:17 Methemoglobin 0.1 % (0.4-1.5) L 09/26/24 10:17 Total Hemoglobin 13.5 g/dL (14-18) L 09/26/24 10:17 Sodium 136.0 mmol/L (131-143) 09/26/24 10:17 Potassium 3.4 mmol/L (3.5-5.0) L 09/26/24 10:17 Glucose 129.0 mg/dL (70-115) H 09/26/24 10:17 Ionized Calcium 1.2 mmol/L (1.1-1.4) 09/26/24 10:17 O2 Delivery Device Nrb 09/26/24 10:17 Obiee Architect ID Amh 09/26/24 10:17 Sodium 138 mmol/L (136-145) 09/26/24 09:55 Potassium 3.8 mmol/L (3.5-5.1) 09/26/24 09:55 Chloride 98 mmol/L (98-107) 09/26/24 09:55 Carbon Dioxide 26 mmol/L (22-29) 09/26/24 09:55 Anion Gap 17.8 (5-19) 09/26/24 09:55 BUN 11 mg/dL (8-23) 09/26/24 09:55 Creatinine 1.0 mg/dL (0.7-1.2) 09/26/24 09:55 GFR Calculation Not Reportable 09/26/24 09:55 Glucose 123 mg/dL (65-115) H 09/26/24 09:55 Calculated Osmolality 287 mOsm/kg (285-295) 09/26/24 09:55 Lactic Acid 3.5 mmol/L (0.5-2.2) H 09/26/24 09:55 Lactic Acid (Sepsis) 1.2 mmol/L (0.5-2.2) 09/26/24 12:41 Calcium 8.4 mg/dL (8.5-10.5) L 09/26/24 09:55 Total Bilirubin 1.0 mg/dL (0.15-1.2) 09/26/24 09:55 AST 18 U/L (0-40) 09/26/24 09:55 ALT 16 U/L (0-41) 09/26/24 09:55 Alkaline Phosphatase 99 U/L (40-130) 09/26/24 09:55 Troponin T Baseline 28 ng/L (0-15) H 09/26/24 09:55 Troponin T 120 Minute 27.65 ng/L (0-15) H 09/26/24 11:04 Delta Troponin T -0.35 ABS# (0-10) L 09/26/24 11:04 Troponin T Hi Sens 6Hr 22.23 ng/L (0-15) H 09/26/24 16:08 Troponin T Hi Sens 6Hr Delta -5.77 ng/L (0-12) L 09/26/24 16:08 NT-Pro-B Natriuret Pep 371 pg/mL (0-450) 09/26/24 09:55 Total Protein 6.1 g/dL (6.6-8.7) L 09/26/24 09:55 Albumin 3.4 g/dL (3.5-5.2) L 09/26/24 09:55 Globulin 2.7 g/dL (1.3-4.6) 09/26/24 09:55 Procalcitonin 0.14 ng/mL (0-0.5) 09/26/24 09:55 Influenza A (PCR) Negative (Negative) 09/26/24 12:00 Influenza Type B (PCR) Negative (Negative) 09/26/24 12:00 RSV (PCR) Negative (Negative) 09/26/24 12:00 SARS-CoV-2 (PCR) Negative (Negative) 09/26/24 12:00 Discharge Plan Discharge Patient Disposition: Xfer Short-Term Hosp Clinical Impression: End stage COPD, Chronic hypoxic respiratory failure, on home oxygen therapy Condition: Stable Referrals: Tonja Marshall FNP [Primary Care Provider] - Print Language: Iraqi Sign Out Sign Out Data: Patient Sign Out occurred on 09/26/24 at 17:06. Patient's care was discussed, and care was transferred from MARSHALL Mcdaniel to MARSHALL Zuluaga. Coding Level of Care Code ED Chartered Wealth Manager for Chg Fwd Documented by User: MARSHALL Zuluaga 09/26/24 18:54 HPI - SOB/Dyspnea General: Chief Complaint: Shortness of Breath/Dyspnea Stated Complaint: Resp Distress Time Seen by Provider: 09/26/24 09:39 Related Data Home Medications ?Medication ?Instructions ?Recorded ?Confirmed aspirin 81 mg tablet,delayed 81 mg PO DAILY@11 03/06/20 09/26/24 release (Adult Aspirin Regimen) simvastatin 80 mg tablet 40 mg PO QPM 03/06/20 09/26/24 trazodone 100 mg tablet 100 mg PO BEDTIME PRN Sleep 03/06/20 09/26/24 cholecalciferol (vitamin D3) 125 125 mcg PO DAILY 04/22/21 09/26/24 mcg (5,000 unit) tablet (Vitamin D3) guaifenesin 100 mg/5 mL oral liquid 200 mg PO Q4H PRN Congestion 08/15/24 09/26/24 metformin 1,000 mg tablet 1,000 mg PO BIDWMEAL 08/15/24 09/26/24 montelukast 10 mg tablet 10 mg PO QPM 08/15/24 09/26/24 (Singulair) tramadol 50 mg tablet 50 mg PO TID PRN Pain 08/15/24 09/26/24 apixaban 5 mg tablet (Eliquis) 5 mg PO BID 09/26/24 09/26/24 prednisone 5 mg tablet 5 mg PO DAILY 09/26/24 09/26/24 Previous Rx's ?Medication ?Instructions ?Recorded albuterol sulfate 90 mcg/actuation 2 puff inhalation QID PRN 12/22/22 aerosol inhaler (Ventolin HFA) Shortness Of Breath #18 grams alprazolam 0.5 mg tablet (Xanax) 0.5 mg PO BID PRN anxiety #60 tabs 10/28/23 budesonide 160 mcg-glycopyr 9 2 inh inhalation BID 90 days #32.1 01/06/24 mcg-formot 4.8 mcg/actuation HFA grams inhaler (Breztri Aerosphere) budesonide 0.5 mg/2 mL suspension 0.5 mg (2 mL) inhalation 09/04/24 for nebulization BID.RESPIRATORY #60 mL dapagliflozin propanediol 10 mg 10 mg PO DAILY #30 tabs 09/04/24 tablet (Farxiga) furosemide 20 mg tablet (Lasix) 20 mg PO QAM #30 tabs 09/04/24 ipratropium 0.5 mg-albuterol 3 mg 3 ml inhalation Q8H wheezing 30 09/04/24 (2.5 mg base)/3 mL nebulization days #360 mL soln Allergies Allergy/AdvReac Type Severity Reaction Status Date / Time No Known Allergies Allergy Verified 08/14/24 23:37 PFS ED PFSH: Medical History Pulmonary embolism Mediastinal lymphadenopathy Diaphragm dysfunction Shortness of breath Polycythemia Chronic respiratory failure with hypoxia Secondary polycythemia Pulmonary hypertension Hilar lymphadenopathy Hypoxia Acute exacerbation of chronic obstructive airways disease Anxiety Hyperlipidemia Insomnia Type 2 diabetes mellitus Chronic obstructive pulmonary disease Surgical History Hx of tonsillectomy Family History Other Healthy adult Social History Smoking and tobacco/nicotine status: former use of tobacco/nicotine Quit status (tobacco/nicotine): has quit using Year quit tobacco: 1999 - 1PPD x 20 Years Second hand smoke exposure: No Alcohol intake: never Substance/Drug Use: never Lives independently: Yes Household members: none Marital status: Number of children: 2 service: Yes Current occupational status: employed 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 Villarreal regarding this patient. He is concerned that patient will require pulmonology specialty. [facility] does not have this. He is requesting that I consult with pulmonology and then we will come up with a plan at that time. I waited hours on [facility] pulmonology to call me back and ultimately they called and told me that they do not have any bed availability therefore would be unwilling to consult on this patient. I have waited several hours for [facility] pulmonology to call me back. Finally spoke to them. They stated they cannot take him if we think this is related to pulmonary hypertension as they do not have their manager inventory control who deals with this on service-me neither hospitalist feel this is related to pulmonary HTN. They said there would be nothing to do inpatient for his lymphadenopathy seen on CT imaging. Did recommend repeat CTA but they did not feel he needed to be transferred to their facility. I did speak to Dr. Wiseman who also feels patient needs pulmonology but is willing to consult on patient and offer further recommendations-appreciate this. Patient wants to be admitted here although it is looking like this will not be a possibility. Dr. Munoz has been aware of patient during his ED stay. Care of this patient was transferred to myself by MARSHALL Mcdaniel. At time of transfer to myself, Dr. Saldaña had currently been visiting with the patient and had reportedly spoken to hospitalist at [facility] in [place], and had arranged for transfer. There has been a bed assigned and currently awaiting EMS transport. 1852: [facility] called to note that his pulmonary embolus that was seen originally in August has significantly progressed and that the previously seen left lower lobe pneumonia has since resolved. This likely explaining his acute on chronic hypoxia, and Dr. Saldaña will be notified of this update. Lab Data 09/26/24 09:55 09/26/24 09:55 Labs/Radiology: Radiology Impressions Chest X-Ray 09/26/24 09:44 IMPRESSION: 1. Small bilateral pleural effusions. 2. Bilateral perihilar and basilar opacities concerning for pneumonia, most prominent within the left lower lung. 3. Chronic findings. Head CT 09/26/24 09:51 IMPRESSION: 1. No acute intracranial hemorrhage or edema. 2. Moderate atrophy with severe small vessel ischemic disease. 3. Bilateral thalamic lacunar infarcts, chronic. 4. No skull fracture. Chest CTA 09/26/24 16:34 IMPRESSION: 1. Pulmonary embolism. Moderate clot burden. Progressive since 08/15/2024. 2. Abnormal RV/LV ratio consistent with right heart strain. 3. Left lower lobe consolidation visible on the prior CT has resolved. 4. Left lung nodules measuring up to 8 mm, obscured on the prior. For patients at low risk (minimal or absent history of smoking and of other known risk factors), recommend CT Chest at 3-6 months, then consider CT Chest at 18-24 months. For patients at high risk (history of smoking or of other known risk factors), recommend CT Chest at 3-6 months, then CT Chest at 18-24 months. (Reference: Maksim) REFERENCES: Maksim Terry, et al. Guidelines for Management of Incidental Pulmonary Nodules Detected on CT Images: From the Fleischner Society 2017. Radiology. 2017;284(1):228-243. ADDENDUM: 09/26/24 [id number] Additional findings not included in the report below: Mildly enlarged nonspecific mediastinal and hilar lymph nodes are decreased since 08/15/2024. THIS REPORT CONTAINS FINDINGS THAT MAY BE CRITICAL TO PATIENT CARE. The findings and recommendations were personally verbally communicated via telephone conference with Pa. Zamudio at 6:52 PM CDT on 09/26/2024. The findings were acknowledged and understood. Laboratory Results WBC 6.85 10^3/uL (3.29-11.43) 09/26/24 09:55 RBC 4.55 10^6/uL (3.85-5.65) 09/26/24 09:55 Hgb 13.60 g/dL (11.27-16.99) 09/26/24 09:55 Hct 42.4 % (37-53) 09/26/24 09:55 MCV 93.2 fl (82-101) 09/26/24 09:55 MCH 29.9 pg (27-33) 09/26/24 09:55 MCHC 32.1 g/dL (30-55) 09/26/24 09:55 RDW 13.9 % (12.1-15.1) 09/26/24 09:55 Plt Count 172 10^3/cmm (157-399) 09/26/24 09:55 MPV 9.3 fL (7.4-10.4) 09/26/24 09:55 Neut % (Auto) 62.0 % 09/26/24 09:55 Lymph % (Auto) 23.5 % 09/26/24 09:55 Rogers % (Auto) 12.6 % 09/26/24 09:55 Eos % (Auto) 0.6 % 09/26/24 09:55 Baso % (Auto) 0.4 % 09/26/24 09:55 Neut # (Auto) 4.25 10^3/uL (1.8-7.7) 09/26/24 09:55 Lymph # (Auto) 1.6 10^3/uL (0.8-4.8) 09/26/24 09:55 Rogers # (Auto) 0.9 10^3/uL (0.2-0.9) 09/26/24 09:55 Eos # (Auto) 0.0 10^3/uL (0.0-0.8) 09/26/24 09:55 Baso # (Auto) 0.0 10^3/uL (0.0-0.1) 09/26/24 09:55 Nucleated RBC % (auto) 0 % 09/26/24 09:55 Nucleated RBCs # 0.0 /100WBC 09/26/24 09:55 D-Dimer 12.57 ug/mLFEU (0-0.59) H 09/26/24 09:55 Specimen Type Arterial 09/26/24 10:17 Sample Site Radial, left 09/26/24 10:17 ABG pH 7.50 (7.35-7.45) H 09/26/24 10:17 ABG pCO2 34.4 mmHg (35-45) L 09/26/24 10:17 ABG pO2 76.3 mmHg (80.0-100.0) L 09/26/24 10:17 ABG HCO3 27.0 mmol/L (22-26) H 09/26/24 10:17 ABG O2 Saturation 97.5 09/26/24 10:17 ABG Base Excess 4.1 mmol/L (-2.0-2.0) H 09/26/24 10:17 Yunior Test Pos 09/26/24 10:17 A-a O2 Gradient 3.8 mmHg (5-10) L 09/26/24 10:17 Hematocrit 41.5 % (42-52) L 09/26/24 10:17 Hgb O2 Saturation 95.9 % (95-100) 09/26/24 10:17 Carboxyhemoglobin 1.5 %THgb (0.4-20.1) 09/26/24 10:17 Methemoglobin 0.1 % (0.4-1.5) L 09/26/24 10:17 Total Hemoglobin 13.5 g/dL (14-18) L 09/26/24 10:17 Sodium 136.0 mmol/L (131-143) 09/26/24 10:17 Potassium 3.4 mmol/L (3.5-5.0) L 09/26/24 10:17 Glucose 129.0 mg/dL (70-115) H 09/26/24 10:17 Ionized Calcium 1.2 mmol/L (1.1-1.4) 09/26/24 10:17 O2 Delivery Device Nrb 09/26/24 10:17 Obiee Architect ID Amh 09/26/24 10:17 Sodium 138 mmol/L (136-145) 09/26/24 09:55 Potassium 3.8 mmol/L (3.5-5.1) 09/26/24 09:55 Chloride 98 mmol/L (98-107) 09/26/24 09:55 Carbon Dioxide 26 mmol/L (22-29) 09/26/24 09:55 Anion Gap 17.8 (5-19) 09/26/24 09:55 BUN 11 mg/dL (8-23) 09/26/24 09:55 Creatinine 1.0 mg/dL (0.7-1.2) 09/26/24 09:55 GFR Calculation Not Reportable 09/26/24 09:55 Glucose 123 mg/dL (65-115) H 09/26/24 09:55 Calculated Osmolality 287 mOsm/kg (285-295) 09/26/24 09:55 Lactic Acid 3.5 mmol/L (0.5-2.2) H 09/26/24 09:55 Lactic Acid (Sepsis) 1.2 mmol/L (0.5-2.2) 09/26/24 12:41 Calcium 8.4 mg/dL (8.5-10.5) L 09/26/24 09:55 Total Bilirubin 1.0 mg/dL (0.15-1.2) 09/26/24 09:55 AST 18 U/L (0-40) 09/26/24 09:55 ALT 16 U/L (0-41) 09/26/24 09:55 Alkaline Phosphatase 99 U/L (40-130) 09/26/24 09:55 Troponin T Baseline 28 ng/L (0-15) H 09/26/24 09:55 Troponin T 120 Minute 27.65 ng/L (0-15) H 09/26/24 11:04 Delta Troponin T -0.35 ABS# (0-10) L 09/26/24 11:04 Troponin T Hi Sens 6Hr 22.23 ng/L (0-15) H 09/26/24 16:08 Troponin T Hi Sens 6Hr Delta -5.77 ng/L (0-12) L 09/26/24 16:08 NT-Pro-B Natriuret Pep 371 pg/mL (0-450) 09/26/24 09:55 Total Protein 6.1 g/dL (6.6-8.7) L 09/26/24 09:55 Albumin 3.4 g/dL (3.5-5.2) L 09/26/24 09:55 Globulin 2.7 g/dL (1.3-4.6) 09/26/24 09:55 Procalcitonin 0.14 ng/mL (0-0.5) 09/26/24 09:55 Influenza A (PCR) Negative (Negative) 09/26/24 12:00 Influenza Type B (PCR) Negative (Negative) 09/26/24 12:00 RSV (PCR) Negative (Negative) 09/26/24 12:00 SARS-CoV-2 (PCR) Negative (Negative) 09/26/24 12:00 Discharge Plan Discharge Patient Disposition: Xfer Short-Term Hosp Clinical Impression: End stage COPD, Chronic hypoxic respiratory failure, on home oxygen therapy Condition: Stable Referrals: Tonja Marshall FNP [Primary Care Provider] - Print Language: Iraqi Sign Out Sign Out Data: Patient Sign Out occurred on 09/26/24 at 17:06. Patient's care was discussed, and care was transferred from MARSHALL Mcdaniel to MARSHALL Zuluaga. Coding Level of Care Code ED Chartered Wealth Manager for Jitendra Abad
--- NOTE | 2024-09-26 09:51 | CT_ITS ---
WS: [id number] CT HEAD NONCONTRAST HISTORY: fall/struck head TECHNIQUE: Contiguous axial imaging performed through the brain. Bone and soft tissue windows. Sagittal and coronal reformats reviewed. All CT scans at [facility] use at least one of these dose optimization techniques: automated exposure control; mA and/or kV adjustment per patient size (includes targeted exams where dose is matched to clinical indication); or iterative reconstruction. DLP: 1211.40 mGy.cm COMPARISON: 08/15/2024 No acute intracranial hemorrhage, midline shift or mass effect. Moderate atrophy and severe small vessel ischemic change changes confluent throughout the white matter. Prior bilateral thalamic infarcts. Mild cerebellar atrophy. Ventricles: Ventricles are mildly dilated. Similar to the prior study. Paranasal sinuses: As visualized are clear. Mastoid air cells: Well pneumatized. Calvarium and scalp: Skull is intact with no soft tissue edema or swelling. CT/CT head wo con* [id number] IMPRESSION: 1. No acute intracranial hemorrhage or edema. 2. Moderate atrophy with severe small vessel ischemic disease. 3. Bilateral thalamic lacunar infarcts, chronic. 4. No skull fracture.
--- NOTE | 2024-09-26 09:52 | PC.PHAR ---
PATIENT IS [facility]
[2024-09-26 10:01] LABS: Basophils % 0.4 %; Eosinophils % 0.6 %; Hematocrit 42.4 % (37-53); Lymphocytes # 1.6 10^3/uL (0.8-4.8); Lymphocytes % 23.5 %; Mean Corpuscular HGB Conc 32.1 g/dL (30-55); Mean Corpuscular Hemoglobin 29.9 pg (27-33); Mean Corpuscular Volume 93.2 fl (82-101); Mean Platelet Volume 9.3 fL (7.4-10.4); Monocytes # 0.9 10^3/uL (0.2-0.9); Monocytes % 12.6 %; Neutrophils # 4.25 10^3/uL (1.8-7.7); Nucleated Red Blood Cells % 0 %; Platelet Count 172 10^3/cmm (157-399); Red Blood Count 4.55 10^6/uL (3.85-5.65); Red Cell Distribution Width 13.9 % (12.1-15.1); White Blood Count 6.85 10^3/uL (3.29-11.43)
[2024-09-26] MEDS: ipratropium-albuterol 3 mL Neb INHALATION (10:02)
[2024-09-26] MEDS: methylPREDNISolone sod succ 125 mg/2 mL INJ IVP (10:02)
[2024-09-26 10:18] LABS: Lactic Sepsis W/Reflex 3.5 mmol/L (0.5-2.2)
[2024-09-26 10:19] LABS: Troponin(5th) Baseline 28 ng/L (0-15)
[2024-09-26 10:28] LABS: ABG PCO2 34.4 mmHg (35-45); Alveolar-Arterial Oxygen Gradi 3.8 mmHg (5-10); Arterial Blood Gas Hematocrit 41.5 % (42-52); Base Excess ABG 4.1 mmol/L (-2.0-2.0); Blood Gas Allen Test Pos; Blood Gas Operator Identificat AMH; Blood Gas Sample Site Radial, left; Blood Gas Sample Type Arterial; Carboxyhemoglobin 1.5 %THgb (0.4-20.1); HGB O2 Sat 95.9 % (95-100); Ionized Calcium Level - ABG 1.2 mmol/L (1.1-1.4); Methemoglobin 0.1 % (0.4-1.5); Oxygen Device NRB; Oxygen Saturation ABG 97.5; PO2 ABG 76.3 mmHg (80.0-100.0); Potassium Level - ABG 3.4 mmol/L (3.5-5.0); Total Hemoglobin 13.5 g/dL (14-18)
[2024-09-26 10:29] LABS: NT Pro B Type Natriuretic Pept 371 pg/mL (0-450); Procalcitonin 0.14 ng/mL (0-0.5)
[2024-09-26 10:40] LABS: Alanine Aminotransferase 16 U/L (0-41); Albumin Level 3.4 g/dL (3.5-5.2); Alkaline Phosphatase 99 U/L (40-130); Anion Gap 17.8 (5-19); Aspartate Amino Transferase 18 U/L (0-40); Blood Urea Nitrogen 11 mg/dL (8-23); Calcium 8.4 mg/dL (8.5-10.5); Carbon Dioxide 26 mmol/L (22-29); Chloride 98 mmol/L (98-107); Creatinine Clr Calc Pharmacy 67.1222; Globulin 2.7 g/dL (1.3-4.6); Glucose 123 mg/dL (65-115); Osmolality Calculated 287 mOsm/kg (285-295); Potassium 3.8 mmol/L (3.5-5.1); Sodium 138 mmol/L (136-145); Total Protein 6.1 g/dL (6.6-8.7)
[2024-09-26] MEDS: sodium chloride 0.9% 2,328 ML 2328 ML IV (11:22)
[2024-09-26 11:31] LABS: Troponin 5 2HR 27.65 ng/L (0-15)
--- NOTE | 2024-09-26 11:37 | PC.PHAR ---
last order was discontinued for eliquis 5mg by DIANA loredo on 09/20/24 not to sure how or who that could be but patient confirmed it and thinks he still takes it, added back into profile
[2024-09-26] MEDS: piperacillin-tazobactam 3.375 GM in sodium chloride 0.9% (plus) 50 ML IV ×2 (11:39→19:41)
[2024-09-26] MEDS: vancomycin 1,250 MG/250 ML PIGGYBACK 166.67 MG IV (11:41)
[2024-09-26 11:46] LABS: Reflex Lactate Order REFLEX LACTIC ORDERD
--- NOTE | 2024-09-26 11:47 | ECG_ITS ---
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 Measurements Intervals [place] Rate: 93 P: 41 ME: 181 QRS: 19 QRSD: 86 T: 73 QT: 353 QTc: 440 Interpretive Statements SINUS RHYTHM Compared to ECG 09/26/2024 09:35:51 Indeterminate axis no longer present Electronically Signed On 09-26-2024 19:26:54 CDT by Yasir Bobby M.D. [id number] [id number]
[2024-09-26 11:50] LABS: Troponin 5 2HR Delta -0.35 ABS# (0-10)
[2024-09-26 12:48] LABS: Influenza A NEGATIVE (Negative); Influenza B NEGATIVE (Negative); Respiratory Syncytial Virus Ce NEGATIVE (Negative); SARS-CoV-2 PCR NEGATIVE (Negative)
[2024-09-26 13:04] LABS: Lactic Acid level (Lactate) 1.2 mmol/L (0.5-2.2)
--- NOTE | 2024-09-26 15:05 | ECG_ITS ---
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 Measurements Intervals [place] Rate: 99 P: 0 OH: 0 QRS: 107 QRSD: 81 T: 42 QT: 338 QTc: 435 Interpretive Statements ATRIAL FIBRILLATION with occasional PVCs RIGHT AXIS DEVIATION [QRS AXIS > 100] LOW QRS VOLTAGE IN PRECORDIAL LEADS [QRS DEFLECTION < 1.0 mV IN CHEST LEADS] Compared to ECG 09/26/2024 11:47:50 Right-axis deviation now present Low QRS voltage now present Sinus rhythm no longer present Electronically Signed On 09-26-2024 19:25:01 CDT by Yasir Bobby M.D. [email or web address] [id number]
--- NOTE | 2024-09-26 16:34 | CTR_ITS ---
PROCEDURE INFORMATION: Exam: CTA Chest With Contrast Exam date and time: 09/26/2024 6:02 PM Age: 79 years old Clinical indication: Dyspnea; Additional info: Worsening dyspnea TECHNIQUE: Imaging protocol: Computed tomographic angiography of the chest with contrast. Exam focused on the arteries. 3D rendering (Not supervised by radiologist): MIP and/or 3D reconstructed images were created by the technologist. Radiation optimization: All CT scans at this facility use at least one of these dose optimization techniques: automated exposure control; mA and/or kV adjustment per patient size (includes targeted exams where dose is matched to clinical indication); or iterative reconstruction. Contrast material: OMNIPAQUE 350; Contrast volume: 100 ml; Contrast route: INTRAVENOUS (IV); COMPARISON: CT angio chest PE protcl [id number] 08/15/2024 7:31 AM RADIATION DOSE METRICS: Total DLP (mGy-cm): 476.11 FINDINGS: Pulmonary arteries: Subsegmental pulmonary emboli are suspected in the inferior left lower lobe and lingula. There is nonocclusive thrombus in the distal right pulmonary artery extending into upper and lower lobar and segmental arteries. There is occlusive thrombus throughout the right lower lobe are basal segmental pulmonary arteries. Aorta: There is moderate aortic atherosclerotic disease. Lungs: There is subsegmental atelectasis in the lung bases. There is a noncalcified pulmonary nodule in the left upper lobe visible on series 6, image 16 measuring 7 mm, not visible on the prior CT. There is a noncalcified pulmonary nodule in the left lower lobe visible on series 6, image 27 measuring 9 mm, obscured on the prior CT. Pleural spaces: There is no pleural effusion or pneumothorax. Heart: Heart size is normal. Heart RV/LV ratio: 1.2 (abnormal) Lymph nodes: There is no mediastinal or hilar lymphadenopathy. Bones/joints: There is a chronic fracture of the distal right clavicle. No acute osseous findings. Soft tissues: The extrathoracic soft tissues are unremarkable. CT/CT angio chest PE protcl [id number] IMPRESSION: 1. Pulmonary embolism. Moderate clot burden. Progressive since 08/15/2024. 2. Abnormal RV/LV ratio consistent with right heart strain. 3. Left lower lobe consolidation visible on the prior CT has resolved. 4. Left lung nodules measuring up to 8 mm, obscured on the prior. For patients at low risk (minimal or absent history of smoking and of other known risk factors), recommend CT Chest at 3-6 months, then consider CT Chest at 18-24 months. For patients at high risk (history of smoking or of other known risk factors), recommend CT Chest at 3-6 months, then CT Chest at 18-24 months. (Reference: Maksim) REFERENCES: Maksim Terry, et al. Guidelines for Management of Incidental Pulmonary Nodules Detected on CT Images: From the Fleischner Society 2017. Radiology. 2017;284(1):228-243.
[2024-09-26 16:37] LABS: Troponin 5 6HR 22.23 ng/L (0-15)
[2024-09-26 16:40] LABS: Troponin 5 6HR Delta -5.77 ng/L (0-12)
--- NOTE | 2024-09-26 16:50 | PM.CONSULT ---
Providers/Reason For Consult Primary Care Provider: BRADEN Rosas History of Present Illness History of Present Illness Benny Burch is a 79 year old male Medications/Allergies Home Medications ?Medication ?Instructions ?Recorded ?Confirmed ?Last Taken ?Type aspirin 81 mg tablet,delayed 81 mg PO DAILY@11 03/06/20 09/26/24 09/26/24 History release (Adult Aspirin Regimen) simvastatin 80 mg tablet 40 mg PO QPM 03/06/20 09/26/24 09/25/24 History trazodone 100 mg tablet 100 mg PO BEDTIME PRN Sleep 03/06/20 09/26/24 09/25/24 History cholecalciferol (vitamin D3) 125 125 mcg PO DAILY 04/22/21 09/26/24 09/26/24 History mcg (5,000 unit) tablet (Vitamin D3) albuterol sulfate 90 mcg/actuation 2 puff inhalation QID PRN 12/22/22 09/26/24 1 Day Ago Rx aerosol inhaler (Ventolin HFA) Shortness Of Breath #18 grams ~01/14/24 alprazolam 0.5 mg tablet (Xanax) 0.5 mg PO BID PRN anxiety #60 tabs 10/28/23 09/26/24 09/26/24 Rx budesonide 160 mcg-glycopyr 9 2 inh inhalation BID 90 days #32.1 01/06/24 09/26/24 09/26/24 Rx mcg-formot 4.8 mcg/actuation HFA grams inhaler (Breztri Aerosphere) guaifenesin 100 mg/5 mL oral liquid 200 mg PO Q4H PRN Congestion 08/15/24 09/26/24 08/29/24 History metformin 1,000 mg tablet 1,000 mg PO BIDWMEAL 08/15/24 09/26/24 09/26/24 History montelukast 10 mg tablet 10 mg PO QPM 08/15/24 09/26/24 09/25/24 History (Singulair) tramadol 50 mg tablet 50 mg PO TID PRN Pain 08/15/24 09/26/24 09/26/24 History budesonide 0.5 mg/2 mL suspension 0.5 mg (2 mL) inhalation 09/04/24 09/26/24 09/26/24 Rx for nebulization BID.RESPIRATORY #60 mL dapagliflozin propanediol 10 mg 10 mg PO DAILY #30 tabs 09/04/24 09/26/24 09/26/24 Rx tablet (Farxiga) furosemide 20 mg tablet (Lasix) 20 mg PO QAM #30 tabs 09/04/24 09/26/24 09/26/24 Rx ipratropium 0.5 mg-albuterol 3 mg 3 ml inhalation Q8H wheezing 30 09/04/24 09/26/24 Unknown Rx (2.5 mg base)/3 mL nebulization days #360 mL soln apixaban 5 mg tablet (Eliquis) 5 mg PO BID 09/26/24 09/26/24 09/26/24 History prednisone 5 mg tablet 5 mg PO DAILY 09/26/24 09/26/24 Unknown History Allergies Allergy/AdvReac Type Severity Reaction Status Date / Time No Known Allergies Allergy Verified 08/14/24 23:37 PFSH Acute PFSH: Medical History Pulmonary embolism Mediastinal lymphadenopathy Diaphragm dysfunction Shortness of breath Polycythemia Chronic respiratory failure with hypoxia Secondary polycythemia Pulmonary hypertension Hilar lymphadenopathy Hypoxia Acute exacerbation of chronic obstructive airways disease Anxiety Hyperlipidemia Insomnia Type 2 diabetes mellitus Chronic obstructive pulmonary disease Surgical History Hx of tonsillectomy Family History Other Healthy adult Social History Smoking and tobacco/nicotine status: former use of tobacco/nicotine Quit status (tobacco/nicotine): has quit using Year quit tobacco: 1999 - 1PPD x 20 Years Second hand smoke exposure: No Alcohol intake: never Substance/Drug Use: never Lives independently: Yes Household members: none Marital status: Number of children: 2 service: Yes Current occupational status: employed 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 Pets and animals: Yes Do you think of yourself as: Straight/Heterosexual Current gender identity: Male Vitals/I&O/Wt Last Vital Signs Temp 98.2 F 09/26/24 09:40 Pulse 108 H 09/26/24 15:08 Resp 24 H 09/26/24 15:08 BP 130/60 09/26/24 15:08 Pulse Ox 90 09/26/24 15:08 O2 Del Method Nasal Cannula 09/26/24 10:11 O2 Flow Rate 8 09/26/24 10:11 Weight last 48 hrs Weight 78.471 kg Physical Exam Narrative: General: No acute distress, AO x3 HEENT: PERRLA, pupils bilaterally equal and reactive Chest: Normal vesicular breath sounds, no added sounds, equal good air entry bilaterally CVS: S1-S2 regular, no murmurs, no tachycardia, no gallops, no rubs Abdomen: Soft, nontender, no organomegaly, bowel sounds present Neuro: No focal deficits, no facial deformity, AO x3, power 5/5 in all limbs Data 09/26/24 09:55 09/26/24 09:55 Micro: Microbiology 09/26/24 11:04 Blood Culture - Preliminary Blood SPECIMEN COLLECTED 09/26/24 10:59 Blood Culture - Preliminary Blood SPECIMEN COLLECTED A&P Assessment and plan (1) Acute hypoxic respiratory failure: (2) Chronic hypoxic respiratory failure, on home oxygen therapy: (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 The critical care time is as shown. This time is in addition to time spent performing any reported procedures but includes the following: [x] Data and vital sign review and interpretation [x] Patient assessment, examination and intervention [x] Documentation [x] Medication orders and management Critical Care Time (min): 90 Coding Level of Care Code Critical Care >/= 30 minutes Critical care time (in minutes): 90 The high probability of a clinically significant, sudden or life threatening deterioration, as referenced in this documentation, required my full and direct attention, intervention and personal management. The critical care time shown is in addition to time spent performing any reported separately billable procedures and includes the following: [x] Data and vital sign review and interpretation [x] Patient assessment, examination and intervention [x] Medication orders and management [x] Patient/Family updates as able [x] Care Coordination and Documentation. Other Coding Information This patient has a high probability of clinically significant, sudden or life threatening deterioration of the patient's (neurological/pulmonary/cardiac/renal/ID/endocrine) systems required my full, direct attention, the highest level of physician preparedness for urgent intervention and personal management. I managed/supervised life or organ supporting interventions that required frequent physician assessment. I devoted my full attention in the ICU to the direct care of this patient for the period of time indicated above. Time I spent with family or surrogate(s) is included only if the patient was incapable of providing necessary information or participating in decision making. This time includes the following services provided: Telemetry review Non-mechanical ventilation Hemodynamic interpretation, assessment and management Review and interpretation of CXR Review and interpretation of lab values Review and interpretation of microbiologic data and culture results Review of medications and administration Review and interpretation of Nutrition requirements and management Discussion of management with other consultants and services Clinical update to family members Diagnoses Acute hypoxic respiratory failure J96.01 Chronic hypoxic respiratory failure, on home oxygen therapy J96.11; Z99.81 Combined pulmonary fibrosis and emphysema (CPFE) J43.9; J84.10 Pulmonary embolism I26.99 Progressive pulmonary hypertension I27.20
[2024-09-26 17:21] LABS: D Dimer 12.57 ug/mLFEU (0-0.59)
[2024-09-26] MEDS: ipratropium 0.5 mg/2.5 mL Neb INHALATION (17:27)
[2024-09-26] MEDS: levalbuterol 0.63 mg/3 mL Neb INHALATION (17:27)
[2024-09-26] MEDS: azithromycin 250 mg Tablet 500 MG PO (17:49)
[2024-09-26] MEDS: montelukast sodium 10 mg Tablet PO (17:50)
[2024-09-26] MEDS: atorvastatin 40 mg Tablet PO (17:50)
[2024-09-26] MEDS: FUROsemide 10 mg/mL SDV 4mL 40 MG IVP (17:51)
[2024-09-26] MEDS: methylPREDNISolone sod succ 40 mg/mL INJ IVP (17:53)
--- NOTE | 2024-09-26 18:12 | PM.HP ---
Providers/Chief Complaint Primary Care Provider: BRADEN Rosas Chief Complaint: Resp Distress History of Present Illness Benny Burch is a 79 year old male with past medical history of gold D class COPD, pulmonary fibrosis with emphysema, chronic hypoxic respiratory failure on 7 to 8 L of oxygen supplementation, pulmonary embolism, pulmonary hypertension, bilateral hilar lymphadenopathy presents to the ER today because of difficulty in breathing which has been getting worse for last 1 week to 10 days with saturation falling down to mid to high 70s on 7 L. Patient also had a fall few days ago and he hit his head. Today he started having headaches weakness got concerned and came to the ER. In the ER he was found to have saturations running in high 70s on 8 L NC was placed on nonrebreather mask. Saturating in the low 90s to high. Heart rate of 115 bpm. During conversation he was transitioned to heated high flow of 50 L 57% saturating 90 to 92%. Patient is complaining of occasional dizziness and chest pain. Daily breath. Denies any fever or sick contacts. Review of Systems General: Reports: 10 or more systems reviewed and unremarkable except in HPI and below Const: Denies: fever(s), chills, body aches, change in appetite, change in weight, malaise, night sweats, diaphoresis, change in sleep pattern, daytime sleepiness or snoring Eyes: Denies: change in vision, blurry vision, photophobia, eye discomfort or eye discharge ENMT: Denies: throat pain, enlarged tonsils, hoarseness, mouth pain, oral sores, dry mouth, tinnitus, nasal congestion or post nasal drip Card: Denies: chest pain, palpitations, irregular heart rhythm, edema, swelling of feet/ankles, lightheadedness, syncope, pre-syncope, dyspnea on exertion, orthopnea, leg pain with exertion or acrocyanosis Resp: Denies: dyspnea, productive cough, non-productive cough, wheezing, stridor, pain on inspiration, change in phlegm color, hemoptysis or chest congestion GI: Denies: abdominal pain, nausea, vomiting, hematemesis, coffee ground emesis, dysphagia, heartburn, diarrhea, constipation, bloating, GI cramping, change in bowel habits, pain on defecation, hematochezia or melena : Denies: flank pain, difficulty urinating, dysuria, urinary frequency, urinary urgency, urinary hesitancy, urinary dribbling, difficulty starting urination, change in urine stream, nocturia or hematuria Musc: Denies: neck pain, back pain, extremity pain, joint pain, joint swelling, joint redness, joint stiffness or limited range of motion Neuro: Denies: headache(s), numbness in extremities, weakness in extremities, sensory changes, lack of coordination, difficulty walking, frequent falls, dizziness, vertigo, confusion, Slurred speech present, difficulty communicating thoughts or seizure-like activity Psych: Denies: anxiety, depression, mood swings, panic attacks, hopelessness or irritability Endo: Denies: polyuria, polydipsia, tired all the time, cold intolerance, excessive sweating, flushing or heat intolerance True/Lymph: Denies: easy bruising or easy bleeding All/Imm: Denies: tongue swelling, facial swelling or acute wheezing Medications/Allergies Home Medications ?Medication ?Instructions ?Recorded ?Confirmed ?Last Taken ?Type aspirin 81 mg tablet,delayed 81 mg PO DAILY@11 03/06/20 09/26/24 09/26/24 History release (Adult Aspirin Regimen) simvastatin 80 mg tablet 40 mg PO QPM 03/06/20 09/26/24 09/25/24 History trazodone 100 mg tablet 100 mg PO BEDTIME PRN Sleep 03/06/20 09/26/24 09/25/24 History cholecalciferol (vitamin D3) 125 125 mcg PO DAILY 04/22/21 09/26/24 09/26/24 History mcg (5,000 unit) tablet (Vitamin D3) albuterol sulfate 90 mcg/actuation 2 puff inhalation QID PRN 12/22/22 09/26/24 1 Day Ago Rx aerosol inhaler (Ventolin HFA) Shortness Of Breath #18 grams ~01/14/24 alprazolam 0.5 mg tablet (Xanax) 0.5 mg PO BID PRN anxiety #60 tabs 10/28/23 09/26/24 09/26/24 Rx budesonide 160 mcg-glycopyr 9 2 inh inhalation BID 90 days #32.1 01/06/24 09/26/24 09/26/24 Rx mcg-formot 4.8 mcg/actuation HFA grams inhaler (Breztri Aerosphere) guaifenesin 100 mg/5 mL oral liquid 200 mg PO Q4H PRN Congestion 08/15/24 09/26/24 08/29/24 History metformin 1,000 mg tablet 1,000 mg PO BIDWMEAL 08/15/24 09/26/24 09/26/24 History montelukast 10 mg tablet 10 mg PO QPM 08/15/24 09/26/24 09/25/24 History (Singulair) tramadol 50 mg tablet 50 mg PO TID PRN Pain 08/15/24 09/26/24 09/26/24 History budesonide 0.5 mg/2 mL suspension 0.5 mg (2 mL) inhalation 09/04/24 09/26/24 09/26/24 Rx for nebulization BID.RESPIRATORY #60 mL dapagliflozin propanediol 10 mg 10 mg PO DAILY #30 tabs 09/04/24 09/26/24 09/26/24 Rx tablet (Farxiga) furosemide 20 mg tablet (Lasix) 20 mg PO QAM #30 tabs 09/04/24 09/26/24 09/26/24 Rx ipratropium 0.5 mg-albuterol 3 mg 3 ml inhalation Q8H wheezing 30 09/04/24 09/26/24 Unknown Rx (2.5 mg base)/3 mL nebulization days #360 mL soln apixaban 5 mg tablet (Eliquis) 5 mg PO BID 09/26/24 09/26/24 09/26/24 History prednisone 5 mg tablet 5 mg PO DAILY 09/26/24 09/26/24 Unknown History Allergies Allergy/AdvReac Type Severity Reaction Status Date / Time No Known Allergies Allergy Verified 08/14/24 23:37 PFSH Acute PFSH: Medical History Pulmonary embolism Mediastinal lymphadenopathy Diaphragm dysfunction Shortness of breath Polycythemia Chronic respiratory failure with hypoxia Secondary polycythemia Pulmonary hypertension Hilar lymphadenopathy Hypoxia Acute exacerbation of chronic obstructive airways disease Anxiety Hyperlipidemia Insomnia Type 2 diabetes mellitus Chronic obstructive pulmonary disease Surgical History Hx of tonsillectomy Family History Other Healthy adult Social History Smoking and tobacco/nicotine status: former use of tobacco/nicotine Quit status (tobacco/nicotine): has quit using Year quit tobacco: 1999 - 1PPD x 20 Years Second hand smoke exposure: No Alcohol intake: never Substance/Drug Use: never Lives independently: Yes Household members: none Marital status: Number of children: 2 service: Yes Current occupational status: employed 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 Pets and animals: Yes Do you think of yourself as: Straight/Heterosexual Current gender identity: Male Vitals/I&O/Wt Last Vital Signs Temp 98.2 F 09/26/24 09:40 Pulse 116 H 09/26/24 17:28 Resp 22 H 09/26/24 17:28 BP 130/60 09/26/24 15:08 Pulse Ox 92 09/26/24 17:28 O2 Del Method Nasal Cannula 09/26/24 10:11 O2 Flow Rate 50 09/26/24 17:28 FiO2 55 09/26/24 17:28 Weight last 48 hrs Weight 78.471 kg Physical Exam Narrative: General: No acute distress, AO x3, tachypneic, tachycardic, sick appearing HEENT: PERRLA, pupils bilaterally equal and reactive Chest: Bilateral bronchial breath sounds over lower lung cisneros with rhonchi, decreased air entry all over lung cisneros CVS: S1-S2 regular, no murmurs, no tachycardia, no gallops, no rubs Abdomen: Soft, nontender, no organomegaly, bowel sounds present Neuro: No focal deficits, no facial deformity, AO x3, power 5/5 in all limbs Data 09/26/24 09:55 09/26/24 09:55 Micro: Microbiology 09/26/24 11:04 Blood Culture - Preliminary Blood SPECIMEN COLLECTED 09/26/24 10:59 Blood Culture - Preliminary Blood SPECIMEN COLLECTED A&P Assessment and plan (1) Acute hypoxic respiratory failure: (2) Chronic hypoxic respiratory failure, on home oxygen therapy: (3) Combined pulmonary fibrosis and emphysema (CPFE): (4) End stage COPD: (5) Progressive pulmonary hypertension: (6) Pulmonary embolism: Plan 79-year-old with advanced end-stage COPD, chronic pulmonary fibrosis with emphysema, recent pulmonary embolism chronically on 7 L presents with hypoxia with saturation down to 70s requiring heated high flow found to be tachypneic and tachycardic. Acute on chronic hypoxic respiratory failure: Most likely in setting of COPD exacerbation with baseline chronic pulmonary fibrosis and emphysema. Patient does have history of recent pulmonary embolism. Oxygen supplementation keeping saturation over 85 to 88%. Pulmicort twice daily, ipratropium, Xopenex every 4 hours. Solu-Medrol 40 mg every 6 hour. Check D-dimer. If D-dimer is elevated we will plan for CTA. He did have significant PE recently. Check sputum culture. Empirically start on IV Zosyn and oral azithromycin though chances of superimposed bacterial infection is very low but as patient is critically sick for now would go ahead and start the antibiotics. If remains afebrile for next 24 hours can de-escalate. Appreciate recent echocardiogram. Concern for diastolic heart failure. IV Lasix 40 mg one-time. Fluid restriction to less than 1500 cc. Strict input output charting, daily weights. Watch for contraction alkalosis. Type 2 diabetes mellitus: Sliding scale. CODE STATUS: Discussed in detail with the patient. We discussed that unfortunately given his advanced COPD if he ends up on a mechanical ventilator there is a high chance that he will be ventilator dependent or might even need tracheostomy. Patient verbalized understanding and does not want to be on mechanical ventilator. He is okay with chest compressions if needed. CODE STATUS changed to limited resuscitation. Mechanical soft diet For now Eliquis would be sufficient for DVT prophylaxis Protonix OPD prophylaxis. Patient is advanced COPD at the end stage, pulmonary fibrosis with emphysema with concern for worsening pulmonary hypertension, pulmonary embolism coming in with respiratory failure requiring high oxygen supplementation. Patient would need a rhythmic gymnastics coach given his advanced disease, requirement of high oxygen supplementation with possible need for treatment for pulmonary hypertension. In the past he has been told that he probably would need endobronchial valve. It would be better for patient to be taken care of at a hospital where rhythmic gymnastics coach is available. Would advise patient to be transferred before admission to a tertiary center where pulmonary services available. We discussed in detail with the patient at bedside as well that he is extremely sick because of his chronic condition and there is a high chance of him not recovering given his advanced disease and he does need to have pulmonary team on board for possible recovery. We did discuss that even with treatment there is a chance that he might not recover. Patient verbalizes understanding and wants to give himself maximum chance for recovery as possible and is agreeable for transfer. Have advised ER team to go ahead and look for transfer to tertiary center as possible. PDMP PDMP Reviewed: Not Reviewed Attestations Medical Necessity Statement*: Patient requires transfer to a tertiary center for pulmonary service given acute on chronic hypoxic respiratory failure, end-stage COPD with pulmonary fibrosis and emphysema, significant pulmonary embolism. Critical Care Time: The high probability of a clinically significant, sudden or life threatening deterioration of the patient's [pulmonary, cardiac] system(s) required my full and direct attention, intervention and personal management. The critical care time is as shown. This time is in addition to time spent performing any reported procedures but includes the following: [x] Data and vital sign review and interpretation [x] Patient assessment, examination and intervention [x] Documentation [x] Medication orders and management Critical Care Time (min): 90 Coding Level of Care Code Critical Care >/= 30 minutes Critical care time (in minutes): 90 The high probability of a clinically significant, sudden or life threatening deterioration, as referenced in this documentation, required my full and direct attention, intervention and personal management. The critical care time shown is in addition to time spent performing any reported separately billable procedures and includes the following: [x] Data and vital sign review and interpretation [x] Patient assessment, examination and intervention [x] Medication orders and management [x] Patient/Family updates as able [x] Care Coordination and Documentation. Other Coding Information This patient has a high probability of clinically significant, sudden or life threatening deterioration of the patient's (neurological/pulmonary/cardiac/renal/ID/endocrine) systems required my full, direct attention, the highest level of physician preparedness for urgent intervention and personal management. I managed/supervised life or organ supporting interventions that required frequent physician assessment. I devoted my full attention in the ICU to the direct care of this patient for the period of time indicated above. Time I spent with family or surrogate(s) is included only if the patient was incapable of providing necessary information or participating in decision making. This time includes the following services provided: Telemetry review None mechanical ventilation Hemodynamic interpretation, assessment and management Review and interpretation of CXR Review and interpretation of lab values Review and interpretation of microbiologic data and culture results Review of medications and administration Review and interpretation of Nutrition requirements and management Discussion of management with other consultants and services Clinical update to family members Diagnoses Acute hypoxic respiratory failure J96.01 Chronic hypoxic respiratory failure, on home oxygen therapy J96.11; Z99.81 Combined pulmonary fibrosis and emphysema (CPFE) J43.9; J84.10 End stage COPD J44.9 Progressive pulmonary hypertension I27.20 Pulmonary embolism I26.99
[2024-09-26] MEDS: iohexol 350 mg/mL 500 mL Btl (per mL) IV (18:21)
[2024-09-26] MEDS: heparin drip 25,000 UNIT/500 ML PREMIX 22 UNIT IV (19:45)
[2024-09-26] MEDS: heparin 5,000 unit/mL INJ 1 mL IVP (19:45)
== END 2024-09-26 20:08 | disposition short-term general hospital (02) ==
PROVIDERS: Physician Assistant; Student in an Organized Health Care Education/Training Program; Emergency Provider Physician Assistant; PCP Nurse Practitioner
DX: J44.9 Chronic obstructive pulmonary disease, unspecified (principal); J96.11 Chronic respiratory failure with hypoxia; Z99.81 Dependence on supplemental oxygen; E11.9 Type 2 diabetes mellitus without complications; Z87.891 Personal history of nicotine dependence; Z11.52 Encounter for screening for COVID-19
CPT/HCPCS: 36415; 36600; 70450; 71045; 71275; 80051; 80053; 82330; 82805; 83605; 83880; 84145; 84484; 85025; 85378; 87040; 87637; 93005; 94640; 99285; J1644; J1940; J2543; J2919; J3370; J7030; J7614; J7644; J9999; Q0144

== ENCOUNTER → 2024-12-14 14:26 | Outpatient (BNVA) | payer OTHER, SELFPAY | PROVIDERS: PCP Nurse Practitioner; Referring Provider Nurse Practitioner; Visit Provider Nurse Practitioner Family | DX: M47.896 Other spondylosis, lumbar region (principal) | CPT/HCPCS: 72110 ==

== ENCOUNTER → 2024-12-20 14:11 | Outpatient (BNVA) | payer OTHER, SELFPAY | PROVIDERS: PCP Nurse Practitioner; Visit Provider Nurse Practitioner Family | DX: M79.10 Myalgia, unspecified site (principal); M54.16 Radiculopathy, lumbar region; G89.29 Other chronic pain | CPT/HCPCS: 20553; 99214; J1010; J3490 ==

== ENCOUNTER → 2025-01-11 12:49 | Outpatient (BNVA) | payer OTHER, SELFPAY | PROVIDERS: PCP Nurse Practitioner; Visit Provider Nurse Practitioner Family | DX: M54.16 Radiculopathy, lumbar region (principal); G89.29 Other chronic pain | CPT/HCPCS: 99214 ==

== ENCOUNTER → 2025-03-21 13:09 | Outpatient (BNVA) | payer OTHER, SELFPAY | PROVIDERS: PCP Nurse Practitioner; Visit Provider Nurse Practitioner Family | DX: M79.18 Myalgia, other site (principal); M54.16 Radiculopathy, lumbar region; G89.29 Other chronic pain | CPT/HCPCS: 20553; 99214; J1010; J3490 ==

== ENCOUNTER 2025-04-17 13:29 | Outpatient (CLI) | payer OTHER, SELFPAY ==
--- NOTE | 2025-04-17 13:37 | MM_ITS ---
WS: [id number] DIAGNOSTIC BILATERAL DIGITAL BREAST TOMOSYNTHESIS MAMMOGRAPHY WITH CAD LEFT breast ultrasound, limited. HISTORY: LUMP LT breast COMPARISON: None available. TECHNIQUE: Bilateral craniocaudad, mediolateral oblique, and mediolateral views are submitted with tomosynthesis and SM. Spot compression LEFT CC. Computer aided detection utilized. Breast composition: There are scattered areas of fibroglandular density. Increased subareolar density in the LEFT breast closely associated with the palpable marker. This is most consistent with gynecomastia. There is no obvious mass or distortion of soft tissues. There is no nipple retraction. No suspicious calcification within either breast. LEFT breast ultrasound, limited. No mass identified in the LEFT retroareolar region by ultrasound. No increased vascularity. MM/MM diag BI tomosynthesis [id number] IMPRESSION: BI-RADS: 2 - Benign. FOLLOW UP: See Report Very mild gynecomastia LEFT breast, retroareolar. Gynecomastia is only visualiz ed on the mammogram. Ultrasound is negative. No suspicious mass. No imaging follow-up necessary.
--- NOTE | 2025-04-17 13:40 | US_ITS ---
WS: [id number] DIAGNOSTIC BILATERAL DIGITAL BREAST TOMOSYNTHESIS MAMMOGRAPHY WITH CAD LEFT breast ultrasound, limited. HISTORY: LUMP LT breast COMPARISON: None available. TECHNIQUE: Bilateral craniocaudad, mediolateral oblique, and mediolateral views are submitted with tomosynthesis and SM. Spot compression LEFT CC. Computer aided detection utilized. Breast composition: There are scattered areas of fibroglandular density. Increased subareolar density in the LEFT breast closely associated with the palpable marker. This is most consistent with gynecomastia. There is no obvious mass or distortion of soft tissues. There is no nipple retraction. No suspicious calcification within either breast. LEFT breast ultrasound, limited. No mass identified in the LEFT retroareolar region by ultrasound. No increased vascularity. US/US breast LT limited* [id number] IMPRESSION: BI-RADS: 2 - Benign. FOLLOW UP: See Report Very mild gynecomastia LEFT breast, retroareolar. Gynecomastia is only visualiz ed on the mammogram. Ultrasound is negative. No suspicious mass. No imaging follow-up necessary.
== END 2025-04-17 13:30 | disposition home or self-care (01) ==
PROVIDERS: PCP Nurse Practitioner; Visit Provider Nurse Practitioner
DX: N62 Hypertrophy of breast (principal); R92.322 Mammographic fibroglandular density, left breast
CPT/HCPCS: 76642; 77062; G0279

== ENCOUNTER → 2025-05-01 13:41 | Outpatient (BNVA) | payer OTHER, SELFPAY | PROVIDERS: PCP Nurse Practitioner; Visit Provider Internal Medicine | DX: J96.11 Chronic respiratory failure with hypoxia (principal); Z99.81 Dependence on supplemental oxygen; J44.89 Other specified chronic obstructive pulmonary disease; R91.1 Solitary pulmonary nodule; J43.9 Emphysema, unspecified; Z86.711 Personal history of pulmonary embolism; Z79.01 Long term (current) use of anticoagulants; R91.8 Other nonspecific abnormal finding of lung field; Z87.891 Personal history of nicotine dependence | CPT/HCPCS: 99214; Q3014 ==

== ENCOUNTER 2025-05-04 14:05 | Outpatient (CLI) | payer OTHER, SELFPAY ==
--- NOTE | 2025-05-04 14:30 | PETR_ITS ---
PROCEDURE INFORMATION: Exam: PET/CT Skull Base to Mid-thigh Exam date and time: 05/04/2025 3:11 PM Age: 80 years old Clinical indication: Symptoms: Mediastinal lymphednopathy LABS AND CLINICAL REPORTS: Glucose: 103 mg/dl Treatment strategy for malignancy (PET staging): Initial Staging (PI) TECHNIQUE: Imaging protocol: Following at least four-hour fasting and following the injection of radiopharmaceutical, low dose CT images were obtained. Then, PET images were obtained. Attenuation corrected images were constructed using the CT scan. Fused images of PET and CT were reviewed. The standardized uptake values (SUV) reported below are maximum values within a region of interest, expressed in gm/ml. Exam includes orbital meatal line to mid-thigh. SUV normalization method: BodyWeight Radiopharmaceutical: 11.7 mCi F-18 FDG (Fluorodeoxyglucose), IV. Time of imaging post radiopharmaceutical administration: 55 minutes Injection site: RIGHT HAND COMPARISON: 1. PT PET Scan 05/17/2021 10:53 AM 2. Chest CTA dated 09/26/2024. 3. Chest CTA dated 08/15/2024. FINDINGS: Brain: Visualized brain has normal physiologic uptake. Pharynx: No abnormal uptake. Larynx: No abnormal uptake. Lungs, pleura and trachea: Resolution of previously noted left-sided pulmonary nodules. There is no abnormal uptake. Background of mild emphysema. Heart: Normal physiologic uptake. Severe coronary artery calcifications and mild aortic valvular calcifications. Mediastinal space: No abnormal uptake. Liver: No abnormal uptake. Gallbladder and biliary ducts: No abnormal uptake. Cholelithiasis. Pancreas: No abnormal uptake. Spleen: No abnormal uptake. Adrenal glands: No abnormal uptake. Kidneys and ureters: Normal physiologic uptake. Simple 1.5 cm left renal cyst. Stomach and bowel: No abnormal uptake. Colonic diverticulosis without evidence of diverticulitis. Vasculature: The vasculature demonstrates diffuse moderate atherosclerotic calcification. No aneurysm. Lymph nodes: Bilateral FDG avid hilar lymph nodes, maximum SUV 5.5 obtained from the right hilar region. Overall, lymph nodes appear decreased in size since 2023 and stable since the prior study from 09/26/2024. FDG uptake is slightly higher when compared to a prior PET-CT from 2020, although overall lymph nodes appear decreased in size. Skeleton: No abnormal uptake in the visualized axial and appendicular skeleton. Soft tissues: No abnormal uptake in the visualized head, neck, chest, abdomen, pelvis, and extremities. METRICS: Mediastinal blood pool: Mean SUV of 1.9 Liver uptake: Mean SUV of 2.5 PET/PET skull to thigh SUBS [id number] IMPRESSION: 1. Resolution of previously noted left-sided pulmonary nodules. No abnormal pulmonary uptake. 2. Bilateral FDG avid hilar lymph nodes with uptake slightly higher when compared to a prior PET-CT from 2020, although overall size is decreased. These remain indeterminate and may be reactive. 3. Background of pulmonary emphysema. 4. Severe coronary artery calcifications and mild aortic valvular calcifications.
== END 2025-05-04 14:06 | disposition home or self-care (01) ==
PROVIDERS: PCP Nurse Practitioner; Visit Provider Internal Medicine
DX: R91.8 Other nonspecific abnormal finding of lung field (principal); J43.8 Other emphysema; R91.1 Solitary pulmonary nodule; I25.84 Coronary atherosclerosis due to calcified coronary lesion; I35.8 Other nonrheumatic aortic valve disorders; K80.20 Calculus of gallbladder without cholecystitis without obstruction; K57.30 Diverticulosis of large intestine without perforation or abscess without bleeding; I70.8 Atherosclerosis of other arteries; R59.0 Localized enlarged lymph nodes
CPT/HCPCS: 78815; A9552

== ENCOUNTER → 2025-06-21 13:09 | Outpatient (BNVA) | payer OTHER, SELFPAY | PROVIDERS: PCP Nurse Practitioner; Visit Provider Nurse Practitioner Family | DX: J43.9 Emphysema, unspecified (principal); J96.11 Chronic respiratory failure with hypoxia; Z99.81 Dependence on supplemental oxygen; R91.1 Solitary pulmonary nodule; R91.8 Other nonspecific abnormal finding of lung field; R59.0 Localized enlarged lymph nodes; Z79.01 Long term (current) use of anticoagulants; Z86.711 Personal history of pulmonary embolism; Z87.891 Personal history of nicotine dependence; J44.9 Chronic obstructive pulmonary disease, unspecified | CPT/HCPCS: 20553; 99214; J1010; J3490; Q3014 ==

== ENCOUNTER → 2025-07-09 15:03 | Outpatient (BNVA) | payer OTHER, SELFPAY | PROVIDERS: PCP Nurse Practitioner; Visit Provider Nurse Practitioner Family | DX: M54.16 Radiculopathy, lumbar region (principal); M43.16 Spondylolisthesis, lumbar region | CPT/HCPCS: 99214 ==